=== PATIENT | female | born 1940 | race Caucasian/White ===

== ENCOUNTER → 2016-05-17 | Outpatient (CLI) | payer OTHER ==
[~2016-05-17] MED LIST: ADVIN25050 INH; ALBUAER2 INH; AMOX1TAB43 PO; ASPI81TA28 PO; CEVI30CA PO; CHOL100027 PO; CYAN10004 PO; DXM/4 PO; DXY100 PO; GLIM2TAB2 PO; LENA2.5C PO; LEVO75TA PO; MGNO400 PO; MISCCAP80 PO; NXM/40 PO; OLOP1DRO OP; OMEG10007 PO; POTA-74 PO; PREG1CAP28 PO; PTDOPS OPB; SPIR25TA PO; VNTHFA/IN INH; ZCRT/40 PO; ZOLE1INJ12 IV
[2016-05-17 17:11] LABS: BASO % 0.2 %; BASO ABS # 0.01 K/uL (0-0.2); COMPLETE YES; EOS % 1.1 %; HEMATOCRIT 35.2 % (37-47); IG% 0.2 %; LYMPH % 38.8 %; LYMPH ABS # 1.74 K/uL (1.2-3.4); MEAN CELL VOLUME 92.6 fL (80-100); MEAN CORPUSCULAR HEMOGLOBIN 31.1 pg (25-34); MEAN CORPUSCULAR HGB CONC 33.5 g/dl (32-36); MEAN PLATELET VOLUME 10.5 fL (7.4-10.4); NEUT % 51.7 %; PLATELET COUNT 156 K/uL (130-400); WHITE BLOOD COUNT 4.48 K/uL (4.8-10.8)
[2016-05-17 17:20] LABS: ALT/SGPT 23 U/L (12-78); AST/SGOT 15 U/L (15-37); BLOOD UREA NITROGEN 16 mg/dl (7-18); BUN/CREATININE RATIO 22.7 (10-20); CALCIUM 8.8 mg/dl (8.5-10.1); CARBON DIOXIDE 28 mmol/L (21-32); CHLORIDE 109 mmol/L (98-107); CREATININE 0.72 mg/dl (0.60-1.20); GLUCOSE 140 mg/dl (70-99); POTASSIUM 3.6 mmol/L (3.5-5.1); SODIUM 145 mmol/L (136-145)
[2016-05-17 17:32] LABS: ALB/GLOB RATIO 1.5 (0.9-2); ALKALINE PHOSPHATASE 54 U/L (45-117); THYROID STIMULATING HORMONE 0.788 uIu/ml (0.300-4.500)
[2016-05-18 05:54] LABS: ESTIMATED AVERAGE GLUCOSE 137 mg/dl; HA1C FLAG Normal (Normal)
[2016-05-19 15:17] LABS: FREE KAPPA 50.8 MG/L (3.3-19.4); FREE KAPPA/LAMBDA RATIO 6.96 (0.26-1.65); FREE LAMBDA 7.3 MG/L (5.7-26.3)
== END | disposition home or self-care (01) ==
LOC: C.LABBFT 11:39
PROVIDERS: ATTEND Internal Medicine Hematology & Oncology
DX: C90.00 Multiple myeloma not having achieved remission (principal); E11.49 Type 2 diabetes mellitus with other diabetic neurological complication; E03.9 Hypothyroidism, unspecified

== ENCOUNTER → 2016-06-02 | Outpatient (CLI) | payer OTHER ==
[2016-06-02 17:44] LABS: URINE APPEARANCE CLEAR (CLEAR); URINE BILIRUBIN NEG (NEG); URINE COLOR YELLOW; URINE NITRITE NEG (NEG); URINE SPECIFIC GRAVITY 1.031 (1.000-1.030); UROBILINOGEN NEG (NEG)
[2016-06-02 17:57] LABS: MANUAL MICROSCOPIC REQUIRED? NO; REVIEW REQ? NO
== END | disposition home or self-care (01) ==
LOC: C.LABBFT 16:47
PROVIDERS: ATTEND Internal Medicine
DX: R39.15 Urgency of urination (principal)

== ENCOUNTER → 2016-06-23 | Outpatient (CLI) | payer OTHER ==
[2016-06-23 12:37] LABS: COMPLETE YES; HEMATOCRIT 37.9 % (37-47); IG% 2.5 %; LYMPH ABS # 1.74 K/uL (1.2-3.4); MEAN CELL VOLUME 90.9 fL (80-100); MEAN CORPUSCULAR HEMOGLOBIN 31.2 pg (25-34); MEAN CORPUSCULAR HGB CONC 34.3 g/dl (32-36); MEAN PLATELET VOLUME 10.6 fL (7.4-10.4); MONO % 7.5 %; PLATELET COUNT 243 K/uL (130-400); RED BLOOD COUNT 4.17 M/uL (4.2-5.4)
[2016-06-23 13:08] LABS: ALKALINE PHOSPHATASE 74 U/L (45-117); ALT/SGPT 18 U/L (12-78); AST/SGOT 3 U/L (15-37); BLOOD UREA NITROGEN 35 mg/dl (7-18); BUN/CREATININE RATIO 31.5 (10-20); CALCIUM 9.1 mg/dl (8.5-10.1); CARBON DIOXIDE 24 mmol/L (21-32); CHLORIDE 103 mmol/L (98-107); GLUCOSE 375 mg/dl (70-99); SODIUM 140 mmol/L (136-145)
[2016-06-23 13:19] LABS: ALB/GLOB RATIO 1.1 (0.9-2); IMMUNOGLOBULN A 87.6 mg/dL (70-400)
[2016-06-23 13:30] LABS: BETA-HYDROXYBUTYRATE 1.48 mg/dL (0.2-2.81)
[2016-06-23 14:11] LABS: IMMUNOGLOBULN M 14.5 mg/dL (40-230)
[2016-06-26 10:03] LABS: FREE KAPPA 45.2 MG/L (3.3-19.4); FREE KAPPA/LAMBDA RATIO 5.45 (0.26-1.65); FREE LAMBDA 8.3 MG/L (5.7-26.3)
== END | disposition home or self-care (01) ==
LOC: C.LABBFT 09:01
PROVIDERS: ATTEND Internal Medicine Hematology & Oncology
DX: C90.00 Multiple myeloma not having achieved remission (principal)

== ENCOUNTER → 2016-07-11 | Outpatient (CLI) | payer OTHER ==
[2016-07-11 18:06] LABS: URINE APPEARANCE TURBID (CLEAR); URINE BILIRUBIN NEG (NEG); URINE COLOR YELLOW; URINE EPITHELIAL CELL AUTO >30 /lpf (0-5); URINE NITRITE POS (NEG); URINE PH 6.5 (4.5-7.5); URINE SPECIFIC GRAVITY 1.018 (1.000-1.030); UROBILINOGEN NEG (NEG)
[2016-07-11 18:21] LABS: MANUAL MICROSCOPIC REQUIRED? NO; REVIEW REQ? NO
== END | disposition home or self-care (01) ==
LOC: C.LABBFT 14:15
PROVIDERS: ATTEND Physician Assistant Medical
DX: R39.15 Urgency of urination (principal)

== ENCOUNTER → 2016-07-28 | Outpatient (CLI) | payer OTHER ==
--- NOTE | 2016-07-28 12:16 | DIAGNOSTIC IMAGING REPORT ---
SKELETAL SURVEY COMPLETE CLINICAL HISTORY: Multiple myeloma. COMPARISON STUDY: Skeletal survey dated 06/09/2015. 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 There is no evidence of progressive disease or pathologic fracture. The heart is enlarged. The lung parenchyma is clear as visualized. Spondylotic changes noted throughout the spine. Numerous pelvic flow was preserved. There is a nonobstructed abdominal bowel gas pattern noting significant constipation.An enchondroma is again suggested in the distal left femoral shaft. IMPRESSION: No significant change in the appearance of diffuse osteolytic metastatic disease as compared to 06/09/2015. Electronically signed by: Jose Weiss M.D. 07/28/2016 12:14 PM Dictated Date/Time: 07/28/2016 12:12 PM
== END | disposition home or self-care (01) ==
LOC: C.RAD 11:16
PROVIDERS: ATTEND Internal Medicine Hematology & Oncology
DX: C90.00 Multiple myeloma not having achieved remission (principal)

== ENCOUNTER → 2016-08-08 | Outpatient (CLI) | payer OTHER ==
[2016-08-08 17:28] LABS: BASO % 0.2 %; BASO ABS # 0.01 K/uL (0-0.2); COMPLETE YES; EOS % 2.6 %; HEMATOCRIT 33.2 % (37-47); IG% 1.7 %; LYMPH % 38.5 %; MEAN CELL VOLUME 90.5 fL (80-100); MEAN CORPUSCULAR HEMOGLOBIN 30.5 pg (25-34); MEAN CORPUSCULAR HGB CONC 33.7 g/dl (32-36); MEAN PLATELET VOLUME 9.9 fL (7.4-10.4); MONO % 9.1 %; NEUT % 47.9 %; PLATELET COUNT 177 K/uL (130-400); RED BLOOD COUNT 3.67 M/uL (4.2-5.4); WHITE BLOOD COUNT 4.16 K/uL (4.8-10.8)
[2016-08-08 17:38] LABS: ALT/SGPT 22 U/L (12-78); BLOOD UREA NITROGEN 22 mg/dl (7-18); BUN/CREATININE RATIO 30.6 (10-20); CALCIUM 8.5 mg/dl (8.5-10.1); CARBON DIOXIDE 27 mmol/L (21-32); CHLORIDE 109 mmol/L (98-107); CREATININE 0.73 mg/dl (0.60-1.20); GLUCOSE 149 mg/dl (70-99); POTASSIUM 3.5 mmol/L (3.5-5.1); SODIUM 145 mmol/L (136-145)
[2016-08-08 17:43] LABS: ALKALINE PHOSPHATASE 73 U/L (45-117); AST/SGOT 17 U/L (15-37)
[2016-08-10 10:51] LABS: FREE KAPPA 39.3 MG/L (3.3-19.4); FREE KAPPA/LAMBDA RATIO 3.25 (0.26-1.65); FREE LAMBDA 12.1 MG/L (5.7-26.3)
== END | disposition home or self-care (01) ==
LOC: C.LABBFT 14:46
PROVIDERS: ATTEND Internal Medicine Hematology & Oncology
DX: C90.00 Multiple myeloma not having achieved remission (principal)

== ENCOUNTER → 2016-08-28 | Outpatient (CLI) | payer OTHER | END | disposition home or self-care (01) | LOC: C.MAMM 11:23 | PROVIDERS: ATTEND Internal Medicine Hematology & Oncology | DX: C90.00 Multiple myeloma not having achieved remission (principal); M85.88 Other specified disorders of bone density and structure, other site; M85.851 Other specified disorders of bone density and structure, right thigh; M85.852 Other specified disorders of bone density and structure, left thigh ==

== ENCOUNTER 2016-09-19 22:14 | Inpatient (IN) | payer OTHER ==
[~2016-09-19] VITALS: Ht 152.4 cm; Wt 84.9 kg
[~2016-09-19 22:14] MED LIST changes: -AMOX1TAB43 PO; -DXY100 PO; -MGNO400 PO; -OLOP1DRO OP; -POTA-74 PO; -VNTHFA/IN INH
[2016-09-19] MEDS ORDERED: ACETAMINOPHEN 500 MG TAB PO STA (22:20)
[2016-09-19 22:33] LABS: HEMATOCRIT 34.1 % (37-47); MEAN CELL VOLUME 93.2 fL (80-100); MEAN CORPUSCULAR HEMOGLOBIN 31.7 pg (25-34); MEAN PLATELET VOLUME 10.3 fL (7.4-10.4); PLATELET COUNT 158 K/uL (130-400); RED BLOOD COUNT 3.66 M/uL (4.2-5.4); WHITE BLOOD COUNT 4.74 K/uL (4.8-10.8)
[2016-09-19] MEDS ORDERED: VNTHFA/IN INH (22:42)
[2016-09-19] MEDS ORDERED: OLOP1DRO OP (22:42)
[2016-09-19] MEDS ORDERED: PTDOPS OPB (22:43)
--- NOTE | 2016-09-19 22:45 | EMERGENCY ROOM VISIT NOTE ---
History Report prepared by Jerrod: Jess Mcnamara Under the Supervision of: Dr. Trevon Holman D.O. First contact with patient: 22:16 Chief Complaint: SHORTNESS OF BREATH Stated Complaint: SOB History of Present Illness The patient is a 76 year old female who presents to the Emergency Room via EMS with complaints of worsening shortness of breath starting about a week ago. She also complains of a low grade fever, nonproductive cough, and weakness. She does not wear oxygen at home. She has a history of bronchitis, pneumonia, lung biopsy, and multiple myeloma. She denies any chest pain, abdominal pain, urinary symptoms, blood in stool, or any other complaints. She did receive her flu shot this year. Source of History: patient Onset: about a week ago Position: other (global) Quality: other (shortness of breath) Timing: worsening Associated Symptoms: + cough, + fevers, + weakness, No abdominal pain, No chest pain, No urinary symptoms Review of Systems See HPI for pertinent positives and negatives. A total of ten systems were reviewed and were otherwise negative. Past Medical & Surgical Medical Problems: (1) Bronchitis (2) Hypertension (3) left ankle fracture 1994 (4) Lung biopsy 1999 (5) Multiple myeloma (6) Pneumonia (7) Sarcoidosis Family History FH: cancer FH: lung disease Social History Smoking Status: Never Smoker Marital Status: Housing Status: lives with family Current/Historical Medications Scheduled Aspirin (Aspirin Ec), 81 MG PO QAM Cevimeline Hcl (Evoxac), 30 MG PO BID Cholecalciferol (Vitamin D 1000 Unit), 5,000 INTER.UNIT PO QPM Cyanocobalamin (Vitamin B-12 1000 Mcg), 2,500 MCG PO MWF Esomeprazole Magnesium (Nexium), 40 MG PO QAM Fish Oil (Cresson-3), 1 CAP PO BID Fluticasone Prop/Salmeterol (Advair Diskus 250-50 Mcg/Dose), 1 PUFF INH BID Glimepiride (Glimepiride), 1 TAB PO QAM Lenalidomide (Revlimid), 5 MG PO UD Levothyroxine Sodium (Synthroid), 75 MCG PO QAM Olopatadine Hydrochloride (Pataday), 1 DROP OPB QAM Pregabalin (Lyrica), 150 MG PO QPM Probiotic Product (Probiotic), 1 TAB PO QAM Simvastatin (Zocor), 40 MG PO HS Zoledronic Acid (Zometa), 1 DOSE IV [id number] Scheduled PRN Albuterol Hfa (Ventolin Hfa), 2 PUFFS INH Q6H PRN for SOB/Wheezing Allergies Coded Allergies: Sulfa Antibiotics (Verified Allergy, Severe, RASH, 03/01/16) Latex1 -Allergic Contact Dermititis (Verified Allergy, Unknown, REDNESS, 03/01/16) Codeine (Verified Adverse Reaction, Intermediate, SPACED OUT, 03/01/16) Adhesives (Verified Adverse Reaction, Mild, BREAKS OUT, 03/01/16) Amoxicillin (Verified Adverse Reaction, Unknown, YEAST INFECTION, 03/01/16 ) Clavulanic Acid (Verified Adverse Reaction, Unknown, YEAST INFECTION, ) Physical Exam Vital Signs Date Time Temp Pulse Resp B/P Pulse Ox O2 Delivery O2 Flow Rate FiO2 09/19/16 22:55 95 Nasal Cannula 4.0 09/19/16 22:55 95 Nasal Cannula 4.0 09/19/16 22:44 94 Nasal Cannula 4.0 09/19/16 22:34 37.5 105 18 152/74 89 Room Air 09/19/16 22:34 89 Room Air 09/19/16 22:32 100 Physical Exam GENERAL: Awake, alert, well-appearing, in no distress HENT: Normocephalic, atraumatic. Oropharynx unremarkable. EYES: Normal conjunctiva. Sclera non-icteric. NECK: Supple. No nuchal rigidity. FROM. No JVD. RESPIRATORY: Clear to auscultation. CARDIAC: Regular rate, normal rhythm. Extremities warm and well perfused. Pulses equal. ABDOMEN: Soft, non-distended. No tenderness to palpation. No rebound or guarding. No masses. RECTAL: Deferred. MUSCULOSKELETAL: Chest examination reveals no tenderness. The back is symmetrical on inspection without obvious abnormality. There is no CVA tenderness to palpation. No joint edema. LOWER EXTREMITIES: Calves are equal size bilaterally and non-tender. Mild bilateral lower extremity edema. No discoloration. NEURO: Normal sensorium. No sensory or motor deficits noted. SKIN: No rash or jaundice noted. Medical Decision & Procedures ER Provider Diagnostic Interpretation: X-ray: Per my interpretation, radiologist review. CHEST ONE VIEW PORTABLE CLINICAL HISTORY: Shortness of breath COMPARISON STUDY: 05/23/2012 FINDINGS: The heart is mildly enlarged. There is radiographic evidence of mild congestive failure. There is mild thickening of the minor fissure. Increased markings the right medial lung base, likely represent atelectasis or focal edema. A superimposed inflammatory process could potentially appear similar. Clinical and radiographic follow-up is recommended. IMPRESSION: Mild congestive failure/fluid overload. Right medial basilar opacities, likely represent atelectasis or focal edema. A superimposed inflammatory process could appear similar. Electronically signed by: Clint Hurley M.D. 09/19/2016 10:58 PM Dictated Date/Time: 09/19/2016 10:56 PM Laboratory Results 09/19/16 21:46 Red Blood Count 3.66, Mean Corpuscular Volume 93.2, Mean Corpuscular Hemoglobin 31.7, Mean Corpuscular Hemoglobin Concent 34.0, Mean Platelet Volume 10.3, Neutrophils (%) (Auto) 60.8, Lymphocytes (%) (Auto) 30.4, Monocytes (%) (Auto) 7.8, Eosinophils (%) (Auto) 0.2, Basophils (%) (Auto) 0.2, Neutrophils # (Auto) 2.88, Lymphocytes # (Auto) 1.44, Monocytes # (Auto) 0.37, Eosinophils # (Auto) 0.01, Basophils # (Auto) 0.01 09/19/16 21:46 Test 09/19/16 21:46 09/19/16 22:38 09/19/16 22:39 White Blood Count 4.74 K/uL (4.8-10.8) Red Blood Count 3.66 M/uL (4.2-5.4) Hemoglobin 11.6 g/dL (12.0-16.0) Hematocrit 34.1 % (37-47) Mean Corpuscular Volume 93.2 fL (80-100) Mean Corpuscular Hemoglobin 31.7 pg (25-34) Mean Corpuscular Hemoglobin Concent 34.0 g/dl (32-36) Platelet Count 158 K/uL (130-400) Mean Platelet Volume 10.3 fL (7.4-10.4) Neutrophils (%) (Auto) 60.8 % Lymphocytes (%) (Auto) 30.4 % Monocytes (%) (Auto) 7.8 % Eosinophils (%) (Auto) 0.2 % Basophils (%) (Auto) 0.2 % Neutrophils # (Auto) 2.88 K/uL (1.4-6.5) Lymphocytes # (Auto) 1.44 K/uL (1.2-3.4) Monocytes # (Auto) 0.37 K/uL (0.11-0.59) Eosinophils # (Auto) 0.01 K/uL (0-0.5) Basophils # (Auto) 0.01 K/uL (0-0.2) RDW Standard Deviation 49.9 fL (36.4-46.3) RDW Coefficient of Variation 14.7 % (11.5-14.5) Immature Granulocyte % (Auto) 0.6 % Immature Granulocyte # (Auto) 0.03 K/uL (0.00-0.02) Dohle Bodies 1+ Polychromasia 1+ Tear Drop Cells 1+ Ovalocytes 1+ Anion Gap 10.0 mmol/L (3-11) Est Creatinine Clear Calc Drug Dose 64.0 ml/min Estimated GFR () 91.0 Estimated GFR (Non- 78.5 BUN/Creatinine Ratio 19.6 (10-20) Total Bilirubin 1.2 mg/dl (0.2-1) Aspartate Amino Transf (AST/SGOT) 40 U/L (15-37) Alanine Aminotransferase (ALT/SGPT) 38 U/L (12-78) Alkaline Phosphatase 75 U/L (45-117) Total Protein 6.5 gm/dl (6.4-8.2) Albumin 3.3 gm/dl (3.4-5.0) Globulin 3.2 gm/dl (2.5-4.0) Albumin/Globulin Ratio 1.0 (0.9-2) Bedside Lactic Acid Venous 1.44 mmol/L (0.90-1.70) Bedside Troponin I 0.000 ng/ml (0-0.045) Laboratory results reviewed by me Medications Administered Medications (Trade) Dose Ordered Sig/Jarred Route Start Time Stop Time Status Last Admin Dose Admin Acetaminophen (Tylenol Tab) 1,000 mg NOW STAT PO 09/19/16 22:20 09/19/16 22:22 DC 09/19/16 22:51 1,000 MG ECG Indication: SOB/dyspnea Rate (beats per minute): 97 Rhythm: sinus rhythm Findings: nonspecific-ST abn, left axis deviation, other (No obvious ST elevation) ED Course 221: The patient was evaluated in room C06. A complete history and physical exam was performed. 2220: Tylenol Tab 1000 mg PO 2255: Furosemide 40 mg/Syringe 4 ml @ 4 mls/min IV 2300: Levofloxacin 750 mg IV 2323: Upon reexamination, the patient was resting comfortably. I discussed the test results and treatment plan with her. I discussed the patient's [facility] The patient will be evaluated for further management. Medical Decision Differential diagnosis includes but is not limited to upper respiratory infection, bronchitis, pneumonia, sepsis, urinary tract infection, chf, cardiac. Patient was started on IV Lasix, IV Levaquin and oxygen. Patient appears to have CHF on chest x-ray as well as a right lower lobe infiltrate with the fever. Patient is not in septic shock has a normal lactic acid normal white blood cell count normal troponin. The case was discussed with the [facility] hospitalist for admission at 2329 Consults Time Called: 230 Consulting Physician: Dr. Boogie, from [facility] Service Returned Call: [phone] I discussed the patient's case with Dr. Boogie, from [facility] Service. Impression Primary Impression: Congestive heart failure Additional Impressions: Right lower lobe pneumonia Hypoxia Scribe Attestation The scribe's documentation has been prepared under my direction and personally reviewed by me in its entirety. I confirm that the note above accurately reflects all work, treatment, procedures, and medical decision making performed by me. Departure Information Dispostion Being Evaluated By Hospitalist Referrals No Doctor, Assigned (PCP) Patient Instructions My [facility] Problem Qualifiers Primary Impression: Congestive heart failure Congestive heart failure type: unspecified congestive heart failure type Congestive heart failure chronicity: acute Qualified Codes: I50.9 - Heart failure, unspecified Additional Impressions: Right lower lobe pneumonia Pneumonia type: due to unspecified organism Qualified Codes: J18.1 - Lobar pneumonia, unspecified organism
[2016-09-19 22:53] LABS: ALT/SGPT 38 U/L (12-78); BLOOD UREA NITROGEN 15 mg/dl (7-18); BUN/CREATININE RATIO 19.6 (10-20); CARBON DIOXIDE 26 mmol/L (21-32); CHLORIDE 103 mmol/L (98-107); CREATININE 0.75 mg/dl (0.60-1.20); GLUCOSE 220 mg/dl (70-99); POTASSIUM 3.5 mmol/L (3.5-5.1); SODIUM 139 mmol/L (136-145)
[2016-09-19] MEDS ORDERED: FUROSEMIDE INJ 40 MG in SYRINGE 0 ML IV STA (22:55)
[2016-09-19 22:56] LABS: ALKALINE PHOSPHATASE 75 U/L (45-117); AST/SGOT 40 U/L (15-37)
[2016-09-19 22:57] LABS: BASO % 0.2 %; BASO ABS # 0.01 K/uL (0-0.2); COMPLETE YES; DOHLE BODIES 1+; EOS % 0.2 %; IG% 0.6 %; LYMPH % 30.4 %; LYMPH ABS # 1.44 K/uL (1.2-3.4); MONO % 7.8 %; NEUT % 60.8 %; OVALOCYTES 1+; POLYCHROMASIA 1+; TEAR DROP CELLS 1+
--- NOTE | 2016-09-19 22:59 | DIAGNOSTIC IMAGING REPORT ---
CHEST ONE VIEW PORTABLE CLINICAL HISTORY: Shortness of breath COMPARISON STUDY: 05/23/2012 FINDINGS: The heart is mildly enlarged. There is radiographic evidence of mild congestive failure. There is mild thickening of the minor fissure. Increased markings the right medial lung base, likely represent atelectasis or focal edema. A superimposed inflammatory process could potentially appear similar. Clinical and radiographic follow-up is recommended. IMPRESSION: Mild congestive failure/fluid overload. Right medial basilar opacities, likely represent atelectasis or focal edema. A superimposed inflammatory process could appear similar. Electronically signed by: Clint Hurley M.D. 09/19/2016 10:58 PM Dictated Date/Time: 09/19/2016 10:56 PM
[2016-09-19] MEDS ORDERED: LEVAQUIN 750MG / 150ML D5W IV ONE (23:00)
[2016-09-19] MEDS ORDERED: FUROSEMIDE 40 MG/4 ML VIAL ONE (23:28)
[2016-09-20] VITALS (10 sets, daily range): BP systolic 96–136; BP diastolic 61–79; PULSE 76–90; TEMP 36.2–37.3; O2SAT 94–97; Ht 152.4 cm; Wt 84.9 kg
[2016-09-20] MEDS ORDERED: VANCOMYCIN INJ 1,000 MG in SODIUM CHLORIDE 0.9% 250ML 250 ML IV ONE (00:07)
[2016-09-20 00:29] LABS: MANUAL MICROSCOPIC REQUIRED? NO; REVIEW REQ? NO; URINE APPEARANCE CLEAR (CLEAR); URINE BILIRUBIN NEG (NEG); URINE COLOR YELLOW; URINE NITRITE NEG (NEG); URINE SPECIFIC GRAVITY 1.018 (1.000-1.030); UROBILINOGEN NEG (NEG)
[2016-09-20] MEDS ORDERED: VANCOMYCIN INJ 2,150 MG in SODIUM CHLORIDE 0.9% 500ML 500 ML IV STA (00:53)
--- NOTE | 2016-09-20 01:22 | History and Physical ---
History & Physical Date & Time of Service: September 20, 2016 at 00:15 Chief Complaint: SOB Primary Care Physician: Italo Burr M.D. History of Present Illness Mrs Segovia is a 76 year old female with multiple myeloma on lenalidomide who presents with a 2 days history of nasal congestion, sore throat and dry cough with 1 day of worsening generalized weakness and confusion. She denies any fevers or chills. Her daughters who are with her today report she was wheezing and short of breath but are unclear whether this is sudden onset. She denies any chest pain. 2010 diagnosed with MM after extreme fatigue current in remission under Dr Aisastou Butler and Dr Hong. Stem cell transplant 2010. In the ER she was noted to be hypoxic and had pulmonary edema on the CXR. She was treated as pneumonia with levaquin and given lasix for the pulmonary edema. Past Medical/Surgical History Medical Problems: (1) Bronchitis Status: Chronic (2) Hypertension Status: Chronic (3) left ankle fracture 1994 Status: Resolved (4) Lung biopsy 1999 Status: Resolved (5) Multiple myeloma Status: Chronic (6) Pneumonia Status: Resolved (7) Sarcoidosis Status: Chronic (8) Type 2 diabetes mellitus Status: Chronic Family History FH: cancer FH: lung disease Social History Smoking Status: Never Smoker Marital Status: Immunizations History of Influenza Vaccine: No Influenza Vaccine Date: May 26, 2012 History of Tetanus Vaccine?: Unknown History of Pneumococcal: Yes History of Hepatitis B Vaccine: Yes Multi-Drug Resistant Organisms History of MDRO: No Allergies Coded Allergies: Sulfa Antibiotics (Verified Allergy, Severe, RASH, 03/01/16) Latex1 -Allergic Contact Dermititis (Verified Allergy, Unknown, REDNESS, 03/01/16) Codeine (Verified Adverse Reaction, Intermediate, SPACED OUT, 03/01/16) Adhesives (Verified Adverse Reaction, Mild, BREAKS OUT, 03/01/16) Amoxicillin (Verified Adverse Reaction, Unknown, YEAST INFECTION, 03/01/16 ) Clavulanic Acid (Verified Adverse Reaction, Unknown, YEAST INFECTION, ) Home Medications Scheduled Aspirin (Aspirin Ec), 81 MG PO QAM Cevimeline Hcl (Evoxac), 30 MG PO BID Cholecalciferol (Vitamin D 1000 Unit), 5,000 INTER.UNIT PO QPM Cyanocobalamin (Vitamin B-12 1000 Mcg), 2,500 MCG PO MWF Esomeprazole Magnesium (Nexium), 40 MG PO QAM Fish Oil (Sharon-3), 1 CAP PO BID Fluticasone Prop/Salmeterol (Advair Diskus 250-50 Mcg/Dose), 1 PUFF INH BID Glimepiride (Glimepiride), 1 TAB PO QAM Lenalidomide (Revlimid), 5 MG PO UD Levothyroxine Sodium (Synthroid), 75 MCG PO QAM Olopatadine Hydrochloride (Pataday), 1 DROP OPB QAM Pregabalin (Lyrica), 150 MG PO QPM Probiotic Product (Probiotic), 1 TAB PO QAM Simvastatin (Zocor), 40 MG PO HS Zoledronic Acid (Zometa), 1 DOSE IV [id number] Scheduled PRN Albuterol Hfa (Ventolin Hfa), 2 PUFFS INH Q6H PRN for SOB/Wheezing Review of Systems Constitutional: No chills, No fever Eyes: No worsening of vision ENT: No hearing loss Respiratory: + cough, + wheezing, No sputum Physical Exam Vital Signs Date Time Temp Pulse Resp B/P Pulse Ox O2 Delivery O2 Flow Rate FiO2 09/19/16 23:39 94 20 133/63 96 Nasal Cannula 4.0 09/19/16 22:55 95 Nasal Cannula 4.0 09/19/16 22:55 95 Nasal Cannula 4.0 09/19/16 22:44 94 Nasal Cannula 4.0 09/19/16 22:34 37.5 105 18 152/74 89 Room Air 09/19/16 22:34 89 Room Air 09/19/16 22:32 100 General Appearance: WD/WN, no apparent distress, + obese Eyes: normal inspection, PERRL, EOMI Neck: supple, no JVD, no carotid bruits, trachea midline Respiratory/Chest: chest non-tender, no respiratory distress, no accessory muscle use, + crackles (bibasal coarse) Cardiovascular: regular rate, rhythm, no edema, no murmur, normal peripheral pulses Abdomen/GI: normal bowel sounds, non tender, soft Back: no CVA tenderness Extremities/Musculoskelatal: no calf tenderness, normal capillary refill 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, no motor/sensory deficits ( generalized weakness of her lower limbs but reports no sensory deficit), alert, oriented x 3, + pertinent finding (appears to have some memory recollection problems although when seen she was also sleep deprived) Skin: normal color, warm/dry, no rash Diagnostics Laboratory Results Results Past 24 Hours Test 09/19/16 21:46 09/19/16 22:38 09/19/16 22:39 Range/Units White Blood Count 4.74 4.8-10.8 K/uL Red Blood Count 3.66 4.2-5.4 M/uL Hemoglobin 11.6 12.0-16.0 g/dL Hematocrit 34.1 37-47 % Mean Corpuscular Volume 93.2 80-100 fL Mean Corpuscular Hemoglobin 31.7 25-34 pg Mean Corpuscular Hemoglobin Concent 34.0 32-36 g/dl Platelet Count 158 130-400 K/uL Mean Platelet Volume 10.3 7.4-10.4 fL Neutrophils (%) (Auto) 60.8 % Lymphocytes (%) (Auto) 30.4 % Monocytes (%) (Auto) 7.8 % Eosinophils (%) (Auto) 0.2 % Basophils (%) (Auto) 0.2 % Neutrophils # (Auto) 2.88 1.4-6.5 K/uL Lymphocytes # (Auto) 1.44 1.2-3.4 K/uL Monocytes # (Auto) 0.37 0.11-0.59 K/uL Eosinophils # (Auto) 0.01 0-0.5 K/uL Basophils # (Auto) 0.01 0-0.2 K/uL RDW Standard Deviation 49.9 36.4-46.3 fL RDW Coefficient of Variation 14.7 11.5-14.5 % Immature Granulocyte % (Auto) 0.6 % Immature Granulocyte # (Auto) 0.03 0.00-0.02 K/uL Dohle Bodies 1+ Polychromasia 1+ Tear Drop Cells 1+ Ovalocytes 1+ Sodium Level 139 136-145 mmol/L Potassium Level 3.5 3.5-5.1 mmol/L Chloride Level 103 98-107 mmol/L Carbon Dioxide Level 26 21-32 mmol/L Anion Gap 10.0 3-11 mmol/L Blood Urea Nitrogen 15 7-18 mg/dl Creatinine 0.75 0.60-1.20 mg/dl Est Creatinine Clear Calc Drug Dose 64.0 ml/min Estimated GFR () 91.0 Estimated GFR (Non- 78.5 BUN/Creatinine Ratio 19.6 10-20 Random Glucose 220 70-99 mg/dl Calcium Level 9.0 8.5-10.1 mg/dl Total Bilirubin 1.2 0.2-1 mg/dl Aspartate Amino Transf (AST/SGOT) 40 15-37 U/L Alanine Aminotransferase (ALT/SGPT) 38 12-78 U/L Alkaline Phosphatase 75 45-117 U/L Total Protein 6.5 6.4-8.2 gm/dl Albumin 3.3 3.4-5.0 gm/dl Globulin 3.2 2.5-4.0 gm/dl Albumin/Globulin Ratio 1.0 0.9-2 Bedside Lactic Acid Venous 1.44 0.90-1.70 mmol/L Bedside Troponin I 0.000 0-0.045 ng/ml Microbiology Results 09/19/16 Blood Culture, Received Pending 09/19/16 Blood Culture, Received Pending Diagnostic Radiology CHEST ONE VIEW PORTABLE CLINICAL HISTORY: Shortness of breath COMPARISON STUDY: 05/23/2012 FINDINGS: The heart is mildly enlarged. There is radiographic evidence of mild congestive failure. There is mild thickening of the minor fissure. Increased markings the right medial lung base, likely represent atelectasis or focal edema. A superimposed inflammatory process could potentially appear similar. Clinical and radiographic follow-up is recommended. IMPRESSION: Mild congestive failure/fluid overload. Right medial basilar opacities, likely represent atelectasis or focal edema. A superimposed inflammatory process could appear similar. Electronically signed by: Clint Hurley M.D. 09/19/2016 10:58 PM Dictated Date/Time: 09/19/2016 10:56 PM EKG Q waves in inferior leads, Rate 97 bpm Impression Assessment and Plan 76 year old on immunosuppressive agents with suspected pneumonia on CXR with 2 days of cough and generalized fatigue Acute hypoxic respiratory failure - aim O2 > 94% Pneumonia on immunosuppressive medication - Cough with possible consolidation on CXR and bibasal crackles - treat as pneumonia and recent contact with healthcare facility - MRSA nose swab - Zosyn , vancomycin and levaquin Pulmonary edema on CXR - renal function and LFTs relatively unremarkable. - treated with lasix in the ER. - may be related to lenalidomide - consult heme/onc - Will get echo in the morning and trend troponins overnight, EKG with Q waves in inferior leads - daily weights + I&Os Type 2 diabetes - ACHS BSG with diabetic diet - hold diabetic oral meds and treat with sliding scale insulin. Aim BSG 110-140 Multiple myeloma in remission - consult heme/onc for continuation fo lenalidomide Code - Full VTE Prophylaxis - heparin 5000 units Q8H SQ Disposition - admit to telemetry while trending cardiac enzymes due to shortness of breath with new onset pulmonary edema Level of Care Telemetry Resuscitation Status FULL RESUSCITATION VTE Prophylaxis Given or contraindicated: Unfractionated heparin SQ Additional Copies To Yovany Asher M.D. Resident Tracking Resident Involvement: Resident Care Provided Care Provided: Adult [facility] Assessment and Plan Attending Addendum: I have physically seen and examined this patient, have directed their medical care, have supervised the medical residents activities, and agree with the H&P as noted above, with the following changes: NONE
[2016-09-20] MEDS ORDERED: ACETAMINOPHEN 325 MG TAB PO PRN (01:30)
[2016-09-20] MEDS ORDERED: PIPERACILL/TAZOBAC IV 3.375 GM in DEXTROSE 5% 100ML 100 ML IV ONE (02:17)
[2016-09-20] MEDS ORDERED: PIPERACILL/TAZOBAC IV 4.5 GM in DEXTROSE 5% 100ML IV STA (02:39)
[2016-09-20] MEDS ORDERED: VANCOMYCIN CONSULT ACTIVE PRN (02:45)
[2016-09-20] MEDS ORDERED: PIPERACILL/TAZOBAC CONSULT ACTIVE PRN (02:45)
[2016-09-20] MEDS: ONDANSETRON INJ 2 MG/ML 2 ML VIAL IV PRN ×2 (03:36→21:45)
[2016-09-20] MEDS ORDERED: PIPERACILL/TAZOBAC IV 3.375 GM in DEXTROSE 5% 100ML 100 ML IV SCH (06:00)
[2016-09-20 06:59] LABS: BASO % 0.2 %; BASO ABS # 0.01 K/uL (0-0.2); COMPLETE YES; EOS % 0.5 %; HEMATOCRIT 32.7 % (37-47); LYMPH % 34.6 %; LYMPH ABS # 1.41 K/uL (1.2-3.4); MEAN CELL VOLUME 94.5 fL (80-100); MEAN CORPUSCULAR HEMOGLOBIN 31.2 pg (25-34); MONO % 13.2 %; NEUT % 51.5 %; PLATELET COUNT 151 K/uL (130-400); RED BLOOD COUNT 3.46 M/uL (4.2-5.4); WHITE BLOOD COUNT 4.08 K/uL (4.8-10.8)
[2016-09-20 07:06] LABS: INR 1.1 (0.9-1.1); PARTIAL THROMBOPLASTIN RATIO 1.1; PROTHROMBIN TIME (PATIENT) 11.9 SECONDS (9.0-12.0)
[2016-09-20] MEDS: PIPERACILL/TAZOBAC IV 4.5 GM in DEXTROSE 5% 100ML IV SCH ×3 (07:31→23:52)
[2016-09-20 07:33] LABS: ALT/SGPT 40 U/L (12-78); AST/SGOT 32 U/L (15-37); BLOOD UREA NITROGEN 13 mg/dl (7-18); BUN/CREATININE RATIO 15.6 (10-20); CALCIUM 8.1 mg/dl (8.5-10.1); CARBON DIOXIDE 32 mmol/L (21-32); CHLORIDE 104 mmol/L (98-107); CREATININE 0.86 mg/dl (0.60-1.20); GLUCOSE 173 mg/dl (70-99); POTASSIUM 3.4 mmol/L (3.5-5.1); SODIUM 142 mmol/L (136-145)
[2016-09-20 07:38] LABS: ALB/GLOB RATIO 0.8 (0.9-2); ALKALINE PHOSPHATASE 67 U/L (45-117)
[2016-09-20] MEDS ORDERED: GLUCOSE 10 TABS/TUBE PO PRN (08:00)
[2016-09-20] MEDS ORDERED: DC ALL PREVIOUSLY ORDERED DIABETES MEDS ONE (08:00)
[2016-09-20] MEDS ORDERED: DEXTROSE 50% 50 ML SYR IV PRN (08:00)
[2016-09-20] MEDS ORDERED: GLUCOSE 40% GEL 15 GM TUBE PO PRN (08:00)
[2016-09-20] MEDS ORDERED: ALBUTEROL HFA 8 GM INHALER INH PRN (08:00)
[2016-09-20] MEDS ORDERED: GLUCAGON FOR INJ 1 MG VIAL SQ PRN (08:00)
[2016-09-20 08:21] LABS: ESTIMATED AVERAGE GLUCOSE 166 mg/dl; HA1C FLAG Normal (Normal)
[2016-09-20] MEDS ORDERED: NON-FORMULARY MEDICATION (Probiotic Product (Probiotic) 1 TAB) PO SCH (09:00)
[2016-09-20] MEDS ORDERED: POTASSIUM CHLORIDE 20 MEQ TABCR PO ONE (09:00)
[2016-09-20] MEDS ORDERED: VANCOMYCIN INJ 1,000 MG in SODIUM CHLORIDE 0.9% 250ML 250 ML IV SCH (09:00)
[2016-09-20] MEDS: HEPARIN SOD 5000 UNIT/0.5 ML CARP SQ SCH ×2 (12:15→21:45)
[2016-09-20] MEDS: INSULIN HUMAN REGULAR SC SCH ×3 (12:15→21:09)
--- NOTE | 2016-09-20 14:15 | Pharmacy Progress Note ---
Pharmacy Abx Initial Consult Date of Service September 20, 2016. Pharmacy Dosing Scope Date of Consult: 09/20/16 Consultation requested by: Dr. Gunderson Pharmacy is consulted to initiate vancomycin and piperacillin/tazobactam IV dosing therapy, order appropriate labs and adjust drug dose/frequency. Subjective The patient is a 76 year old female admitted on September 20, 2016 at 01:29. Objective Height (Feet): 5 Height (Inches): 0.00 Weight (Kilograms): 85.700 Vital Signs (Past 12Hrs) Vital Signs Past 12 Hours Date Time Temp Pulse Resp B/P Pulse Ox O2 Delivery O2 Flow Rate FiO2 09/20/16 11:56 97 Nasal Cannula 4.0 09/20/16 11:27 37.3 76 18 128/74 97 4.0 09/20/16 08:00 97 Nasal Cannula 4.0 09/20/16 07:18 36.9 88 18 136/66 97 4.0 09/20/16 04:07 36.8 80 20 100/62 97 Nasal Cannula 4.0 Lab Results (24Hrs) Test 09/19/16 21:46 09/19/16 22:38 09/19/16 22:39 09/20/16 00:15 White Blood Count 4.74 K/uL (4.8-10.8) Red Blood Count 3.66 M/uL (4.2-5.4) Hemoglobin 11.6 g/dL (12.0-16.0) Hematocrit 34.1 % (37-47) Mean Corpuscular Volume 93.2 fL (80-100) Mean Corpuscular Hemoglobin 31.7 pg (25-34) Mean Corpuscular Hemoglobin Concent 34.0 g/dl (32-36) Platelet Count 158 K/uL (130-400) Mean Platelet Volume 10.3 fL (7.4-10.4) Neutrophils (%) (Auto) 60.8 % Lymphocytes (%) (Auto) 30.4 % Monocytes (%) (Auto) 7.8 % Eosinophils (%) (Auto) 0.2 % Basophils (%) (Auto) 0.2 % Neutrophils # (Auto) 2.88 K/uL (1.4-6.5) Lymphocytes # (Auto) 1.44 K/uL (1.2-3.4) Monocytes # (Auto) 0.37 K/uL (0.11-0.59) Eosinophils # (Auto) 0.01 K/uL (0-0.5) Basophils # (Auto) 0.01 K/uL (0-0.2) RDW Standard Deviation 49.9 fL (36.4-46.3) RDW Coefficient of Variation 14.7 % (11.5-14.5) Immature Granulocyte % (Auto) 0.6 % Immature Granulocyte # (Auto) 0.03 K/uL (0.00-0.02) Dohle Bodies 1+ Polychromasia 1+ Tear Drop Cells 1+ Ovalocytes 1+ Sodium Level 139 mmol/L (136-145) Potassium Level 3.5 mmol/L (3.5-5.1) Chloride Level 103 mmol/L (98-107) Carbon Dioxide Level 26 mmol/L (21-32) Anion Gap 10.0 mmol/L (3-11) Blood Urea Nitrogen 15 mg/dl (7-18) Creatinine 0.75 mg/dl (0.60-1.20) Est Creatinine Clear Calc Drug Dose 64.0 ml/min Estimated GFR () 91.0 Estimated GFR (Non- 78.5 BUN/Creatinine Ratio 19.6 (10-20) Random Glucose 220 mg/dl (70-99) Calcium Level 9.0 mg/dl (8.5-10.1) Total Bilirubin 1.2 mg/dl (0.2-1) Aspartate Amino Transf (AST/SGOT) 40 U/L (15-37) Alanine Aminotransferase (ALT/SGPT) 38 U/L (12-78) Alkaline Phosphatase 75 U/L (45-117) Troponin I < 0.015 ng/ml (0-0.045) Total Protein 6.5 gm/dl (6.4-8.2) Albumin 3.3 gm/dl (3.4-5.0) Globulin 3.2 gm/dl (2.5-4.0) Albumin/Globulin Ratio 1.0 (0.9-2) Bedside Lactic Acid Venous 1.44 mmol/L (0.90-1.70) Bedside Troponin I 0.000 ng/ml (0-0.045) Urine Color YELLOW Urine Appearance CLEAR (CLEAR) Urine pH 7.0 (4.5-7.5) Urine Specific [place] 1.018 (1.000-1.030) Urine Protein NEG (NEG) Urine Glucose (UA) 3+ (NEG) Urine Ketones 1+ (NEG) Urine Occult Blood NEG (NEG) Urine Nitrite NEG (NEG) Urine Bilirubin NEG (NEG) Urine Urobilinogen NEG (NEG) Urine Leukocyte Esterase NEG (NEG) Test 09/20/16 06:36 09/20/16 11:33 White Blood Count 4.08 K/uL (4.8-10.8) Red Blood Count 3.46 M/uL (4.2-5.4) Hemoglobin 10.8 g/dL (12.0-16.0) Hematocrit 32.7 % (37-47) Mean Corpuscular Volume 94.5 fL (80-100) Mean Corpuscular Hemoglobin 31.2 pg (25-34) Mean Corpuscular Hemoglobin Concent 33.0 g/dl (32-36) Platelet Count 151 K/uL (130-400) Mean Platelet Volume 10.0 fL (7.4-10.4) Neutrophils (%) (Auto) 51.5 % Lymphocytes (%) (Auto) 34.6 % Monocytes (%) (Auto) 13.2 % Eosinophils (%) (Auto) 0.5 % Basophils (%) (Auto) 0.2 % Neutrophils # (Auto) 2.10 K/uL (1.4-6.5) Lymphocytes # (Auto) 1.41 K/uL (1.2-3.4) Monocytes # (Auto) 0.54 K/uL (0.11-0.59) Eosinophils # (Auto) 0.02 K/uL (0-0.5) Basophils # (Auto) 0.01 K/uL (0-0.2) RDW Standard Deviation 50.6 fL (36.4-46.3) RDW Coefficient of Variation 15.0 % (11.5-14.5) Immature Granulocyte % (Auto) 0.0 % Immature Granulocyte # (Auto) 0.00 K/uL (0.00-0.02) Prothrombin Time 11.9 SECONDS (9.0-12.0) Prothromb Time International Ratio 1.1 (0.9-1.1) Activated Partial Thromboplast Time 29.4 SECONDS (21.0-31.0) Partial Thromboplastin Ratio 1.1 Sodium Level 142 mmol/L (136-145) Potassium Level 3.4 mmol/L (3.5-5.1) Chloride Level 104 mmol/L (98-107) Carbon Dioxide Level 32 mmol/L (21-32) Anion Gap 6.0 mmol/L (3-11) Blood Urea Nitrogen 13 mg/dl (7-18) Creatinine 0.86 mg/dl (0.60-1.20) Est Creatinine Clear Calc Drug Dose 55.8 ml/min Estimated GFR () 77.1 Estimated GFR (Non- 66.6 BUN/Creatinine Ratio 15.6 (10-20) Random Glucose 173 mg/dl (70-99) Estimated Average Glucose 166 mg/dl Hemoglobin A1c 7.4 % (4.5-5.6) Calcium Level 8.1 mg/dl (8.5-10.1) Total Bilirubin 1.6 mg/dl (0.2-1) Aspartate Amino Transf (AST/SGOT) 32 U/L (15-37) Alanine Aminotransferase (ALT/SGPT) 40 U/L (12-78) Alkaline Phosphatase 67 U/L (45-117) Troponin I < 0.015 ng/ml (0-0.045) Total Protein 6.1 gm/dl (6.4-8.2) Albumin 2.8 gm/dl (3.4-5.0) Globulin 3.3 gm/dl (2.5-4.0) Albumin/Globulin Ratio 0.8 (0.9-2) Bedside Glucose 245 mg/dl (70-90) Micro Results Date/Time Source Procedure Growth Status 09/19/16 22:43 Blood Blood Culture Pending Received 09/19/16 22:30 Blood Blood Culture Pending Received 09/20/16 09:20 Nasal MRSA DNA Surveillance Screen - Final Specimen Positive for 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 Plan: Broad-spectrum ABX for treatment of pneumonia Vancomycin: * Loading dose: 2150 mg (25 mg/kg) * Maintenance dose: 1250 mg IV (14.5 mg/kg) every 16 hours * Goal trough level for pneumonia : 15 to 20 mcg/mL * Trough level ordered for 09/22/16 * this is prior to steady state, however would like to assess earlier in therapy since patient is immunocompromised Piperacillin/tazobactam: * 4.5 g bolus administered over 30 minutes, then 4.5 g IV extended infusion every 8 hours for CrCl greater than 20 mL/min * Aggressive dosing selected due to critically ill status/BMI 35 or more/ history of cystic fibrosis. Levofloxacin: * 750mg IV every 24 hours * no dose adjustment for CrCl above 50mL/min Pharmacy will continue to follow and will adjust dose/frequency as necessary. Thank you.
--- NOTE | 2016-09-20 15:48 | Oncology Consultation ---
Oncology/Heme Consultation Date of Consultation: September 20, 2016. Attending Physician: Mauricio Mitchell D.O. Reason for Consultation: Multiple myeloma Shortness of breath History of Present Illness Ms. Segovia is a 76 year old woman with a history of kappa light chain myeloma. She underwent autologous stem cell transplant in 2010 and has remained on maintenance therapy Revlimid and dexamethasone ever since, plus or minus a few periods where the drug was briefly discontinued. 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 She presented to the ER overnight with worsening cough and shortness of breath. She has not been able to produce sputum, but feels her cough is "wet." A chest x-ray overnight revealed increased interstitial markings and a mildly enlarged heart, possibly suggestive of heart failure. She denies any chest pain, palpitations, or orthopnea. She has no prior history of heart failure. She also denies any fevers, chills, or sweats. Past Medical/Surgical History Medical Problems: (1) Congestive heart failure Status: Acute (2) Hypoxia Status: Acute (3) Right lower lobe pneumonia Status: Acute Family History FH: cancer FH: lung disease Social History Smoking Status: Unknown if Ever Smoked Marital Status: Housing Status: lives with family Allergies Coded Allergies: Sulfa Antibiotics (Verified Allergy, Severe, RASH, 03/01/16) Latex1 -Allergic Contact Dermititis (Verified Allergy, Unknown, REDNESS, 03/01/16) Codeine (Verified Adverse Reaction, Intermediate, SPACED OUT, 03/01/16) Adhesives (Verified Adverse Reaction, Mild, BREAKS OUT, 03/01/16) Amoxicillin (Verified Adverse Reaction, Unknown, YEAST INFECTION, 03/01/16 ) Clavulanic Acid (Verified Adverse Reaction, Unknown, YEAST INFECTION, ) Home Medications Scheduled Aspirin (Aspirin Ec), 81 MG PO QAM Cevimeline Hcl (Evoxac), 30 MG PO BID Cholecalciferol (Vitamin D 1000 Unit), 5,000 INTER.UNIT PO QPM Cyanocobalamin (Vitamin B-12 1000 Mcg), 2,500 MCG PO MWF Esomeprazole Magnesium (Nexium), 40 MG PO QAM Fish Oil ([place]-3), 1 CAP PO BID Fluticasone Prop/Salmeterol (Advair Diskus 250-50 Mcg/Dose), 1 PUFF INH BID Glimepiride (Glimepiride), 1 TAB PO QAM Lenalidomide (Revlimid), 5 MG PO UD Levothyroxine Sodium (Synthroid), 75 MCG PO QAM Olopatadine Hydrochloride ([place]), 1 DROP OPB QAM Pregabalin (Lyrica), 150 MG PO QPM Probiotic Product (Probiotic), 1 TAB PO QAM Simvastatin (Zocor), 40 MG PO HS Zoledronic Acid (Zometa), 1 DOSE IV [id number] Scheduled PRN Albuterol Hfa (Ventolin Hfa), 2 PUFFS INH Q6H PRN for SOB/Wheezing Current Inpatient Medications Current Inpatient Medications Medications (Trade) Dose Ordered Sig/Jarred Route Start Time Stop Time Status Last Admin Dose Admin Heparin Sodium (Porcine) (Heparin Sq 5000 Unit/0.5ml) 5,000 unit Q8 SQ 09/20/16 14:00 10/20/16 13:59 09/20/16 12:15 5,000 UNIT Acetaminophen (Tylenol Tab) 650 mg Q4H PRN PO 09/20/16 01:30 10/20/16 01:29 Ondansetron HCl 4 mg 4 mg Q6H PRN IV 09/20/16 01:30 10/20/16 01:29 09/20/16 03:36 4 MG Piperacillin Sod/ Tazobactam Sod/ Dextrose (Zosyn Iv/D5 100ml) 120 ml @ 30 mls/hr Q8H IV 09/20/16 08:00 09/27/16 07:59 09/20/16 07:31 30 MLS/HR Piperacillin Sod/ Tazobactam Sod (Consult) 1 ea UD PRN N/A 09/20/16 02:45 10/20/16 02:44 Vancomycin HCl (Consult) 1 ea UD PRN N/A 09/20/16 02:45 10/20/16 02:44 Albuterol (Ventolin Hfa Inhaler) 2 puffs Q6H PRN INH 09/20/16 08:00 10/20/16 07:59 Aspirin (Ecotrin Tab) 81 mg QAM PO 09/21/16 09:00 10/21/16 08:59 Cholecalciferol (Vitamin D Tab) 5,000 inter.unit QPM PO 09/20/16 21:00 10/20/16 20:59 Cyanocobalamin (Vitamin B-12 Tab) 2,500 mcg MoWeFr@0900 PO 09/22/16 09:00 10/22/16 08:59 Fish Oil ([place]-3 (Purified Fish Oil) Cap) 1 gm BID PO 09/20/16 21:00 10/20/16 20:59 Salmeterol Xinafoate/ Fluticasone (Advair Diskus 250/50 Inh) 1 puff BID INH 09/20/16 21:00 10/20/16 20:59 Levothyroxine Sodium (Synthroid Tab) 75 mcg DAILYBB PO 09/21/16 06:00 10/21/16 05:59 Pregabalin (Lyrica Cap) 150 mg QPM PO 09/20/16 21:00 10/20/16 20:59 Simvastatin (Zocor Tab) 40 mg HS PO 09/20/16 21:00 10/20/16 20:59 Miscellaneous Information (Order Awaiting Action) 1 ea QS N/A 09/20/16 16:00 10/20/16 15:59 Pantoprazole Sodium (Protonix Tab) 40 mg QAM PO 09/21/16 09:00 10/21/16 08:59 Miscellaneous Information (Order Awaiting Action) 1 ea QS N/A 09/20/16 16:00 10/20/16 15:59 Insulin Human Regular (novoLIN-R) SLIDING SCALE IF C... ACHS SC 09/20/16 11:00 10/20/16 10:59 09/20/16 12:15 4 UNITS Glucose (Glucose 40% Gel) 15-30 GRAMS 15 GRAMS... UD PRN PO 09/20/16 08:00 10/20/16 07:59 Glucose (Glucose Chew Tab) 4-8 Tablets 4 Tabl... UD PRN PO 09/20/16 08:00 10/20/16 07:59 Dextrose (Dextrose 50% 50ML Syringe) 25-50ML OF 50% DW IV FOR... UD PRN IV 09/20/16 08:00 10/20/16 07:59 Glucagon 1 mg 1 mg UD PRN SQ 09/20/16 08:00 10/20/16 07:59 Levofloxacin/Prmx (Levaquin / D5W/ Premixed D5W) 150 ml @ 100 mls/hr DAILY@2200 IV 09/20/16 22:00 09/25/16 23:29 Lenalidomide (Revlimid) 5 mg HS PO 09/20/16 21:00 10/20/16 20:59 UNV Miscellaneous Information 1 ea 1 ea QS N/A 09/20/16 12:49 10/20/16 12:48 Vancomycin HCl/ Sodium Chloride (Vancomycin Inj/ Nss 250ml) 275 ml @ 125 mls/hr Q16H IV 09/20/16 18:00 09/27/16 00:59 Review of Systems Constitutional: No chills, No fever, No sweats ENT: No nasal symptoms Respiratory: + cough, + shortness of breath, No sputum Cardiovascular: No chest pain, No edema, No orthopnea, No palpitations Abdomen: No pain Musculoskeletal: No calf pain, No swelling Neurologic: No weakness Hematologic / Lymphatic: No abnormal bleeding/bruising Integumentary: No rash Physical Exam Date Time Temp Pulse Resp B/P Pulse Ox O2 Delivery O2 Flow Rate FiO2 09/20/16 11:56 97 Nasal Cannula 4.0 09/20/16 11:27 37.3 76 18 128/74 97 4.0 09/20/16 08:00 97 Nasal Cannula 4.0 09/20/16 07:18 36.9 88 18 136/66 97 4.0 09/20/16 04:07 36.8 80 20 100/62 97 Nasal Cannula 4.0 09/20/16 02:06 36.8 90 22 113/71 97 Nasal Cannula 4.0 09/20/16 01:45 87 20 111/76 97 09/20/16 00:16 36.8 94 22 120/77 96 Nasal Cannula 4.0 09/19/16 23:39 94 20 133/63 96 Nasal Cannula 4.0 09/19/16 22:55 95 Nasal Cannula 4.0 09/19/16 22:55 95 Nasal Cannula 4.0 09/19/16 22:44 94 Nasal Cannula 4.0 09/19/16 22:34 37.5 105 18 152/74 89 Room Air 09/19/16 22:34 89 Room Air 09/19/16 22:32 100 General Appearance: WD/WN, no apparent distress ENT: pharynx normal Respiratory/Chest: no respiratory distress, + crackles (bibasilar) Cardiovascular: regular rate, rhythm, no JVD Abdomen/GI: non tender, soft Extremities/Musculoskelatal: no calf tenderness, no pedal edema Neurologic/Psych: no motor/sensory deficits, alert, oriented x 3 Skin: no rash Lymphatic: no adenopathy Laboratory Results Last 24 Hours Test 09/19/16 21:46 09/19/16 22:38 09/19/16 22:39 09/20/16 00:15 White Blood Count 4.74 K/uL Red Blood Count 3.66 M/uL Hemoglobin 11.6 g/dL Hematocrit 34.1 % Mean Corpuscular Volume 93.2 fL Mean Corpuscular Hemoglobin 31.7 pg Mean Corpuscular Hemoglobin Concent 34.0 g/dl Platelet Count 158 K/uL Mean Platelet Volume 10.3 fL Neutrophils (%) (Auto) 60.8 % Lymphocytes (%) (Auto) 30.4 % Monocytes (%) (Auto) 7.8 % Eosinophils (%) (Auto) 0.2 % Basophils (%) (Auto) 0.2 % Neutrophils # (Auto) 2.88 K/uL Lymphocytes # (Auto) 1.44 K/uL Monocytes # (Auto) 0.37 K/uL Eosinophils # (Auto) 0.01 K/uL Basophils # (Auto) 0.01 K/uL RDW Standard Deviation 49.9 fL RDW Coefficient of Variation 14.7 % Immature Granulocyte % (Auto) 0.6 % Immature Granulocyte # (Auto) 0.03 K/uL Dohle Bodies 1+ Polychromasia 1+ Tear Drop Cells 1+ Ovalocytes 1+ Sodium Level 139 mmol/L Potassium Level 3.5 mmol/L Chloride Level 103 mmol/L Carbon Dioxide Level 26 mmol/L Anion Gap 10.0 mmol/L Blood Urea Nitrogen 15 mg/dl Creatinine 0.75 mg/dl Est Creatinine Clear Calc Drug Dose 64.0 ml/min Estimated GFR () 91.0 Estimated GFR (Non- 78.5 BUN/Creatinine Ratio 19.6 Random Glucose 220 mg/dl Calcium Level 9.0 mg/dl Total Bilirubin 1.2 mg/dl Aspartate Amino Transf (AST/SGOT) 40 U/L Alanine Aminotransferase (ALT/SGPT) 38 U/L Alkaline Phosphatase 75 U/L Troponin I < 0.015 ng/ml Total Protein 6.5 gm/dl Albumin 3.3 gm/dl Globulin 3.2 gm/dl Albumin/Globulin Ratio 1.0 Bedside Lactic Acid Venous 1.44 mmol/L Bedside Troponin I 0.000 ng/ml Urine Color YELLOW Urine Appearance CLEAR Urine pH 7.0 Urine Specific [place] 1.018 Urine Protein NEG Urine Glucose (UA) 3+ Urine Ketones 1+ Urine Occult Blood NEG Urine Nitrite NEG Urine Bilirubin NEG Urine Urobilinogen NEG Urine Leukocyte Esterase NEG Test 09/20/16 06:36 09/20/16 11:33 09/20/16 14:40 White Blood Count 4.08 K/uL Red Blood Count 3.46 M/uL Hemoglobin 10.8 g/dL Hematocrit 32.7 % Mean Corpuscular Volume 94.5 fL Mean Corpuscular Hemoglobin 31.2 pg Mean Corpuscular Hemoglobin Concent 33.0 g/dl Platelet Count 151 K/uL Mean Platelet Volume 10.0 fL Neutrophils (%) (Auto) 51.5 % Lymphocytes (%) (Auto) 34.6 % Monocytes (%) (Auto) 13.2 % Eosinophils (%) (Auto) 0.5 % Basophils (%) (Auto) 0.2 % Neutrophils # (Auto) 2.10 K/uL Lymphocytes # (Auto) 1.41 K/uL Monocytes # (Auto) 0.54 K/uL Eosinophils # (Auto) 0.02 K/uL Basophils # (Auto) 0.01 K/uL RDW Standard Deviation 50.6 fL RDW Coefficient of Variation 15.0 % Immature Granulocyte % (Auto) 0.0 % Immature Granulocyte # (Auto) 0.00 K/uL Prothrombin Time 11.9 SECONDS Prothromb Time International Ratio 1.1 Activated Partial Thromboplast Time 29.4 SECONDS Partial Thromboplastin Ratio 1.1 Sodium Level 142 mmol/L Potassium Level 3.4 mmol/L Chloride Level 104 mmol/L Carbon Dioxide Level 32 mmol/L Anion Gap 6.0 mmol/L Blood Urea Nitrogen 13 mg/dl Creatinine 0.86 mg/dl Est Creatinine Clear Calc Drug Dose 55.8 ml/min Estimated GFR () 77.1 Estimated GFR (Non- 66.6 BUN/Creatinine Ratio 15.6 Random Glucose 173 mg/dl Estimated Average Glucose 166 mg/dl Hemoglobin A1c 7.4 % Calcium Level 8.1 mg/dl Total Bilirubin 1.6 mg/dl Aspartate Amino Transf (AST/SGOT) 32 U/L Alanine Aminotransferase (ALT/SGPT) 40 U/L Alkaline Phosphatase 67 U/L Troponin I < 0.015 ng/ml Total Protein 6.1 gm/dl Albumin 2.8 gm/dl Globulin 3.3 gm/dl Albumin/Globulin Ratio 0.8 Bedside Glucose 245 mg/dl Erythrocyte Sedimentation Rate 47 mm/hr C-Reactive Protein 24.50 mg/dl Procalcitonin 1.32 ng/ml Assessment & Plan Ms. Segovia is a 76 year old woman in remission status post autologous stem cell transplant for kappa light chain myeloma. She has been on maintenance Revlimid and dexamethasone for years and has generally tolerated it well. Her clinical presentation is more consistent with an infection, like a pneumonia or viral syndrome. However, her chest x-ray is more consistent with volume overload. I would consider an echocardiogram to better clarify her cardiac status. The package insert describes a risk of cardiotoxicity with Revlimid, but this would be rare and is typically seen in patients with pre-existing cardiac disease. The Revlimid is an immunomodulator and so her immune system is likely not normal , though she is not profoundly immunosuppressed. Thus, I would consider opportunistic infections less likely, though if she does not get better or if the echo is unrevealing, a CT chest might better clarify the etiology of her shortness of breath.
--- NOTE | 2016-09-20 16:59 | Family Medicine Progress Note ---
Progress Note Date of Service September 20, 2016. Subjective Pt evaluation today including: conversation w/ patient, physical exam, chart review, lab review, review of studies Pain: 0/10 PO Intake: WNL Voiding: no voiding problems Patient states " I am at 50%" and states that she has ongoing congestion in the sinuses. She does not have a productive cough but states that she has been having "phlegm in the back of my throat from my nose". She denies any chest pain or swelling in the lower extremity She also notes of a "heaviness when I walk and I shuffle" - this apparently started after stem cell treatment in 2010 - She is being followed with Dr Osuna for Radiculopathy - She has been worked up for Parkinsons and sinemet did not improve symptoms Constitutional: No fever Eyes: No worsening of vision ENT: No hearing loss Respiratory: + cough, + dyspnea at rest, + dyspnea on exertion, + shortness of breath, + wheezing, No sputum Cardiovascular: No chest pain Abdomen: No constipation, No diarrhea, No nausea, No pain, No vomiting Musculoskeletal: No joint pain, No muscle pain Female : No dysuria Neurologic: + balance problems, No weakness Psychiatric: No depression symptoms Heme: No abnormal bleeding/bruising Endo: + fatigue Skin: No rash Medications Medications Administered Medications (Trade) Dose Ordered Sig/Jarred Route Start Time Stop Time Status Last Admin Dose Admin Acetaminophen (Tylenol Tab) 1,000 mg NOW STAT PO 09/19/16 22:20 09/19/16 22:22 DC 09/19/16 22:51 1,000 MG Levofloxacin 750 mg 750 mg NOW ONCE IV 09/19/16 23:00 09/19/16 23:01 DC 09/19/16 23:31 750 MG Furosemide 40 mg/ Syringe 4 ml @ 4 mls/min NOW STAT IV 09/19/16 22:55 09/19/16 22:56 DC 09/19/16 22:55 4 MLS/MIN Vancomycin HCl/ Sodium Chloride (Vancomycin Inj/ Nss 500ml) 543 ml @ 200 mls/hr NOW STAT IV 09/20/16 00:53 09/20/16 03:35 DC 09/20/16 01:26 200 MLS/HR Heparin Sodium (Porcine) (Heparin Sq 5000 Unit/0.5ml) 5,000 unit Q8 SQ 09/20/16 14:00 10/20/16 13:59 09/20/16 12:15 5,000 UNIT Ondansetron HCl 4 mg 4 mg Q6H PRN IV 09/20/16 01:30 10/20/16 01:29 09/20/16 03:36 4 MG Piperacillin Sod/ Tazobactam Sod 4.5 gm/Dextrose 120 ml @ 200 mls/hr NOW STAT IV 09/20/16 02:39 09/20/16 03:14 DC 09/20/16 04:12 200 MLS/HR Piperacillin Sod/ Tazobactam Sod/ Dextrose (Zosyn Iv/D5 100ml) 120 ml @ 30 mls/hr Q8H IV 09/20/16 08:00 09/27/16 07:59 09/20/16 16:35 30 MLS/HR Potassium Chloride (Klor-Con Tab) 40 meq 0900 ONCE PO 09/20/16 09:00 09/20/16 09:01 DC 09/20/16 08:54 40 MEQ Insulin Human Regular (novoLIN-R) SLIDING SCALE IF C... ACHS SC 09/20/16 11:00 10/20/16 10:59 09/20/16 12:15 4 UNITS Objective Vital Signs Date Time Temp Pulse Resp B/P Pulse Ox O2 Delivery O2 Flow Rate FiO2 09/20/16 15:09 36.2 78 16 96/61 97 Nasal Cannula 4.0 09/20/16 11:56 97 Nasal Cannula 4.0 09/20/16 11:27 37.3 76 18 128/74 97 4.0 09/20/16 08:00 97 Nasal Cannula 4.0 09/20/16 07:18 36.9 88 18 136/66 97 4.0 09/20/16 04:07 36.8 80 20 100/62 97 Nasal Cannula 4.0 09/20/16 02:06 36.8 90 22 113/71 97 Nasal Cannula 4.0 09/20/16 01:45 87 20 111/76 97 09/20/16 00:16 36.8 94 22 120/77 96 Nasal Cannula 4.0 09/19/16 23:39 94 20 133/63 96 Nasal Cannula 4.0 09/19/16 22:55 95 Nasal Cannula 4.0 09/19/16 22:55 95 Nasal Cannula 4.0 09/19/16 22:44 94 Nasal Cannula 4.0 09/19/16 22:34 37.5 105 18 152/74 89 Room Air 09/19/16 22:34 89 Room Air 09/19/16 22:32 100 Physical Exam General Appearance: no apparent distress Eyes: normal inspection ENT: normal ENT inspection Neck: supple Respiratory/Chest: no respiratory distress, no accessory muscle use, + pertinent finding (coarse breath sounds throughout with the occasional wheeze, decreased to bilat bases) Cardiovascular: regular rate, rhythm, no murmur Abdomen: normal bowel sounds, non tender, soft Extremities: normal inspection, no pedal edema, no calf tenderness Neurologic/Psychiatric: alert, normal mood/affect, oriented x 3 Skin: normal color, warm/dry, no rash Lymphatic: no adenopathy Laboratory Results Results Past 24 Hours Test 09/19/16 21:46 09/19/16 22:38 09/19/16 22:39 09/20/16 00:15 Range/Units White Blood Count 4.74 4.8-10.8 K/uL Red Blood Count 3.66 4.2-5.4 M/uL Hemoglobin 11.6 12.0-16.0 g/dL Hematocrit 34.1 37-47 % Mean Corpuscular Volume 93.2 80-100 fL Mean Corpuscular Hemoglobin 31.7 25-34 pg Mean Corpuscular Hemoglobin Concent 34.0 32-36 g/dl Platelet Count 158 130-400 K/uL Mean Platelet Volume 10.3 7.4-10.4 fL Neutrophils (%) (Auto) 60.8 % Lymphocytes (%) (Auto) 30.4 % Monocytes (%) (Auto) 7.8 % Eosinophils (%) (Auto) 0.2 % Basophils (%) (Auto) 0.2 % Neutrophils # (Auto) 2.88 1.4-6.5 K/uL Lymphocytes # (Auto) 1.44 1.2-3.4 K/uL Monocytes # (Auto) 0.37 0.11-0.59 K/uL Eosinophils # (Auto) 0.01 0-0.5 K/uL Basophils # (Auto) 0.01 0-0.2 K/uL RDW Standard Deviation 49.9 36.4-46.3 fL RDW Coefficient of Variation 14.7 11.5-14.5 % Immature Granulocyte % (Auto) 0.6 % Immature Granulocyte # (Auto) 0.03 0.00-0.02 K/uL Dohle Bodies 1+ Polychromasia 1+ Tear Drop Cells 1+ Ovalocytes 1+ Sodium Level 139 136-145 mmol/L Potassium Level 3.5 3.5-5.1 mmol/L Chloride Level 103 98-107 mmol/L Carbon Dioxide Level 26 21-32 mmol/L Anion Gap 10.0 3-11 mmol/L Blood Urea Nitrogen 15 7-18 mg/dl Creatinine 0.75 0.60-1.20 mg/dl Est Creatinine Clear Calc Drug Dose 64.0 ml/min Estimated GFR () 91.0 Estimated GFR (Non- 78.5 BUN/Creatinine Ratio 19.6 10-20 Random Glucose 220 70-99 mg/dl Calcium Level 9.0 8.5-10.1 mg/dl Total Bilirubin 1.2 0.2-1 mg/dl Aspartate Amino Transf (AST/SGOT) 40 15-37 U/L Alanine Aminotransferase (ALT/SGPT) 38 12-78 U/L Alkaline Phosphatase 75 45-117 U/L Troponin I < 0.015 0-0.045 ng/ml Total Protein 6.5 6.4-8.2 gm/dl Albumin 3.3 3.4-5.0 gm/dl Globulin 3.2 2.5-4.0 gm/dl Albumin/Globulin Ratio 1.0 0.9-2 Bedside Lactic Acid Venous 1.44 0.90-1.70 mmol/L Bedside Troponin I 0.000 0-0.045 ng/ml Urine Color YELLOW Urine Appearance CLEAR CLEAR Urine pH 7.0 4.5-7.5 Urine Specific [place] 1.018 1.000-1.030 Urine Protein NEG NEG Urine Glucose (UA) 3+ NEG Urine Ketones 1+ NEG Urine Occult Blood NEG NEG Urine Nitrite NEG NEG Urine Bilirubin NEG NEG Urine Urobilinogen NEG NEG Urine Leukocyte Esterase NEG NEG Test 09/20/16 06:36 09/20/16 11:33 09/20/16 14:40 09/20/16 16:08 Range/Units White Blood Count 4.08 4.8-10.8 K/uL Red Blood Count 3.46 4.2-5.4 M/uL Hemoglobin 10.8 12.0-16.0 g/dL Hematocrit 32.7 37-47 % Mean Corpuscular Volume 94.5 80-100 fL Mean Corpuscular Hemoglobin 31.2 25-34 pg Mean Corpuscular Hemoglobin Concent 33.0 32-36 g/dl Platelet Count 151 130-400 K/uL Mean Platelet Volume 10.0 7.4-10.4 fL Neutrophils (%) (Auto) 51.5 % Lymphocytes (%) (Auto) 34.6 % Monocytes (%) (Auto) 13.2 % Eosinophils (%) (Auto) 0.5 % Basophils (%) (Auto) 0.2 % Neutrophils # (Auto) 2.10 1.4-6.5 K/uL Lymphocytes # (Auto) 1.41 1.2-3.4 K/uL Monocytes # (Auto) 0.54 0.11-0.59 K/uL Eosinophils # (Auto) 0.02 0-0.5 K/uL Basophils # (Auto) 0.01 0-0.2 K/uL RDW Standard Deviation 50.6 36.4-46.3 fL RDW Coefficient of Variation 15.0 11.5-14.5 % Immature Granulocyte % (Auto) 0.0 % Immature Granulocyte # (Auto) 0.00 0.00-0.02 K/uL Prothrombin Time 11.9 9.0-12.0 SECONDS Prothromb Time International Ratio 1.1 0.9-1.1 Activated Partial Thromboplast Time 29.4 21.0-31.0 SECONDS Partial Thromboplastin Ratio 1.1 Sodium Level 142 136-145 mmol/L Potassium Level 3.4 3.5-5.1 mmol/L Chloride Level 104 98-107 mmol/L Carbon Dioxide Level 32 21-32 mmol/L Anion Gap 6.0 3-11 mmol/L Blood Urea Nitrogen 13 7-18 mg/dl Creatinine 0.86 0.60-1.20 mg/dl Est Creatinine Clear Calc Drug Dose 55.8 ml/min Estimated GFR () 77.1 Estimated GFR (Non- 66.6 BUN/Creatinine Ratio 15.6 10-20 Random Glucose 173 70-99 mg/dl Estimated Average Glucose 166 mg/dl Hemoglobin A1c 7.4 4.5-5.6 % Calcium Level 8.1 8.5-10.1 mg/dl Total Bilirubin 1.6 0.2-1 mg/dl Aspartate Amino Transf (AST/SGOT) 32 15-37 U/L Alanine Aminotransferase (ALT/SGPT) 40 12-78 U/L Alkaline Phosphatase 67 45-117 U/L Troponin I < 0.015 0-0.045 ng/ml Total Protein 6.1 6.4-8.2 gm/dl Albumin 2.8 3.4-5.0 gm/dl Globulin 3.3 2.5-4.0 gm/dl Albumin/Globulin Ratio 0.8 0.9-2 Bedside Glucose 245 123 70-90 mg/dl Erythrocyte Sedimentation Rate 47 0-21 mm/hr C-Reactive Protein 24.50 0-0.29 mg/dl Procalcitonin 1.32 0-0.5 ng/ml Microbiology Results 09/19/16 Blood Culture, Received Pending 09/19/16 Blood Culture, Received Pending 09/20/16 MRSA DNA Surveillance Screen - Final, Complete Specimen Positive for MRSA by DNA Probe Assessment and Plan 76 year old on immunosuppressive agents with suspected pneumonia vs pulmonary edema on CXR with 2 days of cough and generalized fatigue. The patient was admitted and started on vanco, zosyn and levaquin for potential immunosuppression from her chemo as well as receiving lasix for her pulmonary edema. Since she does not have a history of cardiac failure and has been on this medication for a prolonger period of time it was unlikely that this medication was the source of the pulmonary edema. Acute hypoxic respiratory failure - aim O2 > 94% Possible Pneumonia on immunosuppressive medication - treat as pneumonia and recent contact with healthcare facility - MRSA positive - Zosyn , vancomycin and levaquin - procalcitonin, crp and esr - deescalate based on clinical improvement Pulmonary edema on CXR - treated with lasix in the ER, will continue lasix 20 mg daily - consult heme/onc- appreciate input - unlikely related to chemo medication - Echo pending - troponin neg x 3 - daily weights + I&Os Type 2 diabetes - ACHS BSG with diabetic diet - hold diabetic oral meds and treat with sliding scale insulin. Aim BSG 110-140 Hypothyroidism - continue levothyroxine Hyperlipidemia - continue simvastatin Multiple myeloma in remission - consult heme/onc- appreciate input Code - Full VTE Prophylaxis - heparin 5000 units Q8H SQ Disposition - transfer to [facility] Resident Physician Supervision Note: I interviewed and examined the patient. Discussed with Dr. Acevedo and agree with findings and plan as documented in the note. Any exceptions or clarifications are listed here: None Documented By: Mauricio Mitchell leg weakness and numbness - R worse than L cough ros otherwise negative excpt for as above vitals noted nad lungs coarse rales basilar diminished proprioception b/l feet cough/elevated inflammatory markers - continue abx CHF - diurese, echo to assess etiology neuropathy/lumbar radiculoapthy otherwise as above Continued [facility] stay due to: other Discharge planning: uncertain
--- NOTE | 2016-09-20 17:39 | ECHOCARDIOGRAM REPORT ---
*NOTICE TO RECEIVING [employer] This information is strictly Confidential and protected under [place] law. [place] law prohibits you from making any further disclosure of this information unless further disclosure is expressly permitted by the written consent of the person to whom it pertains or is authorized by law. A general authorization for the release of medical or other information is not sufficient for this purpose. Hospital accepts no responsibility if the information is made available to any other person, INCLUDING THE PATIENT. Interpretation Summary * Name: SIXTO LE Study Date: 09/20/2016 06:49 AM BP: 136/66 mmHg * Patient Location: .2T\S\E219\S\1 HR: 88 * : 1940 (M/d/yyy) Gender: Female Height: 60 in * Age: 76 yrs Ethnicity: [place] Weight: 188 lb * Ordering Physician: Trevon Gunderson * Referring Physician: Self, Referred * Performed By: Aixa Cooper RDCS * * Reason For Study: [place] PULMONARY EDEMA, CHF * BSA: 1.8 m2 * -- Conclusions -- * There is mild asymmetric left ventricular hypertrophy. * Left ventricular systolic function is normal. * Grade I diastolic dysfunction, (abnormal relaxation pattern). * Right ventricular systolic pressure is normal. Procedure Details * A complete two-dimensional transthoracic echocardiogram was performed (2D, M-mode, Doppler and color flow Doppler). Left Ventricle * The left ventricle is normal in size. * There is mild asymmetric left ventricular hypertrophy. * Ejection Fraction = 55-60%. * Left ventricular systolic function is normal. * Grade I diastolic dysfunction, (abnormal relaxation pattern). Right Ventricle * The right ventricular cavity size is normal (basal dimension <4.2 cm in right ventricular apical 4-chamber view). * The right ventricular systolic function is normal. Atria * The left atrial size is normal. * Right atrial size is normal. Mitral Valve * The mitral valve is grossly normal. * There is no mitral regurgitation noted. Tricuspid Valve * The tricuspid valve is not well visualized, but is grossly normal. * There is trace tricuspid regurgitation. * Right ventricular systolic pressure is normal. Aortic Valve * The aortic valve is normal in structure and function. * No hemodynamically significant valvular aortic stenosis. * Trace aortic regurgitation. Great Vessels * The aortic root is normal size. Pericardium/Pleural * There is no pericardial effusion. MMode 2D Measurements and Calculations IVSd 1.1 cm IVSs 1.5 cm LVIDd 3.6 cm LVIDs 2.6 cm LVPWd 1.6 cm LVPWs 1.7 cm IVS/LVPW 0.70 FS 29.6 % EDV(Teich) 55.7 ml ESV(Teich) 23.7 ml EF(Teich) 57.5 % EDV(cubed) 48.0 ml ESV(cubed) 16.8 ml EF(cubed) 65.1 % % IVS thick 37.4 % % LVPW thick 8.2 % LV mass(C)d 174.4 grams LV mass(C)dI 95.9 grams/m\S\2 LV mass(C)s 151.9 grams LV mass(C)sI 83.5 grams/m\S\2 SV(Teich) 32.0 ml SI(Teich) 17.6 ml/m\S\2 SV(cubed) 31.2 ml SI(cubed) 17.2 ml/m\S\2 Ao root diam 3.2 cm Ao root area 8.0 cm\S\2 LVAd ap4 24.7 cm\S\2 LVLd ap4 7.3 cm EDV(MOD-sp4) 68.0 ml LVAs ap4 14.8 cm\S\2 LVLs ap4 6.5 cm ESV(MOD-sp4) 28.0 ml EF(MOD-sp4) 58.8 % LVAd ap2 25.1 cm\S\2 LVLd ap2 7.8 cm EDV(MOD-sp2) 67.0 ml LVAs ap2 13.4 cm\S\2 LVLs ap2 6.4 cm ESV(MOD-sp2) 25.0 ml EF(MOD-sp2) 62.7 % SV(MOD-sp4) 40.0 ml SI(MOD-sp4) 22.0 ml/m\S\2 SV(MOD-sp2) 42.0 ml SI(MOD-sp2) 23.1 ml/m\S\2 Doppler Measurements and Calculations MV E max alia 82.4 cm/sec MV A max alia 94.3 cm/sec MV E/A 0.87 MV dec time 0.29 sec Ao V2 max 164.4 cm/sec Ao max PG 10.8 mmHg Ao max PG (full) 7.3 mmHg AI max alai 374.2 cm/sec AI max PG 56.0 mmHg AI dec slope 290.5 cm/sec\S\2 AI P1/2t 377.3 msec LV V1 max PG 3.6 mmHg LV V1 max 94.3 cm/sec TR max alia 247.5 cm/sec
[2016-09-20] MEDS: VANCOMYCIN INJ 1,250 MG in SODIUM CHLORIDE 0.9% 250ML 250 ML IV SCH (17:53)
--- NOTE | 2016-09-20 18:16 | Medical Student: [facility] ---
Med Student Progress Note Date of Service September 20, 2016. Subjective Pt evaluation today including: conversation w/ patient, conversation w/ family (daughter, who is an RN), physical exam, chart review, lab review, review of studies Voiding: no voiding problems, no incontinence Ms Selena Segovia is a pleasant 76 yo female admitted last night following progressive shortness of breath and worsening shuffling gait. She notes the shortness of breath became worse over the past week and is accompanied by a dry cough. She has the urge to cough more often while lying flat on her back. She also noted a fever prior to coming to the hospital last night of 101.9. She denies syncopal episodes associated with the coughing. Regarding the shuffling gait, this has worsened over the past two months. She notes she was evaluated for Parkinson disease and tried on Sinemet without improvement, so it was discontinued. She says she feels like she wants to shuffle her feet, and she cannot always tell where here feet are underneath her. She notes two recent falls, one off the couch in her sleep, and the other while attempting to sit on her walker. She did hit her head during the fall while sitting on her walker last week, but had only minor bruising and no other symptoms. She notes persistent neuropathy to the ankles bilaterally for many years, attributing to her shuffling gait, with her gait worsening around the time she had some back pain 2-3 months ago. She has seen an orthopedist for this back pain and will see a neurosurgeon next week for consult, although the back pain has mostly resolved. She has a ~10 year history of diabetes mellitus, multiple myeloma s/p stem cell transplant in 2010 currently in remission on two medications, CHF, and sarcoidosis. She currently denies n/v, chest pain, shortness of breath at rest while seated upright, syncope, or changes in bowel or bladder function. Review of Systems Constitutional: + fever (last night), No chills, No sweats, No weakness, No weight loss Eyes: No problem reported ENT: + problem reported (sinus congestion) Respiratory: + cough, + dyspnea on exertion, + wheezing Cardiac: + PND, + edema, + orthopnea, No chest pain, No claudication Abdomen: No problem reported Musculoskeletal: + joint pain (back and R knee pain) Female : + urinary frequency (urge incontinence during past 2-3 months) Neurologic: + balance problems, + problem reported (neuropathy to ankles bilaterally) Psychiatric: No problem reported Objective Vital Signs Date Time Temp Pulse Resp B/P Pulse Ox O2 Delivery O2 Flow Rate FiO2 09/20/16 16:00 Nasal Cannula 4.0 09/20/16 15:09 36.2 78 16 96/61 97 Nasal Cannula 4.0 09/20/16 11:56 97 Nasal Cannula 4.0 09/20/16 11:27 37.3 76 18 128/74 97 4.0 09/20/16 08:00 97 Nasal Cannula 4.0 09/20/16 07:18 36.9 88 18 136/66 97 4.0 09/20/16 04:07 36.8 80 20 100/62 97 Nasal Cannula 4.0 09/20/16 02:06 36.8 90 22 113/71 97 Nasal Cannula 4.0 09/20/16 01:45 87 20 111/76 97 09/20/16 00:16 36.8 94 22 120/77 96 Nasal Cannula 4.0 09/19/16 23:39 94 20 133/63 96 Nasal Cannula 4.0 09/19/16 22:55 95 Nasal Cannula 4.0 09/19/16 22:55 95 Nasal Cannula 4.0 09/19/16 22:44 94 Nasal Cannula 4.0 09/19/16 22:34 37.5 105 18 152/74 89 Room Air 09/19/16 22:34 89 Room Air 09/19/16 22:32 100 Physical Exam General Appearance: WD/WN, no apparent distress Eyes: bilateral eyes EOMI, bilateral eyes PERRL, bilateral eyes normal inspection ENT: normal ENT inspection, hearing grossly normal, pharynx normal Neck: supple, no adenopathy, no JVD, no carotid bruits, trachea midline Respiratory/Chest: chest non-tender, no respiratory distress, no accessory muscle use, + pertinent finding (bilateral crackles, minor improvement with cough. 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 Poor propioception. Loss of light touch below ankles bilaterally. ) Skin: normal color, warm/dry, no rash Laboratory Results Last 24 Hours Test 09/19/16 21:46 09/19/16 22:38 09/19/16 22:39 09/20/16 00:15 White Blood Count 4.74 K/uL Red Blood Count 3.66 M/uL Hemoglobin 11.6 g/dL Hematocrit 34.1 % Mean Corpuscular Volume 93.2 fL Mean Corpuscular Hemoglobin 31.7 pg Mean Corpuscular Hemoglobin Concent 34.0 g/dl Platelet Count 158 K/uL Mean Platelet Volume 10.3 fL Neutrophils (%) (Auto) 60.8 % Lymphocytes (%) (Auto) 30.4 % Monocytes (%) (Auto) 7.8 % Eosinophils (%) (Auto) 0.2 % Basophils (%) (Auto) 0.2 % Neutrophils # (Auto) 2.88 K/uL Lymphocytes # (Auto) 1.44 K/uL Monocytes # (Auto) 0.37 K/uL Eosinophils # (Auto) 0.01 K/uL Basophils # (Auto) 0.01 K/uL RDW Standard Deviation 49.9 fL RDW Coefficient of Variation 14.7 % Immature Granulocyte % (Auto) 0.6 % Immature Granulocyte # (Auto) 0.03 K/uL Dohle Bodies 1+ Polychromasia 1+ Tear Drop Cells 1+ Ovalocytes 1+ Sodium Level 139 mmol/L Potassium Level 3.5 mmol/L Chloride Level 103 mmol/L Carbon Dioxide Level 26 mmol/L Anion Gap 10.0 mmol/L Blood Urea Nitrogen 15 mg/dl Creatinine 0.75 mg/dl Est Creatinine Clear Calc Drug Dose 64.0 ml/min Estimated GFR () 91.0 Estimated GFR (Non- 78.5 BUN/Creatinine Ratio 19.6 Random Glucose 220 mg/dl Calcium Level 9.0 mg/dl Total Bilirubin 1.2 mg/dl Aspartate Amino Transf (AST/SGOT) 40 U/L Alanine Aminotransferase (ALT/SGPT) 38 U/L Alkaline Phosphatase 75 U/L Troponin I < 0.015 ng/ml Total Protein 6.5 gm/dl Albumin 3.3 gm/dl Globulin 3.2 gm/dl Albumin/Globulin Ratio 1.0 Bedside Lactic Acid Venous 1.44 mmol/L Bedside Troponin I 0.000 ng/ml Urine Color YELLOW Urine Appearance CLEAR Urine pH 7.0 Urine Specific [place] 1.018 Urine Protein NEG Urine Glucose (UA) 3+ Urine Ketones 1+ Urine Occult Blood NEG Urine Nitrite NEG Urine Bilirubin NEG Urine Urobilinogen NEG Urine Leukocyte Esterase NEG Test 09/20/16 06:36 09/20/16 11:33 09/20/16 14:40 09/20/16 16:08 White Blood Count 4.08 K/uL Red Blood Count 3.46 M/uL Hemoglobin 10.8 g/dL Hematocrit 32.7 % Mean Corpuscular Volume 94.5 fL Mean Corpuscular Hemoglobin 31.2 pg Mean Corpuscular Hemoglobin Concent 33.0 g/dl Platelet Count 151 K/uL Mean Platelet Volume 10.0 fL Neutrophils (%) (Auto) 51.5 % Lymphocytes (%) (Auto) 34.6 % Monocytes (%) (Auto) 13.2 % Eosinophils (%) (Auto) 0.5 % Basophils (%) (Auto) 0.2 % Neutrophils # (Auto) 2.10 K/uL Lymphocytes # (Auto) 1.41 K/uL Monocytes # (Auto) 0.54 K/uL Eosinophils # (Auto) 0.02 K/uL Basophils # (Auto) 0.01 K/uL RDW Standard Deviation 50.6 fL RDW Coefficient of Variation 15.0 % Immature Granulocyte % (Auto) 0.0 % Immature Granulocyte # (Auto) 0.00 K/uL Prothrombin Time 11.9 SECONDS Prothromb Time International Ratio 1.1 Activated Partial Thromboplast Time 29.4 SECONDS Partial Thromboplastin Ratio 1.1 Sodium Level 142 mmol/L Potassium Level 3.4 mmol/L Chloride Level 104 mmol/L Carbon Dioxide Level 32 mmol/L Anion Gap 6.0 mmol/L Blood Urea Nitrogen 13 mg/dl Creatinine 0.86 mg/dl Est Creatinine Clear Calc Drug Dose 55.8 ml/min Estimated GFR () 77.1 Estimated GFR (Non- 66.6 BUN/Creatinine Ratio 15.6 Random Glucose 173 mg/dl Estimated Average Glucose 166 mg/dl Hemoglobin A1c 7.4 % Calcium Level 8.1 mg/dl Total Bilirubin 1.6 mg/dl Aspartate Amino Transf (AST/SGOT) 32 U/L Alanine Aminotransferase (ALT/SGPT) 40 U/L Alkaline Phosphatase 67 U/L Troponin I < 0.015 ng/ml Total Protein 6.1 gm/dl Albumin 2.8 gm/dl Globulin 3.3 gm/dl Albumin/Globulin Ratio 0.8 Bedside Glucose 245 mg/dl 123 mg/dl Erythrocyte Sedimentation Rate 47 mm/hr C-Reactive Protein 24.50 mg/dl Procalcitonin 1.32 ng/ml Assessment and Plan Assessment and Plan: Ms Selena Segovia is a pleasant 76 yo female with acute onset shortness of breath and subacute onset of worsening shuffling gait. Individual assessment and plan are as follows: 1. Acute respiratory failure: Onset over last week. Due to pulmonary edema identified on cxr and possible pneumonia. Although fluid overload is likely cause of SOB, cannot rule out pneumonia due to high procalcitonin and high CRP. Immunosuppression from stem cell transplant in 2010 could lead to pneumonia from opportunistic infection, although heme/onc believes this to be unlikely. Pt known to have MRSA. Will continue to watch symptoms and vitals to rule in/ out pneumonia. Will continue on vanc, continue to reassess to wean vanc. Will continue on adviar BID and albuterol 2 puffs q6hrs. 2. Pulmonary edema- seen on CXR. On Lasix 20mg daily. Will watch I&O and K. Echo done, awaiting results. Her antineogenesis agent has possible cardiotoxicity risk. Echo will confirm or rule out this risk. 3. Neuropathy: Chronic with subacute worsening of shuffling gait. Patient failed Sinemet and did not worsen upon discontinuation, and does not look like parkinson picture. B12 currently high, unsure of why was treated in past. Diabetes x ~10 years under fairly good control, unlikely to be cause. Neuropathy worsened after back problems, especially on R leg, but initially developed after transplant in 2010. Will have pt/ot work with patient for increased mobility. Impact of loss of loss of proprioception and fall risk discussed at length. Will continue lyrica 150mg. 4. DMII: Sliding scale for now, will reassess tomorrow. Hold oral meds. Will order diabetic diet. 5. HypoT: synthroid 6. HLD: Simvastatin 40mg daily. 7. Multiple myeloma. Treated with stem cell tx in 2010. In remission on two agents. Stable per heme/onc consult. Will continue both agents per heme/onc rec. 8. Hypovitaminosis D. Continue 5000 iu daily with meal. 9. GERD: Continue protonix daily, reassess daily for need. 10. DVT proph: Heparin 5000 units subQ q8hrs 11. Disposition: Med/surg. Diabetic diet. Ambulate with assist. Continued [facility] stay due to: other Discharge planning: uncertain
[2016-09-20] MEDS ORDERED: FUROSEMIDE 20 MG TAB PO ONE (19:15)
[2016-09-20] MEDS: FLUTICASONE/SALMETEROL 250/50 (ADVAIR) 14 PUFF/1 INHALER INH SCH (21:03)
[2016-09-20] MEDS: CEVIMELINE 30 MG PO SCH (21:04)
[2016-09-20] MEDS: LENALIDOMIDE 5 MG PO SCH (21:05)
[2016-09-20] MEDS: OMEGA-3 (PURIFIED FISH OIL) 1 GM CAP PO SCH (21:05)
[2016-09-20] MEDS: CHOLECALCIFEROL 1000 INTER.UNIT TAB PO SCH (21:06)
[2016-09-20] MEDS: SIMVASTATIN 40 MG TAB PO SCH (21:06)
[2016-09-20] MEDS: PREGABALIN 75 MG CAP PO SCH (21:11)
[2016-09-20] MEDS ORDERED: LEVOFLOXACIN / D5W 750 MG in PREMIXED IN D5W 150 ML IV SCH (22:00)
[2016-09-21] VITALS (10 sets, daily range): BP systolic 101–137; BP diastolic 62–73; PULSE 70–87; TEMP 36.6–36.9; O2SAT 91–96
[2016-09-21] MEDS: LEVOTHYROXINE 75 MCG TAB PO SCH (05:48)
[2016-09-21] MEDS: HEPARIN SOD 5000 UNIT/0.5 ML CARP SQ SCH ×3 (05:50→21:49)
--- NOTE | 2016-09-21 06:21 | Clinical Documentation Query ---
LEN Valentine : CLINICAL DOCUMENTATION QUERIES QUERY 1 OF 2 Patient is a 76 year old female on immunosuppressive agents with suspected pneumonia on CXR with 2 days of cough and generalized fatigue. ED impression included "congestive heart failure", not otherwise specified. H&P documentation includes "pulmonary edema". He was treated with IV Lasix in the ED. He is being monitored with daily weights and I/O. Echocardiogram noted normal LV systolic function. As appropriate, consider documentation as suggested below as the acuity/chronicity directly impacts DRG assignment. In your clinical opinion is this patient being managed for: ( ) Acute pulmonary edema ( x ) Other explanation of clinical findings (Please Explain) please see progress notes - appearing to be possibly pulmonary edema, atypical pneumonia or both ( ) Unable to determine (Please Define) ( ) Need to Discuss ( ) Not Agree The medical record reflects the following clinical findings, treatment, and risk factors. Clinical Indicators: As above Treatment: IV Lasix, telemetry, supplemental oxygen, I/O, daily weights, echocardiogram Risk Factors: Pneumonia, lenalidomide therapy QUERY 2 OF 2 Clinical documentation includes a diagnosis of: Acute Respiratory Failure. H&P documentation includes " no respiratory distress" and "no accessory muscle use". Isolated SpO2 reading of 89% on room air, quickly resolved with supplemental oxygen via nasal cannula is the only clinical indicator of hypoxia and likely will not warrant coding a diagnosis of respiratory failure. Due to stringent requirements by our coding department, multiple clinical indicators associated with this diagnosis must be present in order for this to be coded/captured within the medical record. If appropriate, please document 2 or more of the following clinical indicators in daily progress notes and the discharge summary. If you feel the diagnosis of acute respiratory failure was made in error, or do not agree with it, simply discontinue documentation thereof. Acute Respiratory Failure indicators include: * Respirations >28 * Air hunger * Use of accessory muscles of respiration * Inability to speak in full sentences * Cyanosis * Pulse ox <90% RA or <95% on O2 *pH <7.35 or >7.45 * pO2 < 60 mm Hg (or 10mm below COPD patient's baseline) * pCO2 >50mm Hg (or 10mm above COPD patient's baseline) * mechanical ventilation * Increased work of breathing * Tachypnea Please clarify and document your clinical opinion in the progress notes and discharge summary. Terms such as "probable", "suspected", "likely", "questionable", "possible", or "still to be ruled out" are acceptable. IF IN AGREEMENT, YOU MUST DOCUMENT ABOVE DIAGNOSTIC STATEMENT IN DAILY PROGRESS NOTES AND DISCHARGE SUMMARY. This document is not part of the patient's record. Thank You, Lio Nassar, NORMAN [phone]
[2016-09-21 06:41] LABS: HEMATOCRIT 30.8 % (37-47); MEAN CORPUSCULAR HEMOGLOBIN 30.8 pg (25-34); MEAN CORPUSCULAR HGB CONC 32.1 g/dl (32-36); MEAN PLATELET VOLUME 9.8 fL (7.4-10.4); PLATELET COUNT 160 K/uL (130-400); RED BLOOD COUNT 3.21 M/uL (4.2-5.4); WHITE BLOOD COUNT 3.84 K/uL (4.8-10.8)
[2016-09-21 07:13] LABS: BUN/CREATININE RATIO 15.9 (10-20); CREATININE 0.88 mg/dl (0.60-1.20); POTASSIUM 3.6 mmol/L (3.5-5.1)
--- NOTE | 2016-09-21 07:53 | DIAGNOSTIC IMAGING REPORT ---
CHEST 2 VIEWS ROUTINE CLINICAL HISTORY: Bony edema. Pneumonia. COMPARISON STUDY: 09/19/2016 FINDINGS: The heart remains enlarged. There is a retrocardiac opacity consistent with a hiatal hernia. There is resolving congestive failure. There are bibasilar opacities likely atelectatic. No significant pleural effusions are visualized. IMPRESSION: 1. Resolving congestive failure 2. Bibasilar opacities, likely atelectatic Electronically signed by: Clint Hurley M.D. 09/21/2016 7:52 AM Dictated Date/Time: 09/21/2016 7:50 AM
[2016-09-21] MEDS: FLUTICASONE/SALMETEROL 250/50 (ADVAIR) 14 PUFF/1 INHALER INH SCH ×2 (08:40→21:46)
[2016-09-21] MEDS: PANTOprazole SOD 40 MG TAB PO SCH (08:41)
[2016-09-21] MEDS: FUROSEMIDE 20 MG TAB PO SCH (08:41)
[2016-09-21] MEDS: ASPIRIN 81 MG ECTAB PO SCH (08:41)
[2016-09-21] MEDS: OMEGA-3 (PURIFIED FISH OIL) 1 GM CAP PO SCH ×2 (08:42→21:47)
[2016-09-21] MEDS: CEVIMELINE 30 MG PO SCH ×2 (08:43→21:46)
[2016-09-21] MEDS: PIPERACILL/TAZOBAC IV 4.5 GM in DEXTROSE 5% 100ML IV SCH ×3 (08:56→23:42)
[2016-09-21] MEDS ORDERED: NURSING VERBAL MED ORDER ONE (09:00)
[2016-09-21] MEDS: INSULIN HUMAN REGULAR SC SCH ×4 (09:01→21:51)
[2016-09-21] MEDS ORDERED: ALBUT/IPRATROP 3MG/0.5MG NEB 3 ML VIAL INH PRN (09:15)
[2016-09-21] MEDS ORDERED: POTASSIUM CHLORIDE 10 MEQ TABCR PO ONE (09:15)
[2016-09-21] MEDS ORDERED: ALBUT/IPRATROP 3MG/0.5MG NEB 3 ML VIAL INH ONE (09:15)
[2016-09-21] MEDS: VANCOMYCIN INJ 1,250 MG in SODIUM CHLORIDE 0.9% 250ML 250 ML IV SCH (10:35)
[2016-09-21 13:35] LABS: C-REACTIVE PROTEIN 17.9 mg/dl (0-0.29)
--- NOTE | 2016-09-21 16:37 | Family Medicine Progress Note ---
Progress Note Date of Service September 21, 2016. Assessment and Plan 76 year old on immunosuppressive agents with suspected pneumonia vs pulmonary edema on CXR with 2 days of cough and generalized fatigue. The patient was admitted and started on vanco, zosyn and levaquin for potential immunosuppression from her chemo as well as receiving lasix for her pulmonary edema. Since she does not have a history of cardiac failure and has been on this medication for a prolonger period of time it was unlikely that this medication was the source of the pulmonary edema. Overnight her pulmonary edema had improved and the echo actually did not reveal any significant change in the EF or dysfunction/ valvular abnormalities. Acute hypoxic respiratory failure - aim O2 > 94% Possible Pneumonia on immunosuppressive medication - treat as pneumonia and recent contact with healthcare facility - MRSA positive - Zosyn , vancomycin - levaquin d/c - if procalcitonin improves tomorrow will d/c vanco - deescalate based on clinical improvement Pulmonary edema on CXR - treated with lasix in the ER, will continue lasix 20 mg daily - consult heme/onc- appreciate input - unlikely related to chemo medication - Echo * There is mild asymmetric left ventricular hypertrophy. * Left ventricular systolic function is normal. * Grade I diastolic dysfunction, (abnormal relaxation pattern). * Right ventricular systolic pressure is normal. - troponin neg x 3 - daily weights + I&Os Vit D Def - vit D 2000 units daily Type 2 diabetes - ACHS BSG with diabetic diet - hold diabetic oral meds and treat with sliding scale insulin. Aim BSG 110-140 Hypothyroidism - continue levothyroxine Hyperlipidemia - continue simvastatin Multiple myeloma in remission - consult heme/onc- appreciate input Code - Full VTE Prophylaxis - heparin 5000 units Q8H SQ Disposition - transfer to [facility] Resident Physician Supervision Note: I interviewed and examined the patient. Discussed with Dr. Acevedo and agree with findings and plan as documented in the note. Any exceptions or clarifications are listed here: None Documented By: Mauricio Mitchell feeling a little better breathing easier no other new problems or complaints ros otehrwise negative except for as above vitals noted breathing unlabored no pallor or icterus no other acute changes CXR and labs reviewed (presumed) pneumonia -CXR nonspecific, trend inflammatory markers, definitely improving - drop levaquin continue zosyn and vanco and follow neuropathy/gait disturbance -ongoing outpt management of lumbar radic, supportive care / PT/OT for what apepars to be chronic neuropathy that family notes happened since around time of stem cell transplant stable for med surg otherwise as above Continued [facility] stay due to: other Discharge planning: uncertain
--- NOTE | 2016-09-21 18:07 | Medical Student: [facility] ---
Med Student Progress Note Date of Service September 21, 2016. Subjective Pt evaluation today including: conversation w/ patient Voiding: no voiding problems, no incontinence Ms Selena Segovia is a pleasant 76 yo female on chronic immunosuppression s/p stem cell transplant in 2010 on hospital day 3 for possible pneumonia and pulmonary edema. She also has had a worsening of her shuffling gait in the past few weeks. Regarding the shortness of breath, it started over the last week. She notes a dry cough, worse when she lays down. It is improved today, and she is able to lay on just one pillow as she usually does at home. She continues to have a dry cough, but overall notes marked improvement in her breathing. She has tried going off oxygen, but her sats drop below goal of 94 without oxygen still. She did not wear oxygen prior to admission. Regarding the shuffling gait, this has worsened over the past two months. A Parkinson workup was negative, and she has a history of neuropathy starting around when she had her stem cell transplant in 2010. She had back pain about two months ago when the symptoms worsened. Since being in the hospital, she has worked with PT/OT and does not note any improvement or worsening of her symptoms. She currently denies n/v, chest pain, shortness of breath at rest while seated upright, syncope, or changes in bowel or bladder function. Review of Systems Constitutional: + see HPI Eyes: No problem reported ENT: No problem reported Respiratory: + cough, + dyspnea on exertion, No dyspnea at rest, No shortness of breath, No sputum, No wheezing Cardiac: + edema (slight), No PND, No chest pain, No orthopnea Abdomen: No problem reported Musculoskeletal: No problem reported Female : No problem reported Neurologic: + problem reported (neuropathy), + weakness Psychiatric: No problem reported Objective Vital Signs Date Time Temp Pulse Resp B/P Pulse Ox O2 Delivery O2 Flow Rate FiO2 09/21/16 16:29 36.8 83 20 137/73 95 Nasal Cannula 2.0 09/21/16 15:01 36.6 87 18 111/69 96 Nasal Cannula 2.0 09/21/16 14:55 36.7 84 18 91 2.0 09/21/16 12:00 Nasal Cannula 2.0 09/21/16 11:40 36.7 84 18 110/67 91 2.0 09/21/16 09:28 81 16 96 Nasal Cannula 2.0 09/21/16 08:00 Nasal Cannula 2.0 09/21/16 07:48 36.9 73 18 101/62 94 2.0 09/21/16 04:00 96 Nasal Cannula 2.0 09/21/16 03:12 36.6 70 21 105/66 96 Nasal Cannula 2.0 09/21/16 00:01 96 Nasal Cannula 2.0 09/20/16 23:31 36.5 76 21 101/62 96 Nasal Cannula 2.0 09/20/16 20:00 94 Nasal Cannula 2.0 09/20/16 18:51 36.6 88 19 129/79 94 Room Air Physical Exam General Appearance: WD/WN, no apparent distress Eyes: bilateral eyes EOMI, bilateral eyes PERRL, bilateral eyes normal inspection ENT: normal ENT inspection, hearing grossly normal, pharynx normal Neck: supple, no adenopathy, no JVD, no carotid bruits, trachea midline Respiratory/Chest: chest non-tender, + pertinent finding (Fine inspriatory and expiratory wheezes) Cardiovascular: regular rate, rhythm, no edema, no gallop, no JVD, no murmur Abdomen: normal bowel sounds, non tender, soft, no organomegaly Extremities: non-tender, no pedal edema, no calf tenderness, normal capillary refill Neurologic/Psychiatric: assistant principal II-XII nml as tested, alert, normal mood/affect, oriented x 3, + pertinent finding (loss of sensation bilaterally below ankles. R leg 4/5 strength, all other extremiteis 5/5) Skin: normal color, warm/dry Laboratory Results Last 24 Hours Test 09/20/16 20:20 09/21/16 05:53 09/21/16 06:34 09/21/16 11:28 Bedside Glucose 173 mg/dl 160 mg/dl 181 mg/dl White Blood Count 3.84 K/uL Red Blood Count 3.21 M/uL Hemoglobin 9.9 g/dL Hematocrit 30.8 % Mean Corpuscular Volume 96.0 fL Mean Corpuscular Hemoglobin 30.8 pg Mean Corpuscular Hemoglobin Concent 32.1 g/dl RDW Standard Deviation 52.7 fL RDW Coefficient of Variation 14.9 % Platelet Count 160 K/uL Mean Platelet Volume 9.8 fL Sodium Level 143 mmol/L Potassium Level 3.6 mmol/L Chloride Level 105 mmol/L Carbon Dioxide Level 31 mmol/L Anion Gap 7.0 mmol/L Blood Urea Nitrogen 14 mg/dl Creatinine 0.88 mg/dl Est Creatinine Clear Calc Drug Dose 54.2 ml/min Estimated GFR () 75.0 Estimated GFR (Non- 64.7 BUN/Creatinine Ratio 15.9 Random Glucose 152 mg/dl Calcium Level 8.0 mg/dl Test 09/21/16 12:43 Total Bilirubin 0.8 mg/dl C-Reactive Protein 17.90 mg/dl 25-Hydroxy Vitamin D Total 27.4 ng/ml Procalcitonin 0.88 ng/ml Assessment and Plan Assessment and Plan: Ms Selena Segovia is a pleasant 76 yo female with acute onset shortness of breath and subacute onset of worsening shuffling gait on hospital day 3. Individual assessment and plan are as follows: 1. Acute hypoxic respiratory failure: Improving significantly since yesterday. CXR shows cleared pulmonary edema. Due to both pulmonary edema identified on cxr and possible pneumonia. Although fluid overload is likely cause of SOB, cannot rule out pneumonia due to high procalcitonin and high CRP. Immunosuppression from stem cell transplant in 2010 could lead to pneumonia from opportunistic infection, although heme/onc believes this to be unlikely. Pt known to have MRSA. Will continue to watch symptoms and vitals to rule in/ out pneumonia. Will continue on adviar BID and albuterol 2 puffs q6hrs. 2. Pulmonary edema- resolved on cxr. Will continue on Lasix 20mg daily. Will watch I&O and K. Encouraging echo yesterday showed 55-60% EF with slight diastolic dysfunction. 3. Pneumonia: Still possible. Will trend procalcitonin and crp again tomorrow to see whether inflammatory markers are improving. Will continue on vanc, zosyn today. Likely will reassess need for vanc and zosyn tomorrow clinically and based on labs. 4. Neuropathy: Chronic with subacute worsening of shuffling gait. Not worsening or improving in hospital. Continue to work with PT/OT to strengthen and decrease fall risk. Does not look like there is an identifiable cause of her neuropathy at this time, but has multiple risk factors. Patient failed Sinemet and did not worsen upon discontinuation, and does not look like Parkinson picture. B12 currently high, unsure of why was treated in past. Diabetes x ~ 10 years under fairly good control, unlikely to be cause. Neuropathy worsened after back problems, especially on R leg, but initially developed after transplant in 2010. Will continue lyrica 150mg. 4. DMII: Regular insulin with Sliding scale. Hold oral meds. Will order diabetic diet. 5. HypoT: synthroid 6. HLD: Simvastatin 40mg daily. 7. Multiple myeloma. Treated with stem cell tx in 2010. In remission on two agents. Stable per heme/onc consult. Will continue both agents per heme/onc rec. 8. Hypovitaminosis D. Continue 5000 iu daily with meal. 9. GERD: Continue protonix daily, reassess daily for need. 10. DVT proph: Heparin 5000 units subQ q8hrs 11. Disposition: Med/surg. Diabetic diet. Ambulate with assist. Continued [facility] stay due to: multiple IV medications needed, other Discharge planning: uncertain
[2016-09-21] MEDS: CHOLECALCIFEROL 1000 INTER.UNIT TAB PO SCH (21:48)
[2016-09-21] MEDS: LENALIDOMIDE 5 MG PO SCH (21:53)
[2016-09-21] MEDS: SIMVASTATIN 40 MG TAB PO SCH (21:53)
[2016-09-21] MEDS: PREGABALIN 75 MG CAP PO SCH (22:37)
[2016-09-22] VITALS (14 sets, daily range): BP systolic 104–112; BP diastolic 65–73; PULSE 68–84; TEMP 36.6–36.9; O2SAT 91–97
[2016-09-22] MEDS ORDERED: VANCOMYCIN TROUGH SCH (01:30)
[2016-09-22] MEDS: VANCOMYCIN INJ 1,250 MG in SODIUM CHLORIDE 0.9% 250ML 250 ML IV SCH (02:05)
[2016-09-22] MEDS: LEVOTHYROXINE 75 MCG TAB PO SCH (06:01)
[2016-09-22] MEDS: HEPARIN SOD 5000 UNIT/0.5 ML CARP SQ SCH ×3 (06:02→22:27)
[2016-09-22 06:59] LABS: HEMATOCRIT 29.3 % (37-47); MEAN CELL VOLUME 95.4 fL (80-100); MEAN CORPUSCULAR HEMOGLOBIN 31.3 pg (25-34); MEAN CORPUSCULAR HGB CONC 32.8 g/dl (32-36); MEAN PLATELET VOLUME 9.9 fL (7.4-10.4); PLATELET COUNT 154 K/uL (130-400); RED BLOOD COUNT 3.07 M/uL (4.2-5.4); WHITE BLOOD COUNT 3.44 K/uL (4.8-10.8)
[2016-09-22 07:24] LABS: BUN/CREATININE RATIO 20.4 (10-20); CALCIUM 7.8 mg/dl (8.5-10.1); CREATININE 0.84 mg/dl (0.60-1.20); POTASSIUM 3.5 mmol/L (3.5-5.1)
[2016-09-22] MEDS ORDERED: CHOLECALCIFEROL 1000 INTER.UNIT TAB PO SCH (08:00)
[2016-09-22] MEDS: ASPIRIN 81 MG ECTAB PO SCH (08:13)
[2016-09-22] MEDS: OMEGA-3 (PURIFIED FISH OIL) 1 GM CAP PO SCH ×2 (08:13→22:22)
[2016-09-22] MEDS: FLUTICASONE/SALMETEROL 250/50 (ADVAIR) 14 PUFF/1 INHALER INH SCH ×2 (08:13→22:21)
[2016-09-22] MEDS: FUROSEMIDE 20 MG TAB PO SCH (08:13)
[2016-09-22] MEDS: PIPERACILL/TAZOBAC IV 4.5 GM in DEXTROSE 5% 100ML IV SCH (08:13)
[2016-09-22] MEDS: PANTOprazole SOD 40 MG TAB PO SCH (08:14)
[2016-09-22] MEDS: CYANOCOBALAMIN 500 MCG TAB (VIT B-12) PO SCH (08:14)
[2016-09-22] MEDS: CEVIMELINE 30 MG PO SCH ×2 (08:15→22:21)
[2016-09-22] MEDS: OLOPATADINE HYDROCHLORIDE OPB SCH (08:15)
[2016-09-22] MEDS: INSULIN HUMAN REGULAR SC SCH ×4 (09:23→22:28)
--- NOTE | 2016-09-22 10:22 | Family Medicine Progress Note ---
Progress Note Date of Service September 22, 2016. Subjective Pt evaluation today including: conversation w/ patient, physical exam, chart review, lab review, review of studies Pain: 0/10 PO Intake: WNL Voiding: no voiding problems Ongoing improvement in dyspnea, able to now tolerate 2.0L she states she feels "60%" better today She states that after the breathing treatment she actually felt like she could cough up more and everything did not feel as tight Constitutional: No fever Eyes: No worsening of vision ENT: No hearing loss Respiratory: + cough, + dyspnea on exertion, + shortness of breath, No dyspnea at rest, No sputum, No wheezing Cardiovascular: No chest pain Abdomen: No constipation, No diarrhea, No nausea, No pain, No vomiting Musculoskeletal: + problem reported (neuropathy ongoing), No joint pain, No muscle pain Female : No dysuria Neurologic: + weakness, No balance problems, No numbness/tingling, No paralysis Heme: No abnormal bleeding/bruising Endo: + fatigue Skin: No rash Medications Medications Administered Medications (Trade) Dose Ordered Sig/Jarred Route Start Time Stop Time Status Last Admin Dose Admin Acetaminophen (Tylenol Tab) 1,000 mg NOW STAT PO 09/19/16 22:20 09/19/16 22:22 DC 09/19/16 22:51 1,000 MG Levofloxacin 750 mg 750 mg NOW ONCE IV 09/19/16 23:00 09/19/16 23:01 DC 09/19/16 23:31 750 MG Furosemide 40 mg/ Syringe 4 ml @ 4 mls/min NOW STAT IV 09/19/16 22:55 09/19/16 22:56 DC 09/19/16 22:55 4 MLS/MIN Vancomycin HCl/ Sodium Chloride (Vancomycin Inj/ Nss 500ml) 543 ml @ 200 mls/hr NOW STAT IV 09/20/16 00:53 09/20/16 03:35 DC 09/20/16 01:26 200 MLS/HR Heparin Sodium (Porcine) (Heparin Sq 5000 Unit/0.5ml) 5,000 unit Q8 SQ 09/20/16 14:00 10/20/16 13:59 09/22/16 06:02 5,000 UNIT Ondansetron HCl 4 mg 4 mg Q6H PRN IV 09/20/16 01:30 10/20/16 01:29 09/20/16 21:45 4 MG Piperacillin Sod/ Tazobactam Sod 4.5 gm/Dextrose 120 ml @ 200 mls/hr NOW STAT IV 09/20/16 02:39 09/20/16 03:14 DC 09/20/16 04:12 200 MLS/HR Piperacillin Sod/ Tazobactam Sod/ Dextrose (Zosyn Iv/D5 100ml) 120 ml @ 30 mls/hr Q8H IV 09/20/16 08:00 09/27/16 07:59 09/22/16 08:13 30 MLS/HR Aspirin (Ecotrin Tab) 81 mg QAM PO 09/21/16 09:00 10/21/16 08:59 09/22/16 08:13 81 MG Cholecalciferol (Vitamin D Tab) 5,000 inter.unit QPM PO 09/20/16 21:00 10/20/16 20:59 09/21/16 21:48 5,000 INTER.UNIT Cyanocobalamin (Vitamin B-12 Tab) 2,500 mcg MoWeFr@0900 PO 09/22/16 09:00 10/22/16 08:59 09/22/16 08:14 2,500 MCG Fish Oil ([place]-3 (Purified Fish Oil) Cap) 1 gm BID PO 09/20/16 21:00 10/20/16 20:59 09/22/16 08:13 1 GM Salmeterol Xinafoate/ Fluticasone (Advair Diskus 250/50 Inh) 1 puff BID INH 09/20/16 21:00 10/20/16 20:59 09/22/16 08:13 1 PUFF Levothyroxine Sodium (Synthroid Tab) 75 mcg DAILYBB PO 09/21/16 06:00 10/21/16 05:59 09/22/16 06:01 75 MCG Pregabalin (Lyrica Cap) 150 mg QPM PO 09/20/16 21:00 10/20/16 20:59 09/21/16 22:37 150 MG Simvastatin (Zocor Tab) 40 mg HS PO 09/20/16 21:00 10/20/16 20:59 09/21/16 21:53 40 MG Pantoprazole Sodium (Protonix Tab) 40 mg QAM PO 09/21/16 09:00 10/21/16 08:59 09/22/16 08:14 40 MG Potassium Chloride (Klor-Con Tab) 40 meq 0900 ONCE PO 09/20/16 09:00 09/20/16 09:01 DC 09/20/16 08:54 40 MEQ Insulin Human Regular SLIDING SCALE IF C... ACHS SC 09/20/16 11:00 10/20/16 10:59 09/22/16 09:23 4 UNITS Levofloxacin/Prmx (Levaquin / D5W/ Premixed D5W) 150 ml @ 100 mls/hr DAILY@2200 IV 09/20/16 22:00 09/21/16 12:44 DC 09/20/16 21:43 100 MLS/HR Lenalidomide 5 mg 5 mg HS PO 09/20/16 21:00 10/04/16 22:01 09/21/16 21:53 5 MG Vancomycin HCl/ Sodium Chloride (Vancomycin Inj/ Nss 250ml) 275 ml @ 125 mls/hr Q16H IV 09/20/16 18:00 09/22/16 08:56 DC 09/22/16 02:05 125 MLS/HR Furosemide (Lasix Tab) 20 mg QAM PO 09/21/16 09:00 10/21/16 08:59 09/22/16 08:13 20 MG Furosemide (Lasix Tab) 20 mg 1915 ONCE PO 09/20/16 19:15 09/20/16 19:20 DC 09/20/16 19:51 20 MG Cevimeline HCl (Evoxac) 30 mg BID PO 09/20/16 21:00 10/20/16 20:59 09/22/16 08:15 30 MG Potassium Chloride (Klor-Con M10) 40 meq 0915 ONCE PO 09/21/16 09:15 09/21/16 09:16 DC 09/21/16 10:36 40 MEQ Albuterol/ Ipratropium (Duoneb) 3 ml 0915 ONCE INH 09/21/16 09:15 09/21/16 09:16 DC 09/21/16 09:28 3 ML Olopatadine HCl (Pataday 0.2% Op Soln) 1 drops QAM OPB 09/22/16 08:00 10/22/16 07:59 09/22/16 08:15 1 DROPS Objective Vital Signs Date Time Temp Pulse Resp B/P Pulse Ox O2 Delivery O2 Flow Rate FiO2 09/22/16 09:30 95 09/22/16 08:17 36.7 77 18 104/65 97 Nasal Cannula 2.0 09/22/16 08:00 93 Nasal Cannula 1.0 09/22/16 00:00 Nasal Cannula 2.0 09/22/16 00:00 36.7 78 20 106/69 96 2.0 09/21/16 16:29 36.8 83 20 137/73 95 Nasal Cannula 2.0 09/21/16 16:00 96 Nasal Cannula 2.0 09/21/16 15:01 36.6 87 18 111/69 96 Nasal Cannula 2.0 09/21/16 14:55 36.7 84 18 91 2.0 09/21/16 12:00 Nasal Cannula 2.0 09/21/16 11:40 36.7 84 18 110/67 91 2.0 Physical Exam General Appearance: no apparent distress Eyes: normal inspection ENT: normal ENT inspection Neck: supple Respiratory/Chest: no respiratory distress, no accessory muscle use, + decreased breath sounds (bilat bases), + pertinent finding (coarse breath sounds ongoing but after coughing actually improved) Cardiovascular: regular rate, rhythm, no murmur Abdomen: normal bowel sounds, non tender, soft Extremities: non-tender, normal inspection, no pedal edema, no calf tenderness Neurologic/Psychiatric: alert, normal mood/affect, oriented x 3 Skin: normal color, warm/dry, no rash Lymphatic: no adenopathy Laboratory Results Results Past 24 Hours Test 09/21/16 11:28 09/21/16 12:43 09/21/16 17:19 09/21/16 21:04 Range/Units Bedside Glucose 181 155 148 70-90 mg/dl Total Bilirubin 0.8 0.2-1 mg/dl C-Reactive Protein 17.90 0-0.29 mg/dl 25-Hydroxy Vitamin D Total 27.4 30-100 ng/ml Procalcitonin 0.88 0-0.5 ng/ml Test 09/22/16 01:35 09/22/16 06:36 09/22/16 07:50 Range/Units Vancomycin Level Trough 9.1 SEE COMMENT mcg/ml White Blood Count 3.44 4.8-10.8 K/uL Red Blood Count 3.07 4.2-5.4 M/uL Hemoglobin 9.6 12.0-16.0 g/dL Hematocrit 29.3 37-47 % Mean Corpuscular Volume 95.4 80-100 fL Mean Corpuscular Hemoglobin 31.3 25-34 pg Mean Corpuscular Hemoglobin Concent 32.8 32-36 g/dl RDW Standard Deviation 51.0 36.4-46.3 fL RDW Coefficient of Variation 14.7 11.5-14.5 % Platelet Count 154 130-400 K/uL Mean Platelet Volume 9.9 7.4-10.4 fL Sodium Level 143 136-145 mmol/L Potassium Level 3.5 3.5-5.1 mmol/L Chloride Level 107 98-107 mmol/L Carbon Dioxide Level 28 21-32 mmol/L Anion Gap 8.0 3-11 mmol/L Blood Urea Nitrogen 17 7-18 mg/dl Creatinine 0.84 0.60-1.20 mg/dl Est Creatinine Clear Calc Drug Dose 56.8 ml/min Estimated GFR () 79.4 Estimated GFR (Non- 68.5 BUN/Creatinine Ratio 20.4 10-20 Random Glucose 172 70-99 mg/dl Calcium Level 7.8 8.5-10.1 mg/dl Procalcitonin 0.52 0-0.5 ng/ml Bedside Glucose 190 70-90 mg/dl Assessment and Plan 76 year old on immunosuppressive agents with suspected pneumonia vs pulmonary edema on CXR with 2 days of cough and generalized fatigue. The patient was admitted and started on vanco, zosyn and levaquin for potential immunosuppression from her chemo as well as receiving lasix for her pulmonary edema. Since she does not have a history of cardiac failure and has been on this medication for a prolonger period of time it was unlikely that this medication was the source of the pulmonary edema. Overnight her pulmonary edema had improved and the echo actually did not reveal any significant change in the EF or dysfunction/ valvular abnormalities. This and the elevated inflammatory markers reflected a more infectious cause for the acute hypoxic resp failure. Acute hypoxic respiratory failure - aim O2 > 94% Possible Pneumonia on immunosuppressive medication - treat as pneumonia and recent contact with healthcare facility - MRSA positive - Zosyn- plan to d/c on augmentin - The adverse reaction is a yeast infection for will give rx for clotrimazole - levaquin and vanco d/c - deescalate based on clinical improvement Pulmonary edema on CXR - treated with lasix in the ER, will continue lasix 20 mg daily - consult heme/onc- appreciate input - unlikely related to chemo medication - Echo * There is mild asymmetric left ventricular hypertrophy. * Left ventricular systolic function is normal. * Grade I diastolic dysfunction, (abnormal relaxation pattern). * Right ventricular systolic pressure is normal. - troponin neg x 3 - daily weights + I&Os Vit D Def - vit D 5000 units daily Type 2 diabetes - ACHS BSG with diabetic diet - hold diabetic oral meds and treat with sliding scale insulin. Aim BSG 110-140 Hypothyroidism - continue levothyroxine Hyperlipidemia - continue simvastatin Multiple myeloma in remission - consult heme/onc- appreciate input Code - Full VTE Prophylaxis - heparin 5000 units Q8H SQ Disposition - potential d/c tomorrow Resident Physician Supervision Note: I interviewed and examined the patient. Discussed with Dr. Acevedo and agree with findings and plan as documented in the note. Any exceptions or clarifications are listed here: None Documented By: Mauricio Mitchell coughing more still nonproductive off O2 breathing better and getting around better ros otherwise negative except for as above vitals noted nad lungs b/l faint rhonchi and squeak on expiration pneumonia - Ok to transition to PO abx - augmentin for possible gram neg, and doxy given (+) MRSA nares and to cover atypicals. hopefully ongoing improvement in dyspnea enough to get her home tomorrow otherwise as above Continued [facility] stay due to: abnormal vital signs Discharge planning: home
[2016-09-22] MEDS: ALBUT/IPRATROP 3MG/0.5MG NEB 3 ML VIAL INH SCH ×3 (11:31→19:00)
--- NOTE | 2016-09-22 12:54 | Medical Student: [facility] ---
Med Student Progress Note Date of Service September 22, 2016. Subjective Pt evaluation today including: conversation w/ patient Voiding: no voiding problems Ms Selena Segovia is a pleasant 76 yo female on chronic immunosuppression s/p stem cell transplant in 2010 on hospital day 4 for possible pneumonia and pulmonary edema. She also has had a worsening of her shuffling gait in the past few weeks. The shortness of breath has improved today. She is 60% better than before she came in, up from 50% yesterday. She is still using 2L O2 via nasal canula. I spoke with her just after she used the bathroom and was out of breath. Because she is maintaining sats of 97% on 2L, she is agreeable to try weening today again. She notes she has her walking shoes today and is anxious to see how she does walking longer distances. Her cough continues to "nag" her, but it is nonproductive and is only slightly worse when lying flat. Regarding the shuffling gait, there has been no change since admission. She feels stronger now that she can breathe better and is being intentional about picking up her feet higher off the ground instead of "Shuffling". This has worsened over the past two months. A Parkinson workup was negative, and she has a history of neuropathy starting around when she had her stem cell transplant in 2010. She had back pain about two months ago when the symptoms worsened. Since being in the hospital, she has worked with PT/OT and does not note any improvement or worsening of her symptoms. She currently denies n/v, chest pain, shortness of breath at rest while seated upright, syncope, or changes in bowel or bladder function. Review of Systems Constitutional: + see HPI, No problem reported Eyes: No problem reported ENT: No problem reported Respiratory: + cough (dry), + dyspnea on exertion, No dyspnea at rest, No wheezing Cardiac: No chest pain, No claudication, No edema, No orthopnea, No palpitations Abdomen: No problem reported Female : No problem reported Neurologic: + numbness/tingling (b/l neuropathy in feet from ankles down) Psychiatric: No problem reported Objective Vital Signs Date Time Temp Pulse Resp B/P Pulse Ox O2 Delivery O2 Flow Rate FiO2 09/22/16 11:51 93 Room Air 09/22/16 11:50 93 Room Air 09/22/16 11:31 84 16 93 Room Air 09/22/16 10:45 91 Room Air 09/22/16 10:45 91 Room Air 09/22/16 10:30 91 Room Air 09/22/16 09:30 95 09/22/16 08:17 36.7 77 18 104/65 97 Nasal Cannula 2.0 09/22/16 08:00 93 Nasal Cannula 1.0 09/22/16 00:00 Nasal Cannula 2.0 09/22/16 00:00 36.7 78 20 106/69 96 2.0 09/21/16 16:29 36.8 83 20 137/73 95 Nasal Cannula 2.0 09/21/16 16:00 96 Nasal Cannula 2.0 09/21/16 15:01 36.6 87 18 111/69 96 Nasal Cannula 2.0 09/21/16 14:55 36.7 84 18 91 2.0 Physical Exam General Appearance: WD/WN, no apparent distress, + pertinent finding (seated comfortably in the chair) Eyes: bilateral eyes EOMI, bilateral eyes PERRL, bilateral eyes normal inspection ENT: normal ENT inspection, hearing grossly normal, pharynx normal Neck: supple, no adenopathy, no JVD, no carotid bruits, trachea midline Respiratory/Chest: chest non-tender, lungs clear, normal breath sounds, no respiratory distress, no accessory muscle use Cardiovascular: regular rate, rhythm, no edema, no gallop, no JVD, no murmur Abdomen: normal bowel sounds, non tender, soft Extremities: non-tender, no pedal edema, no calf tenderness Neurologic/Psychiatric: 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 water pollution control II-XII nml as tested, alert, normal mood/affect, oriented x 3, + pertinent finding (lack of sensation and propioception ) Skin: normal color Laboratory Results Last 24 Hours Test 09/21/16 12:43 09/21/16 17:19 09/21/16 21:04 09/22/16 01:35 Total Bilirubin 0.8 mg/dl C-Reactive Protein 17.90 mg/dl 25-Hydroxy Vitamin D Total 27.4 ng/ml Procalcitonin 0.88 ng/ml Bedside Glucose 155 mg/dl 148 mg/dl Vancomycin Level Trough 9.1 mcg/ml Test 09/22/16 06:36 09/22/16 07:50 09/22/16 11:44 White Blood Count 3.44 K/uL Red Blood Count 3.07 M/uL Hemoglobin 9.6 g/dL Hematocrit 29.3 % Mean Corpuscular Volume 95.4 fL Mean Corpuscular Hemoglobin 31.3 pg Mean Corpuscular Hemoglobin Concent 32.8 g/dl RDW Standard Deviation 51.0 fL RDW Coefficient of Variation 14.7 % Platelet Count 154 K/uL Mean Platelet Volume 9.9 fL Sodium Level 143 mmol/L Potassium Level 3.5 mmol/L Chloride Level 107 mmol/L Carbon Dioxide Level 28 mmol/L Anion Gap 8.0 mmol/L Blood Urea Nitrogen 17 mg/dl Creatinine 0.84 mg/dl Est Creatinine Clear Calc Drug Dose 56.8 ml/min Estimated GFR () 79.4 Estimated GFR (Non- 68.5 BUN/Creatinine Ratio 20.4 Random Glucose 172 mg/dl Calcium Level 7.8 mg/dl Procalcitonin 0.52 ng/ml Bedside Glucose 190 mg/dl 190 mg/dl Assessment and Plan Assessment and Plan: Ms Selena Segovia is a pleasant 76 yo female with acute onset shortness of breath and subacute onset of worsening shuffling gait on hospital day 4. Individual assessment and plan are as follows: 1. Acute hypoxic respiratory failure: Improving significantly since admission. Now "60% better". CXR yesterday shows cleared pulmonary edema. Due to both pulmonary edema identified on cxr and possible pneumonia. Although fluid overload is likely cause of SOB, cannot rule out pneumonia due to high procalcitonin and high CRP, which continue to trend down. Immunosuppression from stem cell transplant in 2010 could lead to pneumonia from opportunistic infection, although heme/onc believes this to be unlikely. Pt known to have MRSA.Vitals remain stable with pulse ox holding above 92 on RA. Will continue on adviar BID and albuterol 2 puffs q6hrs. 2. Pulmonary edema- resolved on cxr. Will continue on Lasix 20mg daily. Will watch I&O and K. Encouraging echo yesterday showed 55-60% EF with slight diastolic dysfunction. Will discuss signs of being wet and dry. 3. Pneumonia: Possible. Procalcitonin and crp trending down. Will trend for tomorrow too. Will d/c vanc and zosyn. Will discharge on augmentin and doxy x 5 days for a ten day total course. Patient has noted amoxicillin allergy (yeast infection). Will provide script for clotrimazole on discharge. 4. Neuropathy: Chronic with subacute worsening of shuffling gait. Stable. Not worsening or improving in hospital. Continue to work with PT/OT to strengthen and decrease fall risk. Does not look like there is an identifiable cause of her neuropathy at this time, but has multiple risk factors. Patient failed Sinemet and did not worsen upon discontinuation, and does not look like Parkinson picture. B12 currently high, unsure of why was treated in past. Diabetes x ~10 years under fairly good control, unlikely to be cause. Neuropathy worsened after back problems, especially on R leg, but initially developed after transplant in 2010. Will continue lyrica 150mg. 4. DMII: Regular insulin with Sliding scale. Hold oral meds. Will order diabetic diet. 5. HypoT: synthroid 6. HLD: Simvastatin 40mg daily. 7. Multiple myeloma. Treated with stem cell tx in 2010. In remission on two agents. Stable per heme/onc consult. Will continue both agents per heme/onc rec. It does not appear patient was getting her Revlid (Lenalidomide). Will talk to nurse and pharmacy as to why. Ordered and should be continued according to hem/onc. 8. Hypovitaminosis D. Continue 5000 iu daily with meal. 9. GERD: Continue protonix daily, reassess daily for need. 10. Anemia. Chronic, slowly dropping. Likely due to lab draws and hydration. Will check tomorrow with one last CBC. 10. DVT proph: Heparin 5000 units subQ q8hrs 11. Disposition: Med/surg. Diabetic diet. Ambulate with assist. Plan to discharge home without services. Continued [facility] stay due to: abnormal vital signs Discharge planning: home
[2016-09-22] MEDS ORDERED: VANCOMYCIN INJ 1,250 MG in SODIUM CHLORIDE 0.9% 250ML 250 ML IV SCH (14:00)
[2016-09-22] MEDS: AMOXICILLIN/CLAVULANATE TAB 875 MG TAB PO SCH (18:10)
[2016-09-22] MEDS: DOXYCYCLINE HYCLATE 100 MG CAP PO SCH (22:22)
[2016-09-22] MEDS: CHOLECALCIFEROL 1000 INTER.UNIT TAB PO SCH (22:23)
[2016-09-22] MEDS: LENALIDOMIDE 5 MG PO SCH (22:24)
[2016-09-22] MEDS: PREGABALIN 75 MG CAP PO SCH (22:29)
[2016-09-22] MEDS: SIMVASTATIN 40 MG TAB PO SCH (22:30)
[2016-09-23] VITALS (10 sets, daily range): BP systolic 115–138; BP diastolic 54–77; PULSE 73–91; TEMP 36.4–36.8; O2SAT 91–96
[2016-09-23] MEDS: LEVOTHYROXINE 75 MCG TAB PO SCH (06:16)
[2016-09-23] MEDS: HEPARIN SOD 5000 UNIT/0.5 ML CARP SQ SCH ×3 (06:17→21:04)
[2016-09-23 07:37] LABS: BASO % 0.3 %; BASO ABS # 0.01 K/uL (0-0.2); COMPLETE YES; EOS % 2.6 %; HEMATOCRIT 29.2 % (37-47); IG% 1.7 %; LYMPH % 41.9 %; LYMPH ABS # 1.27 K/uL (1.2-3.4); MEAN CELL VOLUME 94.8 fL (80-100); MEAN CORPUSCULAR HEMOGLOBIN 31.5 pg (25-34); MEAN CORPUSCULAR HGB CONC 33.2 g/dl (32-36); MEAN PLATELET VOLUME 9.7 fL (7.4-10.4); MONO % 15.2 %; NEUT % 38.3 %; PLATELET COUNT 157 K/uL (130-400); RED BLOOD COUNT 3.08 M/uL (4.2-5.4); WHITE BLOOD COUNT 3.03 K/uL (4.8-10.8)
[2016-09-23] MEDS: ALBUT/IPRATROP 3MG/0.5MG NEB 3 ML VIAL INH SCH ×4 (08:00→20:24)
[2016-09-23] MEDS: DOXYCYCLINE HYCLATE 100 MG CAP PO SCH ×2 (08:35→20:26)
[2016-09-23] MEDS: ASPIRIN 81 MG ECTAB PO SCH (08:35)
[2016-09-23] MEDS: PANTOprazole SOD 40 MG TAB PO SCH (08:35)
[2016-09-23] MEDS: AMOXICILLIN/CLAVULANATE TAB 875 MG TAB PO SCH ×2 (08:36→18:03)
[2016-09-23] MEDS: OLOPATADINE HYDROCHLORIDE OPB SCH (08:37)
[2016-09-23] MEDS: CEVIMELINE 30 MG PO SCH ×2 (08:37→20:27)
[2016-09-23] MEDS: FLUTICASONE/SALMETEROL 250/50 (ADVAIR) 14 PUFF/1 INHALER INH SCH ×2 (08:37→20:26)
[2016-09-23] MEDS: OMEGA-3 (PURIFIED FISH OIL) 1 GM CAP PO SCH ×2 (08:38→20:26)
[2016-09-23 08:48] LABS: BUN/CREATININE RATIO 13.3 (10-20); C-REACTIVE PROTEIN 6.4 mg/dl (0-0.29); CALCIUM 8.7 mg/dl (8.5-10.1); CREATININE 0.64 mg/dl (0.60-1.20); POTASSIUM 3.4 mmol/L (3.5-5.1)
[2016-09-23] MEDS: INSULIN HUMAN REGULAR SC SCH ×4 (08:59→21:04)
[2016-09-23] MEDS ORDERED: NURSING VERBAL MED ORDER ONE ×3 (11:00→23:00)
[2016-09-23] MEDS ORDERED: POTASSIUM CHLORIDE 20 MEQ TABCR PO ONE (11:15)
[2016-09-23] MEDS: FUROSEMIDE 20 MG TAB PO SCH (11:37)
--- NOTE | 2016-09-23 16:56 | Progress Note ---
Subjective Date of Service: September 23, 2016. Subjective Pt evaluation today including: conversation w/ patient, physical exam, chart review, lab review, review of studies, review of inpatient medication list Pain: no pain reported PO Intake: good oral intake Voiding: no voiding problems pt is seen and examined by me, better but still has productive cough and slightly feel tired. Pt states that she has a 2-3 episodes of diarrhea nd mostly worried, concern about c-diff. Problem List Medical Problems: (1) Congestive heart failure Status: Acute (2) Hypoxia Status: Acute (3) Right lower lobe pneumonia Status: Acute Review of Systems Constitutional: + weakness, No chills, No fever Respiratory: + cough, + wheezing, No dyspnea at rest, No dyspnea on exertion, No hemoptysis, No shortness of breath, No sputum Cardiac: No chest pain Abdomen: + diarrhea, No nausea, No pain, No vomiting Female : No dysuria, No urinary frequency Heme: No abnormal bleeding/bruising Endo: No fatigue Skin: No rash Medications Medications (Trade) Dose Ordered Sig/Jarred Route Start Time Stop Time Status Last Admin Dose Admin Amoxicillin/ Clavulanate Potassium (Augmentin Tab) 875 mg BIDM PO 09/22/16 17:00 09/29/16 16:59 09/23/16 08:36 875 MG Doxycycline Hyclate (Vibramycin Cap) 100 mg BID PO 09/22/16 20:00 09/29/16 19:59 09/23/16 08:35 100 MG Potassium Chloride (Klor-Con Tab) 20 meq 1115 ONCE PO 09/23/16 11:15 09/23/16 11:16 DC 09/23/16 11:36 20 MEQ Objective Vital Signs Date Time Temp Pulse Resp B/P Pulse Ox O2 Delivery O2 Flow Rate FiO2 09/23/16 15:20 84 16 96 Room Air 09/23/16 14:59 36.4 90 18 115/77 96 Room Air 09/23/16 11:15 79 16 91 Room Air 09/23/16 08:31 73 16 94 Room Air 09/23/16 08:00 93 Room Air 09/23/16 07:56 36.7 82 18 119/54 93 Room Air 09/23/16 00:00 92 Room Air 09/22/16 23:54 36.6 68 18 110/67 93 Room Air 09/22/16 19:00 80 16 92 Room Air Physical Exam General Appearance: no apparent distress, + obese Neck: supple Respiratory/Chest: no respiratory distress, no accessory muscle use, + rhonchi (scatered ronchi), + wheezing Cardiovascular: regular rate, rhythm, no edema, no gallop, no murmur Abdomen: normal bowel sounds, non tender, soft Neurologic/Psychiatric: alert, normal mood/affect, oriented x 3 Skin: no rash Laboratory Results Last 24 Hours Test 09/22/16 20:00 09/23/16 07:11 09/23/16 07:45 09/23/16 11:29 Bedside Glucose 187 mg/dl 174 mg/dl 199 mg/dl White Blood Count 3.03 K/uL Red Blood Count 3.08 M/uL Hemoglobin 9.7 g/dL Hematocrit 29.2 % Mean Corpuscular Volume 94.8 fL Mean Corpuscular Hemoglobin 31.5 pg Mean Corpuscular Hemoglobin Concent 33.2 g/dl Platelet Count 157 K/uL Mean Platelet Volume 9.7 fL Neutrophils (%) (Auto) 38.3 % Lymphocytes (%) (Auto) 41.9 % Monocytes (%) (Auto) 15.2 % Eosinophils (%) (Auto) 2.6 % Basophils (%) (Auto) 0.3 % Neutrophils # (Auto) 1.16 K/uL Lymphocytes # (Auto) 1.27 K/uL Monocytes # (Auto) 0.46 K/uL Eosinophils # (Auto) 0.08 K/uL Basophils # (Auto) 0.01 K/uL RDW Standard Deviation 49.8 fL RDW Coefficient of Variation 14.4 % Immature Granulocyte % (Auto) 1.7 % Immature Granulocyte # (Auto) 0.05 K/uL Sodium Level 144 mmol/L Potassium Level 3.4 mmol/L Chloride Level 106 mmol/L Carbon Dioxide Level 30 mmol/L Anion Gap 8.0 mmol/L Blood Urea Nitrogen 9 mg/dl Creatinine 0.64 mg/dl Est Creatinine Clear Calc Drug Dose 74.6 ml/min Estimated GFR () 101.9 Estimated GFR (Non- 87.9 BUN/Creatinine Ratio 13.3 Random Glucose 163 mg/dl Calcium Level 8.7 mg/dl C-Reactive Protein 6.40 mg/dl Assessment and Plan 76 year old on immunosuppressive agents with suspected pneumonia vs pulmonary edema on CXR with 2 days of cough and generalized fatigue. The patient was admitted and started on vanco, zosyn and levaquin for potential immunosuppression from her chemo as well as receiving lasix for her pulmonary edema. Since she does not have a history of cardiac failure and has been on this medication for a prolonger period of time it was unlikely that this medication was the source of the pulmonary edema. Overnight her pulmonary edema had improved and the echo actually did not reveal any significant change in the EF or dysfunction/ valvular abnormalities. This and the elevated inflammatory markers reflected a more infectious cause for the acute hypoxic resp failure. Acute hypoxic respiratory failure - aim O2 > 94% Possible Pneumonia on immunosuppressive medication - treat as pneumonia and recent contact with healthcare facility - MRSA positive - Zosyn- plan to d/c on augmentin - The adverse reaction is a yeast infection for will give rx for clotrimazole - levaquin and vanco d/c - cont doxycycline and augmentin. - CXR in am. - possible discharge tomorrow Pulmonary edema on CXR - treated with lasix in the ER, will continue lasix 20 mg daily- improved. - consult heme/onc- appreciate input - unlikely related to chemo medication - Echo * There is mild asymmetric left ventricular hypertrophy. * Left ventricular systolic function is normal. * Grade I diastolic dysfunction, (abnormal relaxation pattern). * Right ventricular systolic pressure is normal. - troponin neg x 3 - daily weights + I&Os Vit D Def - vit D 5000 units daily Type 2 diabetes - ACHS BSG with diabetic diet - hold diabetic oral meds and treat with sliding scale insulin. Aim BSG 110-140 Hypothyroidism - continue levothyroxine Hyperlipidemia - continue simvastatin Multiple myeloma in remission - consult heme/onc- appreciate input Code - Full VTE Prophylaxis - heparin 5000 units Q8H SQ Continued [facility] stay due to: other Discharge planning: home
[2016-09-23] MEDS: CHOLECALCIFEROL 1000 INTER.UNIT TAB PO SCH (20:27)
[2016-09-23] MEDS: PREGABALIN 75 MG CAP PO SCH (20:27)
[2016-09-23] MEDS: SIMVASTATIN 40 MG TAB PO SCH (20:50)
[2016-09-23] MEDS: LENALIDOMIDE 5 MG PO SCH (22:01)
--- NOTE | 2016-09-23 22:24 | DIAGNOSTIC IMAGING REPORT ---
CHEST 1 VW FRONT-NOT PORTABLE CLINICAL HISTORY: PNA hypoxia COMPARISON STUDY: 09/21/2016 FINDINGS: Focal parenchymal infiltrate medial left as well as right base. This is slightly increased from the prior exam. Mid and upper lungs are considered clear. IMPRESSION: Slightly progressive atelectatic and/or infiltrative change medial aspect right and left base Electronically signed by: Jean-Paul Rivera M.D. 09/23/2016 10:23 PM Dictated Date/Time: 09/23/2016 10:22 PM
[2016-09-23] MEDS ORDERED: COUGH DROP (SUGAR FREE) LOZ 24 LOZ/1 BOX PO PRN (22:30)
[2016-09-23] MEDS ORDERED: GUAIFENESIN SUGAR FREE 200 MG/10 ML UDC PO PRN (23:00)
[2016-09-24] MEDS: GUAIFENESIN SUGAR FREE 100 MG/5 ML UDC PO PRN (01:23)
[2016-09-24] MEDS ORDERED: VANCOMYCIN TROUGH SCH (01:30)
[2016-09-24] MEDS: HEPARIN SOD 5000 UNIT/0.5 ML CARP SQ SCH ×3 (06:20→21:05)
[2016-09-24] MEDS: LEVOTHYROXINE 75 MCG TAB PO SCH (06:21)
[2016-09-24 07:04] VITALS: BP 148/77; PULSE 82; TEMP 36.8; O2SAT 92
[2016-09-24 07:40] VITALS: PULSE 84; O2SAT 91
[2016-09-24] MEDS: ALBUT/IPRATROP 3MG/0.5MG NEB 3 ML VIAL INH SCH ×4 (07:40→19:06)
[2016-09-24] MEDS: FLUTICASONE/SALMETEROL 250/50 (ADVAIR) 14 PUFF/1 INHALER INH SCH ×2 (07:41→20:58)
[2016-09-24] MEDS: AMOXICILLIN/CLAVULANATE TAB 875 MG TAB PO SCH ×2 (07:42→18:37)
[2016-09-24] MEDS: ASPIRIN 81 MG ECTAB PO SCH (07:42)
[2016-09-24] MEDS: FUROSEMIDE 20 MG TAB PO SCH (07:42)
[2016-09-24] MEDS: OLOPATADINE HYDROCHLORIDE OPB SCH (07:43)
[2016-09-24] MEDS: DOXYCYCLINE HYCLATE 100 MG CAP PO SCH ×2 (07:44→21:06)
[2016-09-24] MEDS: CEVIMELINE 30 MG PO SCH ×2 (07:44→20:58)
[2016-09-24] MEDS: OMEGA-3 (PURIFIED FISH OIL) 1 GM CAP PO SCH ×2 (07:45→21:06)
[2016-09-24] MEDS: PANTOprazole SOD 40 MG TAB PO SCH (07:45)
[2016-09-24 08:00] VITALS: O2SAT 92
[2016-09-24] MEDS ORDERED: NURSING VERBAL MED ORDER ONE ×2 (09:15→13:45)
--- NOTE | 2016-09-24 09:46 | DIAGNOSTIC IMAGING REPORT ---
CHEST 2 VIEWS ROUTINE HISTORY: Short of breath. COMPARISON: Chest 09/23/2016. FINDINGS: The heart remains mildly enlarged. Moderate hiatus hernia. Mild diffuse interstitial thickening persists. Bibasilar linear densities remain unchanged. No pneumothorax. IMPRESSION: 1. No change from the prior study. 2. Bibasilar linear densities favor atelectasis. However, pneumonia could also have a similar appearance. 3. Mild cardiomegaly. 4. Moderate hiatus hernia. Electronically signed by: Johnny Elam M.D. 09/24/2016 9:45 AM Dictated Date/Time: 09/24/2016 9:43 AM
[2016-09-24] MEDS: INSULIN HUMAN REGULAR SC SCH ×4 (09:53→21:03)
[2016-09-24] MEDS ORDERED: FUROSEMIDE 20 MG TAB PO ONE (10:00)
[2016-09-24 10:05] LABS: HEMATOCRIT 33.5 % (37-47); MEAN CELL VOLUME 94.4 fL (80-100); MEAN CORPUSCULAR HEMOGLOBIN 31.5 pg (25-34); MEAN CORPUSCULAR HGB CONC 33.4 g/dl (32-36); MEAN PLATELET VOLUME 9.9 fL (7.4-10.4); PLATELET COUNT 175 K/uL (130-400); RED BLOOD COUNT 3.55 M/uL (4.2-5.4); WHITE BLOOD COUNT 5.11 K/uL (4.8-10.8)
[2016-09-24 10:33] LABS: BUN/CREATININE RATIO 14.5 (10-20); CALCIUM 9.2 mg/dl (8.5-10.1); CREATININE 0.77 mg/dl (0.60-1.20); POTASSIUM 3.4 mmol/L (3.5-5.1)
--- NOTE | 2016-09-24 11:49 | Progress Note ---
Subjective Date of Service: September 24, 2016. Subjective Pt evaluation today including: conversation w/ patient, physical exam, chart review, lab review, review of studies, review of inpatient medication list Pain: no pain reported PO Intake: good oral intake Pt is seen and examined by me. Pt is c/o of worsening cough some what productive no blood tinged with wheezing, and shortness of breath. Pt denies Cp , palpitation and dizziness. Pt denies abdominal pain and urinary symptoms. Pt denies fever, chills, rigors and sweats. Problem List Medical Problems: (1) Congestive heart failure Status: Acute (2) Hypoxia Status: Acute (3) Right lower lobe pneumonia Status: Acute Review of Systems Constitutional: No chills, No fever, No sweats, No weight loss Respiratory: + cough, + shortness of breath, + sputum, + wheezing, No dyspnea at rest, No hemoptysis Cardiac: No chest pain, No edema, No palpitations Abdomen: No diarrhea, No nausea, No pain, No vomiting Female : No dysuria, No urinary frequency Psychiatric: No anxiety Endo: No fatigue Skin: No rash Medications Medications (Trade) Dose Ordered Sig/Jarred Route Start Time Stop Time Status Last Admin Dose Admin Guaifenesin (Robitussin Sugar Free Syrup) 200 mg Q4H PRN PO 09/23/16 23:00 10/23/16 22:59 09/24/16 01:23 200 MG Furosemide (Lasix Tab) 20 mg 1000 ONCE PO 09/24/16 10:00 09/24/16 10:01 DC 09/24/16 09:47 20 MG Objective Vital Signs Date Time Temp Pulse Resp B/P Pulse Ox O2 Delivery O2 Flow Rate FiO2 09/24/16 08:00 92 Room Air 09/24/16 07:40 84 16 91 Room Air 09/24/16 07:04 36.8 82 18 148/77 92 Room Air 09/23/16 23:59 Room Air 09/23/16 22:38 36.8 87 18 138/64 93 Room Air 09/23/16 20:24 91 16 96 Room Air 09/23/16 20:00 96 Room Air 09/23/16 16:00 Room Air 09/23/16 15:20 84 16 96 Room Air 09/23/16 14:59 36.4 90 18 115/77 96 Room Air Physical Exam General Appearance: no apparent distress, + obese Eyes: EOMI Neck: supple, no adenopathy, no JVD Respiratory/Chest: no respiratory distress, no accessory muscle use, + rhonchi (scattered on left leg ), + wheezing Cardiovascular: regular rate, rhythm, no edema, no gallop, no murmur Abdomen: normal bowel sounds, non tender, soft Neurologic/Psychiatric: no motor/sensory deficits, alert, normal mood/affect, oriented x 3 Skin: no rash Laboratory Results Last 24 Hours Test 09/23/16 16:31 09/23/16 19:50 09/24/16 08:04 09/24/16 09:56 Bedside Glucose 178 mg/dl 190 mg/dl 193 mg/dl White Blood Count 5.11 K/uL Red Blood Count 3.55 M/uL Hemoglobin 11.2 g/dL Hematocrit 33.5 % Mean Corpuscular Volume 94.4 fL Mean Corpuscular Hemoglobin 31.5 pg Mean Corpuscular Hemoglobin Concent 33.4 g/dl RDW Standard Deviation 49.3 fL RDW Coefficient of Variation 14.3 % Platelet Count 175 K/uL Mean Platelet Volume 9.9 fL Sodium Level 140 mmol/L Potassium Level 3.4 mmol/L Chloride Level 104 mmol/L Carbon Dioxide Level 26 mmol/L Anion Gap 10.0 mmol/L Blood Urea Nitrogen 11 mg/dl Creatinine 0.77 mg/dl Est Creatinine Clear Calc Drug Dose 62.0 ml/min Estimated GFR () 88.2 Estimated GFR (Non- 76.1 BUN/Creatinine Ratio 14.5 Random Glucose 253 mg/dl Calcium Level 9.2 mg/dl Assessment and Plan 76 year old on immunosuppressive agents with suspected pneumonia vs pulmonary edema on CXR with 2 days of cough and generalized fatigue. The patient was admitted and started on vanco, zosyn and levaquin for potential immunosuppression from her chemo as well as receiving lasix for her pulmonary edema. Since she does not have a history of cardiac failure and has been on this medication for a prolonger period of time it was unlikely that this medication was the source of the pulmonary edema. Overnight her pulmonary edema had improved and the echo actually did not reveal any significant change in the EF or dysfunction/ valvular abnormalities. This and the elevated inflammatory markers reflected a more infectious cause for the acute hypoxic resp failure. Acute hypoxic respiratory failure - aim O2 > 94%, however pt is desaturate to 90-91% on room air. Will appreciate plmonary input. - May consider CT chest with IV contrast. Possible Pneumonia on immunosuppressive medication - treat as pneumonia and recent contact with healthcare facility - MRSA positive - Zosyn- plan to d/c on augmentin and doxycycline - The adverse reaction is a yeast infection for will give rx for clotrimazole - levaquin and vanco d/c - cont doxycycline and augmentin. - CXR.09/24/16 The heart remains mildly enlarged. Moderate hiatus hernia. Mild diffuse interstitial thickening persists. Bibasilar linear densities remain unchanged. No pneumothorax - will consult pulmonary for input. Pulmonary edema on CXR - treated with lasix in the ER, will continue lasix 20 mg daily- improved. will give a extra dose today. - consult heme/onc- appreciate input - unlikely related to chemo medication - Echo * There is mild asymmetric left ventricular hypertrophy. * Left ventricular systolic function is normal. * Grade I diastolic dysfunction, (abnormal relaxation pattern). * Right ventricular systolic pressure is normal. - troponin neg x 3 - daily weights + I&Os Vit D Def - vit D 5000 units daily Type 2 diabetes - ACHS BSG with diabetic diet - hold diabetic oral meds and treat with sliding scale insulin. Aim BSG 110-140 Hypothyroidism - continue levothyroxine Hyperlipidemia - continue simvastatin Multiple myeloma in remission - consult heme/onc- appreciate input Code - Full VTE Prophylaxis - heparin 5000 units Q8H SQ Continued [facility] stay due to: other (worseing cough not improvingas well as low o2 saturation) Discharge planning: home
[2016-09-24] MEDS ORDERED: POTASSIUM CHLORIDE 10 MEQ TABCR PO ONE (14:00)
[2016-09-24 14:38] VITALS: BP 113/63; PULSE 92; TEMP 36.8; O2SAT 92
[2016-09-24] MEDS: PREGABALIN 75 MG CAP PO SCH (21:07)
[2016-09-24] MEDS: SIMVASTATIN 40 MG TAB PO SCH (21:07)
[2016-09-24] MEDS: CHOLECALCIFEROL 1000 INTER.UNIT TAB PO SCH (21:07)
[2016-09-24] MEDS: LENALIDOMIDE 5 MG PO SCH (22:18)
[2016-09-24] MEDS: ONDANSETRON INJ 2 MG/ML 2 ML VIAL IV PRN (22:26)
[2016-09-25 00:08] VITALS: BP 114/72; PULSE 78; TEMP 36.7; O2SAT 90
[2016-09-25 04:17] LABS: HEMATOCRIT 31.8 % (37-47); MEAN CELL VOLUME 94.1 fL (80-100); MEAN CORPUSCULAR HEMOGLOBIN 30.8 pg (25-34); PLATELET COUNT 180 K/uL (130-400); RED BLOOD COUNT 3.38 M/uL (4.2-5.4); WHITE BLOOD COUNT 4.64 K/uL (4.8-10.8)
[2016-09-25 04:23] LABS: MEAN CORPUSCULAR HGB CONC 32.7 g/dl (32-36)
[2016-09-25 04:49] LABS: BUN/CREATININE RATIO 14.7 (10-20); CALCIUM 8.7 mg/dl (8.5-10.1); CREATININE 0.84 mg/dl (0.60-1.20); POTASSIUM 3.3 mmol/L (3.5-5.1)
[2016-09-25] MEDS: LEVOTHYROXINE 75 MCG TAB PO SCH (06:00)
[2016-09-25] MEDS: HEPARIN SOD 5000 UNIT/0.5 ML CARP SQ SCH ×3 (06:02→21:24)
[2016-09-25] MEDS: ALBUT/IPRATROP 3MG/0.5MG NEB 3 ML VIAL INH SCH ×4 (07:12→19:42)
[2016-09-25 07:13] VITALS: BP 122/80; PULSE 83; TEMP 36.9; O2SAT 90
[2016-09-25] MEDS: CEVIMELINE 30 MG PO SCH ×2 (07:59→21:22)
[2016-09-25] MEDS: OLOPATADINE HYDROCHLORIDE OPB SCH (07:59)
[2016-09-25] MEDS: DOXYCYCLINE HYCLATE 100 MG CAP PO SCH ×2 (08:00→21:23)
[2016-09-25] MEDS: FUROSEMIDE 20 MG TAB PO SCH (08:00)
[2016-09-25] MEDS: OMEGA-3 (PURIFIED FISH OIL) 1 GM CAP PO SCH ×2 (08:00→21:23)
[2016-09-25] MEDS: FLUTICASONE/SALMETEROL 250/50 (ADVAIR) 14 PUFF/1 INHALER INH SCH ×2 (08:00→22:20)
[2016-09-25] MEDS: AMOXICILLIN/CLAVULANATE TAB 875 MG TAB PO SCH ×2 (08:00→17:44)
[2016-09-25] MEDS: ASPIRIN 81 MG ECTAB PO SCH (08:00)
[2016-09-25] MEDS: CYANOCOBALAMIN 500 MCG TAB (VIT B-12) PO SCH (08:00)
[2016-09-25] MEDS: PANTOprazole SOD 40 MG TAB PO SCH (08:01)
[2016-09-25] MEDS: INSULIN HUMAN REGULAR SC SCH ×4 (08:05→21:43)
[2016-09-25] MEDS ORDERED: POTASSIUM CHLORIDE 10 MEQ TABCR PO STA (09:04)
[2016-09-25 10:02] VITALS: BP_SYST 108; BP_SYST 117; BP_SYST 123; BP_DIAS 61; BP_DIAS 68; BP_DIAS 75; PULSE 84; PULSE 88
--- NOTE | 2016-09-25 10:20 | Hematology/Oncology Prog Note ---
Hematology/Onc Progress Note Date of Service September 25, 2016. Diagnoses Multiple myeloma History of respiratory insufficiency Medications Medications Administered Medications (Trade) Dose Ordered Sig/Jarred Route Start Time Stop Time Status Last Admin Dose Admin Acetaminophen (Tylenol Tab) 1,000 mg NOW STAT PO 09/19/16 22:20 09/19/16 22:22 DC 09/19/16 22:51 1,000 MG Levofloxacin 750 mg 750 mg NOW ONCE IV 09/19/16 23:00 09/19/16 23:01 DC 09/19/16 23:31 750 MG Furosemide 40 mg/ Syringe 4 ml @ 4 mls/min NOW STAT IV 09/19/16 22:55 09/19/16 22:56 DC 09/19/16 22:55 4 MLS/MIN Vancomycin HCl/ Sodium Chloride (Vancomycin Inj/ Nss 500ml) 543 ml @ 200 mls/hr NOW STAT IV 09/20/16 00:53 09/20/16 03:35 DC 09/20/16 01:26 200 MLS/HR Heparin Sodium (Porcine) (Heparin Sq 5000 Unit/0.5ml) 5,000 unit Q8 SQ 09/20/16 14:00 10/20/16 13:59 09/25/16 06:02 5,000 UNIT Ondansetron HCl 4 mg 4 mg Q6H PRN IV 09/20/16 01:30 10/20/16 01:29 09/24/16 22:26 4 MG Piperacillin Sod/ Tazobactam Sod 4.5 gm/Dextrose 120 ml @ 200 mls/hr NOW STAT IV 09/20/16 02:39 09/20/16 03:14 DC 09/20/16 04:12 200 MLS/HR Piperacillin Sod/ Tazobactam Sod/ Dextrose (Zosyn Iv/D5 100ml) 120 ml @ 30 mls/hr Q8H IV 09/20/16 08:00 09/22/16 13:32 DC 09/22/16 08:13 30 MLS/HR Aspirin (Ecotrin Tab) 81 mg QAM PO 09/21/16 09:00 10/21/16 08:59 09/25/16 08:00 81 MG Cholecalciferol (Vitamin D Tab) 5,000 inter.unit QPM PO 09/20/16 21:00 10/20/16 20:59 09/24/16 21:07 5,000 INTER.UNIT Cyanocobalamin (Vitamin B-12 Tab) 2,500 mcg MoWeFr@0900 PO 09/22/16 09:00 10/22/16 08:59 09/25/16 08:00 2,500 MCG Fish Oil ([place]-3 (Purified Fish Oil) Cap) 1 gm BID PO 09/20/16 21:00 10/20/16 20:59 09/25/16 08:00 1 GM Salmeterol Xinafoate/ Fluticasone (Advair Diskus 250/50 Inh) 1 puff BID INH 09/20/16 21:00 10/20/16 20:59 09/25/16 08:00 1 PUFF Levothyroxine Sodium (Synthroid Tab) 75 mcg DAILYBB PO 09/21/16 06:00 10/21/16 05:59 09/25/16 06:00 75 MCG Pregabalin (Lyrica Cap) 150 mg QPM PO 09/20/16 21:00 10/20/16 20:59 09/24/16 21:07 150 MG Simvastatin (Zocor Tab) 40 mg HS PO 09/20/16 21:00 10/20/16 20:59 09/24/16 21:07 40 MG Pantoprazole Sodium (Protonix Tab) 40 mg QAM PO 09/21/16 09:00 10/21/16 08:59 09/25/16 08:01 40 MG Potassium Chloride (Klor-Con Tab) 40 meq 0900 ONCE PO 09/20/16 09:00 09/20/16 09:01 DC 09/20/16 08:54 40 MEQ Insulin Human Regular SLIDING SCALE IF C... ACHS SC 09/20/16 11:00 10/20/16 10:59 09/25/16 08:05 4 UNITS Levofloxacin/Prmx (Levaquin / D5W/ Premixed D5W) 150 ml @ 100 mls/hr DAILY@2200 IV 09/20/16 22:00 09/21/16 12:44 DC 09/20/16 21:43 100 MLS/HR Lenalidomide 5 mg 5 mg HS PO 09/20/16 21:00 10/04/16 22:01 09/24/16 22:18 5 MG Vancomycin HCl/ Sodium Chloride (Vancomycin Inj/ Nss 250ml) 275 ml @ 125 mls/hr Q16H IV 09/20/16 18:00 09/22/16 08:56 DC 09/22/16 02:05 125 MLS/HR Furosemide (Lasix Tab) 20 mg QAM PO 09/21/16 09:00 10/21/16 08:59 09/25/16 08:00 20 MG Furosemide (Lasix Tab) 20 mg 1915 ONCE PO 09/20/16 19:15 09/20/16 19:20 DC 09/20/16 19:51 20 MG Cevimeline HCl (Evoxac) 30 mg BID PO 09/20/16 21:00 10/20/16 20:59 09/25/16 07:59 30 MG Potassium Chloride (Klor-Con M10) 40 meq 0915 ONCE PO 09/21/16 09:15 09/21/16 09:16 DC 09/21/16 10:36 40 MEQ Albuterol/ Ipratropium (Duoneb) 3 ml 0915 ONCE INH 09/21/16 09:15 09/21/16 09:16 DC 09/21/16 09:28 3 ML Olopatadine HCl (Pataday 0.2% Op Soln) 1 drops QAM OPB 09/22/16 08:00 10/22/16 07:59 09/25/16 07:59 1 DROPS Albuterol/ Ipratropium (Duoneb) 3 ml QIDR INH 09/22/16 12:00 10/22/16 11:59 09/24/16 07:40 3 ML Amoxicillin/ Clavulanate Potassium (Augmentin Tab) 875 mg BIDM PO 09/22/16 17:00 09/29/16 16:59 09/25/16 08:00 875 MG Doxycycline Hyclate (Vibramycin Cap) 100 mg BID PO 09/22/16 20:00 09/29/16 19:59 09/25/16 08:00 100 MG Potassium Chloride (Klor-Con Tab) 20 meq 1115 ONCE PO 09/23/16 11:15 09/23/16 11:16 DC 09/23/16 11:36 20 MEQ Guaifenesin (Robitussin Sugar Free Syrup) 200 mg Q4H PRN PO 09/23/16 23:00 10/23/16 22:59 09/24/16 01:23 200 MG Furosemide (Lasix Tab) 20 mg 1000 ONCE PO 09/24/16 10:00 09/24/16 10:01 DC 09/24/16 09:47 20 MG Potassium Chloride (Klor-Con M10) 40 meq TODAY@1400 ONCE PO 09/24/16 14:00 09/24/16 14:01 DC 09/24/16 14:19 40 MEQ Subjective She is to be doing well. She states she hasn't been walking around very much. Not very short of breath at rest however. Afebrile Review of Systems: Constitutional: Negative for weight loss, night sweats, or fever Eyes: Negative for event change of vision ENT: Negative for epistaxis, nasal discharge, sore throat, or deafness Cardiovascular: Negative for chest pain, palpitations, dizziness, diaphoresis Respiratory: Negative for hemoptysis or purulent cough Gastrointestinal: She has had some diarrhea she states Integumentary (skin): Negative for rash or jaundice discoloration Genitourinary: Negative for urinary frequency, hematuria, or dysuria Neurological: Negative for weakness, seizure activity, headache, or dizziness Lymphatic/Hematologic: Negative for petechiae, bleeding or new adenopathy Musculoskeletal: Negative for new joint or back pain Allergic/Immunologic: Negative for unusual rash or pruritis. Vital Signs Vital Signs Past 12 Hours Date Time Temp Pulse Resp B/P Pulse Ox O2 Delivery O2 Flow Rate FiO2 09/25/16 10:02 84 117/61 88 108/68 84 123/75 09/25/16 08:00 Room Air 09/25/16 07:13 36.9 83 17 122/80 90 Room Air 09/25/16 00:08 36.7 78 18 114/72 90 Room Air 09/25/16 00:00 Room Air Physical Exam Constitutional: vitals are stable. Eyes: Eyes are JENNIFER EOMI without conjuctival erythema or icterus. ENT: External examination was negative for masses. Neck: Negative for masses or palpable thyromegaly Respiratory: Lung sounds were generally clear bilaterally Cardiovascular: Heart was RRR without significant murmur, gallops aoe rubs Gastrointestinal: No palpable hepatic or splenomegaly. The abdomen was soft with normal bowel sounds. Lymphatic system: there was no palpable peripheral lymphadenopathy Musculoskeletal System: The musculoskeletal system seemed concordant with age. Skin: The skin was negative for jaundice. Neurologic exam: The exam was negative for any focal findings. Deep tendon reflexes were equal and symmetrical. Psychiatric exam: Was essentially negative with normal mood and effect. Extremities: Negative for significant edema Laboratory Last 24 Hours Test 09/24/16 11:32 09/24/16 16:43 09/24/16 20:14 09/25/16 04:10 Bedside Glucose 219 mg/dl 187 mg/dl 202 mg/dl White Blood Count 4.64 K/uL Red Blood Count 3.38 M/uL Hemoglobin 10.4 g/dL Hematocrit 31.8 % Mean Corpuscular Volume 94.1 fL Mean Corpuscular Hemoglobin 30.8 pg Mean Corpuscular Hemoglobin Concent 32.7 g/dl RDW Standard Deviation 49.5 fL RDW Coefficient of Variation 14.4 % Platelet Count 180 K/uL Mean Platelet Volume 10.0 fL Nucleated RBC Absolute Count (auto) 0.02 K/uL Nucleated Red Blood Cells % 0.5 % Sodium Level 144 mmol/L Potassium Level 3.3 mmol/L Chloride Level 106 mmol/L Carbon Dioxide Level 31 mmol/L Anion Gap 7.0 mmol/L Blood Urea Nitrogen 12 mg/dl Creatinine 0.84 mg/dl Est Creatinine Clear Calc Drug Dose 56.8 ml/min Estimated GFR () 79.4 Estimated GFR (Non- 68.5 BUN/Creatinine Ratio 14.7 Random Glucose 165 mg/dl Calcium Level 8.7 mg/dl Test 09/25/16 07:39 09/25/16 10:10 Bedside Glucose 191 mg/dl Assessment & Plan Multiple myeloma that has been stable on Revlimid (5 mg a day) and weekly Decadron (20 mg every week). We'll update the light chains. Again her myeloma historically has been described as a kappa chain myeloma. Doubt however that the myeloma has progressed. Her serial light chain checks past several months and quite stable. She will have a follow-up in our clinic
--- NOTE | 2016-09-25 10:40 | Pulmonary Consultation ---
History General Date of Service: September 25, 2016. Stated Complaint: Hypoxia,Immunosuppressed Status,Multiple Myeloma, HPI The patient is a 76 year old female who presents to [facility] with complaints of Hypoxia,Immunosuppressed Status,Multiple Myeloma,. The patient's primary care provider is Italo Burr M.D.. 76y/o female admitted 09/20/2016 with a 2 days history of nasal congestion, sore throat and dry cough with 1 day of worsening generalized weakness and confusion. She was also noted to have wheezing and SOB of unknown duration. She has PmHx significant for: Multiple Myeloma (MM) (s/p Stem Cell transplant 2011 with chronically decreased immunoglobulin levels, mild OVD. She was noted to be hypoxic in the ED with a SaO2 of 89% on room air. She has been treated with antibiotics and intermittent oxygen support. Day she notes mild chronic dysphagia along with CHUN and rhinitis/Sinusitis. Work-up WBC: 4-5K H/H: 10/32 PLT: 180K ESR: >47 COAGS: WNL ALB: 2.8 Globulin: =3.3 Procalcitonin: 1.320.880.52 I/Os: +929cc SaO2: 90-97% (currently 90% on RA) CXR (09/19/16) compared to 05/23/12) new onset CHF, RML opacities CXR (09/21/16) Resolving CHF, continued RML basilar opacification CXR (09/23/16) Increased RML opacifications CXR (09/23/16) No acute changes EKG (09/19/16) compared to 05/23/12 New PAC left axis and non-specific ST with prolonged QT Cardiac Echo (09/20/16) LV: EF=55-60%, asymmetric LVH, grade 1 diastolic dysfunction RV: RVSP: WNL Microbiology: BAL (11/24/99) Mycobacterium Fortuitum [facility] RLL (11/28/99) APPLE Pertitoneal Fluid (12/08/99) Bacteroides Fragilis Strep Mitis Peptostreptocossus Aspirate LL quadrant (12/31/99) Multiple organisms ABD (08/02/00) Multiple organisms Urine Proteus, Klesiella, Lactobacillus,E Coli Treatment: Doxycycline 100mg BID (Day 4 of 7) Augmentin 875 BID (Day 4 of 7) DuoNeb Advair 250/50 BID Review of Systems Constitutional: reports: malaise, weakness Eyes: reports: no symptoms ENT: reports: as stated in HPI Cardiovascular: reports: no symptoms Respiratory: reports: as stated in HPI Gastrointestinal: reports: no symptoms Genitourinary - Female: reports: no symptoms Musculoskeletal: reports: no symptoms Integumentary: reports: no symptoms Neurologic: reports: no symptoms Psychiatric: reports: no symptoms Endocrine: no symptoms Hematologic / Lymphatic: no symptoms Allergic / Immunologic: no symptoms Past Medical History Past Medical History: 1. Abnormal electrocardiogram 2. Acquired hypogammaglobulinemia 3. Asthma 4. Dizziness/Vertigo 5. Dysphagia 6. Esophageal candidiasis 7. Esophageal reflux 8. Gastritis on EGD 08/03/2010 9. Multiple myeloma 10. Parkinsonism 11. 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 Acute bronchitis 13. Anemia 14. Arthritis both hands 15. Cataract 16. 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 Diarrhea 19. DMII 20. Glossitis 21. Hiatal hernia 22. Hyperactivity of bladder 23. Hypercholesterolemia 24. Hypertension 25. Hypothyroidism 27. Infectious diarrhea 28. Leukopenia 29. Migraine headache 30. Osteopenia 31. Peripheral neuropathy 32. Postmenopausal bleeding 33. Radicular pain in right arm 34. Sacral radiculopathy 35. Sicca syndrome 36. Vitamin D deficiency 37. Weight loss 38. Acute Sinusitis Past Surgical History: 1. Ankle Surgery 1994, left ankle 2. History of Colostomy done for obstrucion 3. History of Colostomy Revision takedown done in 2000 4. History of Complete Colonoscopy 5. History of Diagnostic Esophagogastroduodenoscopy DONE -08/08/11 Dr Moore-- hiatal hernia,stomach nodules show mild chronic active gastritis, 1mm glandular atypica,, favor reactive. negative H. pylori. Negative invasive carcinoma 6. Neuroplasty Decompression Median Nerve At Carpal Tunnel B/L releases, dr bautista 7. Open Lung Biopsy 1999, dx with sarcoidosis 8. Tonsillectomy With Adenoidectomy Family History FH: cancer FH: lung disease Mother 1. Cervical Cancer Father 2. Emphysema 3. Kidney Cancer Family History 4. Denied: Family history of Breast Cancer 5. Denied: Family history of Colon Cancer Social History Denied: History of Alcohol Use Denied: History of Drug Use Marital History - Currently Never smoker Retired From Work Hx Tobacco Use In Past Year?: No Smoking Status: Unknown if Ever Smoked Marital status: Immunizations History of Influenza Vaccine: No Influenza Vaccine Date: May 26, 2012 History of Tetanus Vaccine?: Unknown History of Pneumococcal: Yes History of Hepatitis B Vaccine: Yes History of MDRO History of MDRO: Yes Type of MDRO: MRSA Allergies Coded Allergies: Sulfa Antibiotics (Verified Allergy, Severe, RASH, 03/01/16) Latex1 -Allergic Contact Dermititis (Verified Allergy, Unknown, REDNESS, 03/01/16) Codeine (Verified Adverse Reaction, Intermediate, SPACED OUT, 03/01/16) Adhesives (Verified Adverse Reaction, Mild, BREAKS OUT, 03/01/16) Amoxicillin (Verified Adverse Reaction, Unknown, YEAST INFECTION, 03/01/16 ) Clavulanic Acid (Verified Adverse Reaction, Unknown, YEAST INFECTION, ) Current Medications Reported Home Medications Medications Dose Route/Sig Max Daily Dose Days Date Category Pataday (Olopatadine Hydrochloride) 37 Drops/2.5 Ml Soln 1 Drop OPB QAM 09/19/16 Reported Ventolin Hfa (Albuterol) 200 Puffs/81445 Mcg Aers 2 Puffs INH Q6H PRN 09/19/16 Reported Zometa (Zoledronic Acid) 4 Mg/5 Ml Inj 1 Dose IV [id number] 02/24/16 Reported Probiotic (Probiotic Product) 1 Cap Cap 1 Tab PO QAM 02/24/16 Reported Revlimid (Lenalidomide) 2.5 Mg Cap 5 Mg PO UD 02/24/16 Reported Aspirin Ec (Aspirin) 81 Mg Tab 81 Mg PO QAM 02/24/16 Reported Advair Diskus 250-50 Mcg/Dose (Fluticasone Prop/Salmeterol) 14 Puff/1 Inhaler Aerp 1 Puff INH BID 02/24/16 Reported Synthroid (Levothyroxine Sodium) 75 Mcg Tab 75 Mcg PO QAM 02/24/16 Reported Glimepiride 2 Mg Tab 1 Tab PO QAM 01/29/14 Reported [place]-3 (Fish Oil) 1 Ea Cap 1 Cap PO BID 12/31/12 Reported Evoxac (Cevimeline Hcl) 30 Mg Cap 30 Mg PO BID 04/10/12 Reported Vitamin D 1000 Unit (Cholecalciferol) 1,000 Unit Cap 5,000 Inter.unit PO QPM 03/12/12 Reported Vitamin B-12 1000 Mcg (Cyanocobalamin) 1,000 Mcg Tab 2,500 Mcg PO MWF 03/12/12 Reported Lyrica (Pregabalin) 75 Mg Cap 150 Mg PO QPM 03/12/12 Reported Nexium (Esomeprazole Magnesium) 40 Mg Capcr 40 Mg PO QAM 03/12/12 Reported Zocor (Simvastatin) 40 Mg Tab 40 Mg PO HS 03/12/12 Reported Physical Physical Exam Vital Signs: Date Time Temp Pulse Resp B/P Pulse Ox O2 Delivery O2 Flow Rate FiO2 09/25/16 10:02 84 117/61 09/25/16 08:00 Room Air 09/25/16 07:13 36.9 83 17 122/80 90 Room Air 09/25/16 00:08 36.7 78 18 114/72 90 Room Air 09/25/16 00:00 Room Air 09/24/16 20:00 Room Air 09/24/16 16:00 Room Air 09/24/16 14:38 36.8 92 18 113/63 92 Room Air General Appearance: WELL-APPEARING, NO APPARENT DISTRESS Head: NORMOCEPHALIC, ATRAUMATIC Eyes: PERRLA, NO DISCHARGE, EOMI, SCLERAE NORMAL, CONJUNCTIVAE NORMAL ENT: NORMAL EAR EXAM, NORMAL NASAL EXAM, NORMAL MOUTH EXAM, NORMAL THROAT EXAM , NORMAL DENTAL EXAM Neck: NORMAL RANGE OF MOTION, NO TENDERNESS, TRACHEA MIDLINE, NO STRIDOR Respiratory: rhonchi Cardiovasular: REGULAR RATE/RHYTHM, NORMAL S1S2, NO M/G/R, NO MURMUR, NO GALLOP Abdomen: NON TENDER, NORMAL BOWEL SOUNDS, NO REBOUND, NO MASSES, NO GUARDING Genitourinary - Female: other (mild bilateral excoriation in the ingulal regions ) Back: NORMAL INSPECTION, NO MIDLINE TENDERNESS, NO CVA TENDERNESS, NO PARAVERTEBRAL TTP Upper Extremities: NO EDEMA, NO DEFORMITY, NORMAL ROM Lower Extremities: NO EDEMA, NO DEFORMITY, NORMAL ROM Pulses: carotid (R) (2+), carotid (L) (2+), posterior tibial (R), posterior tibial (L) Neuro: ALERT, ORIENTED x 3, NORMAL MOTOR EXAM, NORMAL SENSATION, NORMAL CEREBELLAR EXAM, NORMAL SPEECH Reflexes: biceps (R) (2+), bicpes (L) (2+), achilles (R) (2+), achilles (L) (2+ ) Babinski Testing: right (downgoing), left (downgoing) Psychiatric: NORMAL AFFECT, NO SUICIDAL IDEATION Diagnostics Labs Results Past 24 Hours Test 09/24/16 11:32 09/24/16 16:43 09/24/16 20:14 09/25/16 04:10 Range/Units Bedside Glucose 219 187 202 70-90 mg/dl White Blood Count 4.64 4.8-10.8 K/uL Red Blood Count 3.38 4.2-5.4 M/uL Hemoglobin 10.4 12.0-16.0 g/dL Hematocrit 31.8 37-47 % Mean Corpuscular Volume 94.1 80-100 fL Mean Corpuscular Hemoglobin 30.8 25-34 pg Mean Corpuscular Hemoglobin Concent 32.7 32-36 g/dl RDW Standard Deviation 49.5 36.4-46.3 fL RDW Coefficient of Variation 14.4 11.5-14.5 % Platelet Count 180 130-400 K/uL Mean Platelet Volume 10.0 7.4-10.4 fL Nucleated RBC Absolute Count (auto) 0.02 0-0 K/uL Nucleated Red Blood Cells % 0.5 % Sodium Level 144 136-145 mmol/L Potassium Level 3.3 3.5-5.1 mmol/L Chloride Level 106 98-107 mmol/L Carbon Dioxide Level 31 21-32 mmol/L Anion Gap 7.0 3-11 mmol/L Blood Urea Nitrogen 12 7-18 mg/dl Creatinine 0.84 0.60-1.20 mg/dl Est Creatinine Clear Calc Drug Dose 56.8 ml/min Estimated GFR () 79.4 Estimated GFR (Non- 68.5 BUN/Creatinine Ratio 14.7 10-20 Random Glucose 165 70-99 mg/dl Calcium Level 8.7 8.5-10.1 mg/dl Test 09/25/16 07:39 Range/Units Bedside Glucose 191 70-90 mg/dl Diagnostic Radiology CXR (09/19/16) CHF, RML opacities CXR (09/21/16) Resolving CHF, continued RML basilar opacification CXR (09/23/16) Increased RML opacifications CXR (09/23/16) No acute changes Impression Assessment and Plan 76 y/o female with admitted with new onset SOB, hypoxemia based off SaO2 monitoring and RML/RLL opacification: 1) Sarcoidosis: Sarcoidosis is noted to be associated with Multiple Myeloma (MM ) and in most cases proceeds the diagnosis of MM. Needs repeat TLC and Diffusion studies as an out patient for yearly monitoring. Most likely immunosuppressives to treat sarcoidosis but yearly to 6 month monitoring via clinical and PFT's is warranted. 2) Pneumonia: elevated Procalcitonin suggest pna and aspiration is high risk so continuing current abx is warranted. Will order HRCT for further evaluation. Possible bronchoscopy either as an inpatient or needed to f/u on previous APPLE seen from [facility] 11/28/99.As perform swallow evacuation for with history of GERD/ esophagitis and lower lobe infiltrate. 3) CXR: CXR suggest intra-parenchymal edema. Will f/u with thoracic US evaluation and ordered BNP. Recent echo suggest diastolic dysfunction and EKG demonstrated new PAC pattern. Watch over all I/O's and stable since her admission. 4) Work-up: Obtain Ortho-static Bps then perform Two-Step for possible Os needs.
--- NOTE | 2016-09-25 11:47 | DIAGNOSTIC IMAGING REPORT ---
CT SCAN OF THE PARANASAL SINUSES CLINICAL HISTORY: Congestion. Acute versus chronic sinusitis. COMPARISON STUDY: MRI of the brain dated 12/07/2014. TECHNIQUE: High-resolution CT scan of the paranasal sinuses is performed. Images are reviewed in the axial, sagittal, and coronal planes. IV contrast was not administered for this examination. CT DOSE: 1118.01 mGy.cm FINDINGS: Maxillary antra: There is mild to moderate mucosal thickening in the left maxillary antrum and moderate mucosal thickening in the right maxillary antrum. Frothy secretions are present on the right. Anterior ethmoid sinuses: Subtotally opacified. Posterior ethmoid sinuses: Subtotally opacified. Sphenoid sinuses: Moderate symmetric mucosal thickening is seen bilaterally with frothy secretions in the right. Frontal sinuses: Moderate mucosal thickening is on the left. Trace mucosal thickening is seen on the right. Ostiomeatal complexes: Patent on the left, occluded on the right. Frontoethmoidal and sphenoethmoidal recesses: The sphenoethmoidal recesses are patent bilaterally. The frontoethmoidal recesses are occluded bilaterally. Carotid arteries: The carotid arteries are protuberant but covered, and there is a septal attachment on the right. Ethmoid roofs: There is asymmetric elevation of the left ethmoid roof as compared to the right. Nasal turbinates: Normal in appearance. Nasal septum: There is mild leftward deviation of the bony nasal septum. Optic nerves: Covered. Orbits: The bony orbits are intact. Orbital contents are normal in appearance noting bilateral ocular lens implants. Calvarium: The skeletal structures are osteopenic. The imaged calvarium is normal in appearance Mastoid air cells: There is a small left mastoid effusion. A right mastoid air cells are clear. Brain parenchyma: Partially visualized brain parenchyma is within normal limits noting age-related involutional change. IMPRESSION: Paranasal sinus disease as above, likely representing acute sinusitis. Electronically signed by: Jose Weiss M.D. 09/25/2016 11:46 AM Dictated Date/Time: 09/25/2016 11:42 AM
[2016-09-25 12:49] LABS: IMMUNOGLOBULN A 82.7 mg/dL (70-400); IMMUNOGLOBULN M 11.8 mg/dL (40-230)
--- NOTE | 2016-09-25 13:02 | DIAGNOSTIC IMAGING REPORT ---
MODIFIED BARIUM SWALLOW CLINICAL HISTORY: Possible aspiration. COMPARISON STUDY: No previous studies for comparison. Fluoroscopy time: 2.3 minutes. FINDINGS: No tracheal aspiration was identified within liquids, nectar thick liquids, crackers with paste or pudding consistencies. Swallowing mechanism was intact. A moderate sized hiatal hernia was noted with moderate to severe esophageal dysmotility. IMPRESSION: 1. No tracheal aspiration. Intact swallowing mechanism. 2. Moderate sized hiatal hernia with moderate to severe esophageal dysmotility. 3. Full recommendations by speech pathology to follow. Electronically signed by: Josiah Artis M.D. 09/25/2016 1:01 PM Dictated Date/Time: 09/25/2016 12:58 PM
--- NOTE | 2016-09-25 13:04 | DIAGNOSTIC IMAGING REPORT ---
CHEST CT WITHOUT CONTRAST CT DOSE: HISTORY: Short of breath. Multiple myeloma. atelectasis with possible aspiration TECHNIQUE: Multiaxial CT images of the chest were performed without contrast. COMPARISON: Chest CT 05/16/2012. FINDINGS: Bilateral upper lobes are essentially clear. No pneumothorax. No pleural effusions. Subpleural interstitial thickening within the right middle lobe which is likely chronic. There are suture material within the right lower lobe consistent with prior wedge resection. Focal areas of consolidation within the medial aspect of the bilateral lower lobes with associated mild traction bronchiectasis. There are also linear densities within the bilateral lower lobes and patchy groundglass densities. Multiple small lytic lesions seen throughout the visualized osseous structures consistent with the patient's history of multiple myeloma. No pathologic fractures at this time. The visualized liver and spleen are unremarkable. Moderate hiatus hernia. No mediastinal or hilar lymphadenopathy. The heart is mildly enlarged. No pericardial effusion. IMPRESSION: 1. Progressive patchy and linear opacities within the bilateral lower lobes. This may be due to chronic atelectasis and/or pneumonia. 2. Moderate hiatus hernia. 3. Multiple small lytic lesions seen scattered throughout the visualized osseous structures. This is consistent with the patient's history of multiple myeloma. Electronically signed by: Johnny Elam M.D. 09/25/2016 1:03 PM Dictated Date/Time: 09/25/2016 12:52 PM
--- NOTE | 2016-09-25 13:55 | Hospitalist Progress Note ---
Hospitalist Progress Note Date of Service September 25, 2016. Subjective Pt evaluation today including: conversation w/ patient, physical exam, chart review, lab review, review of studies, conversation w/ fitness consultant, review of inpatient medication list Patient overall thinks that she feels slightly better today versus yesterday. She is still complaining of a nonproductive cough. She does have occasional coughing fits, which scared her because she cannot catch her breath. She denies any fever or chills. She denies any pain. Additional Comments: 6 system review negative. Please see pertinent positives in the history of present illness section. Objective Vital Signs Date Time Temp Pulse Resp B/P Pulse Ox O2 Delivery O2 Flow Rate FiO2 09/25/16 10:02 84 117/61 88 108/68 84 123/75 09/25/16 08:00 Room Air 09/25/16 07:13 36.9 83 17 122/80 90 Room Air 09/25/16 00:08 36.7 78 18 114/72 90 Room Air 09/25/16 00:00 Room Air 09/24/16 20:00 Room Air 09/24/16 16:00 Room Air 09/24/16 14:38 36.8 92 18 113/63 92 Room Air Physical Exam General Appearance: no apparent distress Eyes: EOMI ENT: + pertinent finding (oral mucosa slightly dry.) Neck: no JVD Respiratory/Chest: + pertinent finding (decreased breath sounds at the right base. Coarse breath sounds the right middle lobe and the left lower lobe.) Cardiovascular: regular rate, rhythm Abdomen: normal bowel sounds, non tender, soft Extremities: non-tender, no pedal edema Neurologic/Psychiatric: no motor/sensory deficits, oriented x 3 Skin: warm/dry Laboratory Results 09/25/16 04:10 09/25/16 04:10 Test 09/25/16 04:10 09/25/16 10:52 09/25/16 11:22 Red Blood Count 3.38 M/uL (4.2-5.4) Mean Corpuscular Volume 94.1 fL (80-100) Mean Corpuscular Hemoglobin 30.8 pg (25-34) Mean Corpuscular Hemoglobin Concent 32.7 g/dl (32-36) RDW Standard Deviation 49.5 fL (36.4-46.3) RDW Coefficient of Variation 14.4 % (11.5-14.5) Mean Platelet Volume 10.0 fL (7.4-10.4) Nucleated RBC Absolute Count (auto) 0.02 K/uL (0-0) Nucleated Red Blood Cells % 0.5 % Anion Gap 7.0 mmol/L (3-11) Est Creatinine Clear Calc Drug Dose 56.8 ml/min Estimated GFR () 79.4 Estimated GFR (Non- 68.5 BUN/Creatinine Ratio 14.7 (10-20) Calcium Level 8.7 mg/dl (8.5-10.1) Pro-B-Type Natriuretic Peptide 219 pg/ml (0-900) Immunoglobulin G 377.0 mg/dL (700-1600) Immunoglobulin A 82.7 mg/dL (70-400) Immunoglobulin M 11.8 mg/dL (40-230) Bedside Glucose 193 mg/dl (70-90) Last 24 Hours Test 09/24/16 16:43 09/24/16 20:14 09/25/16 04:10 09/25/16 07:39 Bedside Glucose 187 mg/dl 202 mg/dl 191 mg/dl White Blood Count 4.64 K/uL Red Blood Count 3.38 M/uL Hemoglobin 10.4 g/dL Hematocrit 31.8 % Mean Corpuscular Volume 94.1 fL Mean Corpuscular Hemoglobin 30.8 pg Mean Corpuscular Hemoglobin Concent 32.7 g/dl RDW Standard Deviation 49.5 fL RDW Coefficient of Variation 14.4 % Platelet Count 180 K/uL Mean Platelet Volume 10.0 fL Nucleated RBC Absolute Count (auto) 0.02 K/uL Nucleated Red Blood Cells % 0.5 % Sodium Level 144 mmol/L Potassium Level 3.3 mmol/L Chloride Level 106 mmol/L Carbon Dioxide Level 31 mmol/L Anion Gap 7.0 mmol/L Blood Urea Nitrogen 12 mg/dl Creatinine 0.84 mg/dl Est Creatinine Clear Calc Drug Dose 56.8 ml/min Estimated GFR () 79.4 Estimated GFR (Non- 68.5 BUN/Creatinine Ratio 14.7 Random Glucose 165 mg/dl Calcium Level 8.7 mg/dl Pro-B-Type Natriuretic Peptide 219 pg/ml Test 09/25/16 10:52 Assessment and Plan 76 year female old on immunosuppressive agents with suspected pneumonia vs pulmonary edema on CXR with 2 days of cough and generalized fatigue. The patient was admitted and started on vanco, zosyn and levaquin for potential immunosuppression from her chemo as well as receiving lasix for her pulmonary edema. Since she does not have a history of cardiac failure and has been on this medication for a prolonged period of time it was unlikely that this medication was the source of the pulmonary edema. Overnight her pulmonary edema had improved and the echo actually did not reveal any significant change in the EF or dysfunction/ valvular abnormalities. This and the elevated inflammatory markers reflected a more infectious cause for the acute hypoxic resp failure. Acute hypoxic respiratory failure--likely secondary to Pneumonia vs sarcoidosis -appreciate pulmonary's recs: CT chest today and video swallow eval to r/o aspiration PNA -continue Doxycycline and Augmentin (MRSA, aspiration coverage) -2 step ordered Pulmonary edema on CXR -Continue Lasix 20 mg po daily - Echo * There is mild asymmetric left ventricular hypertrophy. * Left ventricular systolic function is normal. * Grade I diastolic dysfunction, (abnormal relaxation pattern). * Right ventricular systolic pressure is normal. * EF 55-60% - troponin neg x 3 - daily weights + I&Os Type 2 diabetes - ACHS BSG with diabetic diet -ISS -Glyburide 2 mg po BID on hold Hypothyroidism - continue levothyroxine Hyperlipidemia - continue simvastatin Multiple myeloma in remission -heme/onc following Code - Full VTE Prophylaxis - heparin 5000 units Q8H SQ
[2016-09-25 15:44] VITALS: BP 109/69; PULSE 80; TEMP 36.8; O2SAT 91
[2016-09-25] MEDS: CHOLECALCIFEROL 1000 INTER.UNIT TAB PO SCH (21:22)
[2016-09-25] MEDS: SIMVASTATIN 40 MG TAB PO SCH (21:23)
[2016-09-25] MEDS: PREGABALIN 75 MG CAP PO SCH (21:38)
[2016-09-25] MEDS: LENALIDOMIDE 5 MG PO SCH (22:19)
[2016-09-25 23:59] VITALS: BP 134/84; PULSE 78; TEMP 36.8; O2SAT 92
[2016-09-26] MEDS: LEVOTHYROXINE 75 MCG TAB PO SCH (05:49)
[2016-09-26] MEDS: HEPARIN SOD 5000 UNIT/0.5 ML CARP SQ SCH ×3 (05:55→22:12)
[2016-09-26] MEDS: OLOPATADINE HYDROCHLORIDE OPB SCH (07:09)
[2016-09-26] MEDS: FLUTICASONE/SALMETEROL 250/50 (ADVAIR) 14 PUFF/1 INHALER INH SCH ×2 (07:09→20:18)
[2016-09-26] MEDS: DOXYCYCLINE HYCLATE 100 MG CAP PO SCH ×2 (07:09→20:20)
[2016-09-26] MEDS: CEVIMELINE 30 MG PO SCH ×2 (07:09→20:19)
[2016-09-26] MEDS: PANTOprazole SOD 40 MG TAB PO SCH (07:09)
[2016-09-26] MEDS: AMOXICILLIN/CLAVULANATE TAB 875 MG TAB PO SCH ×2 (07:10→18:29)
[2016-09-26] MEDS: OMEGA-3 (PURIFIED FISH OIL) 1 GM CAP PO SCH ×2 (07:10→20:19)
[2016-09-26] MEDS: FUROSEMIDE 20 MG TAB PO SCH (07:10)
[2016-09-26] MEDS: ASPIRIN 81 MG ECTAB PO SCH (07:10)
[2016-09-26] MEDS: ALBUT/IPRATROP 3MG/0.5MG NEB 3 ML VIAL INH SCH ×4 (07:35→20:15)
[2016-09-26 07:39] VITALS: BP 112/73; PULSE 82; TEMP 36.7; O2SAT 90
[2016-09-26] MEDS: INSULIN HUMAN REGULAR SC SCH ×4 (08:29→22:09)
[2016-09-26 10:53] LABS: FREE KAPPA 42.1 MG/L (3.3-19.4); FREE KAPPA/LAMBDA RATIO 3.54 (0.26-1.65); FREE LAMBDA 11.9 MG/L (5.7-26.3)
[2016-09-26] MEDS: GUAIFENESIN 600 MG TABCR PO SCH ×2 (12:26→20:21)
--- NOTE | 2016-09-26 12:48 | Progress Note ---
Subjective Date of Service: September 26, 2016. Subjective Pt evaluation today including: conversation w/ patient, conversation w/ family , physical exam, chart review, lab review, review of studies, conversation w/ art consultant, review of inpatient medication list Up and walk a little, however two-step studies shows need NC O2 2 LPM in rest and 4 L in walk Cough is better, But has been refused DuoNeb treatment since yesterday because of cost more congestion and secretion Problem List Medical Problems: (1) Congestive heart failure Status: Acute (2) Hypoxia Status: Acute (3) Right lower lobe pneumonia Status: Acute Review of Systems Constitutional: No chills, No fatigue, No fever, No problem reported, No sweats , No weakness, No weight loss Eyes: No diplopia, No discharge, No eye pain, No redness, No worsening of vision ENT: No dental problems, No hearing loss, No nasal symptoms, No sore throat, No tinnitus, No trouble swallowing, No unusual epistaxis Respiratory: + cough, + shortness of breath, + wheezing, No dyspnea at rest, No dyspnea on exertion, No hemoptysis, No sputum Cardiac: No PND, No chest pain, No claudication, No edema, No orthopnea, No palpitations Abdomen: No constipation, No diarrhea, No nausea, No pain, No vomiting Musculoskeletal: No calf pain, No joint pain, No muscle pain, No swelling Female : No abnormal vaginal bleeding, No dysuria, No hematuria, No incontinence, No urinary frequency, No vaginal discharge Neurologic: No balance problems, No memory loss, No numbness/tingling, No paralysis, No vertigo, No weakness Psychiatric: No anhedonism, No anxiety, No depression symptoms, No insomnia, No substance abuse Heme: No abnormal bleeding/bruising, No clotting problems, No night sweats, No swollen lymph nodes Endo: No excessive thirst, No excessive urination, No fatigue Skin: No bleeding, No color change, No itch, No new/changing skin lesions, No rash Objective Vital Signs Date Time Temp Pulse Resp B/P Pulse Ox O2 Delivery O2 Flow Rate FiO2 09/26/16 08:00 Room Air 09/26/16 07:39 36.7 82 18 112/73 90 Room Air 09/26/16 00:00 Room Air 09/25/16 23:59 36.8 78 20 134/84 92 Room Air 09/25/16 20:00 Room Air 09/25/16 16:45 Room Air 09/25/16 15:44 36.8 80 18 109/69 91 Room Air Physical Exam General Appearance: WD/WN, no apparent distress, + obese Eyes: normal inspection, PERRL, EOMI, sclerae normal ENT: normal ENT inspection, hearing grossly normal, pharynx normal Neck: supple, no adenopathy, thyroid normal, no JVD, no carotid bruits, trachea midline Respiratory/Chest: no respiratory distress, no accessory muscle use, + decreased breath sounds, + wheezing Cardiovascular: regular rate, rhythm, no edema, no gallop, no JVD, no murmur Abdomen: normal bowel sounds, non tender, soft, no organomegaly, no pulsatile mass Extremities: normal range of motion, non-tender, normal inspection, no pedal edema, no calf tenderness, normal capillary refill, pelvis stable Neurologic/Psychiatric: mercury recoverer II-XII nml as tested, no motor/sensory deficits, alert, normal mood/affect, oriented x 3 Skin: normal color, warm/dry, no rash Lymphatic: no adenopathy Laboratory Results Last 24 Hours Test 09/25/16 16:45 09/25/16 20:02 09/26/16 07:56 Bedside Glucose 201 mg/dl 201 mg/dl 186 mg/dl Assessment and Plan 76 year female old on immunosuppressive agents was admitted on September 20 because of with suspected pneumonia vs pulmonary edema on CXR with 2 days of cough and generalized fatigue. The patient was admitted and started on vanco, zosyn and levaquin for potential immunosuppression from her chemo as well as receiving lasix for her pulmonary edema. Since she does not have a history of cardiac failure and has been on this medication for a prolonged period of time it was unlikely that this medication was the source of the pulmonary edema. Acute hypoxic respiratory failure--likely secondary to Pneumonia vs sarcoidosis Likely Sarcoidosis: Per electronic instrument trades worker , Sarcoidosis is noted to be associated with Multiple Myeloma (MM) and in most cases proceeds the diagnosis of MM. Needs repeat TLC and Diffusion studies as an out patient for yearly monitoring. pulm recs yearly to 6 month monitoring via clinical and PFT's is warranted. CT chest was done on 07/26/2016, per pulm, possible bronchoscopy either as an inpatient or needed to f/u on previous [facility] seen from [facility] 11/28/99. continue Doxycycline and Augmentin (MRSA, aspiration coverage) 2 step done has give prescription to telehealth case manager Continue antibiotic, out of bed to walk, preparing for discharge Pulmonary edema on CXR -Continue Lasix 20 mg po daily - Echo - troponin neg x 3 - daily weights + I&Os Type 2 diabetes Hypothyroidism Hyperlipidemia Multiple myeloma in remission -heme/onc following - The above condition is stable Will talk to electronic instrument trades worker of discharge plan and will ask in the length of oral antibiotics Continued [facility] stay due to: other (worseing cough not improvingas well as low o2 saturation) Discharge planning: home
[2016-09-26 15:09] VITALS: BP 118/78; PULSE 93; TEMP 36.7; O2SAT 92
[2016-09-26 15:30] VITALS: PULSE 93; O2SAT 92
--- NOTE | 2016-09-26 16:41 | Hematology/Oncology Prog Note ---
Hematology/Onc Progress Note Date of Service September 26, 2016. Diagnoses Multiple myeloma History of respiratory insufficiency Medications Medications Administered Medications (Trade) Dose Ordered Sig/Jarred Route Start Time Stop Time Status Last Admin Dose Admin Acetaminophen (Tylenol Tab) 1,000 mg NOW STAT PO 09/19/16 22:20 09/19/16 22:22 DC 09/19/16 22:51 1,000 MG Levofloxacin 750 mg 750 mg NOW ONCE IV 09/19/16 23:00 09/19/16 23:01 DC 09/19/16 23:31 750 MG Furosemide 40 mg/ Syringe 4 ml @ 4 mls/min NOW STAT IV 09/19/16 22:55 09/19/16 22:56 DC 09/19/16 22:55 4 MLS/MIN Vancomycin HCl/ Sodium Chloride (Vancomycin Inj/ Nss 500ml) 543 ml @ 200 mls/hr NOW STAT IV 09/20/16 00:53 09/20/16 03:35 DC 09/20/16 01:26 200 MLS/HR Heparin Sodium (Porcine) (Heparin Sq 5000 Unit/0.5ml) 5,000 unit Q8 SQ 09/20/16 14:00 10/20/16 13:59 09/26/16 13:38 5,000 UNIT Ondansetron HCl 4 mg 4 mg Q6H PRN IV 09/20/16 01:30 10/20/16 01:29 09/24/16 22:26 4 MG Piperacillin Sod/ Tazobactam Sod 4.5 gm/Dextrose 120 ml @ 200 mls/hr NOW STAT IV 09/20/16 02:39 09/20/16 03:14 DC 09/20/16 04:12 200 MLS/HR Piperacillin Sod/ Tazobactam Sod/ Dextrose (Zosyn Iv/D5 100ml) 120 ml @ 30 mls/hr Q8H IV 09/20/16 08:00 09/22/16 13:32 DC 09/22/16 08:13 30 MLS/HR Aspirin (Ecotrin Tab) 81 mg QAM PO 09/21/16 09:00 10/21/16 08:59 09/26/16 07:10 81 MG Cholecalciferol (Vitamin D Tab) 5,000 inter.unit QPM PO 09/20/16 21:00 10/20/16 20:59 09/25/16 21:22 5,000 INTER.UNIT Cyanocobalamin (Vitamin B-12 Tab) 2,500 mcg MoWeFr@0900 PO 09/22/16 09:00 10/22/16 08:59 09/25/16 08:00 2,500 MCG Fish Oil ([place]-3 (Purified Fish Oil) Cap) 1 gm BID PO 09/20/16 21:00 10/20/16 20:59 09/26/16 07:10 1 GM Salmeterol Xinafoate/ Fluticasone (Advair Diskus 250/50 Inh) 1 puff BID INH 09/20/16 21:00 10/20/16 20:59 09/26/16 07:09 1 PUFF Levothyroxine Sodium (Synthroid Tab) 75 mcg DAILYBB PO 09/21/16 06:00 10/21/16 05:59 09/26/16 05:49 75 MCG Pregabalin (Lyrica Cap) 150 mg QPM PO 09/20/16 21:00 10/20/16 20:59 09/25/16 21:38 150 MG Simvastatin (Zocor Tab) 40 mg HS PO 09/20/16 21:00 10/20/16 20:59 09/25/16 21:23 40 MG Pantoprazole Sodium (Protonix Tab) 40 mg QAM PO 09/21/16 09:00 10/21/16 08:59 09/26/16 07:09 40 MG Potassium Chloride (Klor-Con Tab) 40 meq 0900 ONCE PO 09/20/16 09:00 09/20/16 09:01 DC 09/20/16 08:54 40 MEQ Insulin Human Regular SLIDING SCALE IF C... ACHS SC 09/20/16 11:00 10/20/16 10:59 09/26/16 12:27 4 UNITS Levofloxacin/Prmx (Levaquin / D5W/ Premixed D5W) 150 ml @ 100 mls/hr DAILY@2200 IV 09/20/16 22:00 09/21/16 12:44 DC 09/20/16 21:43 100 MLS/HR Lenalidomide 5 mg 5 mg HS PO 09/20/16 21:00 10/04/16 22:01 09/25/16 22:19 5 MG Vancomycin HCl/ Sodium Chloride (Vancomycin Inj/ Nss 250ml) 275 ml @ 125 mls/hr Q16H IV 09/20/16 18:00 09/22/16 08:56 DC 09/22/16 02:05 125 MLS/HR Furosemide (Lasix Tab) 20 mg QAM PO 09/21/16 09:00 10/21/16 08:59 09/26/16 07:10 20 MG Furosemide (Lasix Tab) 20 mg 1915 ONCE PO 09/20/16 19:15 09/20/16 19:20 DC 09/20/16 19:51 20 MG Cevimeline HCl (Evoxac) 30 mg BID PO 09/20/16 21:00 10/20/16 20:59 09/26/16 07:09 30 MG Potassium Chloride (Klor-Con M10) 40 meq 0915 ONCE PO 09/21/16 09:15 09/21/16 09:16 DC 09/21/16 10:36 40 MEQ Albuterol/ Ipratropium (Duoneb) 3 ml 0915 ONCE INH 09/21/16 09:15 09/21/16 09:16 DC 09/21/16 09:28 3 ML Olopatadine HCl (Pataday 0.2% Op Soln) 1 drops QAM OPB 09/22/16 08:00 10/22/16 07:59 09/26/16 07:09 1 DROPS Albuterol/ Ipratropium (Duoneb) 3 ml QIDR INH 09/22/16 12:00 10/22/16 11:59 09/26/16 15:30 3 ML Amoxicillin/ Clavulanate Potassium (Augmentin Tab) 875 mg BIDM PO 09/22/16 17:00 09/29/16 16:59 09/26/16 07:10 875 MG Doxycycline Hyclate (Vibramycin Cap) 100 mg BID PO 09/22/16 20:00 09/29/16 19:59 09/26/16 07:09 100 MG Potassium Chloride (Klor-Con Tab) 20 meq 1115 ONCE PO 09/23/16 11:15 09/23/16 11:16 DC 09/23/16 11:36 20 MEQ Guaifenesin (Robitussin Sugar Free Syrup) 200 mg Q4H PRN PO 09/23/16 23:00 10/23/16 22:59 09/24/16 01:23 200 MG Furosemide (Lasix Tab) 20 mg 1000 ONCE PO 09/24/16 10:00 09/24/16 10:01 DC 09/24/16 09:47 20 MG Potassium Chloride (Klor-Con M10) 40 meq TODAY@1400 ONCE PO 09/24/16 14:00 09/24/16 14:01 DC 09/24/16 14:19 40 MEQ Potassium Chloride (Klor-Con M10) 40 meq NOW STAT PO 09/25/16 09:04 09/25/16 09:21 DC 09/25/16 10:17 40 MEQ Guaifenesin (Mucinex Contr Rel Tab) 600 mg Q12 PO 09/26/16 12:30 10/26/16 12:29 09/26/16 12:26 600 MG Subjective Clinically about the same. Denies any new bone pain. Her light chain assays have returned and are stable as before. Review of Systems: Constitutional: Negative for night sweats, or fever Eyes: Negative for event change of vision ENT: Negative for epistaxis, nasal discharge, sore throat, or deafness Cardiovascular: Negative for chest pain, palpitations, dizziness, diaphoresis Respiratory: Negative for worsening shortness of breath,hemoptysis, or purulent cough. Has had a nonproductive cough Gastrointestinal: Negative for diarrhea, hematemesis, melena, nausea, vomiting , or dyspepsia Integumentary (skin): Negative for rash or jaundice discoloration Genitourinary: Negative for urinary frequency, hematuria, or dysuria Neurological: Negative for weakness, seizure activity, headache, or dizziness Lymphatic/Hematologic: Negative for petechiae, bleeding or new adenopathy Musculoskeletal: Negative for new joint or back pain Allergic/Immunologic: Negative for unusual rash or pruritis. Vital Signs Vital Signs Past 12 Hours Date Time Temp Pulse Resp B/P Pulse Ox O2 Delivery O2 Flow Rate FiO2 09/26/16 15:30 93 16 92 Nasal Cannula 2.0 09/26/16 15:09 36.7 93 16 118/78 92 Nasal Cannula 2.0 09/26/16 08:00 Room Air 09/26/16 07:39 36.7 82 18 112/73 90 Room Air Physical Exam Constitutional: vitals are stable. Eyes: Eyes are JENNIFER EOMI without conjuctival erythema or icterus. ENT: External examination was negative for masses. Neck: Negative for masses or palpable thyromegaly Respiratory: Lung sounds were generally clear bilaterally Cardiovascular: Heart was RRR without significant murmur, gallops aoe rubs Gastrointestinal: No palpable hepatic or splenomegaly. The abdomen was soft with normal bowel sounds. Lymphatic system: there was no palpable peripheral lymphadenopathy Musculoskeletal System: The musculoskeletal system seemed concordant with age. Skin: The skin was negative for jaundice. Neurologic exam: The exam was negative for any focal findings. Deep tendon reflexes were equal and symmetrical. Psychiatric exam: Was essentially negative with normal mood and effect. Extremities: Negative for significant edema Laboratory Last 24 Hours Test 09/25/16 16:45 09/25/16 20:02 09/26/16 07:56 09/26/16 11:48 Bedside Glucose 201 mg/dl 201 mg/dl 186 mg/dl 226 mg/dl Assessment & Plan By the protein assays it appears that her plasma cell dyscrasia is stable. We' ll sign off now as a service. She will have a follow-up in our clinic. She has been on Revlimid 5 mg a day and let us other consultants find a reason to stop that I would ask that Revlimid be continued. Please reconsult if necessary.
[2016-09-26 19:40] VITALS: PULSE 101; O2SAT 95
[2016-09-26] MEDS: PREGABALIN 75 MG CAP PO SCH (20:20)
[2016-09-26] MEDS: CHOLECALCIFEROL 1000 INTER.UNIT TAB PO SCH (20:22)
[2016-09-26] MEDS: LENALIDOMIDE 5 MG PO SCH (22:06)
[2016-09-26] MEDS: SIMVASTATIN 40 MG TAB PO SCH (22:06)
[2016-09-26] MEDS: GUAIFENESIN SUGAR FREE 100 MG/5 ML UDC PO PRN (22:18)
[2016-09-26 22:58] VITALS: BP 117/68; PULSE 84; TEMP 36.8; O2SAT 94
[2016-09-27] MEDS: LEVOTHYROXINE 75 MCG TAB PO SCH (06:15)
[2016-09-27] MEDS: HEPARIN SOD 5000 UNIT/0.5 ML CARP SQ SCH (06:16)
[2016-09-27] MEDS: ALBUT/IPRATROP 3MG/0.5MG NEB 3 ML VIAL INH SCH ×2 (07:17→11:48)
[2016-09-27 07:18] VITALS: PULSE 88; O2SAT 95
[2016-09-27 07:20] VITALS: BP 124/79; PULSE 83; TEMP 36.7; O2SAT 95
--- NOTE | 2016-09-27 07:30 | Discharge Instructions ---
Discharge Instructions Date of Service September 27, 2016. Admission Reason for Admission: Hypoxia,Immunosuppressed Status,Multiple Myeloma, Discharge Discharge Diagnosis / Problem: pneumonia Discharge Goals Goal(s): Therapeutic intervention Activity Recommendations Activity Limitations: resume your previous activity . Instructions / Follow-Up Instructions / Follow-Up You were treated in the hospital for pneumonia. This improved with antibiotics Please follow up with your primary care physician and curb machine operator as scheduled. It is also recommended that you follow up with a GI doctor for your esophageal motility issues. The following changes/additions have been made to your medication list: -Augmenting 875 mg tab twice daily. Finish course -Doxycylcline 100 mg tab twice daily. Finish course -Begin potassium 10 mEq daily -Begin magnesium oxide 400 mg tab twice daily A swallow evaluation was performed. The following recommendations were made for your diet -Choose foods that are moist, loose, slippery; avoid foods that are dry, pasty, thick, doughy. Alternate solids and liquids frequently during meals; remain upright 20-30 minutes after meals to aid esophageal clearance; keep head of bed elevated AT LEAST 30-degrees at all times to prevent aspiration of any refluxed material Call your doctor or return to the emergency department if you have any of the following symptoms: -Fever of 101F or greater -Persistent vomiting - Persistent diarrhea -Lethargy -Chest pain -Shortness of breath -severe dizziness -weakness on one side of your body Current Hospital Diet Patient's current hospital diet: Diabetes Type 2 Diet Discharge Diet Recommended Diet: Diabetes Type 2 Diet Procedures Procedures Performed: video swallow evaluation Pending Studies Studies pending at discharge: no Laboratory Results 09/27/16 06:45 Test 09/27/16 06:45 09/27/16 07:58 Anion Gap 10.0 mmol/L (3-11) Est Creatinine Clear Calc Drug Dose 62.0 ml/min Estimated GFR () 88.2 Estimated GFR (Non- 76.1 BUN/Creatinine Ratio 18.3 (10-20) Calcium Level 8.6 mg/dl (8.5-10.1) Magnesium Level 1.2 mg/dl (1.8-2.4) Bedside Glucose 202 mg/dl (70-90) Test 09/26/16 21:10 09/27/16 06:45 Bedside Glucose 179 mg/dl (70-90) Hemoglobin A1c Test 5/17/17 06:36 Range/Units Estimated Average Glucose 166 mg/dl Hemoglobin A1c 7.4 H 4.5-5.6 % Medical Emergencies . Who to Call and When: Medical Emergencies: If at any time you feel your situation is an emergency, please call 911 immediately. . Non-Emergent Contact Non-Emergency issues call your: Primary Care Provider . . "Provider Documentation" section prepared by Estefanía Silva. . VTE Core Measure Inpt VTE Proph given/why not?: Unfractionated heparin SQ
[2016-09-27] MEDS ORDERED: AMOX1TAB43 PO (07:35)
[2016-09-27] MEDS ORDERED: DXY100 PO (07:35)
[2016-09-27 07:39] LABS: BUN/CREATININE RATIO 18.3 (10-20); CALCIUM 8.6 mg/dl (8.5-10.1); CREATININE 0.77 mg/dl (0.60-1.20); MAGNESIUM 1.2 mg/dl (1.8-2.4); POTASSIUM 3.3 mmol/L (3.5-5.1)
[2016-09-27] MEDS: ASPIRIN 81 MG ECTAB PO SCH (08:28)
[2016-09-27] MEDS: FUROSEMIDE 20 MG TAB PO SCH (08:28)
[2016-09-27] MEDS: DOXYCYCLINE HYCLATE 100 MG CAP PO SCH (08:28)
[2016-09-27] MEDS: FLUTICASONE/SALMETEROL 250/50 (ADVAIR) 14 PUFF/1 INHALER INH SCH (08:28)
[2016-09-27] MEDS: OLOPATADINE HYDROCHLORIDE OPB SCH (08:28)
[2016-09-27] MEDS: PANTOprazole SOD 40 MG TAB PO SCH (08:28)
[2016-09-27] MEDS: CYANOCOBALAMIN 500 MCG TAB (VIT B-12) PO SCH (08:29)
[2016-09-27] MEDS: GUAIFENESIN 600 MG TABCR PO SCH (08:29)
[2016-09-27] MEDS: CEVIMELINE 30 MG PO SCH (08:30)
[2016-09-27] MEDS: INSULIN HUMAN REGULAR SC SCH ×2 (08:36→12:31)
[2016-09-27] MEDS ORDERED: NURSING VERBAL MED ORDER ONE (09:45)
[2016-09-27] MEDS ORDERED: MAGNESIUM SULFATE 1GM / D5W 1 GM in PREMIXED IN D5W 100 ML IV SCH (10:00)
[2016-09-27] MEDS ORDERED: POTASSIUM CHLORIDE 20 MEQ TABCR PO ONE (10:15)
[2016-09-27] MEDS ORDERED: MGNO400 PO (10:26)
[2016-09-27] MEDS ORDERED: POTA-74 PO (10:26)
[2016-09-27] MEDS: OMEGA-3 (PURIFIED FISH OIL) 1 GM CAP PO SCH (10:43)
[2016-09-27] MEDS: AMOXICILLIN/CLAVULANATE TAB 875 MG TAB PO SCH (10:43)
--- NOTE | 2016-09-27 10:43 | Discharge Summary ---
Discharge Summary Date of Service September 27, 2016. Discharge Summary Admission Date: September 20, 2016 at 01:29 Discharge Date: September 27, 2016 Discharge Disposition: Home Principal Diagnosis: acute respiratory failure with hypoxia Problems/Secondary Diagnoses: Multiple myeloma Sarcoidosis Hypertension Diabetes type 2 Immunizations: Have You Had Influenza Vaccine: No Influenza Vaccine Date: May 26, 2012 History of Tetanus Vaccine?: Unknown History of Pneumococcal: Yes History of Hepatitis B Vaccine: Yes Procedures: Video swallow evaluation showed some distal esophageal dysmotility Recommended slippery diet Consultations: Pulmonary Oncology Medication Reconciliation New Medications: Potassium Chloride (Potassium Chloride Er) 10 Meq Tab 1 TAB PO DAILY for 30 Days, #30 TAB 5 Refills Amoxicillin & Pot Clavulanate (Amoxicillin/Clavulanate P) 1 Tab Tab 875 MG PO BIDM for 3 Days, #6 TAB Doxycycline Hyclate (Doxycycline Hyclate) 100 Mg Cap 100 MG PO BID for 3 Days, #6 CAP Magnesium Oxide (Magnesium-Oxide) 400 Mg Tab 400 MG PO BID for 30 Days, #60 TAB Continued Medications: Albuterol Hfa (Ventolin Hfa) 200 Puffs/82604 Mcg Aers 2 PUFFS INH Q6H PRN for SOB/Wheezing, #1 INHALER Aspirin (Aspirin Ec) 81 Mg Tab 81 MG PO QAM Cevimeline Hcl (Evoxac) 30 Mg Cap 30 MG PO BID Cholecalciferol (Vitamin D 1000 Unit) 1,000 Unit Cap 5000 INTER.UNIT PO QPM Cyanocobalamin (Vitamin B-12 1000 Mcg) 1,000 Mcg Tab 2500 MCG PO MWF Esomeprazole Magnesium (Nexium) 40 Mg Capcr 40 MG PO QAM Fish Oil ([place]-3) 1 Ea Cap 1 CAP PO BID Fluticasone Prop/Salmeterol (Advair Diskus 250-50 Mcg/Dose) 14 Puff/1 Inhaler Aerp 1 PUFF INH BID Glimepiride (Glimepiride) 2 Mg Tab 1 TAB PO QAM Lenalidomide (Revlimid) 2.5 Mg Cap 5 MG PO UD Levothyroxine Sodium (Synthroid) 75 Mcg Tab 75 MCG PO QAM Olopatadine Hydrochloride (Pataday) 37 Drops/2.5 Ml Soln 1 DROP OPB QAM Pregabalin (Lyrica) 75 Mg Cap 150 MG PO QPM Probiotic Product (Probiotic) 1 Cap Cap 1 TAB PO QAM Simvastatin (Zocor) 40 Mg Tab 40 MG PO HS Zoledronic Acid (Zometa) 4 Mg/5 Ml Inj 1 DOSE IV [id number] Referrals At Discharge Follow up Referrals: Oncology/Hematology Referral - Within a Month with Devonte Romero D.O. Physician Referral - Within 1 Week with Italo Burr M.D. Fugitive Investigator Referral - Within 2 Weeks with Arias Gifford MD Discharge Exam Patient reports that she still feels somewhat winded when she is up moving around. Still has a nonproductive cough. Denies any chest pain or pressure. No fever or chills overnight. Feels comfortable being discharged home. Review of Systems: Constitutional: No chills, No fever, No sweats Respiratory: + cough, No shortness of breath Cardiovascular: No chest pain Abdomen: No nausea Genitourinary - Male: No dysuria Physical Exam: General Appearance: no apparent distress Eyes: EOMI Neck: no JVD Respiratory/Chest: + pertinent finding (decreased breath sounds at the right base. No wheezing auscultated. No tachypnea.) Cardiovascular: regular rate, rhythm Abdomen / GI: normal bowel sounds, non tender, soft Extremities: no calf tenderness, no pedal edema Neurologic/Psychiatric: no motor/sensory deficits, oriented x 3 Skin: warm/dry Hospital Course 76 year female old on immunosuppressive agents with suspected pneumonia vs pulmonary edema on CXR with 2 days of cough and generalized fatigue. The patient was admitted and started on vanco, zosyn and levaquin for potential immunosuppression from her chemo as well as receiving lasix for her pulmonary edema. Since she does not have a history of cardiac failure and has been on this medication for a prolonged period of time it was unlikely that this medication was the source of the pulmonary edema. Echo actually did not reveal any significant change in the EF or dysfunction/ valvular abnormalities. This and the elevated inflammatory markers reflected a more infectious cause for the acute hypoxic resp failure. Acute hypoxic respiratory failure--likely secondary to Pneumonia in addition to sarcoidosis -vanc, zosyn, levaquin downgraded to augmentin and doxcycline. Total abx course 10 days -continue duonebs -continue dulera -Failed 2 step-->needs 2 L O2 at rest, 4 L with ambulation -Pulmonary consult appreciated: Needs repeat TLC and Diffusion studies as an out patient for yearly monitoring. Most likely immunosuppressives to treat sarcoidosis but yearly to 6 month monitoring via clinical and PFT's is warranted Pulmonary edema on CXR -Continue Lasix 20 mg po daily - Echo * There is mild asymmetric left ventricular hypertrophy. * Left ventricular systolic function is normal. * Grade I diastolic dysfunction, (abnormal relaxation pattern). * Right ventricular systolic pressure is normal. * EF 55-60% - troponin neg x 3 - daily weights + I&Os Hypokalemia -Begin KCl 10 mEq daily-->rx given Hypomagnesia -mag repleted -given rx for mag oxide 400 mg po BID Type 2 diabetes - ACHS BSG with diabetic diet -ISS -Glyburide 2 mg po BID on hold-->resume upon d/c Hypothyroidism - continue levothyroxine Hyperlipidemia - continue simvastatin Multiple myeloma in remission -heme/onc consulted-->f/u as outpt Code - Full VTE Prophylaxis - heparin 5000 units Q8H SQ Total Time Spent: Greater than 30 minutes This includes examination of the patient, discharge planning, medication reconciliation, and communication with other providers. Discharge Instructions Please refer to the electronic Patient Visit Report (Discharge Instructions) for additional information. Follow-Up PCP, pulmonary, heme/onc Additional Copies To Devonte Romero D.O.; Italo Burr M.D.; Yovany Asher M.D.
[2016-09-27 11:48] VITALS: PULSE 84; O2SAT 95
[2016-09-27 12:54] VITALS: BP 124/79; PULSE 84; TEMP 36.7; O2SAT 95
[2016-09-27] MEDS ORDERED: MAGNESIUM OXIDE 400 MG TAB PO SCH (20:00)
--- NOTE | 2016-09-28 11:56 | EDITING REQUIRED CODING QUERY ---
CONGESTIVE HEART FAILURE/PULMONARY EDEMA To Promote full compliance with coding requirements relating to patient care, physician participation is requested in all cases of choker hooker uncertainty. Please assist us with the following questions. A diagnosis of Congestive Heart Failure as well as Pulmonary Edema is documented in the patient's medical record. To accurately code this diagnosis and to compare patient severity, we ask that you specify the type of heart failure by placing an X within the parenthesis (x). SYSTOLIC HEART FAILURE ( ) Acute ( ) Chronic ( ) Acute on Chronic ( ) Rheumatic (x ) Unknown DIASTOLIC HEART FAILURE ( x) Acute ( ) Chronic ( ) Acute on Chronic ( ) Rheumatic ( ) Unknown COMBINED SYSTOLIC AND DIASTOLIC HEART FAILURE ( ) Acute ( ) Chronic ( ) Acute on Chronic ( ) Rheumatic ( x) Unknown PULMONARY EDEMA WITHOUT CHF ( ) Acute ( ) Chronic ( ) Acute on Chronic ( ) Rheumatic ( x) Unknown Was the CHF or Pulmonary Edema Present On Admission? Please check the appropriate box: ( x) Present on Admission ( ) Not Present On Admission ( ) Clinically undetermined Thank you Kenia Kerns
--- NOTE | 2016-09-28 11:59 | EDITING REQUIRED CODING QUERY ---
CODING QUERY To promote full compliance with coding requirements relating to patient care, provider participation is requested in all cases of telemedicine physician uncertainty. Please assist us with the question(s) below: Coding Question(s): Please clarify below, in your clinical opinion regarding the type of Pneumonia as there is documentation of MRSA positive and r/o Aspiration in the record. ( x ) Likely Aspiration Pneumonia ( ) less Likely MRSA Pneumonia ( ) Unspecified Pneumonia ( ) Pneumonia - Other, Specify: Physician's Response(s): Thank you Kenia Kerns Principal Diagnosis: "_that condition established after study, to be chiefly responsible for occasioning the admission of the patient to the hospital for care." Co-Existing Principal Diagnosis: "_when two or more diagnoses equally meet the criteria for principal diagnosis as determined by the circumstances of admission, diagnostic work up, and/or therapy provided, and the Alphabetic Index, Tabular List, or another coding guideline does not provide sequencing direction, any one of the diagnoses may be sequenced first." "When the physician has documented what appears to be a current diagnosis in the body of the record, but has not included the diagnosis in the final diagnostic statement, the physician should be asked whether the diagnosis should be added." (Source [facility]oding [facility] 2 QTR90. p3-4)
== END 2016-09-27 13:30 | disposition home or self-care (01) | DRG 177 ==
LOC: ENRESERVTM → ENRESERVDT → EDBD 22:14 → C.EDC 22:16 → C.2T 09-20 01:29 → C.MS4W 09-21 14:51
PROVIDERS: ADMIT Hospitalist; ATTEND Hospitalist
DX: J69.0 Pneumonitis due to inhalation of food and vomit (principal); J96.01 Acute respiratory failure with hypoxia; I50.31 Acute diastolic (congestive) heart failure; C90.01 Multiple myeloma in remission; Z94.84 Stem cells transplant status; D86.9 Sarcoidosis, unspecified; K21.9 Gastro-esophageal reflux disease without esophagitis; K22.4 Dyskinesia of esophagus; E55.9 Vitamin D deficiency, unspecified; E87.6 Hypokalemia; E83.42 Hypomagnesemia; E11.21 Type 2 diabetes mellitus with diabetic nephropathy; I11.0 Hypertensive heart disease with heart failure; M54.16 Radiculopathy, lumbar region; E03.9 Hypothyroidism, unspecified; E78.5 Hyperlipidemia, unspecified; J45.909 Unspecified asthma, uncomplicated; E66.9 Obesity, unspecified; Z51.81 Encounter for therapeutic drug level monitoring; Z79.899 Other long term (current) drug therapy; Z79.82 Long term (current) use of aspirin; Z79.84 Long term (current) use of oral hypoglycemic drugs; Z22.322 Carrier or suspected carrier of Methicillin resistant Staphylococcus aureus; Z87.01 Personal history of pneumonia (recurrent); Z68.36 Body mass index [BMI] 36.0-36.9, adult; Z80.49 Family history of malignant neoplasm of other genital organs; Z82.5 Family history of asthma and other chronic lower respiratory diseases; Z80.51 Family history of malignant neoplasm of kidney

== ENCOUNTER → 2016-09-29 | Outpatient (CLI) | payer OTHER ==
[~2016-09-29] MED LIST changes: -ALBUAER2 INH; +AMOX1TAB43 PO; -DXM/4 PO; +DXY100 PO; +MGNO400 PO; +POTA-74 PO; -SPIR25TA PO; +VNTHFA/IN INH
[2016-09-29 12:15] LABS: BLOOD UREA NITROGEN 28 mg/dl (7-18); BUN/CREATININE RATIO 29.9 (10-20); CARBON DIOXIDE 26 mmol/L (21-32); CHLORIDE 106 mmol/L (98-107); CREATININE 0.94 mg/dl (0.60-1.20); GLUCOSE 293 mg/dl (70-99); MAGNESIUM 1.6 mg/dl (1.8-2.4); POTASSIUM 3.4 mmol/L (3.5-5.1); SODIUM 142 mmol/L (136-145)
[2016-09-29 12:19] LABS: CALCIUM 8.7 mg/dl (8.5-10.1)
== END | disposition home or self-care (01) ==
LOC: C.LABBFT 10:59
PROVIDERS: ATTEND Physician Assistant Medical
DX: J96.91 Respiratory failure, unspecified with hypoxia (principal)

== ENCOUNTER → 2016-10-27 | Outpatient (CLI) | payer OTHER ==
[2016-10-27 12:21] LABS: COMPLETE YES; HEMATOCRIT 32.4 % (37-47); IG% 1.1 %; LYMPH % 19.2 %; LYMPH ABS # 0.86 K/uL (1.2-3.4); MEAN CORPUSCULAR HEMOGLOBIN 30.4 pg (25-34); MEAN PLATELET VOLUME 10.2 fL (7.4-10.4); MONO % 7.4 %; NEUT % 72.3 %; PLATELET COUNT 156 K/uL (130-400); RED BLOOD COUNT 3.52 M/uL (4.2-5.4); WHITE BLOOD COUNT 4.47 K/uL (4.8-10.8)
[2016-10-27 12:54] LABS: ALT/SGPT 28 U/L (12-78); BLOOD UREA NITROGEN 28 mg/dl (7-18); BUN/CREATININE RATIO 27.5 (10-20); CALCIUM 8.8 mg/dl (8.5-10.1); CARBON DIOXIDE 21 mmol/L (21-32); CHLORIDE 109 mmol/L (98-107); GLUCOSE 324 mg/dl (70-99); POTASSIUM 3.9 mmol/L (3.5-5.1); SODIUM 141 mmol/L (136-145)
[2016-10-27 12:59] LABS: ALB/GLOB RATIO 1.3 (0.9-2); ALKALINE PHOSPHATASE 57 U/L (45-117); AST/SGOT 11 U/L (15-37)
[2016-10-27 13:00] LABS: CHOLESTEROL/HDL RATIO 2.3; THYROID STIMULATING HORMONE 0.375 uIu/ml (0.300-4.500)
[2016-10-27 13:04] LABS: ESTIMATED AVERAGE GLUCOSE 174 mg/dl; HA1C FLAG Normal (Normal)
[2016-10-27 13:28] LABS: BETA-HYDROXYBUTYRATE 1.96 mg/dL (0.2-2.81); IMMUNOGLOBULN A 78.7 mg/dL (70-400); IMMUNOGLOBULN M 10.5 mg/dL (40-230)
[2016-10-30 11:25] LABS: FREE KAPPA 38.2 MG/L (3.3-19.4); FREE KAPPA/LAMBDA RATIO 5.03 (0.26-1.65); FREE LAMBDA 7.6 MG/L (5.7-26.3)
== END | disposition home or self-care (01) ==
LOC: C.LABBFT 09:40
PROVIDERS: ATTEND Internal Medicine Hematology & Oncology
DX: E78.00 Pure hypercholesterolemia, unspecified (principal); E83.42 Hypomagnesemia; E03.9 Hypothyroidism, unspecified; C90.00 Multiple myeloma not having achieved remission; E11.49 Type 2 diabetes mellitus with other diabetic neurological complication

== ENCOUNTER → 2016-11-06 | Outpatient (CLI) | payer OTHER ==
--- NOTE | 2016-11-06 11:02 | DIAGNOSTIC IMAGING REPORT ---
CHEST 2 VIEWS ROUTINE CLINICAL HISTORY: 76 years year-old Female presenting with PNEUMONIA; history of prior right lower lobe wedge resection; past medical history of sarcoidosis, multiple myeloma, hypertension, bronchitis, immunosuppression. TECHNIQUE: PA and lateral views of the chest were obtained. COMPARISON: Correlation made to chest CT from 09/25/2016 and chest x-ray from 09/24/2016. FINDINGS: Cardiomediastinal silhouette mildly prominent, unchanged. Mild tortuosity of the descending thoracic aorta. Prominence of the right maikel, stable from prior and likely vascular in etiology given the absence of lymphadenopathy on recent CT from September 2016. Minimal bandlike opacities at the lung bases, likely scarring/atelectasis, which are stable to slightly increased from prior. No other focal infiltrate. No pleural effusion or pneumothorax. Moderate hiatus hernia again noted. Lytic lesions visualized on recent CT are not apparent on this radiograph. Upper abdomen normal. IMPRESSION: 1. No convincing evidence of a focal infiltrate to suggest an infectious process. Stable to slightly increased bibasilar scarring/atelectasis. Electronically signed by: Mao Hummel 11/06/2016 8:48 AM Dictated Date/Time: 11/06/2016 8:37 AM
== END | disposition home or self-care (01) ==
LOC: C.RAD 08:13
PROVIDERS: ATTEND Nurse Practitioner
DX: J18.9 Pneumonia, unspecified organism (principal)

== ENCOUNTER → 2016-11-06 | Outpatient (CLI) | payer OTHER ==
[2016-11-06 15:27] LABS: RATIO 5.8 mcg/mg (0-30.0)
== END | disposition home or self-care (01) ==
LOC: C.LABSPEC 13:50
PROVIDERS: ATTEND Internal Medicine
DX: E11.49 Type 2 diabetes mellitus with other diabetic neurological complication (principal)

== ENCOUNTER → 2017-01-05 | Outpatient (CLI) | payer OTHER ==
[2017-01-05 12:17] LABS: MEAN CORPUSCULAR HGB CONC 32.3 g/dl (32-36); PLATELET COUNT 186 K/uL (130-400)
[2017-01-05 12:38] LABS: ALT/SGPT 17 U/L (12-78); BLOOD UREA NITROGEN 15 mg/dl (7-18); BUN/CREATININE RATIO 23.9 (10-20); CALCIUM 8.9 mg/dl (8.5-10.1); CARBON DIOXIDE 28 mmol/L (21-32); CHLORIDE 110 mmol/L (98-107); CREATININE 0.64 mg/dl (0.60-1.20); GLUCOSE 123 mg/dl (70-99); POTASSIUM 3.7 mmol/L (3.5-5.1); SODIUM 145 mmol/L (136-145)
[2017-01-05 12:41] LABS: ALB/GLOB RATIO 1.3 (0.9-2); ALKALINE PHOSPHATASE 57 U/L (45-117); AST/SGOT 13 U/L (15-37)
[2017-01-05 12:48] LABS: HEMATOCRIT 34.4 % (37-47); MEAN CELL VOLUME 92.2 fL (80-100); MEAN CORPUSCULAR HEMOGLOBIN 29.8 pg (25-34); RED BLOOD COUNT 3.73 M/uL (4.2-5.4); WHITE BLOOD COUNT 3.86 K/uL (4.8-10.8)
[2017-01-05 12:53] LABS: COMPLETE YES; EOSINOPHIL % 0.9 %; GIANT PLATELETS 1+; LYMPH ABS # 0.51 K/uL (1.2-3.4); LYMPHOCYTE % 13.3 %; NEUTROPHILS % 46.9 %; VARIANT LYM ABS # 1.06 K/uL; VARIANT LYMPHOCYTE % 27.4 %
[2017-01-09 19:10] LABS: ALBUMIN 3.8 G/DL (3.8-4.8); FREE KAPPA 122.6 MG/L (3.3-19.4); FREE KAPPA/LAMBDA RATIO 12.14 (0.26-1.65); FREE LAMBDA 10.1 MG/L (5.7-26.3); GAMMA GLOBULIN 0.4 G/DL (0.8-1.7); TOTAL PROTEIN 5.9 G/DL (6.2-8.3)
== END | disposition home or self-care (01) ==
LOC: C.LABBFT 09:45
PROVIDERS: ATTEND Internal Medicine Hematology & Oncology
DX: C90.00 Multiple myeloma not having achieved remission (principal)

== ENCOUNTER → 2017-01-19 | Outpatient (CLI) | payer OTHER | END | disposition home or self-care (01) | LOC: C.LABBFT 09:46 | PROVIDERS: ATTEND Internal Medicine Hematology & Oncology | DX: C90.00 Multiple myeloma not having achieved remission (principal) ==

== ENCOUNTER → 2017-01-29 | Outpatient (CLI) | payer OTHER ==
--- NOTE | 2017-01-29 15:51 | MAMMOGRAPHY REPORT ---
BILATERAL DIGITAL SCREENING MAMMOGRAM WITH CAD: 01/29/2017 CLINICAL HISTORY: Routine screening. Patient has no complaints. TECHNIQUE: Bilateral CC and MLO views were obtained. Current study was also evaluated with a Compute r Aided Detection (CAD) system. COMPARISON: Comparison is made to exams dated: 01/25/2016 mammogram, 01/22/2015 mammogram, 01/19/2014 m ammogram, 01/17/2013 mammogram, 01/15/2012 mammogram, and 01/13/2011 mammogram - [facility]. BREAST COMPOSITION: There are scattered areas of fibroglandular density in both breasts. FINDINGS: The parenchymal pattern is similar to prior mammograms. There is a stable loose grouping of round and punctate microcalcifications in the medial right breast, unchanged dating back to at [facility] 01/07/2010, therefore likely benign. No developing mass, architectural distortion or cluster of s uspicious microcalcifications is seen in either breast. No suspicious mass, architectural distortion or cluster of microcalcifications is seen. IMPRESSION: ACR BI-RADS CATEGORY 2: BENIGN There is no mammographic evidence of malignancy. A 1 year screening mammogram is recommended. The pa tient will receive written notification of the results. Approximately 10% of breast cancers are not detected with mammography. A negative mammographic report should not delay biopsy if a clinically suggestive mass is present. Cadence Marin M.D. ay/:01/29/2017 15:20:31 Thermodynamic Physicist: Josefina BRAGG(R)(Jostin), [facility] letter sent: Normal 1/2 BI-RADS Code: ACR BI-RADS Category 2: Benign
== END | disposition home or self-care (01) ==
LOC: C.MAMM 10:28
PROVIDERS: ATTEND Internal Medicine
DX: Z12.31 Encounter for screening mammogram for malignant neoplasm of breast (principal)

== ENCOUNTER → 2017-02-05 | Outpatient (CLI) | payer OTHER | END | disposition home or self-care (01) | LOC: C.LABSPEC 12:49 | PROVIDERS: ATTEND Internal Medicine Hematology & Oncology | DX: C90.00 Multiple myeloma not having achieved remission (principal) ==

== ENCOUNTER → 2017-02-09 | Outpatient (CLI) | payer OTHER ==
[2017-02-09 12:50] LABS: URINE APPEARANCE CLOUDY (CLEAR); URINE BILIRUBIN NEG (NEG); URINE COLOR YELLOW; URINE NITRITE NEG (NEG); URINE SPECIFIC GRAVITY 1.014 (1.000-1.030); UROBILINOGEN NEG (NEG)
[2017-02-09 12:55] LABS: MANUAL MICROSCOPIC REQUIRED? NO; REVIEW REQ? YES
== END | disposition home or self-care (01) ==
LOC: C.LABBFT 11:07
PROVIDERS: ATTEND Physician Assistant Medical
DX: R35.0 Frequency of micturition (principal)

== ENCOUNTER → 2017-02-14 | Outpatient (CLI) | payer OTHER | END | disposition home or self-care (01) | LOC: C.LABSPEC 13:42 | PROVIDERS: ATTEND Internal Medicine Hematology & Oncology | DX: A04.71 Enterocolitis due to Clostridium difficile, recurrent (principal) ==

== ENCOUNTER → 2017-03-22 | Outpatient (CLI) | payer OTHER ==
[~2017-03-22] MED LIST changes: +OPTIRAY 320 IV PRN
--- NOTE | 2017-03-22 10:01 | DIAGNOSTIC IMAGING REPORT ---
CT ABD/PELVIS IV AND ORAL CONT CLINICAL HISTORY: Multiple myeloma with progressive pain. COMPARISON STUDY: MRI of the abdomen dated 09/20/2010 TECHNIQUE: Following the IV administration of 87 mL of Optiray-320, CT scan of the abdomen and pelvis was performed from the lung bases to the proximal femurs. Images are reviewed in the axial, sagittal, and coronal planes. IV contrast was administered without complication. A dose lowering technique was utilized adhering to the principles of ALARA. CT DOSE: FINDINGS: Lower chest: There is a moderate hiatal hernia. Liver: There is 11 mm hypodense lesion within the lateral segment left lobe of the liver abutting the falciform ligament. This is unchanged in size from 2011 and is felt to be benign Gallbladder: Unremarkable. Spleen: Normal in size and attenuation. Pancreas: Unremarkable. Adrenal glands: Unremarkable. Kidneys: There is symmetric renal cortical enhancement. The kidneys are normal in size without hydronephrosis. Bowel: There are no transition zones indicate bowel obstruction. There is no acute diverticulitis. The appendix is not visualized with certainty. There are no findings to indicate acute appendicitis. Peritoneum: There is no intraperitoneal free air or abdominal ascites.There are small fat-containing inguinal hernias. There are multiple small fat-containing ventral hernias. There is a small fat-containing umbilical hernia. Vasculature: The abdominal aorta is normal in course and caliber. Adenopathy: None. Pelvic viscera: The bladder, and pelvic viscera are unremarkable. Skeletal structures: There are scattered nonspecific lucent foci, possibly secondary to the patient's reported multiple myeloma. IMPRESSION: 1. No evidence of bowel obstruction. No evidence of free air 2. No acute inflammatory changes 3. Multiple small fat-containing ventral hernias 4. Stable 11 mm lesion within the left lobe of the liver. This is felt to be benign 5. Hiatal hernia Electronically signed by: Clint Hurley M.D. 03/22/2017 9:59 AM Dictated Date/Time: 03/22/2017 9:51 AM
--- NOTE | 2017-03-22 10:01 | DIAGNOSTIC IMAGING REPORT ---
CT SCAN OF THE CHEST WITH IV CONTRAST CLINICAL HISTORY: Multiple myeloma. COMPARISON STUDY: Chest CT scans dated 09/25/2016 and 08/18/2005. TECHNIQUE: Following the IV administration of 87 cc of Optiray 320, CT scan of the thorax was performed from the thoracic inlet to the upper abdomen. Images are reviewed in the axial, sagittal, and coronal planes. IV contrast was administered without complication. A dose lowering technique was utilized adhering to the principles of ALARA. CT DOSE: 1347.09 mGycm FINDINGS: Thyroid: The thyroid gland is atrophic. A subcentimeter nodule is suggested in the right lobe. Thoracic aorta: There is mild atherosclerotic calcification of the thoracic aorta, which is normal in caliber and demonstrates standard 3-vessel arch anatomy. No dissection is seen. Pulmonary vasculature: Enlargement of the main pulmonary arteries suggests pulmonary artery hypertension. There are no filling defects identified in the central pulmonary vessels to indicate pulmonary embolus. Note that this examination was not protocoled for evaluation of the pulmonary arteries. Heart: The heart is enlarged and without pericardial effusion. There are scattered coronary artery calcifications. Lungs and pleural spaces: The trachea and central airways are clear. Postoperative change is seen at the right lung base. There are foci of bibasilar scarring versus atelectasis. No airspace consolidation or pleural effusion is identified. A 5 mm left lower lobe pulmonary nodule is seen on image #183. A 3 mm right lower lobe nodule is seen on image #140. These are unchanged from 2006 and of doubtful significance. Mediastinum: There is no mediastinal lymphadenopathy. Elena: Clear. Axillae: There is no axillary lymphadenopathy. Upper abdomen: There is a large hiatal hernia. The liver appears steatotic. The spleen is normal in size. Skeletal structures: The skeletal structures are osteopenic. Degenerative change and hyperkyphosis is noted in the thoracic spine. Large heme angiomas are seen in the bodies of T4 and T11. Additional smaller hemangiomas are suggested. Numerous osteolytic lesions seen previously are less apparent on today's examination. IMPRESSION: 1. There is no evidence of disease progression as compared to 09/25/2016. 2. Numerous osteolytic lesions are again noted and consistent with the reported history of multiple myeloma. These are less apparent than on the prior study. 3. There is no airspace consolidation or pleural effusion. Postoperative change is again noted at the right lung base. 4. Cardiomegaly. 5. Large hiatal hernia. 6. Additional findings as above. Electronically signed by: Jose Weiss M.D. 03/22/2017 9:59 AM Dictated Date/Time: 03/22/2017 9:51 AM
== END | disposition home or self-care (01) ==
LOC: C.CTS 07:24
PROVIDERS: ATTEND Internal Medicine Hematology & Oncology
DX: C90.00 Multiple myeloma not having achieved remission (principal); K76.9 Liver disease, unspecified; K43.9 Ventral hernia without obstruction or gangrene; K44.9 Diaphragmatic hernia without obstruction or gangrene

== ENCOUNTER → 2017-04-10 | Outpatient (CLI) | payer OTHER ==
[~2017-04-10] MED LIST changes: -OPTIRAY 320 IV PRN
[2017-04-10 12:29] LABS: ALT/SGPT 20 U/L (12-78); AST/SGOT 7 U/L (15-37); BLOOD UREA NITROGEN 19 mg/dl (7-18); BUN/CREATININE RATIO 25.5 (10-20); CALCIUM 9.1 mg/dl (8.5-10.1); CARBON DIOXIDE 30 mmol/L (21-32); CHLORIDE 103 mmol/L (98-107); CHOLESTEROL 150 mg/dl (0-200); CREATININE 0.73 mg/dl (0.60-1.20); GLUCOSE 128 mg/dl (70-99); MAGNESIUM 1.4 mg/dl (1.8-2.4); POTASSIUM 3.8 mmol/L (3.5-5.1); SODIUM 139 mmol/L (136-145)
[2017-04-10 12:33] LABS: ESTIMATED AVERAGE GLUCOSE 197 mg/dl; HA1C FLAG Normal (Normal)
[2017-04-10 12:38] LABS: ALKALINE PHOSPHATASE 72 U/L (45-117); CHOLESTEROL/HDL RATIO 2.1; HDL CHOLESTEROL 71 mg/dl; LDL CHOLESTEROL CALCULATED 35 mg/dl; TRIGLYCERIDES 218 mg/dl (0-150); VERY LOW DENSITY LIPOPROT CALC 44 mg/dl
[2017-04-10 12:40] LABS: COMPLETE YES; EOS % 2.4 %; HEMATOCRIT 35.9 % (37-47); IG% 2.2 %; LYMPH % 40.4 %; LYMPH ABS # 2.22 K/uL (1.2-3.4); MEAN CELL VOLUME 90.4 fL (80-100); MEAN CORPUSCULAR HEMOGLOBIN 29.2 pg (25-34); MEAN CORPUSCULAR HGB CONC 32.3 g/dl (32-36); MEAN PLATELET VOLUME 10.5 fL (7.4-10.4); PLATELET COUNT 172 K/uL (130-400); RED BLOOD COUNT 3.97 M/uL (4.2-5.4); WHITE BLOOD COUNT 5.49 K/uL (4.8-10.8)
== END | disposition home or self-care (01) ==
LOC: C.LABBFT 09:02
PROVIDERS: ATTEND Internal Medicine
DX: E11.49 Type 2 diabetes mellitus with other diabetic neurological complication (principal)

== ENCOUNTER → 2017-04-17 | Outpatient (CLI) | payer OTHER ==
[2017-04-17 17:40] LABS: BASO % 0.2 %; BASO ABS # 0.01 K/uL (0-0.2); COMPLETE YES; EOS % 2.5 %; HEMATOCRIT 34.5 % (37-47); IG% 0.6 %; LYMPH % 32.5 %; LYMPH ABS # 1.59 K/uL (1.2-3.4); MEAN CELL VOLUME 90.1 fL (80-100); MEAN CORPUSCULAR HEMOGLOBIN 30.3 pg (25-34); MEAN CORPUSCULAR HGB CONC 33.6 g/dl (32-36); MEAN PLATELET VOLUME 9.8 fL (7.4-10.4); MONO % 12.5 %; NEUT % 51.7 %; PLATELET COUNT 159 K/uL (130-400); RED BLOOD COUNT 3.83 M/uL (4.2-5.4); WHITE BLOOD COUNT 4.89 K/uL (4.8-10.8)
[2017-04-17 18:01] LABS: ALT/SGPT 32 U/L (12-78); BLOOD UREA NITROGEN 15 mg/dl (7-18); BUN/CREATININE RATIO 19.3 (10-20); CALCIUM 8.1 mg/dl (8.5-10.1); CARBON DIOXIDE 25 mmol/L (21-32); CHLORIDE 105 mmol/L (98-107); CREATININE 0.79 mg/dl (0.60-1.20); GLUCOSE 171 mg/dl (70-99); POTASSIUM 3.6 mmol/L (3.5-5.1); SODIUM 139 mmol/L (136-145)
[2017-04-17 18:03] LABS: ALB/GLOB RATIO 1.1 (0.9-2); ALKALINE PHOSPHATASE 77 U/L (45-117); AST/SGOT 20 U/L (15-37)
[2017-04-19 12:07] LABS: FREE KAPPA 228.4 MG/L (3.3-19.4); FREE KAPPA/LAMBDA RATIO 22.17 (0.26-1.65); FREE LAMBDA 10.3 MG/L (5.7-26.3)
== END | disposition home or self-care (01) ==
LOC: C.LABBFT 12:05
PROVIDERS: ATTEND Internal Medicine Hematology & Oncology
DX: C90.00 Multiple myeloma not having achieved remission (principal)

== ENCOUNTER → 2017-04-17 | Outpatient (CLI) | payer OTHER ==
--- NOTE | 2017-04-17 16:27 | DIAGNOSTIC IMAGING REPORT ---
MRI OF THE LUMBAR SPINE WITHOUT IV CONTRAST CLINICAL HISTORY: Low back pain. Right lower extremity radiculopathy. COMPARISON STUDY: Abdominal CT dated 03/22/2017. TECHNIQUE: MRI of the lumbar spine is performed utilizing various T1 and T2-weighted sequences in the axial and sagittal planes. IV contrast was not administered for this examination. FINDINGS: Lumbar spine: Vertebral body height is maintained throughout the lumbar spine. There is a left-sided pars defect at L5. There is approximately 6 mm of anterolisthesis at L5-S1. Alignment is otherwise preserved. Mild hyperlordosis is noted. Tiny anterior osteophytes are seen throughout. The transverse and spinous processes are intact as visualized. There is minimal degenerative endplate change at L3-L4. No destructive bony lesion is identified. Intervertebral discs: Degenerative disc desiccation is seen throughout the lumbar spine. There is only mild loss of height, greatest at L1-L2 and L3-L4. Spinal cord: The visualized spinal cord is normal in morphology and signal intensity. The conus medullaris terminates at the level of T12. The nerve roots of the cauda equina are normal in morphology. L1-L2: There is a posterior disc bulge eccentric to the left. This causes mild left-sided subarticular stenosis. There is no significant central canal stenosis. The neural foramina appear patent. L2-L3: There is a small disc bulge eccentric to the left. This causes left-sided subarticular stenosis and may impinge on the exiting left L2 and the transiting left L3 nerve roots. There is no significant central canal stenosis. The neural foramina are patent. L3-L4: There is a broad-based posterior disc bulge. There is also hypertrophy of the ligamentum flavum. No significant central canal stenosis is seen. The minimum AP canal diameter measures 10.5 mm. There is bilateral subarticular stenosis, with the disc bulge abutting the transiting bilateral nerve roots. L4-L5: There is broad-based posterior disc bulge. In conjunction with hypertrophy of the ligamentum flavum, there is minimal central canal stenosis at this level. The minimum AP diameter measures 8 mm. There is bilateral subarticular stenosis. The disc bulge likely abuts the exiting bilateral L4 and the transiting bilateral L5 nerve roots. Facet arthropathy is of no consequence. The neural foramina appear patent. L5-S1: There is a broad-based posterior disc bulge. This causes bilateral subarticular stenosis and likely impinges on the exiting bilateral L5 nerve roots. Facet arthropathy is of no consequence. The neural foramina are patent. No significant central canal stenosis is seen. Sacrum: The visualized sacrum is normal in morphology and signal intensity. Soft tissues: There is fatty atrophy of the paraspinous musculature. A subcentimeter right renal cyst is noted. IMPRESSION: 1. There is no large disc herniation or high-grade central canal stenosis identified. 2. Multilevel degenerative disc disease as above. See discussion for detailed [id number] analysis. 3. No destructive bony process is identified. Dictated: 04/17/2017 3:16 PM Transcribed: 04/17/2017 4:27 PM ABEL_Olaf Electronically signed by: Jose Weiss M.D. 04/17/2017 4:35 PM Dictated Date/Time: 04/17/2017 3:16 PM
== END | disposition home or self-care (01) ==
LOC: C.MRI 13:22
PROVIDERS: ATTEND Internal Medicine
DX: M54.5 Low back pain (principal)

== ENCOUNTER 2017-05-15 10:44 | Inpatient (IN) | payer OTHER ==
[~2017-05-15] VITALS: Ht 152.4 cm; Wt 86.7 kg
[~2017-05-15 10:44] MED LIST changes: -AMOX1TAB43 PO; -DXY100 PO; -LENA2.5C PO; +ULT50 PO
--- NOTE | 2017-05-15 11:46 | DIAGNOSTIC IMAGING REPORT ---
CHEST ONE VIEW PORTABLE HISTORY: EVALUATE RESPIRATORY DISTRESS.DYSPNEA COMPARISON: Chest 11/06/2016. FINDINGS: Slight progression of the bibasilar linear and patchy densities. The upper lung zones remain clear. Mild emphysema.. Moderate hiatus hernia. No pleural effusions. No pneumothorax. The heart remains borderline enlarged. IMPRESSION: Slight progression of the bibasilar linear/patchy densities. This could represent atelectasis or pneumonia. Electronically signed by: Johnny Elam M.D. 05/15/2017 11:45 AM Dictated Date/Time: 05/15/2017 11:44 AM
[2017-05-15 12:21] LABS: BASO % 0.4 %; BASO ABS # 0.01 K/uL (0-0.2); EOS % 0.4 %; EOS ABS # 0.01 K/uL (0-0.5); HEMATOCRIT 33.3 % (37-47); HEMOGLOBIN 11.1 g/dL (12.0-16.0); IG# 0.01 K/uL (0.00-0.02); LYMPH % 24.2 %; LYMPH ABS # 0.59 K/uL (1.2-3.4); MEAN CELL VOLUME 91.7 fL (80-100); MEAN CORPUSCULAR HEMOGLOBIN 30.6 pg (25-34); MEAN CORPUSCULAR HGB CONC 33.3 g/dl (32-36); MEAN PLATELET VOLUME 9.9 fL (7.4-10.4); MONO % 1.6 %; MONO ABS # 0.04 K/uL (0.11-0.59); NEUT ABS # 1.78 K/uL (1.4-6.5); NUCLEATED RED BLOOD CELL ABS 0.03 K/uL (0-0); PLATELET COUNT 104 K/uL (130-400); RED CELL DISTRIBUTION WIDTH CV 15.9 % (11.5-14.5); RED CELL DISTRIBUTION WIDTH SD 53.6 fL (36.4-46.3); WHITE BLOOD COUNT 2.44 K/uL (4.8-10.8)
[2017-05-15 12:40] LABS: ALBUMIN 3.3 gm/dl (3.4-5.0); ALT/SGPT 43 U/L (12-78); AST/SGOT 69 U/L (15-37); BLOOD UREA NITROGEN 16 mg/dl (7-18); CALCIUM 8.1 mg/dl (8.5-10.1); CARBON DIOXIDE 22 mmol/L (21-32); GLUCOSE 233 mg/dl (70-99); POTASSIUM 3.1 mmol/L (3.5-5.1); SODIUM 138 mmol/L (136-145)
[2017-05-15 12:45] LABS: ALKALINE PHOSPHATASE 80 U/L (45-117); TOTAL PROTEIN 6.3 gm/dl (6.4-8.2)
[2017-05-15] MEDS ORDERED: LEVAQUIN 750MG / 150ML D5W IV STA (13:22)
[2017-05-15] MEDS ORDERED: DXM4 PO (13:34)
[2017-05-15] MEDS ORDERED: CYAN10005 PO (13:34)
[2017-05-15] MEDS ORDERED: CALC500C2 PO (13:34)
[2017-05-15] MEDS ORDERED: GLIM4TAB2 PO (13:34)
[2017-05-15] MEDS ORDERED: CHOLCAP5 PO (13:34)
[2017-05-15] MEDS ORDERED: LOTE1GEL OP (13:34)
[2017-05-15] MEDS ORDERED: SPIR25TA PO (13:35)
[2017-05-15] MEDS ORDERED: ZVR/400 PO (13:35)
[2017-05-15] MEDS ORDERED: OLOP1DRO OPB (13:35)
[2017-05-15] MEDS ORDERED: MECL1TAB40 PO (13:35)
[2017-05-15] MEDS ORDERED: OMEG10007 PO (13:35)
[2017-05-15] MEDS ORDERED: LENA2.5C PO (13:35)
[2017-05-15] MEDS ORDERED: ACET-1311 PO (13:35)
[2017-05-15] MEDS ORDERED: PTDOPS OP (13:35)
[2017-05-15] MEDS ORDERED: MONT1TAB3 PO (13:35)
[2017-05-15] MEDS ORDERED: POTA20TA16 PO (13:35)
[2017-05-15] MEDS ORDERED: MAGN64TA4 PO (13:35)
[2017-05-15] MEDS ORDERED: METO25TA3 PO (13:35)
[2017-05-15] MEDS ORDERED: METR-163 PO (13:35)
[2017-05-15] MEDS ORDERED: MAGNESIUM HYDROXIDE SUSP 30 ML UDC PO PRN (16:00)
[2017-05-15] MEDS ORDERED: TRAMADOL HCL 50 MG TAB PO PRN (16:00)
[2017-05-15] MEDS ORDERED: ONDANSETRON INJ 2 MG/ML 2 ML VIAL IV PRN (16:00)
[2017-05-15] MEDS ORDERED: ACETAMINOPHEN 325 MG TAB PO PRN (16:00)
[2017-05-15] MEDS ORDERED: ALUMINUM/MAGNESIUM/SIMETH (MAALOX MAX) 30 ML UDC PO PRN (16:00)
[2017-05-15] MEDS ORDERED: MECLIZINE HCL 12.5 MG TAB PO PRN (16:00)
[2017-05-15] MEDS ORDERED: POLYETHYLENE (MIRALAX) 17 GM PACK PO PRN (16:00)
--- NOTE | 2017-05-15 16:08 | History and Physical ---
History & Physical Date & Time of Service: May 15, 2017 at 15:52 Chief Complaint: Respiratory Primary Care Physician: Italo Burr M.D. History of Present Illness Source: patient, hospital records 76 y/o F Hx DM, HTN, hypothyroid, pulmonary sarcoid, grade one diastolic dysfunction, multiple myeloma. The pt has been on Revlamid for the past 6 years following a stem cell transplant. The disease recurred recently and she was scheduled to begin therapy with Panitumumab. Approximately one hour after the infusion began, she developed SOB, wheezing and rigors. She received racemic epinephrine and benadryl and was sent to the ER for evaluation. The pt' s daughter noted additionally that she had developed a productive cough a few days prior. She denies CP, N/V, diarrhea, dysuria or fevers. Per the oncologist, the pt's reaction is a well documented effect of Panitumumab. Past Medical/Surgical History 1) Multiple myeloma - recent recurrence - the pt had been in remission intil recently with Revlamid use following a stem cell transplant in 2010 2) HTN 3) DM II 4) Grade 1 diastolic dysfunction - EF 55% 5) Stem cell transplant 2010 6) Sarcoidosis - pulmonary Family History FH: cancer FH: lung disease Social History Smoking Status: Former Smoker Marital Status: Occupational Status: retired Immunizations History of Influenza Vaccine: No Influenza Vaccine Date: May 26, 2012 History of Tetanus Vaccine?: Unknown History of Pneumococcal: Yes History of Hepatitis B Vaccine: Yes Multi-Drug Resistant Organisms History of MDRO: Yes Type of MDRO: MRSA Allergies Coded Allergies: Sulfa Antibiotics (Verified Allergy, Severe, RASH, 05/15/17) Latex1 -Allergic Contact Dermititis (Verified Allergy, Unknown, REDNESS, ) Codeine (Verified Adverse Reaction, Intermediate, SPACED OUT, 05/15/17) Adhesives (Verified Adverse Reaction, Mild, BREAKS OUT, 05/15/17) Amoxicillin (Verified Adverse Reaction, Unknown, YEAST INFECTION, 05/15/17) Clavulanic Acid (Verified Adverse Reaction, Unknown, YEAST INFECTION, ) Home Medications Scheduled Acyclovir (Acyclovir), 1 DOSE PO UD Calcium Carbonate (Antacid) (Antacid), 1,250 MG PO DAILY Cevimeline Hcl (Evoxac), 30 MG PO BID Cholecalciferol (Vitamin D3), 5,000 UNITS PO DAILY Cyanocobalamin (Vitamin B-12), 1,000 MCG PO DAILY Dexamethasone (Dexamethasone), 20 MG PO WK Esomeprazole Magnesium (Nexium), 40 MG PO QAM Fish Oil ([place]-3), 1 CAP PO BIDM Fluticasone Prop/Salmeterol (Advair Diskus 250-50 Mcg/Dose), 1 PUFF INH BID Glimepiride (Glimepiride), 4 MG PO BID Lenalidomide (Revlimid), 5 MG PO DAILY Levothyroxine Sodium (Synthroid), 75 MCG PO QAM Loteprednol Etabonate (Lotemax), 1 APPLN OP BID Magnesium Chloride (Mag64), 1 TAB PO DAILY Metoprolol Succ (Toprol Xl) (Toprol-Xl), 25 MG PO DAILY Metronidazole (Flagyl), 500 MG PO TID Montelukast Sodium (Singulair), 10 MG PO DAILY Olopatadine HCl (Pazeo), 1 DROP OPB DAILY Olopatadine Hydrochloride (Pataday), 1 DROPS OP DAILY Potassium Ext Rel (Klor-Con), 1 TAB PO DAILY Pregabalin (Lyrica), 75 MG PO DAILY Probiotic Product (Probiotic), 1 TAB PO QAM Simvastatin (Zocor), 40 MG PO QPM Spironolactone (Aldactone), 25 MG PO DAILY Zoledronic Acid (Zometa), 1 DOSE IV [id number] Scheduled PRN Acetaminophen (Tylenol), 650 MG PO UD PRN for Pain Albuterol Hfa (Ventolin Hfa), 2 PUFFS INH Q6H PRN for SOB/Wheezing Meclizine HCl (Meclizine HCl), 12.5 MG PO UD PRN for Nausea Tramadol HCl (Tramadol HCl), 50 MG PO Q6 PRN for prn Review of Systems Constitutional: + chills, + problem reported (rigors reoprted), No fever, No sweats Eyes: No worsening of vision ENT: No hearing loss, No unusual epistaxis Respiratory: + cough, + sputum, + wheezing, + shortness of breath, + problem reported (Acute SOB during chemo infusion) Cardiovascular: No chest pain, No orthopnea, No PND Abdomen: No pain, No nausea, No vomiting Musculoskeletal: No joint pain Genitourinary - Female: No dysuria, No urinary frequency, No urinary urgency Neurologic: No memory loss, No paralysis, No weakness Psychiatric: No depression symptoms Endocrine: No fatigue Hematologic / Lymphatic: No abnormal bleeding/bruising Integumentary: No rash Allergic / Immunologic: No environmental allergies Physical Exam Vital Signs Date Time Temp Pulse Resp B/P (MAP) Pulse Ox O2 Delivery O2 Flow Rate FiO2 05/15/17 14:30 89 20 130/66 94 Nasal Cannula 2.0 05/15/17 13:53 95 16 112/62 96 Nasal Cannula 2.0 05/15/17 13:28 94 05/15/17 12:06 106 23 139/66 96 Nasal Cannula 2.0 05/15/17 11:05 94 Nasal Cannula 2.0 05/15/17 10:59 90 Room Air 05/15/17 10:59 115 05/15/17 10:59 37.0 118 30 181/78 90 Room Air 05/15/17 10:59 93 Nasal Cannula 2.0 General Appearance: WD/WN Head: normocephalic Eyes: normal inspection ENT: normal ENT inspection, pharynx normal Neck: supple, no JVD Respiratory/Chest: chest non-tender, lungs clear, normal breath sounds Cardiovascular: regular rate, rhythm, no edema, no gallop, + systolic murmur Abdomen/GI: normal bowel sounds, non tender, soft Back: normal inspection, no CVA tenderness, no muscle spasm, normal range of motion Extremities/Musculoskelatal: normal inspection, no calf tenderness, normal capillary refill, no pedal edema, normal range of motion Neurologic/Psych: office executive II-XII nml as tested, no motor/sensory deficits, alert, oriented x 3 Skin: normal color, warm/dry, no rash Diagnostics Laboratory Results Results Past 24 Hours Test 05/15/17 11:25 05/15/17 12:04 Range/Units White Blood Count 2.44 4.8-10.8 K/uL Red Blood Count 3.63 4.2-5.4 M/uL Hemoglobin 11.1 12.0-16.0 g/dL Hematocrit 33.3 37-47 % Mean Corpuscular Volume 91.7 80-100 fL Mean Corpuscular Hemoglobin 30.6 25-34 pg Mean Corpuscular Hemoglobin Concent 33.3 32-36 g/dl Platelet Count 104 130-400 K/uL Mean Platelet Volume 9.9 7.4-10.4 fL Neutrophils (%) (Auto) 73.0 % Lymphocytes (%) (Auto) 24.2 % Monocytes (%) (Auto) 1.6 % Eosinophils (%) (Auto) 0.4 % Basophils (%) (Auto) 0.4 % Neutrophils # (Auto) 1.78 1.4-6.5 K/uL Lymphocytes # (Auto) 0.59 1.2-3.4 K/uL Monocytes # (Auto) 0.04 0.11-0.59 K/uL Eosinophils # (Auto) 0.01 0-0.5 K/uL Basophils # (Auto) 0.01 0-0.2 K/uL RDW Standard Deviation 53.6 36.4-46.3 fL RDW Coefficient of Variation 15.9 11.5-14.5 % Immature Granulocyte % (Auto) 0.4 % Immature Granulocyte # (Auto) 0.01 0.00-0.02 K/uL Nucleated RBC Absolute Count (auto) 0.03 0-0 K/uL Nucleated Red Blood Cells % 1.4 % Prothrombin Time 10.0 9.0-12.0 SECONDS Prothromb Time International Ratio 1.0 0.9-1.1 Activated Partial Thromboplast Time 25.0 21.0-31.0 SECONDS Partial Thromboplastin Ratio 1.0 Sodium Level 138 136-145 mmol/L Potassium Level 3.1 3.5-5.1 mmol/L Chloride Level 105 98-107 mmol/L Carbon Dioxide Level 22 21-32 mmol/L Anion Gap 11.0 3-11 mmol/L Blood Urea Nitrogen 16 7-18 mg/dl Creatinine 0.70 0.60-1.20 mg/dl Est Creatinine Clear Calc Drug Dose 72.2 ml/min Estimated GFR () 98.9 Estimated GFR (Non- 85.4 BUN/Creatinine Ratio 22.8 10-20 Random Glucose 233 70-99 mg/dl Calcium Level 8.1 8.5-10.1 mg/dl Total Bilirubin 0.9 0.2-1 mg/dl Aspartate Amino Transf (AST/SGOT) 69 15-37 U/L Alanine Aminotransferase (ALT/SGPT) 43 12-78 U/L Alkaline Phosphatase 80 45-117 U/L Troponin I < 0.015 0-0.045 ng/ml Total Protein 6.3 6.4-8.2 gm/dl Albumin 3.3 3.4-5.0 gm/dl Globulin 3.0 2.5-4.0 gm/dl Albumin/Globulin Ratio 1.1 0.9-2 Urine Color YELLOW Urine Appearance CLEAR CLEAR Urine pH 5.0 4.5-7.5 Urine Specific [place] 1.021 1.000-1.030 Urine Protein 1+ NEG Urine Glucose (UA) 3+ NEG Urine Ketones 1+ NEG Urine Occult Blood NEG NEG Urine Nitrite NEG NEG Urine Bilirubin NEG NEG Urine Urobilinogen NEG NEG Urine Leukocyte Esterase NEG NEG Urine WBC (Auto) 1-5 0-5 /hpf Urine RBC (Auto) 0-4 0-4 /hpf Urine Hyaline Casts (Auto) 0 0-5 /lpf Urine Epithelial Cells (Auto) 10-20 0-5 /lpf Urine Bacteria (Auto) NEG NEG Diagnostic Radiology CXR: Slight progression of the bibasilar linear/patchy densities. This could represent atelectasis or pneumonia. EKG Sinus tach, RBBB, LAFB - no acute morphological change Impression Assessment and Plan 76 y/o F Hx DM, HTN, hypothyroid, pulmonary sarcoid, grade one diastolic dysfunction, multiple myeloma. The pt has been on Revlamid for the past 6 years following a stem cell transplant. The disease recurred recently and she was scheduled to begin chemotherapy with Panitumumab. Approximately one hour after the infusion began, she developed SOB, wheezing and rigors. She received epinephrine and was sent to the ER for evaluation. The pt's daughter noted additionally that she had developed a productive cough a few days prior. She denies CP, N/V, diarrhea, dysuria or fevers. 1) SOB - acute reaction to Panitumumab. May also be developing PNM. She is assigned to telemetry. She will receive scheduled breathing treatment, steroids , Benadryl and Famotidine. Due to her neutropenia and suspected infiltrates, she has been placed on antibiotics. 2) Pancytopenia - anemia only would be expected in her condition. The proximity of her treatment with Panitumumab makes it unlikely that this is at all involved. The cause of her neutropenia and Thrombocytopenia is then unclear. We will trend her CBC and may choose to consult heme/onc while she is admitted if there is a downward trend. Her anemia is chronic, mild and stable. 3) Grade 1 diastolic CHF - she is euvolemic on admission - cont Aldactone , B osito 4) DM - placed on SS 5) HTN - cont Metoprolol 6) Hypothyroidism - cont Synthroid 7) Sarcoid - this may figure in to her abnormal CXR in absence of PNM. It may also figure into her cytopenias. Would consider a CT chest if there is minimal improvement. Full code - SCDs pending AM labs Total time Level of Care Telemetry Resuscitation Status FULL RESUSCITATION VTE Prophylaxis Given or contraindicated: SCD's
--- NOTE | 2017-05-15 16:43 | EMERGENCY ROOM VISIT NOTE ---
History Report prepared by Jerrod: Yovani Mars Under the Supervision of: Dr. Mauricio Dong D.O. First contact with patient: 11:00 Chief Complaint: RESPIRATORY PROBLEMS Stated Complaint: RESPIRATORY History of Present Illness The patient is a 76 year old female with a history of asthma who presents to the Emergency Room from the cancer center with complaints of an episode of respiratory problems that occurred this morning. She states that she was receiving chemotherapy with Dr. Eubanks for sarcoidosis, and as soon as she received the first medication, she started to get shaky in the legs, and then short of breath. The patient notes that she has had a cough and runny nose. Per the EMS report, the patient was given 2 Racemic Epinephrine, and 50 mg Benadryl , and the patient states that she now feels better but sleepy. She denies any rashes, chest pain, nausea, vomiting, or diarrhea. She notes that she is not normally on oxygen. Patient has had a cough and runny nose which is worsening over the past couple days. Source of History: patient, other (EMS report) Onset: This morning Position: other (global - respiratory problems) Quality: other (now feeling better) Timing: other (episode) Associated Symptoms: + cough, + SOB, No chest pain, No nausea, No vomiting, No diarrhea, No rash Note: Associated symptoms: Shaking in legs. Runny nose. Review of Systems See HPI for pertinent positives & negatives. A total of 10 systems reviewed and were otherwise negative. Past Medical & Surgical Medical Problems: (1) Bronchitis (2) Hypertension (3) Hypoxia (4) Immunosuppressed status (5) left ankle fracture 1994 (6) Lung biopsy 1999 (7) Multiple myeloma (8) Pneumonia (9) Pneumonia (10) Sarcoidosis Family History FH: cancer FH: lung disease Social History Smoking Status: Former Smoker Marital Status: Housing Status: lives with family Occupation Status: retired Current/Historical Medications Scheduled Acyclovir (Acyclovir), 1 DOSE PO UD Calcium Carbonate (Antacid) (Antacid), 1,250 MG PO DAILY Cevimeline Hcl (Evoxac), 30 MG PO BID Cholecalciferol (Vitamin D3), 5,000 UNITS PO DAILY Cyanocobalamin (Vitamin B-12), 1,000 MCG PO DAILY Dexamethasone (Dexamethasone), 20 MG PO WK Esomeprazole Magnesium (Nexium), 40 MG PO QAM Fish Oil ([place]offe[place]-3), 1 CAP PO BIDM Fluticasone Prop/Salmeterol (Advair Diskus 250-50 Mcg/Dose), 1 PUFF INH BID Glimepiride (Glimepiride), 4 MG PO BID Lenalidomide (Revlimid), 5 MG PO DAILY Levothyroxine Sodium (Synthroid), 75 MCG PO QAM Loteprednol Etabonate (Lotemax), 1 APPLN OP BID Magnesium Chloride (Mag64), 1 TAB PO DAILY Metoprolol Succ (Toprol Xl) (Toprol-Xl), 25 MG PO DAILY Metronidazole (Flagyl), 500 MG PO TID Montelukast Sodium (Singulair), 10 MG PO DAILY Olopatadine HCl (Pazeo), 1 DROP OPB DAILY Olopatadine Hydrochloride (Pataday), 1 DROPS OP DAILY Potassium Ext Rel (Klor-Con), 1 TAB PO DAILY Pregabalin (Lyrica), 75 MG PO DAILY Probiotic Product (Probiotic), 1 TAB PO QAM Simvastatin (Zocor), 40 MG PO QPM Spironolactone (Aldactone), 25 MG PO DAILY Zoledronic Acid (Zometa), 1 DOSE IV [id number] Scheduled PRN Acetaminophen (Tylenol), 650 MG PO UD PRN for Pain Albuterol Hfa (Ventolin Hfa), 2 PUFFS INH Q6H PRN for SOB/Wheezing Meclizine HCl (Meclizine HCl), 12.5 MG PO UD PRN for Nausea Tramadol HCl (Tramadol HCl), 50 MG PO Q6 PRN for prn Allergies Coded Allergies: Sulfa Antibiotics (Verified Allergy, Severe, RASH, 05/15/17) Latex1 -Allergic Contact Dermititis (Verified Allergy, Unknown, REDNESS, ) Codeine (Verified Adverse Reaction, Intermediate, SPACED OUT, 05/15/17) Adhesives (Verified Adverse Reaction, Mild, BREAKS OUT, 05/15/17) Amoxicillin (Verified Adverse Reaction, Unknown, YEAST INFECTION, 05/15/17) Clavulanic Acid (Verified Adverse Reaction, Unknown, YEAST INFECTION, ) Physical Exam Vital Signs Date Time Temp Pulse Resp B/P (MAP) Pulse Ox O2 Delivery O2 Flow Rate FiO2 05/15/17 16:34 37.1 85 18 126/54 97 Room Air 05/15/17 14:30 89 20 130/66 94 Nasal Cannula 2.0 05/15/17 13:53 95 16 112/62 96 Nasal Cannula 2.0 05/15/17 13:28 94 05/15/17 12:06 106 23 139/66 96 Nasal Cannula 2.0 05/15/17 11:05 94 Nasal Cannula 2.0 05/15/17 10:59 90 Room Air 05/15/17 10:59 115 05/15/17 10:59 37.0 118 30 181/78 90 Room Air 05/15/17 10:59 93 Nasal Cannula 2.0 Physical Exam GENERAL: Sitting up in bed, alert, minimal distress, talking in full sentences. EYE EXAM: normal conjunctiva. [PERRL and EOM's grossly intact.] OROPHARYNX: no exudate, no erythema, lips, buccal mucosa, and tongue normal and mucous membranes are moist NECK: supple, no nuchal rigidity, no adenopathy, non-tender LUNGS: Diffuse wheezing bilaterally. Normal chest wall mechanics HEART: Systolic ejection murmur and tachycardic, S1 normal and S2 normal ABDOMEN: abdomen soft, non-tender, normo-active bowel sounds, no masses, no rebound or guarding. BACK: Back is symmetrical on inspection and there is no deformity, no midline tenderness, no CVA tenderness. SKIN: no rashes and no bruising UPPER EXTREMITIES: upper extremities are grossly normal. LOWER EXTREMITIES: No pitting edema. NEURO EXAM: Normal sensorium, cranial nerves II-XII grossly intact, normal speech, no gross weakness of arms, no gross weakness of legs. Medical Decision & Procedures ER Provider Diagnostic Interpretation: X-ray results as stated below per my review and the radiologist's interpretation : CHEST ONE VIEW PORTABLE HISTORY: EVALUATE RESPIRATORY DISTRESS.DYSPNEA COMPARISON: Chest 11/06/2016. FINDINGS: Slight progression of the bibasilar linear and patchy densities. The upper lung zones remain clear. Mild emphysema.. Moderate hiatus hernia. No pleural effusions. No pneumothorax. The heart remains borderline enlarged. IMPRESSION: Slight progression of the bibasilar linear/patchy densities. This could represent atelectasis or pneumonia. Electronically signed by: Johnny Elam M.D. 05/15/2017 11:45 AM Dictated Date/Time: 05/15/2017 11:44 AM Laboratory Results 05/15/17 11:25 Red Blood Count 3.63, Mean Corpuscular Volume 91.7, Mean Corpuscular Hemoglobin 30.6, Mean Corpuscular Hemoglobin Concent 33.3, Mean Platelet Volume 9.9, Neutrophils (%) (Auto) 73.0, Lymphocytes (%) (Auto) 24.2, Monocytes (%) (Auto) 1.6, Eosinophils (%) (Auto) 0.4, Basophils (%) (Auto) 0.4, Neutrophils # (Auto) 1.78, Lymphocytes # (Auto) 0.59, Monocytes # (Auto) 0.04, Eosinophils # (Auto) 0.01, Basophils # (Auto) 0.01 05/15/17 11:25 Test 05/15/17 11:25 05/15/17 12:04 White Blood Count 2.44 K/uL (4.8-10.8) Red Blood Count 3.63 M/uL (4.2-5.4) Hemoglobin 11.1 g/dL (12.0-16.0) Hematocrit 33.3 % (37-47) Mean Corpuscular Volume 91.7 fL (80-100) Mean Corpuscular Hemoglobin 30.6 pg (25-34) Mean Corpuscular Hemoglobin Concent 33.3 g/dl (32-36) Platelet Count 104 K/uL (130-400) Mean Platelet Volume 9.9 fL (7.4-10.4) Neutrophils (%) (Auto) 73.0 % Lymphocytes (%) (Auto) 24.2 % Monocytes (%) (Auto) 1.6 % Eosinophils (%) (Auto) 0.4 % Basophils (%) (Auto) 0.4 % Neutrophils # (Auto) 1.78 K/uL (1.4-6.5) Lymphocytes # (Auto) 0.59 K/uL (1.2-3.4) Monocytes # (Auto) 0.04 K/uL (0.11-0.59) Eosinophils # (Auto) 0.01 K/uL (0-0.5) Basophils # (Auto) 0.01 K/uL (0-0.2) RDW Standard Deviation 53.6 fL (36.4-46.3) RDW Coefficient of Variation 15.9 % (11.5-14.5) Immature Granulocyte % (Auto) 0.4 % Immature Granulocyte # (Auto) 0.01 K/uL (0.00-0.02) Nucleated RBC Absolute Count (auto) 0.03 K/uL (0-0) Nucleated Red Blood Cells % 1.4 % Prothrombin Time 10.0 SECONDS (9.0-12.0) Prothromb Time International Ratio 1.0 (0.9-1.1) Activated Partial Thromboplast Time 25.0 SECONDS (21.0-31.0) Partial Thromboplastin Ratio 1.0 Anion Gap 11.0 mmol/L (3-11) Est Creatinine Clear Calc Drug Dose 72.2 ml/min Estimated GFR () 98.9 Estimated GFR (Non- 85.4 BUN/Creatinine Ratio 22.8 (10-20) Calcium Level 8.1 mg/dl (8.5-10.1) Total Bilirubin 0.9 mg/dl (0.2-1) Aspartate Amino Transf (AST/SGOT) 69 U/L (15-37) Alanine Aminotransferase (ALT/SGPT) 43 U/L (12-78) Alkaline Phosphatase 80 U/L (45-117) Troponin I < 0.015 ng/ml (0-0.045) Total Protein 6.3 gm/dl (6.4-8.2) Albumin 3.3 gm/dl (3.4-5.0) Globulin 3.0 gm/dl (2.5-4.0) Albumin/Globulin Ratio 1.1 (0.9-2) Urine Color YELLOW Urine Appearance CLEAR (CLEAR) Urine pH 5.0 (4.5-7.5) Urine Specific [place] 1.021 (1.000-1.030) Urine Protein 1+ (NEG) Urine Glucose (UA) 3+ (NEG) Urine Ketones 1+ (NEG) Urine Occult Blood NEG (NEG) Urine Nitrite NEG (NEG) Urine Bilirubin NEG (NEG) Urine Urobilinogen NEG (NEG) Urine Leukocyte Esterase NEG (NEG) Urine WBC (Auto) 1-5 /hpf (0-5) Urine RBC (Auto) 0-4 /hpf (0-4) Urine Hyaline Casts (Auto) 0 /lpf (0-5) Urine Epithelial Cells (Auto) 10-20 /lpf (0-5) Urine Bacteria (Auto) NEG (NEG) Laboratory results per my review. Medications Administered Medications (Trade) Dose Ordered Sig/Jarred Route Start Time Stop Time Status Last Admin Dose Admin Levofloxacin (Levaquin / D5W) 750 mg NOW STAT IV 05/15/17 13:22 05/15/17 13:24 DC 05/15/17 13:52 750 MG ECG Indication: SOB/dyspnea Rate (beats per minute): 106 Rhythm: sinus tachycardia Findings: LBBB, left axis deviation, other (nonspecific ST T-wave changes in inferior and anterior) Comparison ECG Date: compared to 09/19/16, ST T-wave changes are new ED Course ED COURSE: Vital signs were reviewed and showed tachycardic, slightly hypoxic, and hypertensive vitals. The patients medical record was reviewed The above diagnostic studies were performed and reviewed. ED treatments and interventions as stated above. 1108: The patient was evaluated in room C11B. A complete history and physical examination was performed. 1151: I reevaluated the patient and he is feeling slightly better. 1317: Upon reevaluation, the patient is resting. I discussed my findings with the patient and she understands and agrees with the treatment plan. Based on the patients age, coexisting illnesses, exam and lab findings the decision to treat as an inpatient was made. The patient remained stable while under my care. The patient will be evaluated for further management. 1322: Ordered Levaquin / D5W 750 mg IV. 1345: I reviewed the patient's case with Dr. Tara Rey [facility]rick[facility] helper. He will evaluate the patient for further management. Medical Decision Differential diagnosis: Etiologies such as allergic reaction, anaphylaxis, urticaria, Valle-Cesario syndrome, toxic epidermal necrolysis, erythema multiforme, cellulitis, as well as others were entertained. Patient is a 76-year-old female who presents to ER for allergic reaction to chemotherapy. She was receiving chemotherapy and acutely became short of breath. She was given 2 doses of epi and steroids, Benadryl and neb treatments. She had significant wheezing initially and was transported to the ER. CBC shows a leukopenia along with a mild anemia. BMP shows hypokalemia. LFTs, bilirubin and troponin was negative. UA was negative. Chest x-ray shows a possible bilateral lobe worsening infiltrate. She does have URI symptoms. I do favor all of these symptoms are initially tender to the allergic reaction. Her respiratory rate has improved significantly. Did cover with antibiotics. She is admits internal medicine for allergic reaction with possible pneumonia. Medication Reconcilliation Current Medication List: was personally reviewed by me Blood Pressure Screening Patient's blood pressure: Elevated blood pressure Referred to hospitalist. Consults Time Called: 1341 Consulting Physician: Dr. Tara MATA derrickman helper Returned Call: 1345 I reviewed the patient's case with Dr. Tara MATA derrickman helper. He will evaluate the patient for further management. Impression Primary Impression: Allergic reaction Additional Impressions: PNA (pneumonia) Hypokalemia Anemia Scribe Attestation The scribe's documentation has been prepared under my direction and personally reviewed by me in its entirety. I confirm that the note above accurately reflects all work, treatment, procedures, and medical decision making performed by me. Departure Information Dispostion Being Evaluated By Hospitalist Referrals Italo Burr M.D. (PCP) Patient Instructions My [facility] Problem Qualifiers Primary Impression: Allergic reaction Encounter type: initial encounter Qualified Codes: T78.40XA - Allergy, unspecified, initial encounter Additional Impressions: PNA (pneumonia) Pneumonia type: due to unspecified organism Laterality: unspecified laterality Lung location: unspecified part of lung Qualified Codes: J18.9 - Pneumonia, unspecified organism Anemia Anemia type: unspecified type Qualified Codes: D64.9 - Anemia, unspecified
[2017-05-15 17:09] VITALS: BP 151/83; PULSE 89; TEMP 37.2; O2SAT 94; BMI 40.4
[2017-05-15] MEDS ORDERED: FAMOTIDINE 20 MG TAB PO ONE (17:30)
[2017-05-15] MEDS: NITROGLYCERIN 2% OINTMENT 30GM TUBE EXT SCH ×2 (18:39→19:38)
[2017-05-15 18:55] VITALS: BP 136/62; PULSE 83; TEMP 37; O2SAT 95
[2017-05-15 19:47] VITALS: PULSE 76; O2SAT 96
[2017-05-15] MEDS: ALBUT/IPRATROP 3MG/0.5MG NEB 3 ML VIAL INH SCH (19:47)
[2017-05-15] MEDS ORDERED: POTASSIUM CHLORIDE 20 MEQ TABCR PO ONE (20:15)
[2017-05-15] MEDS ORDERED: NURSING VERBAL MED ORDER ONE (20:15)
[2017-05-15] MEDS: FLUTICASONE/SALMETEROL 250/50 (ADVAIR) 14 PUFF/1 INHALER INH SCH (20:35)
[2017-05-15] MEDS: FAMOTIDINE 20 MG TAB PO SCH (20:37)
[2017-05-15] MEDS: SIMVASTATIN 40 MG TAB PO SCH (20:38)
[2017-05-15] MEDS: INSULIN ASPART 100 UNITS/ML 3 ML PEN SC SCH (20:41)
[2017-05-15] MEDS ORDERED: METRONIDAZOLE 500 MG TAB PO SCH (21:00)
[2017-05-15 23:50] VITALS: BP 131/63; PULSE 77; TEMP 36.8; O2SAT 97
[2017-05-16] VITALS (13 sets, daily range): BP systolic 118–144; BP diastolic 62–74; PULSE 73–97; TEMP 36.6–37; O2SAT 94–98; BMI 34.7
[2017-05-16] MEDS: CEVIMELINE: ORDER AWAITING ACTION SCH ×4 (00:01→23:54)
[2017-05-16] MEDS ORDERED: NURSING VERBAL MED ORDER ONE (01:45)
[2017-05-16] MEDS ORDERED: INSULIN ASPART 100 UNITS/ML 3 ML PEN SC STA (01:50)
[2017-05-16] MEDS: ALBUT/IPRATROP 3MG/0.5MG NEB 3 ML VIAL INH SCH ×4 (02:44→19:31)
[2017-05-16] MEDS: LEVOTHYROXINE 75 MCG TAB PO SCH (05:23)
[2017-05-16] MEDS: NITROGLYCERIN 2% OINTMENT 30GM TUBE EXT SCH ×5 (05:23→23:54)
[2017-05-16 05:58] LABS: HEMATOCRIT 30.8 % (37-47); HEMOGLOBIN 10.4 g/dL (12.0-16.0); MEAN CELL VOLUME 90.9 fL (80-100); MEAN CORPUSCULAR HEMOGLOBIN 30.7 pg (25-34); MEAN CORPUSCULAR HGB CONC 33.8 g/dl (32-36); MEAN PLATELET VOLUME 9.9 fL (7.4-10.4); PLATELET COUNT 126 K/uL (130-400); RED CELL DISTRIBUTION WIDTH CV 16.1 % (11.5-14.5); RED CELL DISTRIBUTION WIDTH SD 53.3 fL (36.4-46.3); WHITE BLOOD COUNT 4.04 K/uL (4.8-10.8)
[2017-05-16 06:29] LABS: CREATININE 0.77 mg/dl (0.60-1.20)
[2017-05-16 06:30] LABS: CALCIUM 8.3 mg/dl (8.5-10.1)
[2017-05-16] MEDS: CYANOCOBALAMIN 500 MCG TAB (VIT B-12) PO SCH (08:09)
[2017-05-16] MEDS: CALCIUM CARBONATE 500 MG CHEWABLE PO SCH (08:10)
[2017-05-16] MEDS: METOPROLOL SUCC 25MG EXT REL TAB PO SCH (08:10)
[2017-05-16] MEDS: PANTOprazole SOD 40 MG TAB PO SCH (08:10)
[2017-05-16] MEDS: SPIRONOLACTONE 25 MG TAB PO SCH (08:10)
[2017-05-16] MEDS: CHOLECALCIFEROL 1000 INTER.UNIT TAB PO SCH (08:10)
[2017-05-16] MEDS: FLUTICASONE/SALMETEROL 250/50 (ADVAIR) 14 PUFF/1 INHALER INH SCH ×2 (08:11→20:19)
[2017-05-16] MEDS: ACYCLOVIR 400 MG TAB PO SCH (08:12)
[2017-05-16] MEDS: FAMOTIDINE 20 MG TAB PO SCH ×2 (08:12→20:19)
[2017-05-16] MEDS: MAGNESIUM CHLORIDE 64MG DELAYED REL TAB PO SCH (08:12)
[2017-05-16] MEDS: MONTELUKAST SOD 10 MG TAB PO SCH (08:13)
[2017-05-16] MEDS: PREGABALIN 75 MG CAP PO SCH (08:14)
[2017-05-16] MEDS: INSULIN ASPART 100 UNITS/ML 3 ML PEN SC SCH ×4 (08:17→21:30)
[2017-05-16] MEDS ORDERED: MAGNESIUM SULFATE 1GM / D5W 1 GM in PREMIXED IN D5W 100 ML IV ONE (08:45)
--- NOTE | 2017-05-16 08:54 | Clinical Documentation Query ---
TENA Valadez : CLINICAL DOCUMENTATION QUERY Patient is a 76 year old female admitted for SOB associated with acute reaction to Panitumumab. Respirations to 30/minute and SpO2 < 95% on supplemental O2. HR to 110's. She was treated with epinephrine, steroids, benadryl, and nebulizers. Noted to have had "significant wheezing" prior to ED arrival. Respiratory rate, breath sounds, HR, and pulse ox improved with these measures. In your clinical opinion is this patient being managed for: ( ) Acute respiratory failure with hypoxia ( ) Not Agree ( ) Other explanation of clinical findings (Please Explain) ( ) Unable to determine (Please Define) ( ) Need to Discuss The medical record reflects the following clinical findings, treatment, and risk factors. Clinical Indicators: As above Treatment: Epinephrine, steroids, benadryl, supplemental O2, and nebulizers Risk Factors: Panitumumab infusion Please clarify and document your clinical opinion in the progress notes and discharge summary. Terms such as "probable", "suspected", "likely", "questionable", "possible", or "still to be ruled out" are acceptable. IF IN AGREEMENT, YOU MUST DOCUMENT ABOVE DIAGNOSTIC STATEMENT IN DAILY PROGRESS NOTES AND DISCHARGE SUMMARY. This document is not part of the patient's record. Thank You, Lio Nassar, [place] [phone]
[2017-05-16] MEDS ORDERED: NON-FORMULARY MEDICATION (Probiotic Product (Probiotic) 1 TAB) PO SCH (09:00)
[2017-05-16] MEDS ORDERED: GLUCAGON FOR INJ 1 MG VIAL SQ PRN (11:30)
[2017-05-16] MEDS ORDERED: DEXTROSE 50% 50 ML SYR IV PRN (11:30)
[2017-05-16] MEDS ORDERED: GLUCOSE 10 TABS/TUBE PO PRN (11:30)
[2017-05-16] MEDS ORDERED: GLUCOSE 40% GEL 15 GM TUBE PO PRN (11:30)
[2017-05-16] MEDS ORDERED: INSULIN GLARGINE SOLOSTAR 100 UNITS/ML 3 ML PEN SC ONE (11:30)
[2017-05-16] MEDS ORDERED: LEVOFLOXACIN / D5W 750 MG in PREMIXED IN D5W 150 ML IV SCH (13:00)
--- NOTE | 2017-05-16 17:41 | Hospitalist Progress Note ---
Hospitalist Progress Note Date of Service May 16, 2017. (Jalyn Bustillos PA-C) Subjective Pt evaluation today including: conversation w/ patient, conversation w/ family , physical exam, chart review, lab review, review of studies, review of inpatient medication list Patient seen and evaluated. No acute events overnight. Telemetry revealed NSR. She reports baseline breathing and denies SOB or sore throat/swelling. Her glucose has been running high but has been getting steroids. She states at home glucose runs 150-170s and is only on a oral agent. Recently just stopped outpatient steroids. Her A1c is 8.5 in April Does recall much from yesterday and does seem intermittently forgetful. On re- evaluation later in the day she stated she didn't see Dr. Gasca but confirmed he was in and talked to her. Did discuss follow-up CXR in AM and if glucose stabilizes and no further events likely D/C tomorrow. Constitutional: No fever, No chills ENT: No sore throat Respiratory: No cough, No wheezing, No shortness of breath Cardiovascular: No chest pain, No palpitations Abdomen: No pain, No nausea, No vomiting, No diarrhea, No constipation Heme: No abnormal bleeding/bruising (Jalyn Bustillos PA-C) Medications Current Inpatient Medications Medications (Trade) Dose Ordered Sig/Jarred Route Start Time Stop Time Status Last Admin Dose Admin Albuterol/ Ipratropium (Duoneb) 3 ml Q6R INH 05/15/17 21:00 06/14/17 20:59 05/16/17 14:26 3 ML Calcium Carbonate (Tums Chew Tab) 1,250 mg DAILY PO 05/16/17 09:00 06/15/17 08:59 05/16/17 08:10 1,250 MG Cyanocobalamin (Vitamin B-12 Tab) 1,000 mcg DAILY PO 05/16/17 09:00 06/15/17 08:59 05/16/17 08:09 1,000 MCG Salmeterol Xinafoate/ Fluticasone (Advair Diskus 250/50 Inh) 1 puff BID INH 05/15/17 21:00 06/14/17 20:59 05/16/17 08:11 1 PUFF Levothyroxine Sodium (Synthroid Tab) 75 mcg DAILYBB PO 05/16/17 06:00 06/15/17 06:59 05/16/17 05:23 75 MCG Magnesium Chloride (Slow-Mag Tab) 64 mg DAILY PO 05/16/17 09:00 06/15/17 08:59 05/16/17 08:12 64 MG Metoprolol Succinate (Toprol Xl Tab) 25 mg DAILY PO 05/16/17 09:00 06/15/17 08:59 05/16/17 08:10 25 MG Montelukast Sodium (Singulair Tab) 10 mg DAILY PO 05/16/17 09:00 06/15/17 08:59 05/16/17 08:13 10 MG Pregabalin (Lyrica Cap) 75 mg DAILY PO 05/16/17 09:00 06/15/17 08:59 05/16/17 08:14 75 MG Simvastatin (Zocor Tab) 40 mg QPM PO 05/15/17 21:00 06/14/17 20:59 05/15/17 20:38 40 MG Spironolactone (Aldactone Tab) 25 mg DAILY PO 05/16/17 09:00 06/15/17 08:59 05/16/17 08:10 25 MG Tramadol HCl (Ultram Tab) 50 mg Q6 PRN PO 05/15/17 16:00 06/14/17 15:59 Miscellaneous Information (Order Awaiting Action) 1 ea QS N/A 05/16/17 00:00 06/15/17 00:00 Cholecalciferol (Vitamin D Tab) 5,000 inter.unit DAILY PO 05/16/17 09:00 06/15/17 08:59 05/16/17 08:10 5,000 INTER.UNIT Pantoprazole Sodium (Protonix Tab) 40 mg QAM PO 05/16/17 09:00 06/15/17 08:59 05/16/17 08:10 40 MG Miscellaneous Information (Order Awaiting Action) 1 ea QS N/A 05/16/17 00:00 06/15/17 00:00 Meclizine HCl (Antivert Tab) 12.5 mg UD PRN PO 05/15/17 16:00 06/14/17 15:59 Miscellaneous Information (Order Awaiting Action) 1 ea QS N/A 05/16/17 00:00 06/15/17 00:00 Miscellaneous Information (Order Awaiting Action) 1 ea QS N/A 05/16/17 00:00 06/15/17 00:00 Acyclovir (Zovirax Tab) 400 mg DAILY PO 05/16/17 09:00 05/26/17 08:59 05/16/17 08:12 400 MG Acetaminophen (Tylenol Tab) 650 mg Q4H PRN PO 05/15/17 16:00 06/14/17 15:59 Al Hydrox/Mg Hydrox/Simethicone (Maalox Max Susp) 15 ml Q4H PRN PO 05/15/17 16:00 06/14/17 15:59 Magnesium Hydroxide (Milk Of Magnesia Susp) 30 ml Q12H PRN PO 05/15/17 16:00 06/14/17 15:59 Ondansetron HCl (Zofran Inj) 4 mg Q6H PRN IV 05/15/17 16:00 06/14/17 15:59 Nitroglycerin (Nitroglycerin 2% Oint) 1 inch Q6H EXT 05/15/17 18:00 06/14/17 15:59 Polyethylene (Miralax Powder Packet) 17 gm DAILY PRN PO 05/15/17 16:00 06/14/17 15:59 Levofloxacin 750 mg/Prmx 150 ml @ 100 mls/hr Q24H IV 05/16/17 13:00 05/21/17 14:29 05/16/17 12:36 100 MLS/HR Prednisone (PredniSONE TAB) 20 mg TID PO 05/15/17 21:00 05/16/17 21:00 05/16/17 12:40 20 MG Diphenhydramine HCl (Benadryl Cap) 25 mg TID PO 05/15/17 21:00 05/16/17 21:00 05/16/17 12:40 25 MG Famotidine (Pepcid Tab) 20 mg BID PO 05/15/17 21:00 05/16/17 21:00 05/16/17 08:12 20 MG Insulin Aspart (novoLOG ASPART) SLIDING SCALE G... ACHS SC 05/15/17 21:00 06/14/17 20:59 05/16/17 17:19 10 UNITS Insulin Glargine (Lantus Solostar Pen) 10 units QAM SC 05/17/17 09:00 06/16/17 08:59 Glucose (Glucose 40% Gel) 15-30 GRAMS 15 GRAMS... UD PRN PO 05/16/17 11:30 06/15/17 11:29 Glucose (Glucose Chew Tab) 4-8 Tablets 4 Tabl... UD PRN PO 05/16/17 11:30 06/15/17 11:29 Dextrose (Dextrose 50% 50ML Syringe) 25-50ML OF 50% DW IV FOR... UD PRN IV 05/16/17 11:30 06/15/17 11:29 Glucagon (Glucagon Inj) 1 mg UD PRN SQ 05/16/17 11:30 06/15/17 11:29 (Jalyn Bustillos PA-C) Objective Vital Signs Date Time Temp Pulse Resp B/P (MAP) Pulse Ox O2 Delivery O2 Flow Rate FiO2 05/16/17 16:00 98 Nasal Cannula 2.0 05/16/17 15:41 36.6 85 20 118/70 (86) 96 Room Air 05/16/17 14:27 78 16 94 Room Air 05/16/17 12:00 98 Nasal Cannula 2.0 05/16/17 11:38 36.6 77 18 144/67 (92) 96 Room Air 05/16/17 08:15 37.0 97 18 143/62 (89) 96 Room Air 05/16/17 08:00 98 Nasal Cannula 2.0 05/16/17 07:03 73 16 98 Nasal Cannula 2.0 05/16/17 04:00 Nasal Cannula 2.0 05/16/17 03:55 36.8 79 19 144/72 (96) 98 Nasal Cannula 2.0 05/16/17 02:20 73 16 97 Nasal Cannula 2.0 05/16/17 00:05 Nasal Cannula 2.0 05/15/17 23:50 36.8 77 20 131/63 (85) 97 Nasal Cannula 2.0 05/15/17 20:00 Nasal Cannula 2.0 05/15/17 19:47 76 16 96 Nasal Cannula 2.0 05/15/17 18:55 37.0 83 18 136/62 (86) 95 Room Air (Jalyn Bustillos PA-C) Physical Exam General Appearance: WD/WN, no apparent distress Eyes: sclerae normal ENT: hearing grossly normal Neck: supple, no JVD, trachea midline Respiratory/Chest: no respiratory distress, no accessory muscle use, + crackles (bases b/l) Cardiovascular: regular rate, rhythm, no gallop, no murmur Abdomen: normal bowel sounds, non tender, soft Extremities: no pedal edema, no calf tenderness Neurologic/Psychiatric: alert, oriented x 3 Skin: normal color, warm/dry (Jalyn Bustillos PA-C) Laboratory Results Last 24 Hours Test 05/15/17 18:54 05/15/17 22:23 05/16/17 00:00 05/16/17 05:22 Bedside Glucose 378 mg/dl 325 mg/dl 309 mg/dl White Blood Count 4.04 K/uL Red Blood Count 3.39 M/uL Hemoglobin 10.4 g/dL Hematocrit 30.8 % Mean Corpuscular Volume 90.9 fL Mean Corpuscular Hemoglobin 30.7 pg Mean Corpuscular Hemoglobin Concent 33.8 g/dl RDW Standard Deviation 53.3 fL RDW Coefficient of Variation 16.1 % Platelet Count 126 K/uL Mean Platelet Volume 9.9 fL Sodium Level 142 mmol/L Potassium Level 4.0 mmol/L Chloride Level 110 mmol/L Carbon Dioxide Level 27 mmol/L Anion Gap 5.0 mmol/L Blood Urea Nitrogen 21 mg/dl Creatinine 0.77 mg/dl Est Creatinine Clear Calc Drug Dose 60.2 ml/min Estimated GFR () 88.2 Estimated GFR (Non- 76.1 BUN/Creatinine Ratio 27.8 Random Glucose 289 mg/dl Calcium Level 8.3 mg/dl Magnesium Level 1.7 mg/dl Test 05/16/17 06:11 05/16/17 11:00 05/16/17 15:50 Bedside Glucose 279 mg/dl 319 mg/dl 301 mg/dl (Jalyn Bustillos PA-C) Assessment and Plan 76 y/o F Hx DM, HTN, hypothyroid, pulmonary sarcoid, grade one diastolic dysfunction, multiple myeloma. The pt has been on Revlamid for the past 6 years following a stem cell transplant. The disease recurred recently and she was scheduled to begin chemotherapy with Panitumumab. Approximately one hour after the infusion began, she developed SOB, wheezing and rigors. She received epinephrine and was sent to the ER for evaluation. The pt's daughter noted additionally that she had developed a productive cough a few days prior. She denies CP, N/V, diarrhea, dysuria or fevers. Acute Respiratory Distress 2/2 Immune Reaction from Panitumumab: RESOLVED - Will hold on further steroids but continue Duonebs - was initially treated with epi, steroids, benadryl, and famotidine Possible Pneumonia: - Patient is pancytopenic but reporting feeling at baseline and no fevers reported - would be immunocompromised and at risk for opportunistic infections but pancytopenia could be related to her Multiple Myeloma - Will repeat CXR in AM as findings may reflect more her chronic sarcoidosis scarring vs further developing infiltrates - Levaquin 750 mg daily at this time Pancytopenia: - Acute infection vs Multiple Myeloma - Is mildly improved on labs and can continue to monitor T2DM with Hyperglycemia: - Likely in setting of steroids but does have an A1c of 8.5 however was on long- term steroids for treatment that was just recently stopped - Continue to cover with Lantus and SSI - plan to return on Glimepiride on D/C - will recent cessation of steroids this may have better control vs consieration for an additional agent Chronic Diastolic CHF and HTN: STABLE - Metoprolol 25 mg daily and Aldactone 25 mg daily Hypothyroidism: - Synthroid 75 mcg daily Sarcoidosis: - Advair 1 puff BID and Singulair 10 mg daily Code Status: FULL RESUSCITATION Disposition: - Likely D/C tomorrow Continued [facility] stay due to: multiple IV medications needed Discharge planning: home (Jalyn Bustillos, PA-C) Attending Attestation: Pt seen/examined, chart reviewed, care plan d/w RYDER Bustillos. I agree w/ the akhtar components of her documentation. Pt feels better less wheeze tele stable overnight no rashes VSS afebrile gen - NAD neck - no JVD heart - RRR, s1, s2 lungs - mild end-exp wheeze scattered, no distress abd - soft ext - no edema skin - no rash A/P: 1. systemic reaction to panitumumab with resulting acute hypoxic resp failure - resolved. Agree w/ wean of steroids. 2. uncontrolled T2DM - due to steroids. Add lantus, adjust novolog. 3. ?pneumonia - repeat cxr in AM; if neg for pneumonia then stop abx. 4. h/o sarcoid - noted. 5. pancytopenia, likely related to multiple myeloma. CBC in am. Cheli Gasca MD (Trevon Gasca MD)
[2017-05-16] MEDS: SIMVASTATIN 40 MG TAB PO SCH (20:19)
[2017-05-17] VITALS (8 sets, daily range): BP systolic 150–171; BP diastolic 76–94; PULSE 75–90; TEMP 36.7–36.9; O2SAT 94–98; Ht 152.4 cm; Wt 86.7 kg
[2017-05-17] MEDS: ALBUT/IPRATROP 3MG/0.5MG NEB 3 ML VIAL INH SCH ×2 (01:34→07:22)
[2017-05-17] MEDS: LEVOTHYROXINE 75 MCG TAB PO SCH (05:41)
[2017-05-17] MEDS: NITROGLYCERIN 2% OINTMENT 30GM TUBE EXT SCH ×2 (05:41→12:00)
[2017-05-17] MEDS: CEVIMELINE: ORDER AWAITING ACTION SCH (07:21)
[2017-05-17] MEDS: ACYCLOVIR 400 MG TAB PO SCH (07:45)
[2017-05-17] MEDS: CHOLECALCIFEROL 1000 INTER.UNIT TAB PO SCH (07:46)
[2017-05-17] MEDS: METOPROLOL SUCC 25MG EXT REL TAB PO SCH (07:46)
[2017-05-17] MEDS: MONTELUKAST SOD 10 MG TAB PO SCH (07:46)
[2017-05-17] MEDS: CYANOCOBALAMIN 500 MCG TAB (VIT B-12) PO SCH (07:46)
[2017-05-17] MEDS: PANTOprazole SOD 40 MG TAB PO SCH (07:47)
[2017-05-17] MEDS: MAGNESIUM CHLORIDE 64MG DELAYED REL TAB PO SCH (07:47)
[2017-05-17] MEDS: SPIRONOLACTONE 25 MG TAB PO SCH (07:48)
[2017-05-17] MEDS: CALCIUM CARBONATE 500 MG CHEWABLE PO SCH (07:48)
[2017-05-17] MEDS: FLUTICASONE/SALMETEROL 250/50 (ADVAIR) 14 PUFF/1 INHALER INH SCH (07:48)
[2017-05-17] MEDS: INSULIN ASPART 100 UNITS/ML 3 ML PEN SC SCH ×2 (07:50→12:01)
[2017-05-17] MEDS: PREGABALIN 75 MG CAP PO SCH (07:52)
[2017-05-17] MEDS ORDERED: INSULIN GLARGINE SOLOSTAR 100 UNITS/ML 3 ML PEN SC SCH (09:00)
[2017-05-17 09:24] LABS: HEMOGLOBIN 10.3 g/dL (12.0-16.0); MEAN CELL VOLUME 92.8 fL (80-100); MEAN CORPUSCULAR HEMOGLOBIN 30.8 pg (25-34); MEAN CORPUSCULAR HGB CONC 33.2 g/dl (32-36); PLATELET COUNT 125 K/uL (130-400); RED CELL DISTRIBUTION WIDTH CV 16.4 % (11.5-14.5); WHITE BLOOD COUNT 4.53 K/uL (4.8-10.8)
--- NOTE | 2017-05-17 09:50 | DIAGNOSTIC IMAGING REPORT ---
CHEST 2 VIEWS ROUTINE HISTORY: Short of breath. COMPARISON: Chest 05/15/2017. FINDINGS: The heart remains mildly enlarged. Moderate hiatus hernia. Interstitial and vascular thickening. Bibasilar linear densities likely represent subsegmental atelectasis. This is improved. No new focal lung consolidations. No pleural effusions. No pneumothorax. IMPRESSION: 1. Mild pulmonary vascular congestion without overt edema. 2. Stable cardiomegaly. 3. Bibasilar linear densities suggesting subsegmental atelectasis. This has improved. 4. Moderate hiatus hernia. Electronically signed by: Johnny Elam M.D. 05/17/2017 9:49 AM Dictated Date/Time: 05/17/2017 9:48 AM
[2017-05-17 09:54] LABS: CALCIUM 8.6 mg/dl (8.5-10.1); CREATININE 0.93 mg/dl (0.60-1.20); POTASSIUM 3.7 mmol/L (3.5-5.1)
[2017-05-17] MEDS ORDERED: LEVOFLOXACIN 750 MG TAB PO SCH (11:00)
--- NOTE | 2017-05-17 12:05 | Discharge Instructions ---
Discharge Instructions Date of Service May 17, 2017. Admission Reason for Admission: Hypoxia, Pneumonia Discharge Discharge Diagnosis / Problem: Acute Hypoxic Respiratory Failure due to Reaction to Immunotherapy Discharge Goals Goal(s): Decrease discomfort, Improve function, Increase independence Activity Recommendations Activity Limitations: resume your previous activity . Instructions / Follow-Up Instructions / Follow-Up Acute Respiratory Distress due to Panitumumab: - Continue your normal home inhalers and respiratory medications as previously prescribed - You chest Xray this morning does not show a developing pneumonia but may be coming down with a cold and this should be monitored - There is some fluid congestion on Xray and will use Lasix 20 mg tablets to take once a day for only three days to help pull fluid off - Please follow-up with Dr. Gimenez to discuss ongoing therapy and follow his instructions with medications/further treatments Diabetes: - You A1c is 8.5 which suggests higher then desired sugars but this may improve if you are off steroids for awhile. - Would still encourage a good low-carb/diabetic diet and physical activity as tolerated. - Continue your home medication and discuss with your family doctor - Will prescribe Metformin 500 mg twice a day to take with breakfast and dinner to reduce stomach upset. Reasons to Return: - Please call 911 if you feel that your throat feels like it is swelling or you start wheezing or becoming short of breath Ms. Segovia, The following appointment has been arranged for you, Please follow up at Dr. Burr's office with Lynn Juan PA-C on Sunday, May 23, 2017 at 10:30am. *If you need to reschedule this appointment please call the office at . Thank you." Current Hospital Diet Patient's current hospital diet: Diabetes Type 2 Diet Discharge Diet Recommended Diet: AHA Diet (Heart Healthy), Diabetes Type 2 Diet Pending Studies Studies pending at discharge: no Laboratory Results Hemoglobin A1c Test 04/10/17 09:15 Range/Units Estimated Average Glucose 197 mg/dl Hemoglobin A1c 8.5 H 4.5-5.6 % Lipid Panel Test 04/10/17 09:15 Range/Units Triglycerides Level 218 H 0-150 mg/dl Cholesterol Level 150 0-200 mg/dl HDL Cholesterol 71 mg/dl Cholesterol/HDL Ratio 2.1 LDL Cholesterol, Calculated 35 mg/dl Medical Emergencies . Who to Call and When: Medical Emergencies: If at any time you feel your situation is an emergency, please call 911 immediately. . Non-Emergent Contact Non-Emergency issues call your: Primary Care Provider Call Non-Emergent contact if: you have a fever, your pain is concerning you, you have any medication questions . . "Provider Documentation" section prepared by Jalyn Bustillos. . VTE Core Measure Inpt VTE Proph given/why not?: SCD's
[2017-05-17] MEDS ORDERED: FURO20TA PO (12:35)
[2017-05-17] MEDS ORDERED: METF500T PO (12:35)
--- NOTE | 2017-05-17 18:24 | Discharge Summary ---
Discharge Summary Date of Service May 17, 2017. Discharge Summary Admission Date: May 15, 2017 at 16:06 Discharge Date: May 17, 2017 Discharge Disposition: Home Principal Diagnosis: Acute Hypoxic Respiratory Failure 2/2 Daratumumab Reaction Problems/Secondary Diagnoses: 1. Multiple Myeloma - Recent Recurrence 2. S/P Stem Cell Transplantation 2010 3. HTN 4. T2DM - uncontrolled 5. Grade I Diastolic Dysfunction 6. Pulmonary Sarcoidosis 7. mild metabolic encephalopathy vs toxic encephalopathy 8. hypothyroidism 9. hyperlipidemia 10. chronic dysphagia 11. hiatal hernia 12. esophageal dysmotility Immunizations: Have You Had Influenza Vaccine: No Influenza Vaccine Date: May 26, 2012 History of Tetanus Vaccine?: Unknown History of Pneumococcal: Yes History of Hepatitis B Vaccine: Yes Procedures: CHEST 2 VIEWS ROUTINE FINDINGS: The heart remains mildly enlarged. Moderate hiatus hernia. Interstitial and vascular thickening. Bibasilar linear densities likely represent subsegmental atelectasis. This is improved. No new focal lung consolidations. No pleural effusions. No pneumothorax. IMPRESSION: 1. Mild pulmonary vascular congestion without overt edema. 2. Stable cardiomegaly. 3. Bibasilar linear densities suggesting subsegmental atelectasis. This has improved. 4. Moderate hiatus hernia. Consultations: 1. PT Services Medication Reconciliation New Medications: Furosemide (Lasix) 20 Mg Tab 1 TAB PO DAILY for 3 Days, #3 TAB 1 Refill Take one tablet only for the next 3 days. Can start today 05/17/16 Metformin Hcl (Glucophage) 500 Mg Tab 500 MG PO BID for 14 Days, #28 TAB Take with breakfast and dinner to reduce stomach issues. Continued Medications: Acetaminophen (Tylenol) 325 Mg Tab 650 MG PO UD PRN for Pain, TAB Acyclovir (Acyclovir) 400 Mg Tab 1 DOSE PO UD Albuterol Hfa (Ventolin Hfa) 200 Puffs/09515 Mcg Aers 2 PUFFS INH Q6H PRN for SOB/Wheezing, #1 INHALER Calcium Carbonate (Antacid) (Antacid) 500 Mg Chw 1250 MG PO DAILY Cevimeline Hcl (Evoxac) 30 Mg Cap 30 MG PO BID Cholecalciferol (Vitamin D3) 5,000 Unit Cap 5000 UNITS PO DAILY Cyanocobalamin (Vitamin B-12) 1,000 Mcg Tab 1000 MCG PO DAILY, TAB Esomeprazole Magnesium (Nexium) 40 Mg Capcr 40 MG PO QAM Fish Oil ([place]-3) 1 Ea Cap 1 CAP PO BIDM, CAP Fluticasone Prop/Salmeterol (Advair Diskus 250-50 Mcg/Dose) 14 Puff/1 Inhaler Aerp 1 PUFF INH BID Glimepiride (Glimepiride) 4 Mg Tab 4 MG PO BID for 90 Days, #180 TAB 3 Refills Levothyroxine Sodium (Synthroid) 75 Mcg Tab 75 MCG PO QAM Loteprednol Etabonate (Lotemax) 0.5 % Gel 1 APPLN OP BID Magnesium Chloride (Mag64) 535 Mg Tab 1 TAB PO DAILY Meclizine HCl (Meclizine HCl) 12.5 Mg Tab 12.5 MG PO UD PRN for Nausea Metoprolol Succ (Toprol Xl) (Toprol-Xl) 25 Mg Tabcr 25 MG PO DAILY, #30 TAB Montelukast Sodium (Singulair) 10 Mg Tab 10 MG PO DAILY, TAB Olopatadine HCl (Pazeo) 0.7 % Redd 1 DROP OPB DAILY Olopatadine Hydrochloride (Pataday) 37 Drops/2.5 Ml Soln 1 DROPS OP DAILY for 30 Days, #1 BTL 3 Refills Potassium Ext Rel (Klor-Con) Unknown Strength Tabcr 1 TAB PO DAILY Pregabalin (Lyrica) 75 Mg Cap 75 MG PO DAILY Probiotic Product (Probiotic) 1 Cap Cap 1 TAB PO QAM Simvastatin (Zocor) 40 Mg Tab 40 MG PO QPM Spironolactone (Aldactone) 25 Mg Tab 25 MG PO DAILY, TAB Tramadol HCl (Tramadol HCl) 50 Mg Tab 50 MG PO Q6 PRN for prn Zoledronic Acid (Zometa) 4 Mg/5 Ml Inj 1 DOSE IV [id number] Discontinued Medications: Dexamethasone (Dexamethasone) 4 Mg Tab 20 MG PO WK Lenalidomide (Revlimid) 2.5 Mg Cap 5 MG PO DAILY Metronidazole (Flagyl) 500 Mg Tab 500 MG PO TID, TAB Discharge Exam Review of Systems: Constitutional: No fever, No chills, No fatigue ENT: + trouble swallowing (chronic - sensation of liquids getting stuck in mid-chest area), No nasal symptoms, No sore throat Respiratory: + cough, No dyspnea on exertion, No dyspnea at rest Cardiovascular: No chest pain, No palpitations Abdomen: No pain, No nausea, No vomiting, No diarrhea, No constipation Musculoskeletal: No swelling, No calf pain Genitourinary - Female: No dysuria Hematologic / Lymphatic: No abnormal bleeding/bruising Physical Exam: General Appearance: WD/WN, no apparent distress Eyes: sclerae normal ENT: hearing grossly normal Neck: supple, no JVD, trachea midline Respiratory/Chest: lungs clear, no respiratory distress, no accessory muscle use, + decreased breath sounds (bases b/l), + pertinent finding (no wheezing appreciated in all lung mitchell) Cardiovascular: regular rate, rhythm, no gallop, no murmur Abdomen / GI: normal bowel sounds, non tender, soft Extremities: no pedal edema Neurologic/Psychiatric: alert, oriented x 3 Skin: normal color, warm/dry Hospital Course ADMISSION: 76 y/o F Hx DM, HTN, hypothyroid, pulmonary sarcoid, grade one diastolic dysfunction, multiple myeloma. The pt has been on Revlamid for the past 6 years following a stem cell transplant. The disease recurred recently and she was scheduled to begin therapy with Panitumumab. Approximately one hour after the infusion began, she developed SOB, wheezing and rigors. She received racemic epinephrine and benadryl and was sent to the ER for evaluation. The pt's daughter noted additionally that she had developed a productive cough a few days prior. She denies CP, N/V, diarrhea, dysuria or fevers. Per the oncologist, the pt's reaction is a well documented effect of Daratumumab. HOSPITAL COURSE: Ms. Segovia was admitted for Acute Hypoxic Respiratory Failure 2/ 2 Daratumumab. She was initially treated with racemic epinephrine, nebulizers, and benadryl. She did not require airway support with intubation. She was continued on steroids, benadryl, and fomotidine during admission but stopped on D/C. Initial CXR showed some infiltrative findings that questioned pneumonia but appear to be related to her sarcoid vs atelectasis. On F/U CXR prior to D/C these infiltrative findings were improving but patient did appear to have mild pulmonary congestion without overt edema. Will treat with Lasix 20 mg x 3 days. She was treated with Levaquin during admission but this will be stopped on D/C as no pneumonia suggested on F/U CXR. Due to steroid administration her glucose was trending in the 200-300 range. However A1c recently obtained is at 8.5. Did provide a prescription for Metformin 500 mg BID to take in addition to her Glimepiride for better DM control. Did state to discuss this with her family doctor for any adjustment or changes. During admission patient was noted to be intermittently confused and appeared largely at night and in the education technician. No focal neurological deficits noted and this is likely delirium from steroids/benadryl and unfamiliar environment. Do suspect possible mild underlying cognitive deficits that could contribute to this mild delirium. Patient will have F/U with PCP and will discuss with Oncology for further treatment regimen. Patient does report chronic dysphagia and video swallow reveals significant hiatal hernia and moderate-severe esophageal dysmotility. Given steroids and co- morbidities could be yeast - no visible signs of yeast in the pharynx but if this does not improve could consider GI F/U for possible EGD to evaluate this further. Attending Discharge Note & Attestation: Pt seen/examined, chart reviewed, discharge care plan d/w RYDER Bustillos. I agree w/ the akhtar components of her discharge summary. 76yo female with history of sarcoid, T2DM, obesity, and recurrent multiple myeloma who presented after having a systemic reaction to an infusion of Daratumumab which was being given for her multiple myeloma. This resulted in acute hypoxic respiratory failure, wheezing, and dyspnea. She was treated with steroids, nebs, supportive care and symptoms improved. Her stay was complicated by uncontrolled T2DM and mild encephalopathy, possibly toxic from prednisone and/or benadryl. Chest x-ray prior to discharge did not demonstrate any pneumonia but showed early pulmonary vascular congestion. Thus, she was discharged to home with lasix for a few days. On the afternoon of discharge the patient's o2 sats in room air with walking were > 92%. She was also cleared by PT to return home. Discharge exam - gen - NAD, obese neck - no obvious JVD heart - RRR, s1, s2 lungs - CTA b/l, no residual wheezing or rales abd - soft, NT ext - no edema skin - no rashes Trevon Gasca MD Total Time Spent: Greater than 30 minutes This includes examination of the patient, discharge planning, medication reconciliation, and communication with other providers. Discharge Instructions Please refer to the electronic Patient Visit Report (Discharge Instructions) for additional information. Follow-Up Lynn Juan PA-C on Tuesday, May 23, 2017 at 10:30am. Additional Copies To William Gimenez MD; Italo Burr M.D.; Lynn Juan PA
== END 2017-05-17 14:22 | disposition home or self-care (01) | DRG 189 ==
LOC: EDBD 10:44 → C.EDC 10:45 → C.2E 16:06 → ENRESERV 16:26 → C.2E 17:20
PROVIDERS: ADMIT Internal Medicine; ATTEND Internal Medicine
DX: J96.01 Acute respiratory failure with hypoxia (principal); Z94.81 Bone marrow transplant status; C90.02 Multiple myeloma in relapse; D61.818 Other pancytopenia; I50.32 Chronic diastolic (congestive) heart failure; T45.1X5A Adverse effect of antineoplastic and immunosuppressive drugs, initial encounter; E87.6 Hypokalemia; D86.0 Sarcoidosis of lung; E11.65 Type 2 diabetes mellitus with hyperglycemia; T38.0X5A Adverse effect of glucocorticoids and synthetic analogues, initial encounter; R41.0 Disorientation, unspecified; R13.10 Dysphagia, unspecified; K44.9 Diaphragmatic hernia without obstruction or gangrene; K22.4 Dyskinesia of esophagus; I11.0 Hypertensive heart disease with heart failure; J45.909 Unspecified asthma, uncomplicated; E03.9 Hypothyroidism, unspecified; Z79.899 Other long term (current) drug therapy; Z87.891 Personal history of nicotine dependence

== ENCOUNTER 2017-06-27 05:11 | Day surgery (SDC) | payer OTHER ==
[2017-06-25 15:26] VITALS: Ht 152.4 cm; Wt 89.5 kg
[~2017-06-27] VITALS: Ht 152.4 cm; Wt 89.5 kg
[2017-06-27] VITALS (10 sets, daily range): BP systolic 187–208; BP diastolic 79–99; PULSE 18–89; TEMP 36.5–36.9; O2SAT 93–99
[~2017-06-27 05:11] MED LIST changes: +ACET-1311 PO; -ASPI81TA28 PO; +CALC500C2 PO; -CEVI30CA PO; -CHOL100027 PO; +CHOLCAP5 PO; -CYAN10004 PO; +CYAN10005 PO; +FURO-85 PO; +GLC/500 PO; -GLIM2TAB2 PO; +GLIM4TAB2 PO; +LOTE1GEL OP; +MAGN64TA4 PO; +MECL1TAB40 PO; -MGNO400 PO; -NXM/40 PO; +OLOP1DRO OPB; +PANT40TA PO; -POTA-74 PO; -PTDOPS OPB; +ZVR/400 PO
[2017-06-27] MEDS ORDERED: CEFAZOLIN 2000MG IV PUSH 15 ML IV SCH (06:00)
[2017-06-27] MEDS ORDERED: SODIUM CHLORIDE 0.9% 1000ML 1,000 ML IV SCH ×2 (06:00→08:16)
[2017-06-27] MEDS ORDERED: HEPARIN SOD (PORCINE) 1000 UNIT/ML 10 ML VIAL ONE (06:40)
[2017-06-27] MEDS ORDERED: BUPIVACAINE 0.5 % 5 MG/1 ML MPF 30ML VIAL ONE (06:40)
[2017-06-27] MEDS ORDERED: PROPOFOL IV EMULSION 10 MG/ML 20 ML VIAL IV ONE (06:50)
[2017-06-27] MEDS ORDERED: MIDAZOLAM HCL 1 MG/ML 2ML VIAL ONE (06:50)
[2017-06-27] MEDS ORDERED: LIDOCAINE 2% 20 MG/ML 5ML SYR IV ONE (06:50)
[2017-06-27] MEDS ORDERED: FENTANYL CITRATE INJ 50 MCG/1 ML 2 ML VIAL ONE ×2 (06:50→08:26)
--- NOTE | 2017-06-27 07:02 | History & Physical Bridge Note ---
H&P Re-Evaluation Bridge Note: I have examined the patient, reviewed the History & Physical and in the interval since the performance of the History & Physical I have noted the following changes of clinical significance: No changes noted
[2017-06-27] MEDS ORDERED: ATROPINE SULFATE 0.1 MG/ML 5ML SYR IV PRN (07:45)
[2017-06-27] MEDS ORDERED: EpHEDrine SULFATE INJ 50 MG/ML AMP IV PRN (07:45)
--- NOTE | 2017-06-27 08:03 | [facility] Post Operative Brief Note ---
Immediate Operative Summary Operative Date Jun 27, 2017. Pre-Operative Diagnosis Multiple myeloma Post-Operative Diagnosis Multiple myeloma Procedure(s) Performed Insertion of Mediport with Fluoroscopy, Left Internal Jugular Vein Surgeon Dr. Trevon Camacho Black Powder Glazing Operator Surgeon(s) Terrie Reyes PA-C Estimated Blood Loss 5 mL Findings Consistent with Post-Op Diagnosis Left IJV port, good position on fluoroscopy Specimens No pathology specimens per surgeon Drains None Anesthesia Type MAC Complication(s) none
--- NOTE | 2017-06-27 08:08 | [facility] Operative Report ---
Operative Report Operative Date Jun 27, 2017. Pre-Operative Diagnosis Multiple myeloma Post-Operative Diagnosis Same Procedure(s) Performed Left internal jugular vein PowerPort placement with fluoroscopy and real-time ultrasound guidance Surgeon Dr. Trevon Camacho Clarification Operator Surgeon(s) Terrie Reyes PA-C Estimated Blood Loss 5 mL Findings Left internal jugular vein PowerPort placed, good position on fluoroscopy Specimens No pathology specimens per surgeon Drains None Anesthesia MAC/Local Complication(s) None Disposition Recovery Room / PACU Indications 76-year-old female with multiple myeloma and need for long-term intravenous access, plan for port placement. The risks of the procedure were discussed, all questions were answered, and the patient agreed to proceed with surgery as planned. Description of Procedure The patient was properly identified, consented, and taken to the operating room where she was placed in the supine position with both arms tucked and a shoulder roll placed vertically. Monitored anesthesia care was induced. SCDs and a safety belt were placed. Preoperative antibiotics were administered. The patient's chest and neck was prepped and draped in the standard sterile fashion. Surgical timeout was performed and all parties were in agreement that this was the correct patient and procedure to be performed and we continued as planned. The patient was placed in Trendelenburg position. Local anesthetic was injected along the skin incision. Using real-time ultrasound guidance, the left internal jugular vein was accessed on the first attempt using the access needle. The wire was placed and the needle was removed. Fluoroscopy confirmed placement into the internal jugular vein extending into the superior vena cava. A transverse skin incision was made on the left chest and a pocket was created for the port. Using the tunneling device, the catheter was brought through the chest incision and into the neck incision. The dilator and peel- away sheath were inserted over the wire. The catheter was then inserted through the peel-away sheath and fluoroscopy confirmed placement into the superior vena cava. The catheter was cut and attached to the port. The port was secured into place with 3-0 Prolene sutures. A final x-ray revealed good placement of the port. The wound was irrigated and hemostasis was confirmed. The skin was closed with interrupted 3-0 Vicryl deep dermal sutures, followed by 4-0 Monocryl running subcuticular suture. Dermabond was placed over the wound. The port was accessed and tom blood easily and flushed easily. It was flushed with heparinized saline. The patient taken to the PACU where she recovered without apparent incident. All sponge, instrument and needle counts were correct at the conclusion of the procedure. The patient tolerated the procedure well. A chest x-ray was pending at the time of this dictation. The physician's operations administrative assistant was present and scrubbed for the entirety of the case. She was essential in positioning the patient, prepping and draping, retraction and exposure, placement of the port, closing the wound, and placement of dressings. I attest to the content of the Intraoperative Record and any orders documented therein. Any exceptions are noted below.
--- NOTE | 2017-06-27 08:11 | [facility] Operative Report ---
Operative Report Operative Date Jun 27, 2017. Pre-Operative Diagnosis Multiple myeloma Procedure(s) Performed Left internal jugular vein PowerPort insertion using real-time ultrasound guidance and fluoroscopy Surgeon Dr. Trevon Camacho Findings Real-time ultrasound guidance was used to place the port into the internal jugular vein. Fluoroscopy was used to assist in positioning of the port and for final confirmation of good placement. A total of 8.4 seconds of fluoroscopy was utilized during the procedure. Ultrasound and fluoroscopy were interpreted by the operative surgeon. I attest to the content of the Intraoperative Record and any orders documented therein. Any exceptions are noted below.
[2017-06-27] MEDS ORDERED: OXYC-57 PO (08:19)
--- NOTE | 2017-06-27 08:23 | Discharge Instructions ---
Discharge Instructions Date of Service Jun 27, 2017. Admission Reason for Admission: Multiple Myeloma, Diabetes Discharge Discharge Diagnosis / Problem: Multiple Myeloma, Diabetes Discharge Goals Goal(s): Improve function Activity Recommendations Activity Limitations: as noted below Lifting Limitations: no more than 10 pounds Exercise/Sports Limitations: until after follow-up appointment May Resume Sexual Activity: after follow-up appointment Shower/Bathe: tomorrow Driving or Machine Use: resume 1 day after discharge . Instructions / Follow-Up Instructions / Follow-Up Please follow-up with Dr. Camacho in the General Surgery [facility] in 1-2 weeks for incision check. Please call the office at [phone] to make an appointment if you do not have one already. Please call the office with any questions or concerns. Please do not take any additional Acetaminophen products while taking your prescription of Percocet. Any questions, please call the General Surgery Clinic at [phone]. Current Hospital Diet Patient's current hospital diet: Discharge Diet Recommended Diet: Regular Diet Procedures Procedures Performed: Insertion of Mediport with Fluoroscopy, Left Internal Jugular Vein Pending Studies Studies pending at discharge: no Laboratory Results Hemoglobin A1c Test 04/10/17 09:15 Range/Units Estimated Average Glucose 197 mg/dl Hemoglobin A1c 8.5 H 4.5-5.6 % Lipid Panel Test 04/10/17 09:15 Range/Units Triglycerides Level 218 H 0-150 mg/dl Cholesterol Level 150 0-200 mg/dl HDL Cholesterol 71 mg/dl Cholesterol/HDL Ratio 2.1 LDL Cholesterol, Calculated 35 mg/dl Medical Emergencies . Who to Call and When: Medical Emergencies: If at any time you feel your situation is an emergency, please call 911 immediately. . Non-Emergent Contact Non-Emergency issues call your: Primary Care Provider, Surgeon Call Non-Emergent contact if: temperature is above 101.5, your pain is not controlled, wound has increased drainage, wound has increased redness . "Provider Documentation" section prepared by Terrie Reyes. . VTE Core Measure Inpt VTE Proph given/why not?: SCD's [place] Drug Monitoring Program Search Results: patient reviewed within database, no issues identified
[2017-06-27] MEDS ORDERED: ONDANSETRON INJ 2 MG/ML 2 ML VIAL ONE (08:26)
[2017-06-27] MEDS ORDERED: ONDANSETRON INJ 2 MG/ML 2 ML VIAL IV STA (08:27)
[2017-06-27] MEDS ORDERED: ONDANSETRON INJ 2 MG/ML 2 ML VIAL IV PRN (08:30)
[2017-06-27] MEDS ORDERED: FENTANYL CITRATE INJ 50 MCG/1 ML 2 ML VIAL IV ONE (08:30)
[2017-06-27] MEDS ORDERED: OXYCODONE/ACETAMINOPHEN 5-325 TAB PO PRN ×2 (08:30)
--- NOTE | 2017-06-27 08:53 | Anesthesiology Progress Note ---
Anesthesia Post Op Note Date & Time Jun 27, 2017 at 08:53 Vital Signs Pain Intensity: 2 Vital Signs Past 12 Hours Date Time Temp Pulse Resp B/P (MAP) Pulse Ox O2 Delivery O2 Flow Rate FiO2 06/27/17 08:45 36.6 64 16 189/76 96 Room Air 06/27/17 08:35 64 16 158/74 96 Room Air 06/27/17 08:25 69 16 189/99 92 Room Air 06/27/17 08:16 36.9 74 16 187/87 94 Room Air 06/27/17 05:47 36.9 89 18 187/99 (128) 98 Room Air Notes Mental Status: alert / awake / arousable, participated in evaluation Pt Amnestic to Procedure: Yes Nausea / Vomiting: adequately controlled Pain: adequately controlled Airway Patency, RR, SpO2: stable & adequate BP & HR: stable & adequate Hydration State: stable & adequate Anesthetic Complications: no major complications apparent
--- NOTE | 2017-06-27 09:04 | DIAGNOSTIC IMAGING REPORT ---
CHEST ONE VIEW PORTABLE CLINICAL HISTORY: Chest x-ray status post A-Port catheter placement COMPARISON STUDY: 05/17/2017 FINDINGS: The heart remains enlarged. There is interstitial thickening. There is no lobar consolidation. There is been interval placement of a left internal jugular A-Port catheter. Tip projects over the superior vena cava. There is no pneumothorax. There are no pleural effusions.[ IMPRESSION: No evidence of pneumothorax status post placement of a left-sided A-Port catheter Electronically signed by: Clint Hurley M.D. 06/27/2017 9:02 AM Dictated Date/Time: 06/27/2017 9:02 AM
[2017-06-27] MEDS ORDERED: PROMETHAZINE HCL INJ 12.5 MG in SODIUM CHLORIDE 0.9% 50ML 50 ML IV STA ×2 (10:33→11:11)
[2017-06-27] MEDS ORDERED: PROMETHAZINE HCL INJ 25 MG/ML 1 ML VIAL ONE (10:35)
[2017-06-27] MEDS ORDERED: HydrALAZINE HCL 20 MG/ML VIAL ONE (11:10)
[2017-06-27] MEDS ORDERED: HydrALAZINE HCL 20 MG/ML VIAL IV. STA (11:11)
[2017-06-27] MEDS ORDERED: TRAMADOL HCL 50 MG TAB ONE (12:10)
[2017-06-27] MEDS ORDERED: NURSING VERBAL MED ORDER ONE (12:15)
[2017-06-27] MEDS ORDERED: TRAMADOL HCL 50 MG TAB PO ONE (12:30)
[2017-06-27] MEDS ORDERED: LABETALOL HCL IV 5 MG/ML 20ML IV STA (13:09)
[2017-06-27] MEDS ORDERED: LABETALOL HCL IV 5 MG/ML 20ML IV ONE (13:20)
== END 2017-06-27 14:06 | disposition home or self-care (01) ==
LOC: C.ACU 05:11
PROVIDERS: ATTEND Surgery
DX: C90.00 Multiple myeloma not having achieved remission (principal); D80.1 Nonfamilial hypogammaglobulinemia; D64.9 Anemia, unspecified; J45.909 Unspecified asthma, uncomplicated; E11.49 Type 2 diabetes mellitus with other diabetic neurological complication; K21.9 Gastro-esophageal reflux disease without esophagitis; E78.00 Pure hypercholesterolemia, unspecified; I10 Essential (primary) hypertension; E03.9 Hypothyroidism, unspecified; G20 Parkinson's disease; G62.9 Polyneuropathy, unspecified; D86.0 Sarcoidosis of lung; E55.9 Vitamin D deficiency, unspecified; M35.00 Sjogren syndrome, unspecified; Z79.899 Other long term (current) drug therapy; Z79.82 Long term (current) use of aspirin; Z79.84 Long term (current) use of oral hypoglycemic drugs; Z88.8 Allergy status to other drugs, medicaments and biological substances; Z88.2 Allergy status to sulfonamides; Z91.040 Latex allergy status

== ENCOUNTER → 2017-09-17 | Outpatient (CLI) | payer OTHER ==
[2017-09-17 08:56] LABS: BASO % 0.2 %; BASO ABS # 0.01 K/uL (0-0.2); EOS % 0.9 %; EOS ABS # 0.04 K/uL (0-0.5); HEMOGLOBIN 10.1 g/dL (12.0-16.0); IG# 0.02 K/uL (0.00-0.02); LYMPH % 37.1 %; LYMPH ABS # 1.69 K/uL (1.2-3.4); MEAN CORPUSCULAR HEMOGLOBIN 32.6 pg (25-34); MEAN CORPUSCULAR HGB CONC 32.6 g/dl (32-36); MEAN PLATELET VOLUME 9.7 fL (7.4-10.4); MONO % 5.5 %; MONO ABS # 0.25 K/uL (0.11-0.59); NEUT % 55.9 %; NEUT ABS # 2.55 K/uL (1.4-6.5); PLATELET COUNT 143 K/uL (130-400); RED CELL DISTRIBUTION WIDTH CV 14.6 % (11.5-14.5); RED CELL DISTRIBUTION WIDTH SD 52.5 fL (36.4-46.3); WHITE BLOOD COUNT 4.56 K/uL (4.8-10.8)
[2017-09-17 09:15] LABS: ALBUMIN 3.5 gm/dl (3.4-5.0); ALT/SGPT 26 U/L (12-78); AST/SGOT 20 U/L (15-37); BLOOD UREA NITROGEN 16 mg/dl (7-18); CALCIUM 8.2 mg/dl (8.5-10.1); CARBON DIOXIDE 26 mmol/L (21-32); CREATININE 0.72 mg/dl (0.60-1.20); GLUCOSE 176 mg/dl (70-99); POTASSIUM 3.7 mmol/L (3.5-5.1); SODIUM 142 mmol/L (136-145)
[2017-09-17 09:18] LABS: ALKALINE PHOSPHATASE 59 U/L (45-117); TOTAL PROTEIN 6.1 gm/dl (6.4-8.2)
== END | disposition home or self-care (01) ==
LOC: C.LABSPEC 08:43
PROVIDERS: ATTEND Internal Medicine Hematology & Oncology
DX: C90.00 Multiple myeloma not having achieved remission (principal)

== ENCOUNTER → 2017-11-26 | Outpatient (CLI) | payer OTHER ==
[2017-11-26 09:14] LABS: BASO % 0.1 %; BASO ABS # 0.01 K/uL (0-0.2); EOS % 0.6 %; EOS ABS # 0.04 K/uL (0-0.5); HEMATOCRIT 35.7 % (37-47); HEMOGLOBIN 11.8 g/dL (12.0-16.0); IG# 0.02 K/uL (0.00-0.02); LYMPH % 22.8 %; LYMPH ABS # 1.56 K/uL (1.2-3.4); MEAN CELL VOLUME 98.9 fL (80-100); MEAN CORPUSCULAR HEMOGLOBIN 32.7 pg (25-34); MEAN CORPUSCULAR HGB CONC 33.1 g/dl (32-36); MEAN PLATELET VOLUME 10.6 fL (7.4-10.4); MONO % 4.8 %; MONO ABS # 0.33 K/uL (0.11-0.59); NEUT % 71.4 %; NEUT ABS # 4.87 K/uL (1.4-6.5); PLATELET COUNT 119 K/uL (130-400); RED CELL DISTRIBUTION WIDTH CV 13.5 % (11.5-14.5); RED CELL DISTRIBUTION WIDTH SD 48.7 fL (36.4-46.3); WHITE BLOOD COUNT 6.83 K/uL (4.8-10.8)
[2017-11-26 09:38] LABS: ALBUMIN 3.7 gm/dl (3.4-5.0); ALKALINE PHOSPHATASE 62 U/L (45-117); ALT/SGPT 20 U/L (12-78); AST/SGOT 19 U/L (15-37); BLOOD UREA NITROGEN 27 mg/dl (7-18); CARBON DIOXIDE 26 mmol/L (21-32); CREATININE 0.76 mg/dl (0.60-1.20); GLUCOSE 159 mg/dl (70-99); POTASSIUM 4.4 mmol/L (3.5-5.1); SODIUM 143 mmol/L (136-145); TOTAL PROTEIN 6.2 gm/dl (6.4-8.2)
== END | disposition home or self-care (01) ==
LOC: C.LABSPEC 09:03
PROVIDERS: ATTEND Internal Medicine Hematology & Oncology
DX: C90.00 Multiple myeloma not having achieved remission (principal)

== ENCOUNTER → 2017-12-03 | Outpatient (CLI) | payer OTHER ==
[2017-12-03 09:07] LABS: EOS % 0.7 %; EOS ABS # 0.04 K/uL (0-0.5); HEMATOCRIT 34.9 % (37-47); HEMOGLOBIN 11.8 g/dL (12.0-16.0); IG# 0.04 K/uL (0.00-0.02); LYMPH % 26.3 %; LYMPH ABS # 1.56 K/uL (1.2-3.4); MEAN CELL VOLUME 96.1 fL (80-100); MEAN CORPUSCULAR HEMOGLOBIN 32.5 pg (25-34); MEAN CORPUSCULAR HGB CONC 33.8 g/dl (32-36); MEAN PLATELET VOLUME 10.7 fL (7.4-10.4); MONO % 6.7 %; NEUT % 65.6 %; NEUT ABS # 3.89 K/uL (1.4-6.5); PLATELET COUNT 110 K/uL (130-400); RED CELL DISTRIBUTION WIDTH CV 13.4 % (11.5-14.5); RED CELL DISTRIBUTION WIDTH SD 46.5 fL (36.4-46.3); WHITE BLOOD COUNT 5.93 K/uL (4.8-10.8)
[2017-12-03 09:28] LABS: ALBUMIN 3.4 gm/dl (3.4-5.0); ALKALINE PHOSPHATASE 64 U/L (45-117); ALT/SGPT 25 U/L (12-78); AST/SGOT 14 U/L (15-37); BLOOD UREA NITROGEN 24 mg/dl (7-18); CALCIUM 8.7 mg/dl (8.5-10.1); CARBON DIOXIDE 28 mmol/L (21-32); CREATININE 0.68 mg/dl (0.60-1.20); GLUCOSE 197 mg/dl (70-99); SODIUM 142 mmol/L (136-145); TOTAL PROTEIN 6.2 gm/dl (6.4-8.2)
== END | disposition home or self-care (01) ==
LOC: C.LABSPEC 08:51
PROVIDERS: ATTEND Internal Medicine Hematology & Oncology
DX: C90.00 Multiple myeloma not having achieved remission (principal)

== ENCOUNTER → 2017-12-07 | Outpatient (CLI) | payer OTHER ==
[2017-12-07 12:42] LABS: EOS % 0.6 %; EOS ABS # 0.04 K/uL (0-0.5); HEMATOCRIT 37.4 % (37-47); HEMOGLOBIN 12.2 g/dL (12.0-16.0); IG# 0.05 K/uL (0.00-0.02); LYMPH % 26.2 %; LYMPH ABS # 1.89 K/uL (1.2-3.4); MEAN CELL VOLUME 96.4 fL (80-100); MEAN CORPUSCULAR HEMOGLOBIN 31.4 pg (25-34); MEAN CORPUSCULAR HGB CONC 32.6 g/dl (32-36); MEAN PLATELET VOLUME 10.6 fL (7.4-10.4); MONO % 7.1 %; MONO ABS # 0.51 K/uL (0.11-0.59); NEUT % 65.4 %; NEUT ABS # 4.73 K/uL (1.4-6.5); NUCLEATED RED BLOOD CELL ABS 0.03 K/uL (0-0); PLATELET COUNT 114 K/uL (130-400); RED CELL DISTRIBUTION WIDTH CV 13.5 % (11.5-14.5); RED CELL DISTRIBUTION WIDTH SD 46.8 fL (36.4-46.3); WHITE BLOOD COUNT 7.22 K/uL (4.8-10.8)
[2017-12-07 13:17] LABS: HEMOGLOBIN A1C 7.1 % (4.5-5.6)
[2017-12-07 13:19] LABS: ALBUMIN 3.7 gm/dl (3.4-5.0); ALKALINE PHOSPHATASE 62 U/L (45-117); ALT/SGPT 24 U/L (12-78); AST/SGOT 17 U/L (15-37); BLOOD UREA NITROGEN 30 mg/dl (7-18); CALCIUM 9.3 mg/dl (8.5-10.1); CARBON DIOXIDE 28 mmol/L (21-32); CHOLESTEROL 212 mg/dl (0-200); CREATININE 0.85 mg/dl (0.60-1.20); GLUCOSE 135 mg/dl (70-99); POTASSIUM 3.9 mmol/L (3.5-5.1); SODIUM 143 mmol/L (136-145); TOTAL PROTEIN 6.3 gm/dl (6.4-8.2)
== END | disposition home or self-care (01) ==
LOC: C.LABBFT 10:06
PROVIDERS: ATTEND Physician Assistant Medical
DX: E83.42 Hypomagnesemia (principal); E11.49 Type 2 diabetes mellitus with other diabetic neurological complication; E78.00 Pure hypercholesterolemia, unspecified

== ENCOUNTER → 2017-12-17 | Outpatient (CLI) | payer OTHER ==
[~2017-12-17] MED LIST changes: -ACET-1311 PO
[2017-12-17 11:15] LABS: BASO % 0.2 %; BASO ABS # 0.01 K/uL (0-0.2); EOS % 0.6 %; EOS ABS # 0.04 K/uL (0-0.5); HEMATOCRIT 34.2 % (37-47); HEMOGLOBIN 11.6 g/dL (12.0-16.0); IG# 0.03 K/uL (0.00-0.02); LYMPH % 13.8 %; LYMPH ABS # 0.89 K/uL (1.2-3.4); MEAN CELL VOLUME 95.8 fL (80-100); MEAN CORPUSCULAR HEMOGLOBIN 32.5 pg (25-34); MEAN CORPUSCULAR HGB CONC 33.9 g/dl (32-36); MONO % 5.1 %; MONO ABS # 0.33 K/uL (0.11-0.59); NEUT % 79.8 %; NEUT ABS # 5.17 K/uL (1.4-6.5); PLATELET COUNT 170 K/uL (130-400); RED CELL DISTRIBUTION WIDTH CV 13.8 % (11.5-14.5); RED CELL DISTRIBUTION WIDTH SD 47.8 fL (36.4-46.3); WHITE BLOOD COUNT 6.47 K/uL (4.8-10.8)
[2017-12-17 11:39] LABS: ALBUMIN 3.5 gm/dl (3.4-5.0); ALKALINE PHOSPHATASE 69 U/L (45-117); ALT/SGPT 21 U/L (12-78); AST/SGOT 13 U/L (15-37); BLOOD UREA NITROGEN 25 mg/dl (7-18); CALCIUM 8.8 mg/dl (8.5-10.1); CARBON DIOXIDE 22 mmol/L (21-32); CREATININE 1.06 mg/dl (0.60-1.20); GLUCOSE 115 mg/dl (70-99); POTASSIUM 3.4 mmol/L (3.5-5.1); SODIUM 140 mmol/L (136-145); TOTAL PROTEIN 6.4 gm/dl (6.4-8.2)
== END | disposition home or self-care (01) ==
LOC: C.LABSPEC 10:58
PROVIDERS: ATTEND Internal Medicine Hematology & Oncology
DX: C90.00 Multiple myeloma not having achieved remission (principal)

== ENCOUNTER → 2017-12-21 | Outpatient (CLI) | payer OTHER | END | disposition home or self-care (01) | LOC: C.LABBFT 09:09 | PROVIDERS: ATTEND Internal Medicine | DX: R39.15 Urgency of urination (principal); R35.0 Frequency of micturition ==

== ENCOUNTER → 2017-12-24 | Outpatient (CLI) | payer OTHER ==
[2017-12-24 09:23] LABS: EOS % 0.3 %; EOS ABS # 0.02 K/uL (0-0.5); HEMATOCRIT 31.6 % (37-47); HEMOGLOBIN 10.5 g/dL (12.0-16.0); IG# 0.04 K/uL (0.00-0.02); LYMPH % 18.5 %; LYMPH ABS # 1.08 K/uL (1.2-3.4); MEAN CELL VOLUME 98.4 fL (80-100); MEAN CORPUSCULAR HEMOGLOBIN 32.7 pg (25-34); MEAN CORPUSCULAR HGB CONC 33.2 g/dl (32-36); MEAN PLATELET VOLUME 10.5 fL (7.4-10.4); MONO % 3.8 %; MONO ABS # 0.22 K/uL (0.11-0.59); NEUT % 76.7 %; NEUT ABS # 4.47 K/uL (1.4-6.5); PLATELET COUNT 114 K/uL (130-400); RED CELL DISTRIBUTION WIDTH CV 13.9 % (11.5-14.5); RED CELL DISTRIBUTION WIDTH SD 49.7 fL (36.4-46.3); WHITE BLOOD COUNT 5.83 K/uL (4.8-10.8)
[2017-12-24 09:44] LABS: ALBUMIN 3.3 gm/dl (3.4-5.0); ALKALINE PHOSPHATASE 60 U/L (45-117); ALT/SGPT 18 U/L (12-78); AST/SGOT 15 U/L (15-37); BLOOD UREA NITROGEN 24 mg/dl (7-18); CALCIUM 8.2 mg/dl (8.5-10.1); CARBON DIOXIDE 24 mmol/L (21-32); CREATININE 0.83 mg/dl (0.60-1.20); GLUCOSE 190 mg/dl (70-99); POTASSIUM 4.1 mmol/L (3.5-5.1); SODIUM 144 mmol/L (136-145); TOTAL PROTEIN 5.9 gm/dl (6.4-8.2)
== END | disposition home or self-care (01) ==
LOC: C.LABSPEC 09:12
PROVIDERS: ATTEND Internal Medicine Hematology & Oncology
DX: C90.00 Multiple myeloma not having achieved remission (principal)

== ENCOUNTER 2019-09-26 09:47 | Inpatient (IN) ==
--- NOTE | 2019-09-26 10:17 | Emergency Department Note ---
History of Present Illness General Chief complaint: Diarrhea Stated complaint: DIARRHEA FOR A WEEK Time Seen by Provider: 09/26/19 09:56 History of Present Illness Provider complaint: diarrhea Onset (ago): week(s) 3 Location: abdomen Severity: moderate Pain Consistency: + intermittent Maximum Pain Intensity: 5 Current Pain Intensity: 5 Quality: + aching, + dull and + other (Cramping) 79-year-old female with past medical history of sarcoidosis, multiple myeloma, and stem cell transplant presents emergency department for diarrhea. Patient reports her diarrhea is been on and off for the last 3 weeks. She denies any fever. She does state that she received a chemo infusion on Sunday which worsened her symptoms. Her oncologist is Dr. Gimenez. She denies any fevers. She denies any nausea or vomiting. She does report cramping abdominal pain. No hematochezia or melena. Patient denies any loss of taste or loss of smell. Home Medications Home Medications Medication Instructions Recorded Confirmed Type acyclovir 400 mg tablet 400 mg PO BID tab 01/25/18 09/26/19 History albuterol sulfate 90 mcg/actuation 2 puffs INH Q6H PRN 01/25/18 09/26/19 History aerosol inhaler cyanocobalamin (vitamin B-12) 1,000 mcg PO DAILY 01/25/18 09/26/19 History 1,000 mcg tablet lactobacillus combination no.9 4 4,000 mmu cells PO DAILY 01/25/18 09/26/19 History billion cell capsule meclizine 12.5 mg tablet 12.5 mg PO TID PRN 01/25/18 09/26/19 History zoledronic acid 4 mg/5 mL 4 mg IV MONTHLY ml 01/25/18 09/26/19 History intravenous solution daratumumab 20 mg/mL intravenous 20 mg IV MONTHLY ml 01/27/19 09/26/19 History solution furosemide 20 mg tablet 20 mg PO DAILY PRN 01/27/19 09/26/19 History pregabalin 75 mg capsule 75 mg PO BID #180 cap 05/26/19 09/26/19 Rx glimepiride 4 mg tablet 4 mg PO BID #60 tab 07/10/19 09/26/19 Rx levothyroxine 75 mcg tablet 75 mcg PO DAILY #90 tab 07/28/19 09/26/19 Rx pantoprazole 40 mg tablet,delayed 40 mg PO DAILY #90 tab 07/28/19 09/26/19 Rx release simvastatin 40 mg tablet 40 mg PO QPM #90 tab 07/28/19 09/26/19 Rx diphenoxylate-atropine [Lomotil] 1 tab PO TID PRN 09/26/19 09/26/19 History fluticasone propion-salmeterol 1 inh INHALATION BID 09/26/19 09/26/19 History [Advair Diskus] lenalidomide [Revlimid] 2.5 mg PO MONTHLY 09/26/19 09/26/19 History tapentadol [Nucynta] 50 mg PO TID PRN 09/26/19 09/26/19 History Allergies Allergy/AdvReac Type Severity Reaction Status Date / Time Sulfa (Sulfonamide Allergy Severe RASH Verified 09/26/19 10:52 Antibiotics) latex Allergy Unknown REDNESS Verified 09/26/19 10:52 codeine AdvReac Intermediate SPACED OUT Verified 09/26/19 10:52 adhesive AdvReac Mild BREAKS OUT Verified 09/26/19 10:52 amoxicillin AdvReac Unknown YEAST Verified 09/26/19 10:52 INFECTION clavulanic acid AdvReac Unknown YEAST Verified 09/26/19 10:52 INFECTION Past Med/Surg History Medical History Chronic steroid use (Chronic) Diabetes mellitus (Chronic) Former smoker GERD (gastroesophageal reflux disease) (Chronic) Hyperlipidemia (Chronic) Hypertension (Chronic) Hypoxia (Resolved) Immunosuppressed status (Chronic) Lumbago Multiple myeloma (Chronic 05/24/12) Osteoarthritis (Chronic) Pneumonia (Resolved) Sacroiliitis Vertigo (Chronic) Surgical History H/O colonoscopy H/O esophagogastroduodenoscopy (Resolved) History of ankle surgery (Resolved) History of bilateral carpal tunnel release History of bone marrow transplant (Resolved) History of colostomy (Resolved) History of tonsillectomy and adenoidectomy (Resolved) Status post cataract extraction of both eyes with insertion of intraocular lens Family History Mother Cervical cancer Father Emphysema, unspecified FHx: kidney cancer Social History Preferred Language: Grenadian Visual Impairment: No Limitations Hearing Ability: Normal Beliefs That Will Affect Care: None marital status: Current Living Situation: Spouse current occupational status: retired Feels Safe at Home: Yes Smoking Status: Never smoker Review of Systems A total of 10 systems reviewed and were otherwise negative Physical Exam Vital Signs Vital Signs - 24 hr 09/26/19 09:51 09/26/19 10:50 09/26/19 12:17 Temperature 36.7 C Temperature Source Oral Pulse Rate 79 Pulse Rate [Apical] 79 72 Respiratory Rate 16 16 16 Respiratory Effort / Characteristics Non-Labored Non-Labored Respiratory Depth Normal Normal Blood Pressure 181/96 H Blood Pressure [Right Arm] 192/77 H 165/72 H Blood Pressure Mean 124 Blood Pressure Mean [Right Arm] 115 103 Pulse Oximetry 96 97 Oxygen Delivery Method Room Air Sepsis Recent Fever Within 48 Hours No Sepsis New/Unexplained Change in Mental Status No Sepsis Action Taken by Nursing No Action Required Physical Exam GENERAL: She is oriented to person, place, and time. She appears well-developed and well-nourished. She does not appear distressed. HENT: Exam performed. -Head: Normocephalic and atraumatic. -Right Ear: External ear normal. No mastoid tenderness. -Left Ear: External ear normal. No mastoid tenderness. -Mouth/Throat: The oropharynx is clear and moist. No trismus in the jaw. No dental abscesses or uvula swelling. No oropharyngeal exudate or tonsillar abscesses. EYES: Conjunctivae and EOM are normal. Pupils are equal, round, and reactive to light. Right eye exhibits no discharge. Left eye exhibits no discharge. No scleral icterus. NECK: Normal range of motion. Neck supple. No JVD present. No spinous process tenderness present. No carotid bruit present. No rigidity. No tracheal deviation and normal range of motion present. No Brudzinski's sign and no Kernig's sign noted. CV: Normal rate, regular rhythm, normal heart sounds and intact distal pulses. There is no peripheral edema. Palpable radial pulses bue. PULM/CHEST: Effort normal and breath sounds normal. No respiratory distress. No stridor. She has no wheezes. She has no rales. -Chest Wall: She exhibits no tenderness. ABD: The abdomen is soft. Bowel sounds are normal. She has no distension. No mass is present. There is tenderness to palpation of the epigastric area. There is no rebound, no guarding, no Celaya's sign and no tenderness at McBurney's point. Rovsig negative MUSC/SKEL: Normal range of motion. There is no peripheral edema, tenderness or deformity. LYMPH: No cervical adenopathy. NEURO: She is alert and oriented to person, place, and time. She has normal strength. No cranial nerve deficit or sensory deficit. Coordination and gait normal. GCS eye subscore is 4. GCS verbal subscore is 5. GCS motor subscore is 6. Cerebellar tests wnl. SKIN: Skin is warm and dry. She is not diaphoretic. No evidence of discoloration of the toes, no COVID toes. PSYCH: She has a normal mood and affect. Behavior is normal. Judgment and thought content normal. Course Course 1010: The patient was evaluated in room C7. A complete history and physical exam was performed. Cardiac monitoring: An order was placed for continuous cardiac monitoring. The monitor shows a rate of 75 with sinus rhythm 1230: Vital signs stable. Labs show a magnesium of 1.4 and potassium 3.1. White blood cell count 3.97. CT of the abdomen shows pancolitis. Magnesium potassium replacement will be given in the emergency department. Patient does have prolonged QTC on EKG. Patient will be admitted given her electrolyte abnormalities and EKG findings. Discussed with Aziza [place] [facility] [place] to Dr. Gasca Administered Medications Ioversol (Optiray 320 100ml) 93 ml IV ONCE PRN PRN Reason: Interaction Checking Stop: 09/30/19 12:02 Last Admin: 09/26/19 12:03 Dose: 93 ml Documented by: [id number] Discontinued Medications Magnesium Sulfate/Dextrose (Magnesium Sulfate / D5w) 1 gm in 100 mls @ 100 mls/hr IV Q1H ALEXANDRU Stop: 09/26/19 13:34 Last Admin: 09/26/19 12:19 Dose: 100 mls/hr Documented by: [id number] Potassium Chloride (Klor-Con M10) 40 meq PO NOW STA Stop: 09/26/19 11:36 Last Admin: 09/26/19 12:56 Dose: 40 meq Documented by: [id number] Medical Decision Making Laboratory Data Result diagrams: 09/26/19 10:47 09/26/19 10:47 Lab Results 09/26/19 09/26/19 09/26/19 Range/Units 10:47 10:47 10:47 WBC 3.97 L (4.8-10.8) K/uL RBC 3.85 L (4.2-5.4) M/uL Hgb 11.9 L (12.0-16.0) g/dL Hct 35.0 L (37-47) % MCV 90.9 (80-100) fL MCH 30.9 (25-34) pg MCHC 34.0 (32-36) g/dL RDW Std Deviation 47.2 H (36.4-46.3) fL RDW Coeff of Madeline 14.2 (11.5-14.5) % Plt Count 130 (130-400) K/uL MPV 10.1 (7.4-10.4) fL Immature Gran % (Auto) 0.0 % Neut % (Auto) 45.8 % Lymph % (Auto) 42.1 % Dixon % (Auto) 10.6 % Eos % (Auto) 1.5 % Baso % (Auto) 0.0 % Immature Gran # (Auto) 0.00 (0.00-0.02) K/uL Neut # (Auto) 1.82 (1.4-6.5) K/uL Lymph # (Auto) 1.67 (1.2-3.4) K/uL Dixon # (Auto) 0.42 (0.11-0.59) K/uL Eos # (Auto) 0.06 (0-0.5) K/uL Baso # (Auto) 0.00 (0-0.2) K/uL Echinocytes 1+ PT 10.9 (9.0-12.0) Seconds INR 1.0 (0.9-1.1) APTT 30.3 (21.0-31.0) Seconds PTT Ratio 1.1 Sodium (136-145) mmol/L Potassium (3.5-5.1) mmol/L Chloride (98-107) mmol/L Carbon Dioxide (21-32) mmol/L Anion Gap (3-11) BUN (7-18) mg/dl Creatinine (0.6-1.2) mg/dl Est Cr Clr Drug Dosing Est GFR ( Amer) Est GFR (Non-Af Amer) BUN/Creatinine Ratio (10-20) Glucose (70-99) mg/dl Lactate (0.4-2.0) mmol/L Calcium (8.5-10.1) mg/dl Magnesium (1.8-2.4) mg/dl Total Bilirubin (0.2-1) mg/dl AST (15-37) U/L ALT (12-78) U/L Alkaline Phosphatase (45-117) U/L Troponin I (0-0.045) ng/ml Total Protein (6.4-8.2) gm/dl Albumin (3.4-5.0) gm/dl Globulin (2.5-4.0) gm/dl Albumin/Globulin Ratio (0.9-2) Lipase (73-393) U/L Procalcitonin 0.06 (0-0.5) ng/ml Urine Color Urine Appearance (Clear) Urine pH (4.5-7.5) Ur Specific [place] (1.000-1.030) Urine Protein (Negative) Urine Glucose (UA) (Negative) Urine Ketones (Negative) Urine Blood (Negative) Urine Nitrite (Negative) Urine Bilirubin (Negative) Urine Urobilinogen (Negative) Ur Leukocyte Esterase (Negative) Urine WBC (Auto) (0-5) /hpf Urine RBC (Auto) (0-4) /hpf U Hyaline Cast (Auto) (0-5) /lpf U Epithel Cells (Auto) (0-5) /lpf Urine Bacteria (Auto) (Negative) 09/26/19 09/26/19 09/26/19 Range/Units 10:47 10:47 11:40 WBC (4.8-10.8) K/uL RBC (4.2-5.4) M/uL Hgb (12.0-16.0) g/dL Hct (37-47) % MCV (80-100) fL MCH (25-34) pg MCHC (32-36) g/dL RDW Std Deviation (36.4-46.3) fL RDW Coeff of Madeline (11.5-14.5) % Plt Count (130-400) K/uL MPV (7.4-10.4) fL Immature Gran % (Auto) % Neut % (Auto) % Lymph % (Auto) % Dixon % (Auto) % Eos % (Auto) % Baso % (Auto) % Immature Gran # (Auto) (0.00-0.02) K/uL Neut # (Auto) (1.4-6.5) K/uL Lymph # (Auto) (1.2-3.4) K/uL Dixon # (Auto) (0.11-0.59) K/uL Eos # (Auto) (0-0.5) K/uL Baso # (Auto) (0-0.2) K/uL Echinocytes PT (9.0-12.0) Seconds INR (0.9-1.1) APTT (21.0-31.0) Seconds PTT Ratio Sodium 145 (136-145) mmol/L Potassium 3.1 L (3.5-5.1) mmol/L Chloride 110 H (98-107) mmol/L Carbon Dioxide 28 (21-32) mmol/L Anion Gap 7.0 (3-11) BUN 15 (7-18) mg/dl Creatinine 0.63 (0.6-1.2) mg/dl Est Cr Clr Drug Dosing Not Reportable Est GFR ( Amer) 100.3 Est GFR (Non-Af Amer) 86.5 BUN/Creatinine Ratio 24.1 H (10-20) Glucose 134 H (70-99) mg/dl Lactate 1.0 (0.4-2.0) mmol/L Calcium 8.1 L (8.5-10.1) mg/dl Magnesium 1.4 L (1.8-2.4) mg/dl Total Bilirubin 0.5 (0.2-1) mg/dl AST 6 L (15-37) U/L ALT 14 (12-78) U/L Alkaline Phosphatase 72 (45-117) U/L Troponin I < 0.015 (0-0.045) ng/ml Total Protein 6.0 L (6.4-8.2) gm/dl Albumin 3.2 L (3.4-5.0) gm/dl Globulin 2.8 (2.5-4.0) gm/dl Albumin/Globulin Ratio 1.1 (0.9-2) Lipase 35 L (73-393) U/L Procalcitonin (0-0.5) ng/ml Urine Color Yellow Urine Appearance Cloudy A (Clear) Urine pH 7.5 (4.5-7.5) Ur Specific Gun[place] 1.011 (1.000-1.030) Urine Protein Negative (Negative) Urine Glucose (UA) Negative (Negative) Urine Ketones Negative (Negative) Urine Blood Negative (Negative) Urine Nitrite Negative (Negative) Urine Bilirubin Negative (Negative) Urine Urobilinogen Negative (Negative) Ur Leukocyte Esterase Trace H (Negative) Urine WBC (Auto) 1-5 (0-5) /hpf Urine RBC (Auto) 5-10 H (0-4) /hpf U Hyaline Cast (Auto) 0 (0-5) /lpf U Epithel Cells (Auto) >30 H (0-5) /lpf Urine Bacteria (Auto) Negative (Negative) Imaging Data Radiologist's Impression: XR chest 1V portable HISTORY: SEPSIS COMPARISON: Chest 06/27/2027. FINDINGS: Suture material within the right lung base is again noted. There are a few bibasilar linear densities suggesting atelectasis or scarring. This remains unchanged. The heart remains mildly enlarged. No pleural effusions. No pneumothorax. Left jugular Port-A-Cath terminates in the SVC. IMPRESSION: No significant change compared to the prior study. No acute process. ACT 112: Negative or not required by law. Electronically signed by: Johnny Elam M.D. 09/26/2019 10:48 AM Dictated: 09/26/19 1046 Transcribed: 09/26/19 [address] WITH IV CONTRAST CT DOSE: 704.68 mGy.cm HISTORY: Generalized abdominal pain. Diarrhea. TECHNIQUE: Multiaxial CT images of the abdomen and pelvis were performed following the use of intravenous contrast. A dose lowering technique was utilized adhering to the principles of ALARA. COMPARISON STUDY: Abdomen and pelvis CT 03/22/2017. PET/CT 09/10/2019. FINDINGS: Suture material within the right lung base consistent with prior wedge resection. There are few bibasilar linear densities suggesting subsegmental atelectasis or scarring. Moderate hiatus hernia, unchanged. No pneumoperitoneum. No pneumatosis. Multiple scattered small lucent lesions seen throughout the visualized osseous structures consistent with the patient's known history of multiple myeloma. This remains unchanged. The heart is mildly enlarged. A few small fat-containing umbilical and suprapubic focal hernias. Lumbar subcutaneous edema is noted. Suggestion of a few small gallstones. No gallbladder wall thickening. Stable 1.4 cm hypodense lesion within the left hepatic lobe. This is likely benign given the long-term stability. The main portal vein is patent. The pancreas and adrenal glands are unremarkable. Subcentimeter hypodense lesions within the kidneys are technically too small to characterize. Dominant hypodense lesion within the left kidney measures 8 mm. The bladder is mildly distended. No bladder wall thickening. No hydronephrosis. No retroperitoneal lymphadenopathy. Mild calcified plaque within the normal caliber abdominal aorta. The uterus and bilateral adnexa are within normal limits. Mild diffuse bowel wall thickening involving the entire colon and rectum. This is consistent with a pancolitis. Th ere is mild pericolonic inflammatory change. No perforation or abscess identified. No dilated loops of small bowel to suggest an obstruction. IMPRESSION: 1. Mild pancolitis. This is likely due to an infectious or inflammatory process. 2. Moderate hiatus hernia, unchanged. 3. Probable cholelithiasis. No gallbladder wall thickening. 4. Multiple scattered small lucent lesion seen throughout the visualized osseous structures consistent with the patient's known history of multiple myeloma. 5. Additional findings as described above. ACT 112: Negative or not required by law. Electronically signed by: Johnny Elam M.D. 09/26/2019 12:20 PM Dictated: 09/26/19 1212 Transcribed: 09/26/19 1212 ECG Data Additional Comments: EKG shows sinus rhythm with rate of 73. OH interval 140. QRS 144. QTc 533. Left ventricular hypertrophy present. Bifascicular block present. No ST elevation or ST depression. MDM Narrative Vital signs stable. Labs show a magnesium of 1.4 and potassium 3.1. White blood cell count 3.97. CT of the abdomen shows pancolitis. Magnesium potassium replacement will be given in the emergency department. Patient does have prolonged QTC on EKG. Patient will be admitted given her electrolyte abnormalities and EKG findings. Discussed with Aziza follow[place] [facility] to admit to Dr. Gasca Impression & Plan Hypomagnesemia, Hypokalemia Discharge Plan Visit Data Chief Complaint: Diarrhea Stated Complaint: DIARRHEA FOR A WEEK ED Provider: Marcelino Schultz Discharge Problem: Hypomagnesemia, Hypokalemia Patient Disposition: Being Evaluated by Hospitalist Forms Stand Alone Forms: My [facility] Insurance Prescriptions Prescriptions: No Action cyanocobalamin (vitamin B-12) [Vitamin B-12] 1,000 mcg tablet 1,000 mcg PO DAILY RF: 0 meclizine 12.5 mg tablet 12.5 mg PO TID PRN (Reason: Dizziness) RF: 0 acyclovir 400 mg tablet 400 mg PO BID RF: 0 albuterol sulfate [Ventolin HFA] 90 mcg/actuation HFA aerosol inhaler 2 puffs INH Q6H PRN (Reason: sob) RF: 0 zoledronic acid [Zometa] 4 mg/5 mL solution 4 mg IV MONTHLY RF: 0 lactobacillus combination no.9 [Adult 50 Plus Probiotic] 4 billion cell capsule 4,000 mmu cells PO DAILY RF: 0 furosemide [Lasix] 20 mg tablet 20 mg PO DAILY PRN (Reason: swelling) RF: 0 Darzalex 20 mg/mL solution 20 mg IV MONTHLY RF: 0 Lyrica 75 mg capsule 75 mg PO BID Qty: 180 RF: 1 glimepiride 4 mg tablet 4 mg PO BID Qty: 60 RF: 5 levothyroxine [Synthroid] 75 mcg tablet 75 mcg PO DAILY Qty: 90 RF: 3 pantoprazole [Protonix] 40 mg tablet,delayed release (DR/EC) 40 mg PO DAILY Qty: 90 RF: 3 simvastatin [Zocor] 40 mg tablet 40 mg PO QPM Qty: 90 RF: 3 fluticasone propion-salmeterol [Advair Diskus] 250-50 mcg/dose blister with device 1 inh inhalation BID RF: 0 diphenoxylate-atropine [Lomotil] 2.5-0.025 mg tablet 1 tab PO TID PRN (Reason: diarrhea) RF: 0 Nucynta 50 mg tablet 50 mg PO TID PRN (Reason: pain) RF: 0 Revlimid 2.5 mg capsule 2.5 mg PO MONTHLY RF: 0 Referrals Referrals: Italo Burr III, MD [Primary Care Provider] -
--- NOTE | 2019-09-26 10:49 | XRay Report ---
XR chest 1V portable HISTORY: SEPSIS COMPARISON: Chest 06/27/2027. FINDINGS: Suture material within the right lung base is again noted. There are a few bibasilar linear densities suggesting atelectasis or scarring. This remains unchanged. The heart remains mildly enlar ged. No pleural effusions. No pneumothorax. Left jugular Port-A-Cath terminates in the SVC. IMPRESSION: No significant change compared to the prior study. No acute process. ACT 112: Negative or not required by law. Electronically signed by: Johnny Elam M.D. 09/26/2019 10:48 AM
[2019-09-26 11:02] LABS: Eosinophils # (auto) 0.06 K/uL (0-0.5); Eosinophils % (auto) 1.5 %; Hemoglobin 11.9 g/dL (12.0-16.0); Lymphocytes # (auto) 1.67 K/uL (1.2-3.4); Lymphocytes % (auto) 42.1 %; Mean Corpuscular Hemoglobin 30.9 pg (25-34); Mean Corpuscular Volume 90.9 fL (80-100); Mean Platelet Volume 10.1 fL (7.4-10.4); Monocytes # (auto) 0.42 K/uL (0.11-0.59); Monocytes % (auto) 10.6 %; Neutrophils # (auto) 1.82 K/uL (1.4-6.5); Neutrophils % (auto) 45.8 %; Platelet Count 130 K/uL (130-400); RDW Coefficient of Variation 14.2 % (11.5-14.5); RDW Standard Deviation 47.2 fL (36.4-46.3); Red Blood Count 3.85 M/uL (4.2-5.4); White Blood Count 3.97 K/uL (4.8-10.8)
[2019-09-26 11:16] LABS: Partial Thromboplastin Ratio 1.1; Partial Thromboplastin Time 30.3 Seconds (21.0-31.0); Prothrombin Time 10.9 Seconds (9.0-12.0)
[2019-09-26 11:20] LABS: Alanine Aminotransferase 14 U/L (12-78); Albumin Level 3.2 gm/dl (3.4-5.0); Aspartate Aminotransferase 6 U/L (15-37); BUN Creatinine Ratio 24.1 (10-20); Blood Urea Nitrogen 15 mg/dl (7-18); Calcium 8.1 mg/dl (8.5-10.1); Carbon Dioxide 28 mmol/L (21-32); Chloride 110 mmol/L (98-107); Est GFR (African American) 100.3; Est GFR (Non-African American) 86.5; Glucose 134 mg/dl (70-99); Lipase 35 U/L (73-393); Magnesium 1.4 mg/dl (1.8-2.4); Potassium 3.1 mmol/L (3.5-5.1); Sodium 145 mmol/L (136-145)
[2019-09-26 11:25] LABS: Albumin Globulin Ratio 1.1 (0.9-2); Alkaline Phosphatase 72 U/L (45-117); Bilirubin,Total 0.5 mg/dl (0.2-1); Globulin 2.8 gm/dl (2.5-4.0); Troponin I < 0.015 ng/ml (0-0.045)
[2019-09-26] MEDS ORDERED: POTASSIUM CHLORIDE 10 MEQ TABCR PO STA (11:35)
[2019-09-26 11:38] LABS: Echinocytes 1+
[2019-09-26 11:54] LABS: Appearance Urine Cloudy (Clear); Bacteria Urine Automated Negative (Negative); Bilirubin Urine Negative (Negative); Blood Urine Negative (Negative); Cast Urine Automated 0 /lpf (0-5); Color Urine Yellow; Epithelial Cell Urine Auto >30 /lpf (0-5); Glucose Urine UA Negative (Negative); Ketones Urine Negative (Negative); Leukocyte Esterase Urine Trace (Negative); Nitrite Urine Negative (Negative); Protein Urine Negative (Negative); Specific Gravity Urine 1.011 (1.000-1.030); Urobilinogen Urine Negative (Negative); pH Urine 7.5 (4.5-7.5)
[2019-09-26] MEDS ORDERED: IOVERSOL 100ml IV PRN (12:03)
[2019-09-26] MEDS: MAGNESIUM SULFATE / D5W 1 GM/100 ML BAG IV SCH ×2 (12:19→13:40)
--- NOTE | 2019-09-26 12:22 | CT Scan Report ---
ABDOMEN AND PELVIS CT WITH IV CONTRAST CT DOSE: 704.68 mGy.cm HISTORY: Generalized abdominal pain. Diarrhea. TECHNIQUE: Multiaxial CT images of the abdomen and pelvis were performed following the use of intrave nous contrast. A dose lowering technique was utilized adhering to the principles of ALARA. COMPARISON STUDY: Abdomen and pelvis CT 03/22/2017. PET/CT 09/10/2019. FINDINGS: Suture material within the right lung base consistent with prior wedge resection. There are few bibasilar linear densities suggesting subsegmental atelectasis or scarring. Moderate hiatus pau ia, unchanged. No pneumoperitoneum. No pneumatosis. Multiple scattered small lucent lesions seen thro ughout the visualized osseous structures consistent with the patient's known history of multiple myel miguel. This remains unchanged. The heart is mildly enlarged. A few small fat-containing umbilical and s uprapubic focal hernias. Lumbar subcutaneous edema is noted. Suggestion of a few small gallstones. No gallbladder wall thickening. Stable 1.4 cm hypodense lesion within the left hepatic lobe. This is li margie benign given the long-term stability. The main portal vein is patent. The pancreas and adrenal g lands are unremarkable. Subcentimeter hypodense lesions within the kidneys are technically too small to characterize. Dominant hypodense lesion within the left kidney measures 8 mm. The bladder is mildl y distended. No bladder wall thickening. No hydronephrosis. No retroperitoneal lymphadenopathy. Mild calcified plaque within the normal caliber abdominal aorta. The uterus and bilateral adnexa are withi n normal limits. Mild diffuse bowel wall thickening involving the entire colon and rectum. This is co nsistent with a pancolitis. There is mild pericolonic inflammatory change. No perforation or abscess identified. No dilated loops of small bowel to suggest an obstruction. IMPRESSION: 1. Mild pancolitis. This is likely due to an infectious or inflammatory process. 2. Moderate hiatus hernia, unchanged. 3. Probable cholelithiasis. No gallbladder wall thickening. 4. Multiple scattered small lucent lesion seen throughout the visualized osseous structures consisten t with the patient's known history of multiple myeloma. 5. Additional findings as described above. ACT 112: Negative or not required by law. Electronically signed by: Johnny Elam M.D. 09/26/2019 12:20 PM
--- NOTE | 2019-09-26 14:19 | History & Physical Report ---
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 Pancolitis: - Differentials include infectious vs. inflammatory colitis versus side effect of chemotherapy. - Pt has a history of C. diff infections and is immunocompromised, so while she is febrile and without leukocytosis she is unable to mount an appropriate response to GI infection. - No history of recent antibiotic use. - C. diff, stool culture, stool leukocytes ordered. - Cipro/flagyl for possible GI infection. Will add oral vancomycin if C diff. collected and positive. - Diarrhea for several weeks likely cause of electrolyte abnormalities; repleted as below. - Continue NSS at 125cc/hr with 20meq KCL added. Hypomagnesemia/Hypokalemia: - On arrival Mg 1.4, K 3.1; given 1g Mg IV and 40 meq K PO in ED. - Repeat BMP, Mg, Phos AM. - KCl 20 meq added to fluids. Prolonged QT: - EKG with computer read of QTc 533, this finding is not new. EKG from May 2017 with QTc 539. - No palpitations, avoid QT prolonging medications as able. - EKG daily. - Continuous cardiac monitoring. Multiple myeloma: - On admission leukopenic, anemic, plts 130. No active signs of bleeding. No fevers. CBC stable over the last several weeks. - Actively taking Revlimid daily; possible that this is contributing to her diarrhea and colitis. - Was unable to find colitis as a possible side effect of this medication. - Also takes daratumumab IV monthly, also does not appear to cause colitis on research. - Hold above for now in the setting of her acute illness. - CTAP today shows no progression of her bony lesions from recent PET scan. - Follow up on discharge with oncology for continued treatment. DM2: - well controlled on home oral meds. - SSI here in hospital. - DM2 diet, BSG qACHS HTN: - Not on any home medication in the outpatient setting. - BP here consistently elevated, however no higher than 160s/80s. - PCP follow up for HTN control. - PRN hydralazine 5mg IV q6h for SBP >180, DBP >110. 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: (6) Acquired hypogammaglobulinemia: (7) Anemia: (8) Asthma: (9) Hypothyroidism: (10) Leukopenia: (11) Hyperlipidemia: (12) GERD (gastroesophageal reflux disease): (13) Hypertension: History of Present Illness Chief Complaint: weakness, diarrhea Primary Care Provider: Italo Burr MD 79 yo F PMHx multiple myeloma s/p bone marrow transplant with recent chemotherapy treatment with Revlimid, DM2 with neuropathy, asthma, urinary incontinence, radiculopathy, sarcoidosis of the lung, GERD, HTN presented to the ER for weakness and diarrhea x3 weeks, worsening over the last one week and with even looser, watery diarrhea overnight associated with abdominal pain. Without shortness of breath, fevers, chills, chest pain. In the ED had CTAP which showed mild pancolitis, probably cholelithiasis without gallbladder wall thickening. CXR negative for acute process. CBC showed leukopenia to 3.97, anemia to 11.9; BMP with hypokalemia to 3.1, Mg to 1.4; UA showed no bacteria, mild LE, no nitrites. EKG with prolonged QT to 533. Pt was given magnesium 1g, K 40meq. Hospital service consulted for admission. On my interview patient reports about 3 weeks of intermittent non-bloody, non- melanotic diarrhea without associated abdominal pain. 2 weeks ago started treatment for her multiple myeloma with the chemotherapy drug Revlimid; has been on this drug before with bouts of weakness and diarrhea in the past. Only symptom at this time is abdominal pain, mild, right sided. Allergies Allergy/AdvReac Type Severity Reaction Status Date / Time Sulfa (Sulfonamide Allergy Severe RASH Verified 09/26/19 10:52 Antibiotics) latex Allergy Unknown REDNESS Verified 09/26/19 10:52 codeine AdvReac Intermediate SPACED OUT Verified 09/26/19 10:52 adhesive AdvReac Mild BREAKS OUT Verified 09/26/19 10:52 amoxicillin AdvReac Unknown YEAST Verified 09/26/19 10:52 INFECTION clavulanic acid AdvReac Unknown YEAST Verified 09/26/19 10:52 INFECTION Home Medications Home Medications Medication Instructions Recorded Confirmed Type acyclovir 400 mg tablet 400 mg PO BID tab 01/25/18 09/26/19 History albuterol sulfate 90 mcg/actuation 2 puffs INH Q6H PRN 01/25/18 09/26/19 History aerosol inhaler cyanocobalamin (vitamin B-12) 1,000 mcg PO DAILY 01/25/18 09/26/19 History 1,000 mcg tablet lactobacillus combination no.9 4 4,000 mmu cells PO DAILY 01/25/18 09/26/19 History billion cell capsule meclizine 12.5 mg tablet 12.5 mg PO TID PRN 01/25/18 09/26/19 History zoledronic acid 4 mg/5 mL 4 mg IV MONTHLY ml 01/25/18 09/26/19 History intravenous solution daratumumab 20 mg/mL intravenous 20 mg IV MONTHLY ml 01/27/19 09/26/19 History solution furosemide 20 mg tablet 20 mg PO DAILY PRN 01/27/19 09/26/19 History pregabalin 75 mg capsule 75 mg PO BID #180 cap 05/26/19 09/26/19 Rx glimepiride 4 mg tablet 4 mg PO BID #60 tab 07/10/19 09/26/19 Rx levothyroxine 75 mcg tablet 75 mcg PO DAILY #90 tab 07/28/19 09/26/19 Rx pantoprazole 40 mg tablet,delayed 40 mg PO DAILY #90 tab 07/28/19 09/26/19 Rx release simvastatin 40 mg tablet 40 mg PO QPM #90 tab 07/28/19 09/26/19 Rx diphenoxylate-atropine [Lomotil] 1 tab PO TID PRN 09/26/19 09/26/19 History fluticasone propion-salmeterol 1 inh INHALATION BID 09/26/19 09/26/19 History [Advair Diskus] lenalidomide [Revlimid] 2.5 mg PO MONTHLY 09/26/19 09/26/19 History tapentadol [Nucynta] 50 mg PO TID PRN 09/26/19 09/26/19 History Past Med/Surg History Medical History (Updated 09/27/19 @ 07:55 by Miranda Mcnulty MD) Chronic steroid use (Chronic) 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 (Chronic) Diabetes mellitus (Chronic) Former smoker GERD (gastroesophageal reflux disease) (Chronic) Hyperlipidemia (Chronic) Hypertension (Chronic) Hypoxia (Resolved) Immunosuppressed status (Chronic) Lumbago Multiple myeloma (Chronic 05/24/12) Osteoarthritis (Chronic) Pneumonia (Resolved) Sacroiliitis Vertigo (Chronic) Surgical History H/O colonoscopy H/O esophagogastroduodenoscopy (Resolved) History of ankle surgery (Resolved) History of bilateral carpal tunnel release History of bone marrow transplant (Resolved) History of colostomy (Resolved) History of tonsillectomy and adenoidectomy (Resolved) Status post cataract extraction of both eyes with insertion of intraocular lens Family History Mother Cervical cancer Father Emphysema, unspecified FHx: kidney cancer Social History Preferred Language: [place] Communication Ability: Effective Visual Impairment: No Limitations 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 Beliefs That Will Affect Care: None marital status: Current Living Situation: Spouse and Family current occupational status: retired Other Information That Helps Us Care for You: No Feels Safe at Home: Yes Safety Concerns: Feels Safe At This Time Smoking Status: Never smoker Hx Alcohol Use: Yes Alcohol type: wine Hx Substance Use: No Review of Systems Constitutional: + fatigue and + weakness; no fever and no chills Ear, Nose, Mouth, Throat: no mouth lesions, no dry mouth, no sore throat and no dysphagia Respiratory: no cough, no dyspnea and no wheezing Cardiovascular: no chest pain, no orthopnea, no syncope and no edema Gastrointestinal: + abdominal pain (as per HPI) and + diarrhea/loose stools; no nausea, no vomiting, no constipation, no blood in stools and no melena Genitourinary: + urinary incontinence; no dysuria and no hematuria Musculoskeletal: + back pain (chronic, not worsened) Integumentary: no rash Neurologic: no dizziness and no headache(s) Endocrine: + fatigue Physical Exam Constitutional: well developed and + obese; no acute distress Eyes: PERRL, conjunctivae normal, anicteric sclerae ENMT: external ear and nose normal, oropharynx normal Neck: normal visual inspection Respiratory: normal respiratory effort, lungs clear to auscultation Cardiovascular: RRR, no murmur, no edema Gastrointestinal (Abdomen): Inspection/Auscultation: abdomen normal to inspection and normal bowel sounds; abdomen not distended Percussion/Palpation: + abdomen tender (LLQ, epigastric) and abdomen soft; no guarding and no abdominal mass Musculoskeletal: no cyanosis or clubbing, extremities motor strength 5/5 Skin: no rashes, warm and dry Neurologic: patellar DTR's 2+ bilat, sensation intact Psychiatric: A+Ox3, euthymic affect Results & Data Results & Data ([facility]) Vital Signs (Past 12 Hours) Vital Signs Temp Pulse Pulse Resp BP BP Pulse Ox 09/26/19 13:30 72 20 155/65 H 97 09/26/19 12:17 72 16 165/72 H 97 09/26/19 10:50 79 16 192/77 H 09/26/19 09:51 36.7 C 79 16 181/96 H 96 Code Status & VTE Plan Code Status Full code VTE Prophylaxis Plan VTE Prophylaxis will be ordered: Yes Supervising Physician Co-Signing Physician Notes I personally examined the patient and verified all akhtar points of history and exam, discussed case, and agree with decision making with Dr. Cain with the following additions/exceptions: Patient is a 79-year-old female with a history of multiple myeloma on active chemotherapy, history of C. difficile colitis, history of colostomy due to bowel obstruction with subsequent reversal, DM 2, asthma, overactive bladder, GERD, HTN, hypothyroidism, B12 deficiency anemia, who presents with 3 weeks of diarrhea much worse in the last few days that is nonbloody and watery. She is also having some periumbilical left lower quadrant abdominal pain. Afebrile. His not taking any recent antibiotics. She thought maybe was related to her chemotherapy but then when it became significantly worse and she became severely fatigued, she came in. She was found to have multiple electrolyte abnormalities and soto colitis on CT scan. History and ROS reviewed as above Vitals reviewed Gen: AAOx3, NAD, appears fatigued HEENT: Anicteric sclerae, EOMI, oropharynx with dry mucous membranes CV: RRR no mgr nl S1S2 Pulm: CTAB no wcr Abd: +BS soft mild tenderness to palpation the left lower quadrant without gua rding or rebound tenderness, ND with small reducible supraumbilical hernia, surgical scar in left lower quadrant from previous colostomy Ext: No edema, 2+ DP pulses Skin: No rashes, warm/dry Neuro: Full strength throughout 79-year-old female with history as above, here with pancolitis, dehydration, generalized weakness, and dehydration. Check stool studies, C. difficile and treat as needed -Empiric Cipro and Flagyl -Follow electrolytes and give IV fluids Pain control as needed -Hold home chemotherapy Resident Activity Tracking Resident Involvement: Resident Care Provided Care Provided: Adult Hospital Medicine
[2019-09-26] MEDS ORDERED: GLUCOSE 10 TABS/TUBE PO PRN (18:26)
[2019-09-26] MEDS ORDERED: CARBOHYDRATES FOR HYPOGLYCEMIA PO PRN (18:26)
[2019-09-26] MEDS ORDERED: DEXTROSE 50% 50 ML SYRINGE IV PRN (18:26)
[2019-09-26] MEDS ORDERED: ALBUTEROL HFA 8 GM INHALER INH PRN (18:26)
[2019-09-26] MEDS ORDERED: HydrALAZINE HCL 20 MG/ML VIAL IV PRN (18:26)
[2019-09-26] MEDS ORDERED: GLUCAGON FOR INJ 1 MG VIAL SQ PRN (18:26)
[2019-09-26] MEDS ORDERED: GLUCOSE 40% GEL 15 GM TUBE PO PRN (18:26)
[2019-09-26] MEDS ORDERED: ACETAMINOPHEN 325 MG TAB PO PRN (18:26)
[2019-09-26] MEDS ORDERED: MAGNESIUM SULFATE / D5W 1 GM/100 ML BAG IV ONE (18:45)
[2019-09-26] MEDS ORDERED: CIPROFLOXACIN / D5W 400 MG/200 ML BAG IV SCH (19:00)
[2019-09-26] MEDS ORDERED: metroNIDAZOLE 500 MG/100 ML BAG IV SCH (19:00)
[2019-09-26] MEDS: POTASSIUM CHLORIDE 20 MEQ in SODIUM CHLORIDE 0.9% 1000ML 1,000 ML IV SCH (19:05)
[2019-09-26] MEDS: INSULIN ASPART 100 UNITS/ML 3 ML PEN SC SCH ×2 (19:19→23:57)
--- NOTE | 2019-09-26 19:47 | Electrocardiogram Report ---
Test Reason : Blood Pressure : / mmHG Vent. Rate : 073 BPM Atrial Rate : 073 BPM P-R Int : 140 ms QRS Dur : 144 ms QT Int : 484 ms P-R-T Axes : 059 -64 022 degrees QTc Int : 533 ms Poor data quality, interpretation may be adversely affected Sinus rhythm with Premature atrial complexes Right bundle branch block Left anterior fascicular block Bifascicular block Moderate voltage criteria for LVH, may be normal variant Abnormal ECG When compared with ECG of 15-MAY-2017 11:22, Premature atrial complexes are now Present T wave inversion no longer evident in Anterior leads Confirmed by Jacob Dumont ([id number]) on 09/26/2019 7:47:36 PM Referred By: REFERRED SELF Confirmed By:Anthony Dumont
[2019-09-26 20:28] LABS: Cdiff Antigen Positive
[2019-09-26 20:30] LABS: Cdiff Toxin A+B Positive Cdiff Toxin (Negative)
[2019-09-26] MEDS ORDERED: HEPARIN SOD 5,000 UNIT/0.5 ML VIAL SQ SCH (21:00)
[2019-09-26] MEDS: ACYCLOVIR 400 MG TAB PO SCH (21:26)
[2019-09-26] MEDS: HEPARIN SOD 5,000 UNIT/0.5 ML VIAL SQ SCH (21:27)
[2019-09-26] MEDS: SIMVASTATIN 40 MG TAB PO SCH (21:27)
[2019-09-26] MEDS: PREGABALIN 75 MG CAP PO SCH (21:27)
[2019-09-26] MEDS: TAPENTADOL HCL 50 MG TAB PO PRN (22:39)
[2019-09-26] MEDS: VANCOMYCIN HCL 125 MG/2.5ML SOLN PO SCH (22:40)
[2019-09-26] MEDS: RASPBERRY SYRUP 5 ML UDP PO SCH (22:40)
[2019-09-27] MEDS: POTASSIUM CHLORIDE 20 MEQ in SODIUM CHLORIDE 0.9% 1000ML 1,000 ML IV SCH ×2 (03:07→09:16)
[2019-09-27] MEDS: VANCOMYCIN HCL 125 MG/2.5ML SOLN PO SCH ×3 (05:44→17:27)
[2019-09-27] MEDS: RASPBERRY SYRUP 5 ML UDP PO SCH ×3 (05:44→17:27)
[2019-09-27 06:28] LABS: Basophils # (auto) 0.01 K/uL (0-0.2); Basophils % (auto) 0.3 %; Eosinophils # (auto) 0.13 K/uL (0-0.5); Eosinophils % (auto) 3.5 %; Hematocrit (blood only) 34.7 % (37-47); Hemoglobin 11.4 g/dL (12.0-16.0); Immature Granulocytes # (auto) 0.01 K/uL (0.00-0.02); Immature Granulocytes % (auto) 0.3 %; Lymphocytes # (auto) 1.77 K/uL (1.2-3.4); Lymphocytes % (auto) 47.5 %; Mean Corpuscular Hgb Conc 32.9 g/dL (32-36); Mean Corpuscular Volume 91.3 fL (80-100); Mean Platelet Volume 10.5 fL (7.4-10.4); Monocytes # (auto) 0.36 K/uL (0.11-0.59); Monocytes % (auto) 9.7 %; Neutrophils # (auto) 1.45 K/uL (1.4-6.5); Neutrophils % (auto) 38.7 %; Platelet Count 125 K/uL (130-400); RDW Coefficient of Variation 14.2 % (11.5-14.5); White Blood Count 3.73 K/uL (4.8-10.8)
[2019-09-27 07:07] LABS: BUN Creatinine Ratio 12.7 (10-20); Calcium 7.8 mg/dl (8.5-10.1); Creatinine Clr Calc Pharmacy 65.9 ml/min; Est GFR (African American) 96.9; Est GFR (Non-African American) 83.6; Potassium 3.4 mmol/L (3.5-5.1)
[2019-09-27] MEDS ORDERED: PANTOprazole 40 MG TAB PO SCH (08:00)
--- NOTE | 2019-09-27 08:07 | Billing Data ---
Date of Service September 26, 2019 Coding Level of Care Code 37127 Initial Inpt Care Lvl 3
[2019-09-27] MEDS: TAPENTADOL HCL 50 MG TAB PO PRN ×2 (09:16→23:04)
[2019-09-27] MEDS: PREGABALIN 75 MG CAP PO SCH ×2 (09:16→20:41)
[2019-09-27] MEDS: CYANOCOBALAMIN 500 MCG TABLET (VITAMIN B-12) PO SCH (09:17)
[2019-09-27] MEDS: LEVOTHYROXINE SODIUM 75 MCG TABLET PO SCH (09:17)
[2019-09-27] MEDS: ACYCLOVIR 400 MG TAB PO SCH ×2 (09:17→20:44)
[2019-09-27] MEDS: INSULIN ASPART 100 UNITS/ML 3 ML PEN SC SCH ×4 (09:18→20:44)
[2019-09-27] MEDS: HEPARIN SOD 5,000 UNIT/0.5 ML VIAL SQ SCH ×2 (09:18→20:43)
[2019-09-27] MEDS: FLUTICASONE/VILANTEROL 200/25MCG 14 PUFFS/INHALER INH SCH (09:18)
--- NOTE | 2019-09-27 10:34 | Family Medicine Progress Note ---
Date of Service September 27, 2019 Assessment & Plan (1) Diarrhea: Ms. 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 Pancolitis: - CT abdomen and pelvis shows mild pancolitis - c.diff positive (patient has a history of the same) -> oral vancomycin initiated on 09/25. Patient would benefit from pulse tapered regimen given this her repeated episodes of c.diff -> consider outpatient fecal transplant - cholestyramine BID started to decrease frequency of diarrhea - Diarrhea for several weeks likely cause of electrolyte abnormalities; repleted as below. Hypomagnesemia/Hypokalemia: - electrolytes improved this AM - potassium 3.4 and Mg 2 - 20 mEq of potassium chloride given p.o. today - continue maintenance IVF at 125 mls/hr - changed from NS with KCl to 1/2 NS with KCl given hypernatremia Prolonged QT: - EKG with computer read of QTc 533, this finding is not new. EKG from May 2017 with QTc 539. - No palpitations, avoid QT prolonging medications as able. - EKG daily. - Continuous cardiac monitoring Multiple myeloma: - On admission leukopenic, anemic, plts 130. No active signs of bleeding. No fevers. CBC stable over the last several weeks. - Actively taking Revlimid daily and daratumumab IV monthly -> Hold above for now in the setting of her acute illness. -> will discuss w/heme/onc how long she should be off revlimid in the setting of her active c.dif infection - CTAP on admission shows no progression of her bony lesions from recent PET scan. - Follow up on discharge with oncology for continued treatment. DM2 w/peripheral neuropathy - well controlled on home oral meds. - SSI here in hospital. - DM2 diet, BSG qACHS - continue home lyrica for diabetic neuropathy HTN: - Not on any home medication in the outpatient setting. - BP here consistently elevated, however no higher than 160s/80s. - PCP follow up for HTN control. - PRN hydralazine 5mg IV q6h for SBP >180, DBP >110. Hypothyroidism - continue home synthroid - last TSH 0.8 in 03/2019 GERD - patient w/hx of GERD, hiatal hernia and esophageal dysmotility - previously on protonix qAM and zantac qPM - will change home protonix to pepcid 20mg BID to try and decrease risk of futur e episodes of c.diff Hypercholesterolemia -continue home simvastatin 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 Miller with the following additions/exceptions: Patient is a 79-year-old female with a history of multiple myeloma on active chemotherapy, history of C. difficile colitis, history of colostomy due to bowel obstruction with subsequent reversal, DM 2, asthma, overactive bladder, GERD, HTN, hypothyroidism, B12 deficiency anemia, who presents with 3 weeks of diarrhea much worse in the last few days prior to admission that is nonbloody and watery. She is also having some periumbilical left lower quadrant abdominal pain. Afebrile. His not taking any recent antibiotics. She thought maybe was related to her chemotherapy but then when it became significantly worse and she became severely fatigued, she came in. She was found to have multiple electrolyte abnormalities and soto colitis on CT scan. Subsequent stool testing revealed positive for C. difficile gene and toxin. Today, she is continuing to have multiple loose episodes of stools and persistent left lower quadrant abdominal pain although is able to eat and felt a little bit better by the afternoon. No other concerns at this time Vitals reviewed Gen: AAOx3, NAD HEENT: Anicteric sclerae CV: RRR no mgr nl S1S2 Pulm: CTAB no wcr Abd: +BS soft mild tenderness to palpation the left lower quadrant without guarding or rebound tenderness, ND with small reducible supraumbilical hernia, surgical scar in left lower quadrant from previous colostomy Ext: No edema, 2+ DP pulses Skin: No rashes, warm/dry Neuro: Full strength throughout 79-year-old female with history as above, here with pancolitis, dehydration, generalized weakness, dehydration, found to have C. difficile colitis. -Continue p.o. vancomycin as above and will do prolonged course. Could consider Dificid -Consider referral for fecal transplant but unclear if would be a candidate-not likely given her history as she is immunosuppressed -Discontinued empiric Cipro and Flagyl, but will continue to follow stool culture -Replace electrolytes and changing to hypotonic IV fluids as above Pain control as needed -Hold home chemotherapy as per discussion with oncology today-can restart Revlimid when diarrhea has slowed down and if counts do not drop too low on CBC Continued stay PT/OT consulted for weakness Subjective Ms. Segovia reports she feels about the same as yesterday. She notes continued diarrhea, mild abdominal pain, and decreased appetite. She states she has had several episodes of c.diff in the past. Review of Systems Constitutional: + fatigue and + weakness; no fever and no chills Respiratory: no cough and no dyspnea Cardiovascular: no chest pain Gastrointestinal: + abdominal pain and + diarrhea/loose stools; no nausea and no vomiting Physical Exam Constitutional: WD/WN, vitals as above Respiratory: normal respiratory effort, lungs clear to auscultation Cardiovascular: RRR, no murmur, no edema Gastrointestinal (Abdomen): abdomen soft, mildly TTP in lower abdomen Skin: no rashes, warm and dry Results & Data ([facility]) Vital Signs (Past 12 Hours) Vital Signs Temp Pulse Pulse Resp BP Pulse Ox 09/27/19 07:56 36.6 C 61 18 136/74 94 09/27/19 03:59 36.6 C 58 L 18 153/76 H 96 09/26/19 23:59 72 09/26/19 23:00 36.7 C 64 19 149/70 H 95 Resident Activity Tracking Resident Involvement: Resident Care Provided Care Provided: Adult [facility] Medicine
[2019-09-27] MEDS ORDERED: POTASSIUM CHLORIDE 20 MEQ TABCR PO ONE (12:00)
--- NOTE | 2019-09-27 12:10 | Electrocardiogram Report ---
Test Reason : Blood Pressure : / mmHG Vent. Rate : 067 BPM Atrial Rate : 067 BPM P-R Int : 168 ms QRS Dur : 142 ms QT Int : 512 ms P-R-T Axes : 058 -59 -03 degrees QTc Int : 541 ms Sinus rhythm with Premature atrial complexes Right bundle branch block Left anterior fascicular block Bifascicular block Minimal voltage criteria for LVH, may be normal variant Abnormal ECG When compared with ECG of 26-SEP-2019 11:22, No significant change was found Confirmed by Dandre Sanford ([id number]) on 09/27/2019 12:09:51 PM Referred By: REFERRED SELF Confirmed By:Dandre Sanford
[2019-09-27] MEDS: SODIUM CHLOR 0.45% + 20MEQ KCL 20 MEQ/1,000 ML BAG IV SCH ×2 (12:30→20:40)
--- NOTE | 2019-09-27 18:21 | Billing Data ---
Date of Service September 27, 2019 Coding Level of Care Code 55887 Subseq Hosp Care Lvl 3
[2019-09-27] MEDS: SIMVASTATIN 40 MG TAB PO SCH (20:43)
[2019-09-27] MEDS: FAMOTIDINE 20 MG TAB PO SCH (20:45)
[2019-09-27] MEDS: CHOLESTYRAMINE LIGHT 4 GM PKT PO SCH (20:45)
[2019-09-28] MEDS: RASPBERRY SYRUP 5 ML UDP PO SCH ×4 (01:07→18:03)
[2019-09-28] MEDS: VANCOMYCIN HCL 125 MG/2.5ML SOLN PO SCH ×4 (01:07→18:02)
[2019-09-28] MEDS: SODIUM CHLOR 0.45% + 20MEQ KCL 20 MEQ/1,000 ML BAG IV SCH ×3 (04:14→22:17)
[2019-09-28 06:19] LABS: Hematocrit (blood only) 32.3 % (37-47); Hemoglobin 10.8 g/dL (12.0-16.0); Mean Corpuscular Hemoglobin 30.4 pg (25-34); Mean Corpuscular Hgb Conc 33.4 g/dL (32-36); Mean Platelet Volume 10.6 fL (7.4-10.4); Platelet Count 129 K/uL (130-400); RDW Coefficient of Variation 13.9 % (11.5-14.5); RDW Standard Deviation 46.4 fL (36.4-46.3); Red Blood Count 3.55 M/uL (4.2-5.4); White Blood Count 3.58 K/uL (4.8-10.8)
[2019-09-28 06:51] LABS: BUN Creatinine Ratio 13.7 (10-20); Calcium 8.2 mg/dl (8.5-10.1); Creatinine Clr Calc Pharmacy 80.4 ml/min; Est GFR (African American) 104.2; Est GFR (Non-African American) 89.9; Potassium 3.7 mmol/L (3.5-5.1)
--- NOTE | 2019-09-28 07:07 | Family Medicine Progress Note ---
Date of Service September 28, 2019 Assessment & Plan (1) Diarrhea: Ms. 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 Pancolitis: - CT abdomen and pelvis shows mild pancolitis - c.diff positive (patient has a history of the same) -> oral vancomycin initiated on 09/25. Patient would benefit from pulse tapered regimen given her repeated episodes of c.diff -> could also consider difcid, but expensive -> consider referral for outpatient fecal transplant - WBC smear shows fecal WBC, and mixed normal fecal michel - stool cx preliminary negative - continue cholestyramine BID to decrease frequency of diarrhea - Diarrhea for several weeks likely cause of electrolyte abnormalities; repleted as below. Hypomagnesemia/Hypokalemia: - electrolytes improved this AM - potassium 3.7 and Mg 2 - continue maintenance IVF (1/2NS + 20 mEq of KCl) at 125 mls/hr given continued diarrhea and poor fluid intake Prolonged QT: - EKG with computer read of QTc 533, this finding is not new. EKG from May 2017 with QTc 539. - No palpitations, avoid QT prolonging medications as able. - reheck of EKG yesterday is unchanged - will d/c continuous cardiac monitoring given this is chronic Multiple myeloma: - On admission leukopenic, anemic, plts 130. No active signs of bleeding. No fev ers. CBC stable over the last several weeks. - Actively taking Revlimid daily and daratumumab IV monthly -> Hold above for now in the setting of her acute illness. -> per heme/onc, okay to restart revlimid once her diarrhea starts to improve. Revlimid is non-formulary, and if she remains admitted, her is agreeable to bringing this in - CTAP on admission shows no progression of her bony lesions from recent PET scan. - Follow up on discharge with oncology for continued treatment. DM2 w/peripheral neuropathy - well controlled on home oral meds. - SSI here in hospital. - DM2 diet, BSG qACHS - continue home lyrica for diabetic neuropathy HTN: - Not on any home medication in the outpatient setting. - BP here consistently elevated, however no higher than 160s/80s. - PCP follow up for HTN control. - PRN hydralazine 5mg IV q6h for SBP >180, DBP >110. Hypothyroidism - continue home synthroid - last TSH 0.8 in 03/2019 GERD - patient w/hx of GERD, hiatal hernia and esophageal dysmotility - previously on protonix qAM and zantac qPM - home protonix changed to pepcid 20mg BID to try and decrease risk of future episodes of c.diff Hypercholesterolemia -continue home simvastatin Code Status: FULL CODE FEN/GI: DM2 diet, fluids and electrolyte repletion as above DVT ppx: no active bleeding, no thrombocytopenia <50; Heparin 5000u SQ q12 Dispo: downgrade from Med/Surg with Telemetry to med/surg for PT/OT and electrolyte/nutrition management. 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 Miller with the following additions/exceptions: Patient is a 79-year-old female with a history of multiple myeloma on active chemotherapy, history of C. difficile colitis, history of colostomy due to bowel obstruction with subsequent reversal, DM 2, asthma, overactive bladder, GERD, HTN, hypothyroidism, B12 deficiency anemia, who presents with 3 weeks of ana rrhea much worse in the last few days prior to admission that is nonbloody and watery. She is also having some periumbilical left lower quadrant abdominal pain. Afebrile. His not taking any recent antibiotics. She thought maybe was related to her chemotherapy but then when it became significantly worse and she became severely fatigued, she came in. She was found to have multiple electrolyte ab normalities and soto colitis on CT scan. Subsequent stool testing revealed positive for C. difficile gene and toxin. She is significantly improved today. Had 2 loose stools overnight and only one so far today. Abd pain is much improved. She is eating 100% of her meals and drinking fluids. Worked with PT/OT and felt she did "well." Vitals reviewed Gen: AAOx3, NAD HEENT: Anicteric sclerae CV: RRR no mgr nl S1S2, some ectopy occasionally Pulm: CTAB no wcr Abd: +BS soft mild tenderness to palpation the left lower quadrant without guarding or rebound tenderness, ND with small reducible supraumbilical hernia, surgical scar in left lower quadrant from previous colostomy Ext: No edema, 2+ DP pulses Skin: No rashes, warm/dry 79-year-old female with history as above, here with pancolitis, dehydration, generalized weakness, dehydration, found to have C. difficile colitis. Much improved now -can lower IVFs to 75mL/hr and dc in the AM if diarrhea continues to slow down -continue cholestyramine bid -Continue p.o. vancomycin as above and will do prolonged course. Could consider Dificid -Consider referral for fecal transplant but unclear if would be a candidate-not likely given her history as she is immunosuppressed -Discontinued empiric Cipro and Flagyl, but will continue to follow stool culture -Hold home chemotherapy as per discussion with oncology today-can restart Revlimid when diarrhea has slowed down and if counts do not drop too low on CBC Continued stay but hopeful for dc tomorrow most likely PT/OT consulted for weakness-stable for return to home with home health and 27/11 supervision which she has with her daughter who lives in apartment above her Subjective Ms. Segovia reports her abdominal pain today is about the same. She states she thinks her BMs may be slowing down. She had two overnight, but none yet this AM. She states her appetite is slowly improving, and she was able to eat an entire piece of [place] this AM, as well as some yogurt. She reports she is not a big water drinker, and does not think she is keeping up with her fluid requirements at this point. She still feels unsteady and weak on her feet, but is happy to be out of bed and sitting in a chair. Review of Systems Constitutional: + fatigue and + weakness; no fever and no chills Respiratory: no cough and no dyspnea Cardiovascular: no chest pain and no calf pain Gastrointestinal: + abdominal pain and + diarrhea/loose stools; no nausea and no vomiting Physical Exam Constitutional: WD/WN, vitals as above Respiratory: normal respiratory effort, lungs clear to auscultation Cardiovascular: RRR, no murmur, no edema Gastrointestinal (Abdomen): soft, mildly tender in lower regions of abdomen Skin: no rashes, warm and dry Results & Data ([facility]) Vital Signs (Past 12 Hours) Vital Signs Temp Pulse Pulse Resp BP Pulse Ox 09/28/19 03:30 36.6 C 62 18 162/68 H 94 09/27/19 23:44 37.1 C 74 18 169/80 H 97 09/27/19 22:53 70 09/27/19 19:32 36.8 C 71 18 133/69 94 Resident Activity Tracking Resident Involvement: Resident Care Provided Care Provided: Adult Hospital Medicine
[2019-09-28 07:10] LABS: Basophils # (auto) 0.01 K/uL (0-0.2); Basophils % (auto) 0.3 %; Eosinophils # (auto) 0.19 K/uL (0-0.5); Eosinophils % (auto) 5.3 %; Lymphocytes # (auto) 1.86 K/uL (1.2-3.4); Monocytes % (auto) 8.4 %; Neutrophils # (auto) 1.22 K/uL (1.4-6.5)
[2019-09-28] MEDS: HEPARIN SOD 5,000 UNIT/0.5 ML VIAL SQ SCH ×2 (09:42→20:58)
[2019-09-28] MEDS: FAMOTIDINE 20 MG TAB PO SCH ×2 (09:43→21:00)
[2019-09-28] MEDS: LEVOTHYROXINE SODIUM 75 MCG TABLET PO SCH (09:43)
[2019-09-28] MEDS: CYANOCOBALAMIN 500 MCG TABLET (VITAMIN B-12) PO SCH (09:43)
[2019-09-28] MEDS: ACYCLOVIR 400 MG TAB PO SCH ×2 (09:43→20:59)
[2019-09-28] MEDS: CHOLESTYRAMINE LIGHT 4 GM PKT PO SCH ×2 (09:44→21:00)
[2019-09-28] MEDS: FLUTICASONE/VILANTEROL 200/25MCG 14 PUFFS/INHALER INH SCH (09:44)
[2019-09-28] MEDS: INSULIN ASPART 100 UNITS/ML 3 ML PEN SC SCH ×4 (09:44→20:44)
[2019-09-28] MEDS: TAPENTADOL HCL 50 MG TAB PO PRN ×2 (09:51→21:05)
[2019-09-28] MEDS: PREGABALIN 75 MG CAP PO SCH ×2 (09:51→21:05)
[2019-09-28 11:11] LABS: Estimated Average Glucose 160 mg/dl; Hemoglobin A1C 7.2 % (4.5-5.6)
--- NOTE | 2019-09-28 17:37 | Billing Data ---
Date of Service September 28, 2019 Coding Level of Care Code 18427 Subseq Hosp Care Lvl 3
[2019-09-28] MEDS: SIMVASTATIN 40 MG TAB PO SCH (20:59)
[2019-09-29] MEDS: VANCOMYCIN HCL 125 MG/2.5ML SOLN PO SCH ×5 (00:50→23:26)
[2019-09-29] MEDS: RASPBERRY SYRUP 5 ML UDP PO SCH ×5 (00:50→23:25)
[2019-09-29 06:17] LABS: Hematocrit (blood only) 34.5 % (37-47); Hemoglobin 11.7 g/dL (12.0-16.0); Mean Corpuscular Hemoglobin 30.5 pg (25-34); Mean Corpuscular Hgb Conc 33.9 g/dL (32-36); Mean Corpuscular Volume 89.8 fL (80-100); Mean Platelet Volume 10.8 fL (7.4-10.4); Platelet Count 140 K/uL (130-400); RDW Coefficient of Variation 13.8 % (11.5-14.5); RDW Standard Deviation 45.2 fL (36.4-46.3); Red Blood Count 3.84 M/uL (4.2-5.4); White Blood Count 4.14 K/uL (4.8-10.8)
[2019-09-29 06:26] LABS: BUN Creatinine Ratio 14.3 (10-20); Calcium 8.3 mg/dl (8.5-10.1); Creatinine Clr Calc Pharmacy 69.3 ml/min; Est GFR (African American) 99.3; Est GFR (Non-African American) 85.6; Potassium 3.8 mmol/L (3.5-5.1)
[2019-09-29] MEDS ORDERED: MICONAZOLE NITRATE POWDER 43 GM EXT PRN (06:41)
[2019-09-29 07:17] LABS: Basophils # (auto) 0.01 K/uL (0-0.2); Basophils % (auto) 0.2 %; Eosinophils # (auto) 0.18 K/uL (0-0.5); Eosinophils % (auto) 4.3 %; Immature Granulocytes # (auto) 0.01 K/uL (0.00-0.02); Immature Granulocytes % (auto) 0.2 %; Lymphocytes # (auto) 2.28 K/uL (1.2-3.4); Lymphocytes % (auto) 55.1 %; Monocytes # (auto) 0.47 K/uL (0.11-0.59); Monocytes % (auto) 11.4 %; Neutrophils # (auto) 1.19 K/uL (1.4-6.5); Neutrophils % (auto) 28.8 %
[2019-09-29] MEDS: FLUTICASONE/VILANTEROL 200/25MCG 14 PUFFS/INHALER INH SCH (08:04)
[2019-09-29] MEDS: CYANOCOBALAMIN 500 MCG TABLET (VITAMIN B-12) PO SCH (08:05)
[2019-09-29] MEDS: LEVOTHYROXINE SODIUM 75 MCG TABLET PO SCH (08:05)
[2019-09-29] MEDS: HEPARIN SOD 5,000 UNIT/0.5 ML VIAL SQ SCH ×2 (08:05→19:05)
[2019-09-29] MEDS: ACYCLOVIR 400 MG TAB PO SCH ×2 (08:05→19:04)
[2019-09-29] MEDS: FAMOTIDINE 20 MG TAB PO SCH ×2 (08:15→21:37)
[2019-09-29] MEDS: INSULIN ASPART 100 UNITS/ML 3 ML PEN SC SCH ×4 (08:59→21:25)
[2019-09-29] MEDS: PREGABALIN 75 MG CAP PO SCH ×2 (09:00→21:37)
[2019-09-29] MEDS: SODIUM CHLOR 0.45% + 20MEQ KCL 20 MEQ/1,000 ML BAG IV SCH ×3 (09:11→23:25)
--- NOTE | 2019-09-29 09:54 | Family Medicine Progress Note ---
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 Pancolitis: - CT abdomen and pelvis showed mild pancolitis. - C. diff positive (patient has a history of the same). -> Oral vancomycin initiated on 09/25. Patient would benefit from pulse tapered regimen given her repeated episodes of C. diff. -> Consider referral to ID for outpatient fecal transplant given immunosuppression and elderly status. Will try to get patient an appointment with [facility] for 10/16 given pt's Oncology appointment is that day. - WBC smear shows fecal WBC, and mixed normal fecal michel, stool Cx negative. - Continue cholestyramine BID to decrease frequency of diarrhea. - Diarrhea for several weeks likely cause of electrolyte abnormalities; repleted as below. Hypomagnesemia/Hypokalemia: - Electrolytes improved this AM - potassium 3.8; Mg 2.0 yesterday. - Continue maintenance IVF (1/2NS + 20 mEq of KCl) at 125 mls/hr given continued diarrhea and poor fluid intake (urine output 0.42mL/kg/hr). Prolonged QT, chronic: - EKG with computer read of QTc 533, this finding is not new. EKG from May 2017 with QTc 539. - No palpitations, avoid QT prolonging medications as able. - Recheck of EKG yesterday is unchanged. Multiple myeloma: - On admission leukopenic, anemic, plts 130. No active signs of bleeding. No fevers. CBC stable over the last several weeks. - Actively taking Revlimid daily and daratumumab IV monthly -> Hold above for now in the setting of her acute illness. -> Per heme/onc, okay to restart Revlimid once her diarrhea starts to improve. Will resume on discharge. - CTAP on admission shows no progression of her bony lesions from recent PET scan. - Follow up on discharge with oncology for continued treatment (currently scheduled 10/16). DM2 w/peripheral neuropathy - Well controlled on home oral meds. - SSI here in hospital. - DM2 diet, BSG qACHS. - Continue home lyrica for diabetic neuropathy. HTN: - Not on any home medication in the outpatient setting. - BP here consistently elevated, however no higher than 160s/80s. - PCP follow up for HTN control. - PRN hydralazine 5mg IV q6h for SBP >180, DBP >110. Hypothyroidism - Last TSH 0.8 in 03/2019. - Continue home Synthroid. GERD - Patient w/hx of GERD, hiatal hernia and esophageal dysmotility. - Previously on protonix qAM and zantac qPM. - Home protonix changed to pepcid 20mg BID to try and decrease risk of future episodes of C. diff. Hypercholesterolemia - Continue home simvastatin. GERD: - Continue famotidine 20mg BID. Code Status: FULL CODE FEN/GI: DM2 diet, fluids and electrolytes as above DVT ppx: No active bleeding, no thrombocytopenia <50; Heparin 5000u SQ q12 Dispo: Med/Surg for PT/OT and electrolyte/nutrition management. Anticipate d/c home tomorrow. 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 Hudson. I agree with her exam findings, review of systems, assessment and plan. I have personally reviewed the lab work and imaging from today. patient feeling better, no pain, stools are starting to be formed tolerating her diet, no fevers she agrees that she will be ready for d/c tomorrow Exam: elderly female, NAD, well nourished lungs CTA bilaterally, normal effort heart regular S1, S2 no murmurs, no edema abdomen soft, ND, NT, + BS C diff colitis, recurrent continue on Vancomycin 125mg PO q6, will plan for extended taper on discharge stools are starting to be formed, no pain, no fever, tolerating diet recommend referral to ID clinic for plan going forward, this is 4th episode will likely be at risk of recurrence with her treatment for MM perhaps she will need daily Vancomycin for suppression, defer to ID as outpatient Subjective Pt without acute events overnight. Still with mild abdominal discomfort, had her first formed stool per her this AM. Slept well overnight, because she "wasn't running to the bathroom every hour". No nausea or vomiting. Feels subjectively less weak today however "not quite back" to baseline with regard to her strength. Review of Systems Constitutional: + fatigue and + weakness; no fever and no chills Respiratory: no cough and no dyspnea Cardiovascular: no chest pain and no calf pain Gastrointestinal: + abdominal pain (Mild); no nausea and no vomiting soft stools this AM Physical Exam Constitutional: WD/WN, vitals as above Respiratory: normal respiratory effort, lungs clear to auscultation Cardiovascular: RRR, no murmur, no edema Gastrointestinal (Abdomen): soft, mildly tender in lower regions of abdomen Skin: no rashes, warm and dry Results & Data ([facility]) Vital Signs (Past 12 Hours) Vital Signs Temp Pulse Resp BP Pulse Ox 09/29/19 08:40 36.9 C 71 18 136/89 98 09/29/19 04:32 66 168/79 H 09/29/19 03:00 181/79 H 09/29/19 02:24 36.6 C 77 16 97 09/28/19 23:43 36.8 C 65 18 173/78 H 94 Resident Activity Tracking Resident Involvement: Resident Care Provided Care Provided: Adult Hospital Medicine
[2019-09-29] MEDS: CHOLESTYRAMINE LIGHT 4 GM PKT PO SCH ×2 (10:33→22:40)
--- NOTE | 2019-09-29 12:42 | Electrocardiogram Report ---
Test Reason : Blood Pressure : / mmHG Vent. Rate : 064 BPM Atrial Rate : 064 BPM P-R Int : 176 ms QRS Dur : 144 ms QT Int : 514 ms P-R-T Axes : -06 -63 -01 degrees QTc Int : 530 ms Normal sinus rhythm Right bundle branch block Left anterior fascicular block Bifascicular block Moderate voltage criteria for LVH, may be normal variant Abnormal ECG When compared with ECG of 27-SEP-2019 07:30, Premature atrial complexes are no longer Present Confirmed by Dandre Sanford ([id number]) on 09/29/2019 12:42:07 PM Referred By: REFERRED SELF Confirmed By:Dandre Sanford
[2019-09-29] MEDS: TAPENTADOL HCL 50 MG TAB PO PRN ×2 (13:12→22:46)
[2019-09-29] MEDS ORDERED: Nursing to Pharmacy Communication ONE (17:11)
[2019-09-29] MEDS: SIMVASTATIN 40 MG TAB PO SCH (19:04)
--- NOTE | 2019-09-29 22:09 | Billing Data ---
Date of Service September 29, 2019 Coding Level of Care Code 49917 Subseq Hosp Care Lvl 2
[2019-09-30] MEDS: RASPBERRY SYRUP 5 ML UDP PO SCH ×2 (05:09→12:53)
[2019-09-30] MEDS: VANCOMYCIN HCL 125 MG/2.5ML SOLN PO SCH ×2 (05:10→12:53)
[2019-09-30] MEDS: FLUTICASONE/VILANTEROL 200/25MCG 14 PUFFS/INHALER INH SCH (08:35)
[2019-09-30] MEDS: LEVOTHYROXINE SODIUM 75 MCG TABLET PO SCH (08:36)
[2019-09-30] MEDS: PREGABALIN 75 MG CAP PO SCH (08:37)
[2019-09-30] MEDS: CYANOCOBALAMIN 500 MCG TABLET (VITAMIN B-12) PO SCH (08:38)
[2019-09-30] MEDS: ACYCLOVIR 400 MG TAB PO SCH (08:39)
[2019-09-30] MEDS: HEPARIN SOD 5,000 UNIT/0.5 ML VIAL SQ SCH (08:40)
[2019-09-30] MEDS: INSULIN ASPART 100 UNITS/ML 3 ML PEN SC SCH ×2 (08:42→12:56)
[2019-09-30] MEDS: FAMOTIDINE 20 MG TAB PO SCH (09:53)
[2019-09-30] MEDS: CHOLESTYRAMINE LIGHT 4 GM PKT PO SCH (09:53)
[2019-09-30] MEDS: HEPARIN 100 UNIT/ML 5ML FLUSH FLUSH PRN ×2 (13:02→14:28)
[2019-09-30] MEDS: SODIUM CHLOR 0.45% + 20MEQ KCL 20 MEQ/1,000 ML BAG IV SCH (13:06)
--- NOTE | 2019-09-30 14:06 | Discharge Summary ---
Date of Service September 30, 2019 Admission HPI Per Admitting Provider 79 yo F PMHx multiple myeloma s/p bone marrow transplant with recent chemotherapy treatment with Revlimid, DM2 with neuropathy, asthma, urinary incontinence, radiculopathy, sarcoidosis of the lung, GERD, HTN presented to the ER for weakness and diarrhea x3 weeks, worsening over the last one week and with even looser, watery diarrhea overnight associated with abdominal pain. Without shortness of breath, fevers, chills, chest pain. In the ED had CTAP which showed mild pancolitis, probably cholelithiasis without gallbladder wall thickening. CXR negative for acute process. CBC showed leukopenia to 3.97, anemia to 11.9; BMP with hypokalemia to 3.1, Mg to 1.4; UA showed no bacteria, mild LE, no nitrites. EKG with prolonged QT to 533. Pt was given magnesium 1g, K 40meq. Hospital service consulted for admission. On my interview patient reports about 3 weeks of intermittent non-bloody, non- melanotic diarrhea without associated abdominal pain. 2 weeks ago started treatment for her multiple myeloma with the chemotherapy drug Revlimid; has been on this drug before with bouts of weakness and diarrhea in the past. Only symptom at this time is abdominal pain, mild, right sided. Principal Diagnosis C. diff colitis Discharge Data Allergies Allergy/AdvReac Type Severity Reaction Status Date / Time Sulfa (Sulfonamide Allergy Severe RASH Verified 09/26/19 10:52 Antibiotics) latex Allergy Unknown REDNESS Verified 09/26/19 10:52 codeine AdvReac Intermediate SPACED OUT Verified 09/26/19 10:52 adhesive AdvReac Mild BREAKS OUT Verified 09/26/19 10:52 amoxicillin AdvReac Unknown YEAST Verified 09/26/19 10:52 INFECTION clavulanic acid AdvReac Unknown YEAST Verified 09/26/19 10:52 INFECTION Consultations 09/26/19 12:26 ED Decision to Admit Stat 09/26/19 18:26 Consult Case Management - Discharge Planning Routine 09/28/19 17:38 Consult JUSTYNAG sign language translator Routine 09/30/19 11:16 Consult JUSTYNAG sign language translator Routine Ordered Studies 09/26/19 10:10 CT abd pelvis IV con only Stat Hospital Course (1) Diarrhea: 79 yo F PMHx multiple myeloma s/p bone marrow transplant with recent chemotherapy treatment with Revlimid, 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 Pancolitis: - CT abdomen and pelvis showed mild pancolitis. - C. diff positive (patient has a history of the same). -> Oral vancomycin initiated on 09/25. -> Have started pulsed tapered regimen here (125mg QID 10 days, 125mg BID 7 days, 125mg daily 7 days, 125mg every 3 days for 4 weeks). - WBC smear shows fecal WBC, and mixed normal fecal michel, stool Cx negative. - Diarrhea for several weeks likely cause of electrolyte abnormalities; repleted as below. - Will have Gastroenterology follow up in October regarding recurrent C. diff infections. Patient would likely be of great benefit from a stool transplant. Hypomagnesemia/Hypokalemia: - Repleted this admission. Prolonged QT, chronic: - EKG with computer read of QTc 533, this finding is not new. EKG from May 2017 with QTc 539. - No palpitations, avoid QT prolonging medications as able. - Recheck of EKG yesterday is unchanged. Multiple myeloma: - On admission leukopenic, anemic, plts 130. No active signs of bleeding. No fevers. CBC stable over the last several weeks. - Actively taking Revlimid daily and daratumumab IV monthly -> Held while inpatient. Patient may resume Revlimid upon discharge. - CTAP on admission shows no progression of her bony lesions from recent PET scan. - Follow up on discharge with oncology for continued treatment (currently scheduled 10/16 at [place]). DM2 w/peripheral neuropathy - Well controlled on home oral meds. - Resume home glimepiride. - Continue home lyrica for diabetic neuropathy. HTN: - Not on any home medication in the outpatient setting. - BP here consistently elevated, however no higher than 160s/80s. - PRN hydralazine 5mg IV q6h for SBP >180, DBP >110 while admitted, did not require this. Hypothyroidism - Last TSH 0.8 in 03/2019. - Continue home Synthroid. GERD - Patient w/hx of GERD, hiatal hernia and esophageal dysmotility. - Continue home Protonix, famotidine. Hypercholesterolemia - Continue home simvastatin. 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 diff. colitis Activity: Per Instructions section Non-emergency contact: Primary Care Provider Call non-emergency contact if: you have any medication questions, your symptoms worsen and your temperature is above 101 Follow-up/Referrals: Italo Burr III, MD [Primary Care Provider] - Diet: Regular Addtl Attending Provider Instructions: You were admitted to the hospital for diarrhea and weakness and found to have c. diff on your labwork. C. diff is an infection you have had before, an overgrowth of "bad bacteria" in your gut that cause diarrhea and abdominal pain. You were likely weak because of having diarrhea for so long. We gave you fluids, and an tibiotics called vancomycin for your infection. You were determined to be safe for discharge home with the following recommendations: 1) You will take one vancomycin 125 mg every 6 hours for the next 10 days (until 10/08). 2) On 10/09 you will take one 125 mg pill every 12 hours for 7 days (until 10/16). 3) On 10/17 you will take one 125 mg vancomycin pull every day for 1 week (until 10/23). 4) On 10/24 you will take one 125 mg vancomycin pull every 3 days for 4 weeks. This medication has been sent to the [facility] on [facility] in [place]. You will be contacted by your primary care doctor and by the [place] [facility] office regarding follow up for your infection. If you do not hear from your primary care doctor by Sunday please call for a follow up appointment. At that appointment please discuss that you have GI follow up in [place] for recurrent C. diff infections. Pending Studies at Discharge: No Stand-Alone Forms: My [facility], Smoking Cessation Medications and DC Order Prescriptions: New vancomycin 125 mg capsule See Rx Instructions .ROUTE .COMPLEX Qty: 70 RF: 0 Continued cyanocobalamin (vitamin B-12) [Vitamin B-12] 1,000 mcg tablet 1,000 mcg PO DAILY RF: 0 meclizine 12.5 mg tablet 12.5 mg PO TID PRN (Reason: Dizziness) RF: 0 acyclovir 400 mg tablet 400 mg PO BID RF: 0 albuterol sulfate [Ventolin HFA] 90 mcg/actuation HFA aerosol inhaler 2 puffs INH Q6H PRN (Reason: sob) RF: 0 zoledronic acid [Zometa] 4 mg/5 mL solution 4 mg IV MONTHLY RF: 0 lactobacillus combination no.9 [Adult 50 Plus Probiotic] 4 billion cell capsule 4,000 mmu cells PO DAILY RF: 0 furosemide [Lasix] 20 mg tablet 20 mg PO DAILY PRN (Reason: swelling) RF: 0 Darzalex 20 mg/mL solution 20 mg IV MONTHLY RF: 0 Lyrica 75 mg capsule 75 mg PO BID Qty: 180 RF: 1 glimepiride 4 mg tablet 4 mg PO BID Qty: 60 RF: 5 levothyroxine [Synthroid] 75 mcg tablet 75 mcg PO DAILY Qty: 90 RF: 3 pantoprazole [Protonix] 40 mg tablet,delayed release (DR/EC) 40 mg PO DAILY Qty: 90 RF: 3 simvastatin [Zocor] 40 mg tablet 40 mg PO QPM Qty: 90 RF: 3 fluticasone propion-salmeterol [Advair Diskus] 250-50 mcg/dose blister with device 1 inh inhalation BID RF: 0 Nucynta 50 mg tablet 50 mg PO TID PRN (Reason: pain) RF: 0 Revlimid 2.5 mg capsule 2.5 mg PO MONTHLY RF: 0 Discontinued diphenoxylate-atropine [Lomotil] 2.5-0.025 mg tablet 1 tab PO TID PRN (Reason: diarrhea) RF: 0 Discharge Orders: Discharge Order (Routine); Ordered 09/30/19 Ordered By: Marysol Escalante/Other Patient Handouts: Diabetes Type 2 Managing Admission Data Admit Date/Time: 09/26/19 15:06 Attending Provider: Mauricio Mitchell Admit Provider: Marysol Hudson Primary Care Provider: Italo Burr III Other Providers: Trevon Gasca ; Jerry Bianchi ; [facility] Other Interventions: Discharge Summary Assessment (RN) Last Done: 09/30/19 13:47 DC Date/Time DO NOT enter until pt leaves facility: 09/30/19 15:08 Supervising Physician Co-Signing Physician Notes I personally examined the patient and verified all akhtar points of history and exam, discussed case, and agree with decision making with Dr Cain. feeling better feeling up to going home. diarrhea improving. discussed f/u for ID or fecal transplant w GI. C diff colitis, recurrent extended course of vanco, referral for ?fecal transplant vs ID for ongoing med management stable for discharge to home, otherwise as above antineoplastic therapy induced pancytopenia - overall stable, outpt f/u Resident Activity Tracking Resident Involvement: Resident Care Provided Care Provided: Adult Hospital Medicine
--- NOTE | 2019-09-30 18:24 | Billing Data ---
Date of Service September 30, 2019 Coding Level of Care Code D/C Day Management <30 mins
== END 2019-09-30 15:08 | disposition home health service (06) | DRG 371 ==
LOC: ED 09:47 → 2W 15:06 → SUATTDRO 15:06 → 2W 18:03 → 3E 09-29 02:21

== ENCOUNTER 2020-08-29 11:42 | Inpatient (IN) ==
[2020-08-29] MEDS ORDERED: SODIUM CHLORIDE 0.9% 500 ML IV STA (11:58)
[2020-08-29 12:19] LABS: Hemoglobin 10.9 g/dL (12.0-16.0); Mean Corpuscular Hemoglobin 32.3 pg (25-34); Mean Corpuscular Hgb Conc 34.1 g/dL (32-36); Mean Platelet Volume 11.8 fL (7.4-10.4); Platelet Count 143 K/uL (130-400); RDW Coefficient of Variation 15.8 % (11.5-14.5); RDW Standard Deviation 54.8 fL (36.4-46.3); Red Blood Count 3.37 M/uL (4.2-5.4); White Blood Count 5.78 K/uL (4.8-10.8)
[2020-08-29 12:26] LABS: BUN Creatinine Ratio 34.4 (10-20); Calcium 8.7 mg/dl (8.5-10.1); Creatinine Clr Calc Pharmacy 65.5 ml/min; Est GFR (African American) 97.1; Est GFR (Non-African American) 83.8; Potassium 4.1 mmol/L (3.5-5.1)
[2020-08-29] MEDS ORDERED: ACETAMINOPHEN 1000 MG/100 ML IV IV STA (12:30)
[2020-08-29] MEDS ORDERED: MoRPHine SULFATE 2 MG/ML CARP IV PRN (12:30)
[2020-08-29] MEDS ORDERED: ONDANSETRON INJ 2 MG/ML 2 ML VIAL IV STA (12:30)
--- NOTE | 2020-08-29 12:53 | XRay Report ---
XR chest 1V portable CLINICAL HISTORY: r chest pain COMPARISON STUDY: Chest radiograph September 26, 2019 FINDINGS: Left internal jugular [id number] is in place. There is no pneumothorax. A small to moder ate right pleural effusion is noted. There is asymmetric right lung airspace opacity. Basilar congest ion with possible mild pulmonary edema. Cardiomegaly is unchanged. A probable hiatal hernia is noted. IMPRESSION: 1. Small to moderate right pleural effusion with asymmetric right lung airspace opacity which may ref lect pneumonia or atelectasis. Radiographic follow up is recommended. 2. Pulmonary vascular congestion with suspected mild pulmonary edema. 3. Probable hiatal hernia. ACT 112: Negative or not required by law. Electronically signed by: Josiah Artis M.D. 08/29/2020 12:52 PM
--- NOTE | 2020-08-29 13:00 | Emergency Department Note ---
Impression & Plan Acute right flank pain, Pleural effusion, Pneumonia, Sarcoid ED Provider Note NAME: SIXTO LE AGE: 80 SEX: F : 1940 ARRIVES VIA: Ambulance INFORMANT: [Patient] ED PROVIDER(S): [Jose Bernardo MD] CHIEF COMPLAINT: Flank pain HISTORY OF PRESENT ILLNESS: The patient is a 80-year-old female with multiple myeloma. She presents with 1 week of right flank pain that she rates as a 10/10. The pain is worse to move. She has not had fever, she denies any shortness of breath. She has not had nausea or vomiting or diarrhea. No urinary complaints. She denies fall or trauma. There has been no rash. Patient states that she has never experienced pain like this before. She was brought for evaluation. Her daughter is at bedside. As per EMS, there was concern for kidney stone as the cause for her pain although, the patient has never had a stone and there is no family history of this diagnosis. REVIEW OF SYSTEMS: See HPI for pertinent positives and negatives. A total of ten systems were reviewed and were otherwise negative. PMHx/PSHx: See Below SOCIAL HISTORY: See Below. PHYSICAL EXAM: GENERAL: Patient is in no acute distress. HEENT: No acute trauma, normocephalic atraumatic, mucous membranes moist, no nasal congestion, no scleral icterus. NECK: No stridor, no adenopathy, no meningismus, trachea is midline. LUNGS: Decreased breath sounds on the right with crackles and rhonchi on the right. The left lung is clear. HEART: Subtle systolic murmur, somewhat irregular rhythm, normal rate. ABDOMEN: Tender along the right upper quadrant and right mid abdomen. There is an umbilical hernia which is nontender. No peritonitis. EXTREMITIES: No cyanosis or edema, full range of motion of all the joints without pain or difficulty, no signs for acute trauma. NEUROLOGIC: Oriented x 3, no acute motor or sensory deficits, no focal weakness. SKIN: No rash, no jaundice, no diaphoresis. Back: She does have significant pain with movement such as sitting up. There is no rash. DIFFERENTIAL DIAGNOSIS: Appendicitis, ovarian cyst, ovarian torsion, pneumonia, PE, malignancy, infections, diverticulitis, UTI, obstruction, mesenteric ischemia, aortic pathology, inflammatory bowel disease, renal colic, PUD, pancreatitis, biliary p athology, hernia, volvulus, constipation, as well as other pathologies. EMERGENCY DEPARTMENT COURSE/PROCEDURES: MEDICAL DECISION MAKING: There is no leukocytosis. The patient is anemic but this is baseline when looking back at previous testing. There is a normal platelet count. No kidney failure or significant electrolyte abnormality. No worrisome liver enzyme elevation. No evidence for pancreatitis. Covid and influenza testing returned negative. Chest x-ray shows a right lung pneumonia with an associated effusion. Chest CT shows the same findings, no PE. Abdominal and pelvis CT does not show any acute surgical process. There was no evidence for bowel obstruction, there is no evidence for ureteral stone. On exam, the patient did have crackles and rhonchi over the area of her right posterior lung. She was not toxic, she was not febrile. The patient was given IV Tylenol for pain. She was ordered for IV morphine as needed for pain. She received IV Zofran for nausea. She received a 500 cc saline bolus and was given 4.5 g of IV Zosyn as antibiotic coverage. The patient is currently comfortable. I do think she requires a hospital stay. She appears to have a pneumonia with a pleural effusion as the cause for her right flank pain. Certainly, a tumor/mass is also a possibility. I spoke to the patient and case management. The on-call hospitalist has been consulted. 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 Depression Diabetes mellitus Former smoker GERD (gastroesophageal reflux disease) Hyperlipidemia Hypertension Hypoxia Immunosuppressed status Lumbago Multiple myeloma (05/24/12) Osteoarthritis Pneumonia Sacroiliitis Urinary incontinence Vertigo Surgical History H/O colonoscopy H/O esophagogastroduodenoscopy History of ankle surgery History of bilateral carpal tunnel release History of bone marrow transplant History of colostomy History of tonsillectomy and adenoidectomy Status post cataract extraction of both eyes with insertion of intraocular lens Family History Mother Cervical cancer Father Emphysema, unspecified FHx: kidney cancer Denies family history of Ovarian cancer Prostate cancer Myocardial infarction Breast cancer Colorectal cancer Social History Smoking Status: Never smoker Second Hand Exposure: No; Hx Alcohol Use: No Hx Substance Use: No Preferred Language: Ukrainian Communication Ability: Effective Visual Impairment: No Limitations Hearing Ability: Normal Teacher'S Assistant Required: No Beliefs That Will Affect Care: None marital status: Current Living Situation: Spouse and Family current occupational status: retired 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 Feels Safe at Home: Yes Childhood Exposure to Second-Hand Smoke: No Dental Care, Regularly: Yes Physical Activity Frequency: Does not Exercise Seatbelt Use: always Sunscreen Use: Yes Assistive Devices: Walker Allergies Allergies Allergy/AdvReac Type Severity Reaction Status Date / Time Sulfa (Sulfonamide Allergy Severe RASH Verified 08/29/20 14:51 Antibiotics) latex Allergy Unknown REDNESS Verified 08/29/20 14:51 codeine AdvReac Intermediate SPACED OUT Verified 08/29/20 14:51 adhesive AdvReac Mild BREAKS OUT Verified 08/29/20 14:51 amoxicillin AdvReac Unknown YEAST Verified 08/29/20 14:51 INFECTION clavulanic acid AdvReac Unknown YEAST Verified 08/29/20 14:51 INFECTION Home Meds Home Medications Medication Instructions Recorded Confirmed acyclovir 400 mg tablet 400 mg PO BID tab 01/25/18 08/29/20 albuterol sulfate 90 mcg/actuation 2 puffs INH Q6H PRN 01/25/18 08/29/20 aerosol inhaler cyanocobalamin (vitamin B-12) 1,000 mcg PO DAILY 01/25/18 08/29/20 1,000 mcg tablet lactobacillus combination no.9 4 4,000 mmu cells PO DAILY 01/25/18 08/29/20 billion cell capsule meclizine 12.5 mg tablet 12.5 mg PO TID PRN 01/25/18 08/29/20 zoledronic acid 4 mg/5 mL 4 mg IV MONTHLY ml 01/25/18 08/29/20 intravenous solution daratumumab 20 mg/mL intravenous 20 mg IV MONTHLY ml 01/27/19 08/29/20 solution Revlimid 2.5 mg PO MONTHLY 09/26/19 08/29/20 ixazomib 2.3 mg capsule See Rx Instructions PO .COMPLEX 04/21/20 08/29/20 dexamethasone 20 mg tablet 20 mg PO WK tab 07/13/20 08/29/20 pomalidomide 2 mg capsule 2 mg PO DAILY 07/13/20 08/29/20 Previous Rx's Medication Instructions Recorded simvastatin 40 mg tablet 40 mg PO QPM #90 tab 07/28/19 aspirin 81 mg tablet,delayed 81 mg PO DAILY #30 tab 10/01/19 release blood sugar diagnostic #100 ea 10/15/19 clotrimazole-betamethasone 1 1 applic TOPICAL BID PRN #30 ml 04/23/20 %-0.05 % lotion naproxen 500 mg tablet 500 mg PO BID 14 Days #28 tab 07/13/20 furosemide 20 mg tablet 20 mg PO DAILY PRN #90 tab 08/23/20 glimepiride 4 mg tablet 4 mg PO BID #180 tab 08/23/20 levothyroxine 75 mcg tablet 75 mcg PO DAILY #90 tab 08/23/20 pantoprazole 40 mg tablet,delayed 40 mg PO DAILY #90 tab 08/23/20 release pregabalin 75 mg capsule 75 mg PO BID #180 cap 08/23/20 tapentadol 50 mg tablet 50 mg PO TID PRN #90 tab 08/23/20 fluticasone 250 mcg-salmeterol 50 1 inh INHALATION BID #180 ea 08/27/20 mcg/dose blistr powdr for inhalation Results & Data (ED) Vital Signs Vital Signs - 24 hr 08/29/20 11:45 08/29/20 11:49 08/29/20 11:50 Temperature Temperature Source Pulse Rate 84 87 88 Pulse Rate from SpO2 Sensor 90 93 H 91 H Respiratory Rate 24 21 24 Respiratory Effort / Characteristics Respiratory Depth Respiratory Pattern Blood Pressure 149/72 H Blood Pressure Mean 97 Blood Pressure Position Pulse Oximetry 97 97 97 Oxygen Delivery Method Nasal Cannula Nasal Cannula Nasal Cannula Oxygen Flow Rate 2 2 2 Sepsis Recent Fever Within 48 Hours Sepsis New/Unexplained Change in Mental Status Sepsis Action Taken by Nursing 08/29/20 11:52 08/29/20 12:00 08/29/20 12:10 Temperature 37.3 C Temperature Source Oral Pulse Rate 87 82 81 Pulse Rate from SpO2 Sensor 82 81 Respiratory Rate 25 H 22 22 Respiratory Effort / Characteristics Non-Labored Spontaneous Respiratory Depth Normal Respiratory Pattern Regular Blood Pressure 149/72 H 126/61 Blood Pressure Mean 97 82 Blood Pressure Position Sitting Pulse Oximetry 95 96 97 Oxygen Delivery Method Nasal Cannula Nasal Cannula Nasal Cannula Oxygen Flow Rate 2 2 2 Sepsis Recent Fever Within 48 Hours No Sepsis New/Unexplained Change in Mental Status N/A Sepsis Action Taken by Nursing No Action Required 08/29/20 12:20 08/29/20 12:30 08/29/20 12:40 Temperature Temperature Source Pulse Rate 80 80 78 Pulse Rate from SpO2 Sensor 80 76 77 Respiratory Rate 20 22 21 Respiratory Effort / Characteristics Respiratory Depth Respiratory Pattern Blood Pressure 136/77 Blood Pressure Mean 96 Blood Pressure Position Pulse Oximetry 96 97 96 Oxygen Delivery Method Nasal Cannula Nasal Cannula Nasal Cannula Oxygen Flow Rate 2 2 2 Sepsis Recent Fever Within 48 Hours Sepsis New/Unexplained Change in Mental Status Sepsis Action Taken by Nursing 08/29/20 12:50 08/29/20 13:11 08/29/20 13:20 Temperature Temperature Source Pulse Rate 76 83 78 Pulse Rate from SpO2 Sensor 77 84 83 Respiratory Rate 22 22 23 Respiratory Effort / Characteristics Respiratory Depth Respiratory Pattern Blood Pressure 118/83 Blood Pressure Mean 94 Blood Pressure Position Pulse Oximetry 96 99 98 Oxygen Delivery Method Nasal Cannula Nasal Cannula Nasal Cannula Oxygen Flow Rate 2 2 2 Sepsis Recent Fever Within 48 Hours Sepsis New/Unexplained Change in Mental Status Sepsis Action Taken by Nursing 08/29/20 13:30 08/29/20 13:40 08/29/20 13:50 Temperature Temperature Source Pulse Rate 77 77 79 Pulse Rate from SpO2 Sensor 78 76 86 Respiratory Rate 21 23 20 Respiratory Effort / Characteristics Respiratory Depth Respiratory Pattern Blood Pressure Blood Pressure Mean Blood Pressure Position Pulse Oximetry 97 99 99 Oxygen Delivery Method Nasal Cannula Nasal Cannula Nasal Cannula Oxygen Flow Rate 2 2 2 Sepsis Recent Fever Within 48 Hours Sepsis New/Unexplained Change in Mental Status Sepsis Action Taken by Nursing 08/29/20 14:00 08/29/20 14:10 08/29/20 14:20 Temperature Temperature Source Pulse Rate 73 74 76 Pulse Rate from SpO2 Sensor 72 75 78 Respiratory Rate 20 20 20 Respiratory Effort / Characteristics Respiratory Depth Respiratory Pattern Blood Pressure 113/55 L Blood Pressure Mean 74 Blood Pressure Position Pulse Oximetry 99 98 99 Oxygen Delivery Method Nasal Cannula Nasal Cannula Nasal Cannula Oxygen Flow Rate 2 2 2 Sepsis Recent Fever Within 48 Hours Sepsis New/Unexplained Change in Mental Status Sepsis Action Taken by Nursing 08/29/20 14:30 08/29/20 14:40 08/29/20 14:50 Temperature Temperature Source Pulse Rate 72 74 78 Pulse Rate from SpO2 Sensor 73 74 80 Respiratory Rate 20 21 21 Respiratory Effort / Characteristics Respiratory Depth Respiratory Pattern Blood Pressure 112/52 L Blood Pressure Mean 72 Blood Pressure Position Pulse Oximetry 98 99 99 Oxygen Delivery Method Nasal Cannula Nasal Cannula Nasal Cannula Oxygen Flow Rate 2 2 2 Sepsis Recent Fever Within 48 Hours Sepsis New/Unexplained Change in Mental Status Sepsis Action Taken by Nursing 08/29/20 15:00 08/29/20 15:10 08/29/20 15:20 Temperature Temperature Source Pulse Rate 77 76 77 Pulse Rate from SpO2 Sensor 75 70 78 Respiratory Rate 21 21 20 Respiratory Effort / Characteristics Respiratory Depth Respiratory Pattern Blood Pressure 113/62 Blood Pressure Mean 79 Blood Pressure Position Pulse Oximetry 97 98 98 Oxygen Delivery Method Nasal Cannula Nasal Cannula Nasal Cannula Oxygen Flow Rate 2 2 2 Sepsis Recent Fever Within 48 Hours Sepsis New/Unexplained Change in Mental Status Sepsis Action Taken by Nursing 08/29/20 15:30 08/29/20 15:40 08/29/20 15:50 Temperature Temperature Source Pulse Rate 75 73 69 Pulse Rate from SpO2 Sensor 73 72 70 Respiratory Rate 21 20 18 Respiratory Effort / Characteristics Respiratory Depth Respiratory Pattern Blood Pressure 112/57 L Blood Pressure Mean 75 Blood Pressure Position Pulse Oximetry 98 98 98 Oxygen Delivery Method Nasal Cannula Nasal Cannula Nasal Cannula Oxygen Flow Rate 2 2 2 Sepsis Recent Fever Within 48 Hours Sepsis New/Unexplained Change in Mental Status Sepsis Action Taken by Nursing 08/29/20 16:00 08/29/20 16:10 08/29/20 16:17 Temperature Temperature Source Pulse Rate 69 69 74 Pulse Rate from SpO2 Sensor 66 69 72 Respiratory Rate 20 18 21 Respiratory Effort / Characteristics Respiratory Depth Respiratory Pattern Blood Pressure 100/54 L 132/75 Blood Pressure Mean 69 94 Blood Pressure Position Pulse Oximetry 98 98 99 Oxygen Delivery Method Nasal Cannula Nasal Cannula Nasal Cannula Oxygen Flow Rate 2 2 2 Sepsis Recent Fever Within 48 Hours Sepsis New/Unexplained Change in Mental Status Sepsis Action Taken by Nursing 08/29/20 16:20 08/29/20 16:30 08/29/20 16:40 Temperature Temperature Source Pulse Rate 76 78 74 Pulse Rate from SpO2 Sensor 75 77 75 Respiratory Rate 22 22 20 Respiratory Effort / Characteristics Respiratory Depth Respiratory Pattern Blood Pressure Blood Pressure Mean Blood Pressure Position Pulse Oximetry 97 98 97 Oxygen Delivery Method Nasal Cannula Nasal Cannula Nasal Cannula Oxygen Flow Rate 2 2 2 Sepsis Recent Fever Within 48 Hours Sepsis New/Unexplained Change in Mental Status Sepsis Action Taken by Nursing 08/29/20 16:50 08/29/20 17:00 08/29/20 17:10 Temperature Temperature Source Pulse Rate 78 79 79 Pulse Rate from SpO2 Sensor 80 Respiratory Rate 22 22 23 Respiratory Effort / Characteristics Respiratory Depth Respiratory Pattern Blood Pressure Blood Pressure Mean Blood Pressure Position Pulse Oximetry 98 Oxygen Delivery Method Nasal Cannula Nasal Cannula Nasal Cannula Oxygen Flow Rate 2 2 2 Sepsis Recent Fever Within 48 Hours Sepsis New/Unexplained Change in Mental Status Sepsis Action Taken by Nursing 08/29/20 17:20 08/29/20 17:30 08/29/20 17:40 Temperature Temperature Source Pulse Rate 83 77 83 Pulse Rate from SpO2 Sensor Respiratory Rate 24 26 H 25 H Respiratory Effort / Characteristics Respiratory Depth Respiratory Pattern Blood Pressure Blood Pressure Mean Blood Pressure Position Pulse Oximetry Oxygen Delivery Method Nasal Cannula Nasal Cannula Nasal Cannula Oxygen Flow Rate 2 2 2 Sepsis Recent Fever Within 48 Hours Sepsis New/Unexplained Change in Mental Status Sepsis Action Taken by Nursing 08/29/20 17:50 08/29/20 17:58 08/29/20 18:00 Temperature Temperature Source Pulse Rate 75 79 77 Pulse Rate from SpO2 Sensor 79 76 76 Respiratory Rate 23 24 25 H Respiratory Effort / Characteristics Respiratory Depth Respiratory Pattern Blood Pressure 114/49 L 115/56 L Blood Pressure Mean 70 75 Blood Pressure Position Pulse Oximetry 96 97 97 Oxygen Delivery Method Nasal Cannula Nasal Cannula Nasal Cannula Oxygen Flow Rate 2 2 2 Sepsis Recent Fever Within 48 Hours Sepsis New/Unexplained Change in Mental Status Sepsis Action Taken by Nursing 08/29/20 18:10 08/29/20 18:13 Temperature Temperature Source Pulse Rate 73 Pulse Rate from SpO2 Sensor 74 Respiratory Rate 23 Respiratory Effort / Characteristics Respiratory Depth Respiratory Pattern Blood Pressure Blood Pressure Mean Blood Pressure Position Pulse Oximetry 97 Oxygen Delivery Method Nasal Cannula Nasal Cannula Oxygen Flow Rate 2 2 Sepsis Recent Fever Within 48 Hours Sepsis New/Unexplained Change in Mental Status Sepsis Action Taken by Alf Medications Current Medication List: was personally reviewed by me Laboratory Data Attestation: I reviewed the patient's lab results. Result diagrams: 08/29/20 11:49 08/29/20 11:49 Lab Results 08/29/20 08/29/20 08/29/20 Range/Units 11:49 11:49 14:53 WBC 5.78 (4.8-10.8) K/uL RBC 3.37 L (4.2-5.4) M/uL Hgb 10.9 L (12.0-16.0) g/dL Hct 32.0 L (37-47) % MCV 95.0 (80-100) fL MCH 32.3 (25-34) pg MCHC 34.1 (32-36) g/dL RDW Std Deviation 54.8 H (36.4-46.3) fL RDW Coeff of Madeline 15.8 H (11.5-14.5) % Plt Count 143 (130-400) K/uL MPV 11.8 H (7.4-10.4) fL Sodium 140 (136-145) mmol/L Potassium 4.1 (3.5-5.1) mmol/L Chloride 106 (98-107) mmol/L Carbon Dioxide 27 (21-32) mmol/L Anion Gap 7.0 (3-11) BUN 23 H (7-18) mg/dl Creatinine 0.68 (0.6-1.2) mg/dl Est Cr Clr Drug Dosing 65.5 ml/min Est GFR ( Amer) 97.1 Est GFR (Non-Af Amer) 83.8 BUN/Creatinine Ratio 34.4 H (10-20) Glucose 269 H (70-99) mg/dl Calcium 8.7 (8.5-10.1) mg/dl Total Bilirubin 0.7 (0.2-1) mg/dl Direct Bilirubin 0.2 (0-0.2) mg/dl AST 4 L (15-37) U/L ALT 14 (12-78) U/L Alkaline Phosphatase 106 (45-117) U/L Total Protein 6.4 (6.4-8.2) gm/dl Albumin 2.5 L (3.4-5.0) gm/dl Lipase 45 L (73-393) U/L Nasal Screen MRSA (PCR) (Negative) COVID-19 Eval Order CovFluRsv at [facility] SARS-CoV-2 (PCR) (Negative) Influenza Type A (PCR) (Neg) Influenza Type B (PCR) (Neg) RSV (RT-PCR) (Neg) 08/29/20 08/29/20 Range/Units 14:53 16:13 WBC (4.8-10.8) K/uL RBC (4.2-5.4) M/uL Hgb (12.0-16.0) g/dL Hct (37-47) % MCV (80-100) fL MCH (25-34) pg MCHC (32-36) g/dL RDW Std Deviation (36.4-46.3) fL RDW Coeff of Madeline (11.5-14.5) % Plt Count (130-400) K/uL MPV (7.4-10.4) fL Sodium (136-145) mmol/L Potassium (3.5-5.1) mmol/L Chloride (98-107) mmol/L Carbon Dioxide (21-32) mmol/L Anion Gap (3-11) BUN (7-18) mg/dl Creatinine (0.6-1.2) mg/dl Est Cr Clr Drug Dosing ml/min Est GFR ( Amer) Est GFR (Non-Af Amer) BUN/Creatinine Ratio (10-20) Glucose (70-99) mg/dl Calcium (8.5-10.1) mg/dl Total Bilirubin (0.2-1) mg/dl Direct Bilirubin (0-0.2) mg/dl AST (15-37) U/L ALT (12-78) U/L Alkaline Phosphatase (45-117) U/L Total Protein (6.4-8.2) gm/dl Albumin (3.4-5.0) gm/dl Lipase (73-393) U/L Nasal Screen MRSA (PCR) Negative (Negative) COVID-19 Eval Order SARS-CoV-2 (PCR) NEGATIVE (Negative) Influenza Type A (PCR) Negative (Neg) Influenza Type B (PCR) Negative (Neg) RSV (RT-PCR) Negative (Neg) Administered Medications Discontinued Medications Acetaminophen (Acetaminophen 1000 Mg/100 Ml Iv) 1,000 mg IV NOW STA Stop: 08/29/20 12:31 Last Admin: 08/29/20 13:13 Dose: 1,000 mg Documented by: [id number] Sodium Chloride (Nss) 500 mls @ 999 mls/hr IV .Q31M STA Stop: 08/29/20 12:28 Last Infusion: 08/29/20 14:15 Dose: 0 mls/hr Documented by: [id number] Admin: 08/29/20 13:17 Dose: 999 mls/hr Documented by: [id number] Piperacillin Sod/Tazobactam Sod (Zosyn) 4.5 gm in 120 mls @ 240 mls/hr IV NOW ONE Stop: 08/29/20 13:35 Last Infusion: 08/29/20 15:19 Dose: 0 mls/hr Documented by: [id number] Admin: 08/29/20 14:49 Dose: 240 mls/hr Documented by: [id number] Ondansetron HCl (Ondansetron Inj 2 Mg/Ml 2 Ml Vial) 4 mg IV NOW STA Stop: 08/29/20 12:31 Last Admin: 08/29/20 13:13 Dose: 4 mg Documented by: [id number] Imaging Data Radiologist's Impression: Abdomen/Pelvis CTA 08/29/20 12:30 CT angio abdomen pelvis w con CLINICAL HISTORY: Right upper quadrant abdominal pain. Multiple myeloma. COMPARISON STUDY: CT of the abdomen and pelvis September 26, 2019. TECHNIQUE: Helical axial images of the abdomen and pelvis were obtained during arterial phase following intravenous injection 120 cc of Optiray 320 IV. Sagittal and coronal reconstructions were viewed as well as maximal intensity projections on an independent 3-D workstation. Automated exposure control was utilized for the study. A dose lowering technique was utilized adhering to the principles of ALARA. FINDINGS: Please note that the chest CT will be reported separately. This demonstrates the loculated right pleural effusion with right lower lobe airspace opacity. No pneumatosis, free air or portal venous gas is present. Arterial phase images of the liver are unremarkable with exception of mild hepatomegaly. Gallstones within the gallbladder are noted. There is no pericholecystic infil tration degeneration. Focal fat within the lateral segment is incidentally noted. The spleen, adrenal glands, kidneys and pancreas are unremarkable on this arterial phase examination. There is no evidence for a bowel obstruction. The caliber and wall thickness of small and large bowel are normal. There are fat- containing bilateral inguinal hernias. A lucent lesion within the left ischial tuberosity is unchanged. The caliber of the abdominal aorta is normal. Major branch vessels are patent. There is no dissection. There is mild to moderate aortoiliac atherosclerotic plaque. IMPRESSION: 1. No acute process within the abdomen or pelvis on arterial phase exam. 2. Normal caliber abdominal aorta. Mild to moderate aortoiliac atherosclerotic plaque. No dissection. Patent major branch vessels. 3. Loculated right pleural effusion with right lower lobe airspace opacity. Findings better depicted on the chest CT. Please see that report for further description. 4. Cholelithiasis. ACT 112: Negative or not required by law. Electronically signed by: Josiah Artis M.D. 08/29/2020 1:38 PM Chest X-Ray 08/29/20 12:30 XR chest 1V portable CLINICAL HISTORY: r chest pain COMPARISON STUDY: Chest radiograph September 26, 2019 FINDINGS: Left internal jugular [id number] is in place. There is no pneumothorax. A small to moderate right pleural effusion is noted. There is asymmetric right lung airspace opacity. Basilar congestion with possible mild pulmonary edema. Cardiomegaly is unchanged. A probable hiatal hernia is noted. IMPRESSION: 1. Small to moderate right pleural effusion with asymmetric right lung airspace opacity which may reflect pneumonia or atelectasis. Radiographic follow up is recommended. 2. Pulmonary vascular congestion with suspected mild pulmonary edema. 3. Probable hiatal hernia. ACT 112: Negative or not required by law. Electronically signed by: Josiah Artis M.D. 08/29/2020 12:52 PM Chest CTA 08/29/20 12:33 CT ANGIOGRAPHY OF THE CHEST, PULMONARY EMBOLUS PROTOCOL CLINICAL HISTORY: Right-sided chest pain. Evaluate for pulmonary embolus. Multiple myeloma. COMPARISON STUDY: Chest CT March 22, 2017. PET/CT September 10, 2019. TECHNIQUE: Following IV administration of 120 mL of Optiray, helical axial images of the chest were obtained utilizing the pulmonary embolus protocol. Maximal intensity projections and sagittal and coronal reformats were viewed on an independent 3D workstation. IV contrast was administered without comp lication. Automated exposure control was utilized for the study. A dose lowering technique was utilized adhering to the principles of ALARA. CT DOSE: 1064.12 mGy.cm FINDINGS: No pulmonary emboli are identified although the segmental and subsegmental arteries within the lower lungs are suboptimally assessed on this e xamination. The central pulmonary arteries are mildly dilated. No enlarged thoracic lymph nodes are present. A hiatal hernia is present. There is moderate cardiomegaly. There is a moderate-sized loculated right pleural effusion. Extensive associated right lower lobe opacity with volume loss is noted. There is also a 2.7 cm hypoenhancing focus within the atelectatic right lower lobe shown on axial image 178 of 257. Lungs are suboptimally assessed due to respiratory motion. Central airways are patent. There are mild groundglass opacities with mosaic attenuation within the lungs. Abdomen and pelvis will be reported separately. There are postoperative finding within the right lower lobe. IMPRESSION: 1. No pulmonary emboli identified although segmental and subsegmental pulmonary arteries within the bilateral lower lungs suboptimally assessed due to respiratory motion. 2. Moderate-sized loculated right pleural effusion. Sterility cannot be assessed by CT. Associated right lower lobe airspace opacity with volume loss which could reflect atelectasis or pneumonia. 2.7 cm hypoenhancing focus within the right lower lobe could reflect a focus of pneumonia, a pulmonary lesion or pulmonary infarct. Follow-up chest CT in one to 2 months is recommended. 3. Moderate cardiomegaly and mild dilatation of the central pulmonary arteries. 4. Hiatal hernia. ACT 112: Negative or not required by law. Electronically signed by: Josiah Artis M.D. 08/29/2020 1:29 PM Chest X-Ray 08/29/20 17:32 XR chest 1V portable CLINICAL HISTORY: s/p chest tube placement COMPARISON STUDY: Chest radiograph and chest CT performed earlier today. FINDINGS: Left internal jugular [id number] remains in place. There has been interval placement of a right pleural catheter. There is no pneumothorax. Right pleural effusion is again noted with right lung airspace opacity. Left lung is clear. IMPRESSION: Interval placement of a right pleural pigtail catheter. No pneumothorax. Residual right pleural effusion with right lung airspace opacity. ACT 112: Negative or not required by law. Electronically signed by: Josiah Artis M.D. 08/29/2020 5:49 PM Discharge Plan Visit Data Chief Complaint: Flank Pain ED Provider: Jose Bernardo Discharge Problem: Acute right flank pain, Pleural effusion, Pneumonia, Sarcoid Patient Disposition: Admitted As Inpatient Condition: Fair Discharge Instructions Interventions: ED Discharge Assessment Last Done: 08/29/20 18:13 Forms Stand Alone Forms: [employer] [facility] Prescriptions Prescriptions: No Action cyanocobalamin (vitamin B-12) [Vitamin B-12] 1,000 mcg tablet 1,000 mcg PO DAILY RF: 0 meclizine 12.5 mg tablet 12.5 mg PO TID PRN (Reason: Dizziness) RF: 0 acyclovir 400 mg tablet 400 mg PO BID RF: 0 albuterol sulfate [Ventolin HFA] 90 mcg/actuation HFA aerosol inhaler 2 puffs INH Q6H PRN (Reason: sob) RF: 0 zoledronic acid [Zometa] 4 mg/5 mL solution 4 mg IV MONTHLY RF: 0 lactobacillus combination no.9 [Adult 50 Plus Probiotic] 4 billion cell capsule 4,000 mmu cells PO DAILY RF: 0 Darzalex 20 mg/mL solution 20 mg IV MONTHLY RF: 0 simvastatin [Zocor] 40 mg tablet 40 mg PO QPM Qty: 90 RF: 3 aspirin 81 mg tablet,delayed release (DR/EC) 81 mg PO DAILY Qty: 30 RF: 2 furosemide [Lasix] 20 mg tablet 20 mg PO DAILY PRN (Reason: swelling) Qty: 90 RF: 3 glimepiride 4 mg tablet 4 mg PO BID Qty: 180 RF: 3 levothyroxine [Synthroid] 75 mcg tablet 75 mcg PO DAILY Qty: 90 RF: 3 pantoprazole [Protonix] 40 mg tablet,delayed release (DR/EC) 40 mg PO DAILY Qty: 90 RF: 3 Nucynta 50 mg tablet 50 mg PO TID PRN (Reason: pain) Qty: 90 RF: 0 Lyrica 75 mg capsule 75 mg PO BID Qty: 180 RF: 3 fluticasone propion-salmeterol [Advair Diskus] 250-50 mcg/dose blister with device 1 inh inhalation BID Qty: 180 RF: 3 clotrimazole-betamethasone 1-0.05 % lotion 1 applic topical BID PRN (Reason: itchy scalp) Qty: 30 RF: 1 Ninlaro 2.3 mg capsule See Rx Instructions PO .COMPLEX RF: 0 (DME) blood sugar diagnostic [FreeStyle Test] Strip See Rx Instructions .ROUTE .MEDSUPPLY Qty: 100 RF: 3 dexamethasone 20 mg tablet 20 mg PO WK RF: 0 Pomalyst 2 mg capsule 2 mg PO DAILY RF: 0 naproxen 500 mg tablet 500 mg PO BID 14 Days Qty: 28 RF: 0 Revlimid 2.5 mg capsule 2.5 mg PO MONTHLY RF: 0 Referrals Referrals: Italo Burr III, MD [Primary Care Provider] - Discharge Problem: Pneumonia Qualifiers: Pneumonia type: due to unspecified organism Laterality: right Lung location: lower lobe of lung Qualified Code(s): J18.9 - Pneumonia, unspecified organism
[2020-08-29] MEDS ORDERED: PIPERACILLIN/TAZOBACTAM 4.5 GM/120 ML BAG IV ONE (13:06)
[2020-08-29] MEDS ORDERED: PIPERACILL/TAZOBAC CONSULT ACTIVE PRN (13:06)
[2020-08-29 13:23] LABS: Albumin Level 2.5 gm/dl (3.4-5.0)
[2020-08-29 13:27] LABS: Bilirubin Direct 0.2 mg/dl (0-0.2); Bilirubin,Total 0.7 mg/dl (0.2-1); Total Protein 6.4 gm/dl (6.4-8.2)
--- NOTE | 2020-08-29 13:31 | CT Scan Report ---
CT ANGIOGRAPHY OF THE CHEST, PULMONARY EMBOLUS PROTOCOL CLINICAL HISTORY: Right-sided chest pain. Evaluate for pulmonary embolus. Multiple myeloma. COMPARISON STUDY: Chest CT March 22, 2017. PET/CT September 10, 2019. TECHNIQUE: Following IV administration of 120 mL of Optiray, helical axial images of the chest were o btained utilizing the pulmonary embolus protocol. Maximal intensity projections and sagittal and cor onal reformats were viewed on an independent 3D workstation. IV contrast was administered without co mplication. Automated exposure control was utilized for the study. A dose lowering technique was ut ilized adhering to the principles of ALARA. CT DOSE: 1064.12 mGy.cm FINDINGS: No pulmonary emboli are identified although the segmental and subsegmental arteries within the lower lungs are suboptimally assessed on this examination. The central pulmonary arteries are mi ldly dilated. No enlarged thoracic lymph nodes are present. A hiatal hernia is present. There is mode rate cardiomegaly. There is a moderate-sized loculated right pleural effusion. Extensive associated r ight lower lobe opacity with volume loss is noted. There is also a 2.7 cm hypoenhancing focus within the atelectatic right lower lobe shown on axial image 178 of 257. Lungs are suboptimally assessed due to respiratory motion. Central airways are patent. There are mild groundglass opacities with mosaic attenuation within the lungs. Abdomen and pelvis will be reported separately. There are postoperative finding within the right lower lobe. IMPRESSION: 1. No pulmonary emboli identified although segmental and subsegmental pulmonary arteries within the b ilateral lower lungs suboptimally assessed due to respiratory motion. 2. Moderate-sized loculated right pleural effusion. Sterility cannot be assessed by CT. Associated ri ght lower lobe airspace opacity with volume loss which could reflect atelectasis or pneumonia. 2.7 cm hypoenhancing focus within the right lower lobe could reflect a focus of pneumonia, a pulmonary lesi on or pulmonary infarct. Follow-up chest CT in one to 2 months is recommended. 3. Moderate cardiomegaly and mild dilatation of the central pulmonary arteries. 4. Hiatal hernia. ACT 112: Negative or not required by law. Electronically signed by: Josiah Artis M.D. 08/29/2020 1:29 PM
--- NOTE | 2020-08-29 13:39 | CT Scan Report ---
CT angio abdomen pelvis w con CLINICAL HISTORY: Right upper quadrant abdominal pain. Multiple myeloma. COMPARISON STUDY: CT of the abdomen and pelvis September 26, 2019. TECHNIQUE: Helical axial images of the abdomen and pelvis were obtained during arterial phase followi ng intravenous injection 120 cc of Optiray 320 IV. Sagittal and coronal reconstructions were viewed a s well as maximal intensity projections on an independent 3-D workstation. Automated exposure control was utilized for the study. A dose lowering technique was utilized adhering to the principles of AL JOAQUIM. FINDINGS: Please note that the chest CT will be reported separately. This demonstrates the loculated right pleural effusion with right lower lobe airspace opacity. No pneumatosis, free air or portal olga ous gas is present. Arterial phase images of the liver are unremarkable with exception of mild hepato megaly. Gallstones within the gallbladder are noted. There is no pericholecystic infiltration degener ation. Focal fat within the lateral segment is incidentally noted. The spleen, adrenal glands, kidney s and pancreas are unremarkable on this arterial phase examination. There is no evidence for a bowel obstruction. The caliber and wall thickness of small and large bowel are normal. There are fat-contai marge bilateral inguinal hernias. A lucent lesion within the left ischial tuberosity is unchanged. The caliber of the abdominal aorta is normal. Major branch vessels are patent. There is no dissection. T here is mild to moderate aortoiliac atherosclerotic plaque. IMPRESSION: 1. No acute process within the abdomen or pelvis on arterial phase exam. 2. Normal caliber abdominal aorta. Mild to moderate aortoiliac atherosclerotic plaque. No dissection. Patent major branch vessels. 3. Loculated right pleural effusion with right lower lobe airspace opacity. Findings better depicted on the chest CT. Please see that report for further description. 4. Cholelithiasis. ACT 112: Negative or not required by law. Electronically signed by: Josiah Artis M.D. 08/29/2020 1:38 PM
[2020-08-29 15:42] LABS: Influenza A virus by PCR Negative (Neg); Influenza B virus by PCR Negative (Neg); RSV by PCR Negative (Neg); SARS CoV2 RNA(COVID-19) InHosp NEGATIVE (Negative)
--- NOTE | 2020-08-29 15:51 | History & Physical Report ---
Date of Service August 29, 2020 Assessment & Plan (1) Opacity of lung on imaging study: CTA chest on 08/29 showed right lower lobe airspace opacity and moderate- sized loculated right pleural effusion. Ddx includes pneumonia, pulmonary lesion, or pulmonary infarction. - Continue Zosyn started in the ED - MRSA swab - Discussed with pulmonary -> Will likely need thoracentesis vs. chest tube due to loculations of pleural effusion. Consult placed. - Supportive care (2) Multiple myeloma: Follows with Anabelle Cote at [facility]. Was going to see her this coming Sunday (September 01) for next round of chemotherapy for her MM. Anemia appears at baseline. - Hold all chemotherapy agents - Will reach out to oncology tomorrow, but presently don't see any acute inpatient needs - Continue acyclovir (3) Sarcoidosis of lung: Follows with Dr. Asher. Last visit on 05/21/2020 indicates sarcoidosis was quiescent. Not sure that that is playing a role in this issue. 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 - Hold home glimepiride - Continue home pregabalin - Sliding scale insulin - Repeat A1c in AM (5) Hypertension: BP presently 115/60. - Not on home meds apart from furosemide PRN -> Hold this for now. - Hold ASA (not really for HTN, but general heart health) given possible need for thoracentesis or chest tube (6) Back pain: Chronic spinal stenosis. - Continue home Nucynta PRN (7) Hyperlipidemia: - Continue home simvastatin (8) Hypothyroidism: TSH was 2.3 in 03/2020. No signs/symptoms of hypo-/hyperthyroidism. - Continue home Synthroid 75 mcg (9) DVT prophylaxis: Lovenox 40 mg SQ daily -> High risk given known cancer (MM) History of Present Illness Primary Care Provider: Italo Burr MD 80yo F w/ hx of multiple myeloma and DM who presents with right chest wall pain, found to have RLL consolidation and pleural effusion. The patient reports that she started having some mild right-sided chest wall pain about 1 week ago. The pain started out as minor and would come and go. It was worse with movement and deep breathing. She denies any radiation of the pain, stating it's just "right there." She thought it might related to her chronic spinal stenosis, and took her Nucenta which helped alleviate the pain. Hot packs also helped. However, it has been getting worse over the last week, so they came to the ER. She denies any fevers, chills, shortness of breath, night sweats, weight loss, or other infectious or B symptoms. Allergies Allergy/AdvReac Type Severity Reaction Status Date / Time Sulfa (Sulfonamide Allergy Severe RASH Verified 08/29/20 14:51 Antibiotics) latex Allergy Unknown REDNESS Verified 08/29/20 14:51 codeine AdvReac Intermediate SPACED OUT Verified 08/29/20 14:51 adhesive AdvReac Mild BREAKS OUT Verified 08/29/20 14:51 amoxicillin AdvReac Unknown YEAST Verified 08/29/20 14:51 INFECTION clavulanic acid AdvReac Unknown YEAST Verified 08/29/20 14:51 INFECTION Home Medications Medication Instructions Recorded Confirmed Type acyclovir 400 mg tablet 400 mg PO BID tab 01/25/18 08/29/20 History albuterol sulfate 90 mcg/actuation 2 puffs INH Q6H PRN 01/25/18 08/29/20 History aerosol inhaler cyanocobalamin (vitamin B-12) 1,000 mcg PO DAILY 01/25/18 08/29/20 History 1,000 mcg tablet lactobacillus combination no.9 4 4,000 mmu cells PO DAILY 01/25/18 08/29/20 History billion cell capsule meclizine 12.5 mg tablet 12.5 mg PO TID PRN 01/25/18 08/29/20 History zoledronic acid 4 mg/5 mL 4 mg IV MONTHLY ml 01/25/18 08/29/20 History intravenous solution daratumumab 20 mg/mL intravenous 20 mg IV MONTHLY ml 01/27/19 08/29/20 History solution simvastatin 40 mg tablet 40 mg PO QPM #90 tab 07/28/19 08/29/20 Rx Revlimid 2.5 mg PO MONTHLY 09/26/19 08/29/20 History aspirin 81 mg tablet,delayed 81 mg PO DAILY #30 tab 10/01/19 08/29/20 Rx release blood sugar diagnostic #100 ea 10/15/19 07/13/20 Rx ixazomib 2.3 mg capsule See Rx Instructions PO .COMPLEX 04/21/20 08/29/20 History clotrimazole-betamethasone 1 1 applic TOPICAL BID PRN #30 ml 04/23/20 08/29/20 Rx %-0.05 % lotion dexamethasone 20 mg tablet 20 mg PO WK tab 07/13/20 08/29/20 History naproxen 500 mg tablet 500 mg PO BID 14 Days #28 tab 07/13/20 08/29/20 Rx pomalidomide 2 mg capsule 2 mg PO DAILY 07/13/20 08/29/20 History furosemide 20 mg tablet 20 mg PO DAILY PRN #90 tab 08/23/20 08/29/20 Rx glimepiride 4 mg tablet 4 mg PO BID #180 tab 08/23/20 08/29/20 Rx levothyroxine 75 mcg tablet 75 mcg PO DAILY #90 tab 08/23/20 08/29/20 Rx pantoprazole 40 mg tablet,delayed 40 mg PO DAILY #90 tab 08/23/20 08/29/20 Rx release pregabalin 75 mg capsule 75 mg PO BID #180 cap 08/23/20 08/29/20 Rx tapentadol 50 mg tablet 50 mg PO TID PRN #90 tab 08/23/20 08/29/20 Rx fluticasone 250 mcg-salmeterol 50 1 inh INHALATION BID #180 ea 08/27/20 08/29/20 Rx mcg/dose blistr powdr for inhalation 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 Depression Diabetes mellitus Former smoker GERD (gastroesophageal reflux disease) Hyperlipidemia Hypertension Hypoxia Immunosuppressed status Lumbago Multiple myeloma (05/24/12) Osteoarthritis Pneumonia Sacroiliitis Urinary incontinence Vertigo Surgical History H/O colonoscopy H/O esophagogastroduodenoscopy History of ankle surgery History of bilateral carpal tunnel release History of bone marrow transplant History of colostomy History of tonsillectomy and adenoidectomy Status post cataract extraction of both eyes with insertion of intraocular lens Family History Mother Cervical cancer Father Emphysema, unspecified FHx: kidney cancer Denies family history of Ovarian cancer Prostate cancer Myocardial infarction Breast cancer Colorectal cancer Social History Smoking Status: Never smoker Second Hand Exposure: No; Hx Alcohol Use: No Hx Substance Use: No Preferred Language: Maltese Communication Ability: Effective Visual Impairment: No Limitations Hearing Ability: Normal Community Health Coordinator Required: No Beliefs That Will Affect Care: None marital status: Current Living Situation: Spouse and Family current occupational status: retired 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 Feels Safe at Home: Yes Childhood Exposure to Second-Hand Smoke: No Dental Care, Regularly: Yes Physical Activity Frequency: Does not Exercise Seatbelt Use: always Sunscreen Use: Yes Assistive Devices: Walker Review of Systems Review of Systems: All systems reviewed & are unremarkable except as noted in HPI & below Physical Exam Constitutional: WD/WN, vitals as above Eyes: EOM intact bilaterally; no conjunctival abnormality ENMT: external ear and nose normal, oropharynx normal Neck: trachea midline, no thyromegaly normal visual inspection Respiratory: normal respiratory effort, lungs clear to auscultation no respiratory distress Cardiovascular: RRR, no murmur, no edema Gastrointestinal (Abdomen): Inspection/Auscultation: abdomen normal to inspection; abdomen not distended Musculoskeletal: no cyanosis or clubbing, extremities motor strength 5/5 Skin: no rashes, warm and dry Neurologic: moves all extremities and awake Psychiatric: Orientation: alert, oriented to person and cooperative Results & Data Results & Data ([facility]) Vital Signs (Past 12 Hours) Vital Signs Temp Pulse Resp BP Pulse Ox 08/29/20 15:20 77 20 98 08/29/20 15:10 76 21 98 08/29/20 15:00 77 21 113/62 97 08/29/20 14:50 78 21 99 08/29/20 14:40 74 21 99 08/29/20 14:30 72 20 112/52 L 98 08/29/20 14:20 76 20 99 08/29/20 14:10 74 20 98 08/29/20 14:00 73 20 113/55 L 99 08/29/20 13:50 79 20 99 08/29/20 13:40 77 23 99 08/29/20 13:30 77 21 97 08/29/20 13:20 78 23 98 08/29/20 13:11 83 22 118/83 99 08/29/20 12:50 76 22 96 08/29/20 12:40 78 21 96 08/29/20 12:30 80 22 136/77 97 08/29/20 12:20 80 20 96 08/29/20 12:10 81 22 97 08/29/20 12:00 82 22 126/61 96 08/29/20 11:52 37.3 C 87 25 H 149/72 H 95 08/29/20 11:50 88 24 97 08/29/20 11:49 87 21 97 08/29/20 11:45 84 24 149/72 H 97 Code Status & VTE Plan VTE Prophylaxis Plan VTE Prophylaxis will be ordered: Yes PG Care Time/CCT Total # of Minutes Spent Total Time Spent with Patient: Total time spent is greater than 50% in coordination of care (as documented) at patient's floor/unit and/or counseling patient: Coding Level of Care Code 12540 Initial Inpt Care Lvl 3 Diagnoses Opacity of lung on imaging study R91.8 Multiple myeloma C90.00 Sarcoidosis of lung D86.0 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
--- NOTE | 2020-08-29 16:09 | Pulmonary Consultation ---
Date of Consultation August 29, 2020 Assessment & Plan (1) Pleural effusion: CT chest 08/29/2020 personally reviewed right-sided pleural effusion appreciated, there is loculations as well Atelectasis cysts of the right lower lobe. 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 No mediastinal lymphadenopathy --Right-sided loculated pleural effusion Multiple loculations appreciated on the bedside ultrasound In a patient who is immunosuppressed possibility of infection versus malignancy is always there Plan would be to do chest tube as I think there is high probability that it we will need DNase and alteplase to lyse the loculations Continue with antibiotics Follow-up septic work-up --History of multiple myeloma S/p bone marrow transplant Currently on chemotherapy Plan: Pigtail catheter insertion Mist 2 protocol Broad-spectrum antibiotics If the fluid cannot be taken out through pigtail catheter insertion then patient might need VATS Risk and benefit of the procedure was explained to the patient in the presence of her daughter. She agrees to go ahead with the procedure. Consent signed, witnessed and put in the chart Please note the above document was generated using voice recognition software. It may contain grammatical, syntax or spelling errors.Any formal questions or concerns about the content, text or information contained within the body of this dictation should be directly addressed to the provider for clarification. History of Present Illness History of Present Illness 80-year-old female past medical history of multiple myeloma s/p bone marrow transplant on chemotherapy currently and diabetes but to the hospital with complaints of right-sided flank pain. Pulmonary consulted because of abnormal chest CT finding At the time of examination patient's daughter who is an RN was at bedside. Patient says that she has been having right-sided flank pain which has been going on since approximately a week progressively getting worse. It is nonradiating. Nonpleuritic Patient never had any fever or chills. She has chronic cough which is no change in intensity or frequency. No dysuria, no diarrhea. No night sweats, no weight loss. No headache, no blurry vision Social history: Non-smoker, no illicit drug use Allergies Allergy/AdvReac Type Severity Reaction Status Date / Time Sulfa (Sulfonamide Allergy Severe RASH Verified 08/29/20 14:51 Antibiotics) latex Allergy Unknown REDNESS Verified 08/29/20 14:51 codeine AdvReac Intermediate SPACED OUT Verified 08/29/20 14:51 adhesive AdvReac Mild BREAKS OUT Verified 08/29/20 14:51 amoxicillin AdvReac Unknown YEAST Verified 08/29/20 14:51 INFECTION clavulanic acid AdvReac Unknown YEAST Verified 08/29/20 14:51 INFECTION Home Medications Medication Instructions Recorded Confirmed Type acyclovir 400 mg tablet 400 mg PO BID tab 01/25/18 08/29/20 History albuterol sulfate 90 mcg/actuation 2 puffs INH Q6H PRN 01/25/18 08/29/20 History aerosol inhaler cyanocobalamin (vitamin B-12) 1,000 mcg PO DAILY 01/25/18 08/29/20 History 1,000 mcg tablet lactobacillus combination no.9 4 4,000 mmu cells PO DAILY 01/25/18 08/29/20 History billion cell capsule meclizine 12.5 mg tablet 12.5 mg PO TID PRN 01/25/18 08/29/20 History zoledronic acid 4 mg/5 mL 4 mg IV MONTHLY ml 01/25/18 08/29/20 History intravenous solution daratumumab 20 mg/mL intravenous 20 mg IV MONTHLY ml 01/27/19 08/29/20 History solution simvastatin 40 mg tablet 40 mg PO QPM #90 tab 07/28/19 08/29/20 Rx Revlimid 2.5 mg PO MONTHLY 09/26/19 08/29/20 History aspirin 81 mg tablet,delayed 81 mg PO DAILY #30 tab 10/01/19 08/29/20 Rx release blood sugar diagnostic #100 ea 10/15/19 07/13/20 Rx ixazomib 2.3 mg capsule See Rx Instructions PO .COMPLEX 04/21/20 08/29/20 History clotrimazole-betamethasone 1 1 applic TOPICAL BID PRN #30 ml 04/23/20 08/29/20 Rx %-0.05 % lotion dexamethasone 20 mg tablet 20 mg PO WK tab 07/13/20 08/29/20 History naproxen 500 mg tablet 500 mg PO BID 14 Days #28 tab 07/13/20 08/29/20 Rx pomalidomide 2 mg capsule 2 mg PO DAILY 07/13/20 08/29/20 History furosemide 20 mg tablet 20 mg PO DAILY PRN #90 tab 08/23/20 08/29/20 Rx glimepiride 4 mg tablet 4 mg PO BID #180 tab 08/23/20 08/29/20 Rx levothyroxine 75 mcg tablet 75 mcg PO DAILY #90 tab 08/23/20 08/29/20 Rx pantoprazole 40 mg tablet,delayed 40 mg PO DAILY #90 tab 08/23/20 08/29/20 Rx release pregabalin 75 mg capsule 75 mg PO BID #180 cap 08/23/20 08/29/20 Rx tapentadol 50 mg tablet 50 mg PO TID PRN #90 tab 08/23/20 08/29/20 Rx fluticasone 250 mcg-salmeterol 50 1 inh INHALATION BID #180 ea 08/27/20 08/29/20 Rx mcg/dose blistr powdr for inhalation Patient History Medical History Chronic steroid use 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 Depression Diabetes mellitus Former smoker GERD (gastroesophageal reflux disease) Hyperlipidemia Hypertension Hypoxia Immunosuppressed status Lumbago Multiple myeloma (05/24/12) Osteoarthritis Pneumonia Sacroiliitis Urinary incontinence Vertigo Surgical History H/O colonoscopy H/O esophagogastroduodenoscopy History of ankle surgery History of bilateral carpal tunnel release History of bone marrow transplant History of colostomy History of tonsillectomy and adenoidectomy Status post cataract extraction of both eyes with insertion of intraocular lens Family History Mother Cervical cancer Father Emphysema, unspecified FHx: kidney cancer Denies family history of Ovarian cancer Prostate cancer Myocardial infarction Breast cancer Colorectal cancer Social History Smoking Status: Never smoker Second Hand Exposure: No; Hx Alcohol Use: No Hx Substance Use: No Preferred Language: Nepalese Communication Ability: Effective Visual Impairment: No Limitations Hearing Ability: Normal Treater Required: No Beliefs That Will Affect Care: None marital status: Current Living Situation: Spouse and Family current occupational status: retired 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 Feels Safe at Home: Yes Childhood Exposure to Second-Hand Smoke: No Dental Care, Regularly: Yes Physical Activity Frequency: Does not Exercise Seatbelt Use: always Sunscreen Use: Yes Assistive Devices: Walker Review of Systems Review of Systems: All systems reviewed & are unremarkable except as noted in HPI & below Physical Exam Physical Exam: Constitutional: No acute distress HEENT: EOMI, PERRLA Respiratory system: Decreased air entry on the right side, no wheeze, no rhonchi, positive crackles right lower lobe CVS: S1-S2 positive, no murmurs or gallops, left-sided port Abdomen: Soft, nontender, nondistended, positive bowel sounds x4 Extremities: +2 pulses bilaterally radialis/ dorsalis pedis, no cyanosis, no edema, obese Neuro: Awake alert oriented x3 Psych: Normal mood and affect G/U: No Fraser Skin: no rashes, warm and dry Lymphatic: no cervical or axillary lymphadenopathy Results & Data Results & Data ([facility]) Vital Signs (Past 12 Hours) Vital Signs Temp Pulse Resp BP Pulse Ox 08/29/20 15:20 77 20 98 08/29/20 15:10 76 21 98 08/29/20 15:00 77 21 113/62 97 08/29/20 14:50 78 21 99 08/29/20 14:40 74 21 99 08/29/20 14:30 72 20 112/52 L 98 08/29/20 14:20 76 20 99 08/29/20 14:10 74 20 98 08/29/20 14:00 73 20 113/55 L 99 08/29/20 13:50 79 20 99 08/29/20 13:40 77 23 99 08/29/20 13:30 77 21 97 08/29/20 13:20 78 23 98 08/29/20 13:11 83 22 118/83 99 08/29/20 12:50 76 22 96 08/29/20 12:40 78 21 96 08/29/20 12:30 80 22 136/77 97 08/29/20 12:20 80 20 96 08/29/20 12:10 81 22 97 08/29/20 12:00 82 22 126/61 96 08/29/20 11:52 37.3 C 87 25 H 149/72 H 95 08/29/20 11:50 88 24 97 08/29/20 11:49 87 21 97 08/29/20 11:45 84 24 149/72 H 97 08/29/20 11:49 08/29/20 11:49 PG Care Time/CCT Total # of Minutes Spent Total Time Spent with Patient: Total time spent is greater than 50% in coordina tion of care (as documented) at patient's floor/unit and/or counseling patient: Coding Level of Care Code 84293 Initial Inpt Care Lvl 3 Diagnoses Pleural effusion J90
[2020-08-29] MEDS ORDERED: LIDOCAINE HCL 1% 20 ML VIAL ONE (16:49)
--- NOTE | 2020-08-29 17:50 | XRay Report ---
XR chest 1V portable CLINICAL HISTORY: s/p chest tube placement COMPARISON STUDY: Chest radiograph and chest CT performed earlier today. FINDINGS: Left internal jugular [id number]-w-[id number] remains in place. There has been interval placement of a right pleural catheter. There is no pneumothorax. Right pleural effusion is again noted with right lung airspace opacity. Left lung is clear. IMPRESSION: Interval placement of a right pleural pigtail catheter. No pneumothorax. Residual right pleural effusion with right lung airspace opacity. ACT 112: Negative or not required by law. Electronically signed by: Josiah Artis M.D. 08/29/2020 5:49 PM
--- NOTE | 2020-08-29 18:03 | Procedure Note ---
Procedure Note Date of Service August 29, 2020 Procedure: Pigtail chest tube insertion Ship Scaler: Dr. Dimitri Ross Indication: Right-sided loculated effusion Consent: Signed by patient and verified with timeout prior to procedure Anesthesia: 1% lidocaine without epinephrine local Procedure: Consent was verified and timeout performed. Appropriate imaging studies were reviewed prior to the procedure. Patient was placed in a seated position. Appropriate site above the diaphragm on the right posterior axillary line fourth intercostal space for chest tube insertion was selected. The skin was prepped and draped in normal sterile fashion. Lidocaine was used for local analgesia. Thick yellowish-white fluid was aspirated via the finder needle. A small skin elsie was made with the scalpel and the catheter over the needle apparatus was advanced over the rib into the pleural space. With the help of guidewire and Seldinger technique, 14 Lao pigtail catheter was inserted and connected to Pleur-evac. No air leak appreciated after that. Chest x-ray to follow The patient tolerated the procedure without obvious complication Complications: None Blood loss: Less than 2 cc. No fluid was able to be aspirated after putting the chest tube in likely because of the thickness. We will start mist 2 protocol. Coding CPT Codes Pulmonary/Thoracic - Pulmonary and Thoracic: 86912 Tube thoracostomy ([id number]) Pulmonary/Thoracic - Pulmonary and Thoracic: 84040 Lyse chest fibrin initial day ([id number]) [facility] [place] Procedure Codes (Charges) Pulmonary/Thoracic Procedure 1: Pulmonary and Thoracic: 77530 Tube thoracostomy Procedure 2: Pulmonary and Thoracic: 04636 Lyse chest fibrin initial day
[2020-08-29] MEDS ORDERED: GLUCOSE 40% GEL 15 GM TUBE PO PRN (19:46)
[2020-08-29] MEDS ORDERED: GLUCAGON FOR INJ 1 MG VIAL SQ PRN (19:46)
[2020-08-29] MEDS ORDERED: ONDANSETRON INJ 2 MG/ML 2 ML VIAL IV PRN (19:46)
[2020-08-29] MEDS ORDERED: ALBUTEROL HFA 8 GM INHALER INH PRN (19:46)
[2020-08-29] MEDS ORDERED: CARBOHYDRATES FOR HYPOGLYCEMIA PO PRN (19:46)
[2020-08-29] MEDS ORDERED: DEXTROSE 50% 50 ML SYRINGE IV PRN (19:46)
[2020-08-29] MEDS ORDERED: TAPENTADOL HCL 50 MG TAB PO PRN (19:46)
[2020-08-29] MEDS ORDERED: GLUCOSE 10 TABS/TUBE PO PRN (19:46)
[2020-08-29] MEDS: ACETAMINOPHEN 325 MG TAB PO PRN (20:14)
[2020-08-29] MEDS: ALTEPLASE, RECOMBINANT 10 MG in SYRINGE 50 ML IPL SCH (21:11)
[2020-08-29] MEDS ORDERED: MoRPHine SULFATE 2 MG/ML CARP IV STA ×2 (21:31→23:04)
[2020-08-29] MEDS: PIPERACILLIN/TAZOBACTAM 4.5 GM in DEXTROSE 5% 100 ML IV SCH (22:06)
[2020-08-29] MEDS: ACYCLOVIR 400 MG TAB PO SCH (22:17)
[2020-08-29] MEDS: PREGABALIN 75 MG CAP PO SCH (22:31)
[2020-08-29] MEDS: SIMVASTATIN 40 MG TAB PO SCH (22:36)
[2020-08-29] MEDS: INSULIN ASPART 100 UNITS/ML 3 ML PEN SC SCH (22:42)
[2020-08-29] MEDS: DORNASE ALFA 5 ML in SYRINGE 25 ML IPL SCH (22:56)
[2020-08-29] MEDS ORDERED: FUROSEMIDE 40 MG in SYRINGE 0 ML IV ONE (23:45)
[2020-08-30] MEDS: ACETAMINOPHEN 325 MG TAB PO PRN (01:55)
--- NOTE | 2020-08-30 02:17 | Communication Note ---
Date of Service: August 30, 2020 Called to patient's bedside for increased dyspnea and pain at chest tube site after starting chest tube Pulmozyme infusion for loculated effusion. Exam with bilateral bibasilar coarse crackles R>L; hypoxic to 86% despite 2LNC. XR with increased opacification of right lung. Lasix 40mg IV x1 given with good UOP following. Switched to 6L Oxymask with satu ration up to 93% and more respiratory comfort. Dornase/Alteplase infusion stopped about senior care through treatment due to the worsening pain and increased oxygen demand. Given lidocaine patch qday and morphine 4mg q4h for pain. Advised to use incentive spirometer and showed how to use it. Chest Tube unclamped and placed to suction 20cm H2O due to patients declining respiratory status - this was done appx 25 minutes earlier than ordered for completion of treatment Resident Activity Tracking Resident Involvement: Resident Care Provided Care Provided: Adult Hospital Medicine
[2020-08-30] MEDS: MoRPHine SULFATE 4 MG/ML 1 ML CARP\\VIAL IV PRN (03:57)
[2020-08-30] MEDS: PIPERACILLIN/TAZOBACTAM 4.5 GM in DEXTROSE 5% 100 ML IV SCH ×3 (03:58→20:30)
[2020-08-30] MEDS ORDERED: LEVOTHYROXINE SODIUM 75 MCG TABLET PO SCH (06:30)
[2020-08-30 07:43] LABS: Hematocrit (blood only) 28.3 % (37-47); Hemoglobin 9.5 g/dL (12.0-16.0); Mean Corpuscular Hemoglobin 31.6 pg (25-34); Mean Corpuscular Hgb Conc 33.6 g/dL (32-36); Platelet Count 123 K/uL (130-400); RDW Coefficient of Variation 15.9 % (11.5-14.5); RDW Standard Deviation 55.2 fL (36.4-46.3); Red Blood Count 3.01 M/uL (4.2-5.4); White Blood Count 3.76 K/uL (4.8-10.8)
--- NOTE | 2020-08-30 08:00 | XRay Report ---
XR chest 1V portable CLINICAL HISTORY: Shortness of breath. COMPARISON STUDY: Chest CT and chest radiograph August 29, 2020. FINDINGS: Left subclavian Wtzgmq-c-Jxcw is in place. Right pleural pigtail catheter is in place. Ther e is a persistent right pleural effusion. Asymmetric right lung airspace opacity has slightly progres sed. There is no evidence for pulmonary edema. Cardiomegaly is unchanged. There is no pneumothorax. IMPRESSION: 1. Right pleural pigtail catheter in place. Persistent right pleural effusion. Increase in right adithya g airspace opacity. 2. No pneumothorax. ACT 112: Negative or not required by law. Electronically signed by: Josiah Artis M.D. 08/30/2020 7:59 AM
[2020-08-30] MEDS: PREGABALIN 75 MG CAP PO SCH ×2 (08:16→21:11)
[2020-08-30] MEDS: ACYCLOVIR 400 MG TAB PO SCH ×2 (08:18→21:10)
[2020-08-30 08:23] LABS: Estimated Average Glucose 206 mg/dl; Hemoglobin A1C 8.8 % (4.5-5.6)
--- NOTE | 2020-08-30 08:33 | XRay Report ---
XR chest 1V portable HISTORY: Shortness of breath. Right pleural effusion. Follow-up. COMPARISON: Chest 08/29/2020. FINDINGS: The heart remains enlarged. Left jugular Port-A-Cath terminates at the SVC. Right basilar p leural catheter is unchanged in position. There is a moderate loculated right pleural effusion, uncha nged. Trace left pleural effusion. No pneumothorax. Right mid to lower lung zones densities persist. There is mild central pulmonary vascular congestion without overt edema. IMPRESSION: 1. Overall, no significant change compared the prior study. Right basilar pleural catheter is unchang ed in position. 2. Moderate right and trace left pleural effusion are again noted. 3. Mild central pulmonary vascular congestion without overt edema. ACT 112: Negative or not required by law. Electronically signed by: Johnny Elam M.D. 08/30/2020 8:32 AM
[2020-08-30 08:34] LABS: BUN Creatinine Ratio 24.6 (10-20); Calcium 8.6 mg/dl (8.5-10.1); Creatinine Clr Calc Pharmacy 51.8 ml/min; Est GFR (Non-African American) 64.7; Magnesium 1.6 mg/dl (1.8-2.4); Potassium 3.8 mmol/L (3.5-5.1)
[2020-08-30 08:45] LABS: Beta-Hydroxybutyrate 6.47 mg/dl (0.2-2.81)
[2020-08-30] MEDS: ALTEPLASE, RECOMBINANT 10 MG in SYRINGE 50 ML IPL SCH ×2 (08:48→21:06)
[2020-08-30] MEDS ORDERED: LIDOCAINE 5% 1 PATCH TD SCH (09:00)
[2020-08-30] MEDS ORDERED: FLUTICASONE/VILANTEROL 100/25MCG 14 PUFFS/INHALER INH SCH (09:00)
[2020-08-30] MEDS ORDERED: CYANOCOBALAMIN 500 MCG TABLET (VITAMIN B-12) PO SCH (09:00)
[2020-08-30] MEDS ORDERED: PANTOprazole 40 MG TAB PO SCH (09:00)
[2020-08-30] MEDS ORDERED: ENOXAPARIN INJ 40 MG/0.4 ML SYR SQ SCH (09:00)
[2020-08-30] MEDS: INSULIN ASPART 100 UNITS/ML 3 ML PEN SC SCH ×4 (09:05→21:27)
[2020-08-30] MEDS ORDERED: MoRPHine SULFATE 4 MG/ML 1 ML CARP\\VIAL IV STA (10:30)
[2020-08-30] MEDS: DORNASE ALFA 5 ML in SYRINGE 25 ML IPL SCH ×2 (11:33→21:06)
[2020-08-30 11:38] LABS: Glucose Pleural Fluid 221 mg/dl; Total Protein Pleural Fluid 4.8 g/dl
[2020-08-30 11:43] LABS: Appearance Pleural Fluid BLOODY; Basophils, Fluid 0 %; Color Pleural Fluid RED; Eosinophils, Fluid 0 %; Lymphocytes, Fluid 10 %; Mono,Macrophage,Mesothelial 11 %; Neutrophils, Fluid 79 %; RBC Pleural Fluid (A) 2692000 /uL; Source Pleural Fluid RIGHT LUNG; WBC Pleural Fluid (A) 10062 /uL
--- NOTE | 2020-08-30 11:44 | Hospitalist Progress Note ---
Date of Service August 30, 2020 Assessment & Plan (1) Opacity of lung on imaging study: CTA chest on 08/29 showed right lower lobe airspace opacity and moderate- sized loculated right pleural effusion. Ddx includes pneumonia, pulmonary lesion, or pulmonary infarction. Now with acute respiratory failure with hypoxia requiring nasal O2. - Continue Zosyn started in the ED - MRSA swab - Negative on 08/29 - Discussed with pulmonary today -> Undergoing Mist 2 protocol as her pleural effusion is really loculated. Presently with sanguinous output. Sampled and sent for testing. - Supportive care, pain control. (2) Multiple myeloma: Follows with Anabelle Cote at [facility]. Was going to see her this coming Sunday (September 01) for next round of chemotherapy for her MM. Anemia appears at baseline. - Hold all chemotherapy agents - Discussed with oncology today and presently don't see any acute inpatient needs. Will discuss again tomorrow. - Continue acyclovir (3) Sarcoidosis of lung: Follows with Dr. Asher. Last visit on 05/21/2020 indicates sarcoidosis was quiescent. Not sure that that is playing a role in this issue. 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 A1c this admission was 8.8%. - Hold home glimepiride - Continue home pregabalin - Sliding scale insulin (5) Hypertension: BP presently 115/70. - Not on home meds apart from furosemide PRN -> Hold this for now. - Hold ASA (not really for HTN, but general heart health) given sanguinous chest tube output. (6) Back pain: Chronic spinal stenosis. - Continue home Nucynta PRN (7) Hyperlipidemia: - Continue home simvastatin (8) Hypothyroidism: TSH was 2.3 in 03/2020. No signs/symptoms of hypo-/hyperthyroidism. - Continue home Synthroid 75 mcg (9) DVT prophylaxis: Lovenox 40 mg SQ daily -> High risk given known cancer (MM) Admission and Anticipated Discharge Date Admission Date: August 29, 2020 Subjective Quite a bit of pain today from the chest tube. Had some shortness of breath overnight during Mist 2 protocol, but reports less shortness of breath today. Reports no fevers/chills, abdominal pain, nausea, or vomiting. Physical Exam Constitutional: WD/WN, vitals as above + acute distress Eyes: EOM intact bilaterally; no conjunctival abnormality ENMT: external ear and nose normal, oropharynx normal Neck: trachea midline, no thyromegaly normal visual inspection Respiratory: normal respiratory effort, lungs clear to auscultation no respiratory distress Chest tube on right side Cardiovascular: RRR, no murmur, no edema Chest (Breasts): Chest: + vascular access device or port (Left chest wall) Gastrointestinal (Abdomen): Inspection/Auscultation: abdomen normal to inspection; abdomen not distended Musculoskeletal: no cyanosis or clubbing, extremities motor strength 5/5 Skin: no rashes, warm and dry Neurologic: moves all extremities and awake Psychiatric: Orientation: alert, oriented to person and cooperative Results & Data Results & Data ([facility]) Vital Signs (Past 12 Hours) Vital Signs Temp Pulse Resp BP BP Pulse Ox 08/30/20 07:36 36.7 C 81 18 116/72 91 08/30/20 05:58 80 19 93 08/30/20 05:41 80 20 92 08/30/20 05:09 84 23 93 08/30/20 04:13 86 26 H 91 08/30/20 03:27 26 H 08/30/20 03:08 36.8 C 83 23 126/74 95 08/30/20 02:15 92 H 30 H 93 08/30/20 01:31 92 H 30 H 91 08/30/20 00:27 89 25 H 91 08/29/20 23:48 90 9 L 128/68 91 PG Care Time/CCT Total # of Minutes Spent Total Time Spent with Patient: Total time spent is greater than 50% in coordination of care (as documented) at patient's floor/unit and/or counseling patient: Coding Level of Care Code 89086 Subseq Hosp Care Lvl 3 Diagnoses Opacity of lung on imaging study R91.8 Multiple myeloma C90.00 Sarcoidosis of lung D86.0 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
--- NOTE | 2020-08-30 12:52 | Pulmonology Progress Note ---
Date of Service August 30, 2020 Assessment & Plan (1) Pleural effusion: 80-year-old female with a past medical history of multiple myeloma, sarcoidosis, hypertension diabetes mellitus type 2 presenting to the hospital with a large right-sided pleural effusion and hypoxia. She underwent placement of the pigtail catheter to drain the right complex pleural effusion on 08/29/2020. Currently receiving TPA and dornase via the pigtail catheter twice daily. Possibly 500 mL of output since insertion of the tube. Drainage continues to be sanguinous appearing and viscous. I was able to aspirate some fluid today and sent that to the lab for culture specimens and cytology evaluation. We will repeat another chest x-ray now along with a CBC. There was a slight decline in her hemoglobin overnight. She is hemodynamically stable. We may have to consider placement of another chest tube given the viscosity of the fluid and the loculations that were previously seen. Continue with IV Zosyn for the time being. Pleural fluid studies suggest neutrophilia with 79% neutrophils. Pleural pH 7.29. Pleural WBC 10,062. Pleural RBC 2,692,000. Total pleural protein 4.8. Pleural glucose 221. Pulmonary will continue to follow along with you. Thank you for the consult. (2) Acute hypoxemic respiratory failure: (3) Multiple myeloma: (4) Anemia: Admission and Anticipated Discharge Date Admission Date: August 29, 2020 Subjective Patient seen and examined this morning. She is lethargic. She is having chest pain at the site of insertion. She feels that her breathing is improved slightly. No fevers or chills. Hemodynamically stable. Review of Systems Review of Systems: All systems reviewed & are unremarkable except as noted in HPI & below Physical Exam Constitutional: Elderly and frail appearing female no apparent distress. Lying in bed. Nasal cannula in place. Eyes: PERRL, conjunctivae normal, anicteric sclerae Respiratory: Diminished lung sounds on the right. No wheezes. Cardiovascular: RRR, no murmur, no edema Gastrointestinal (Abdomen): normal bowel sounds, soft, nontender, no hepatosplenomegaly Skin: no rashes, warm and dry Neurologic: PERRL, EOMI, accommodation nl, no face palsy, no dysarthria Psychiatric: A+Ox3, euthymic affect Results & Data Results & Data ([facility]) Vital Signs (Past 12 Hours) Vital Signs Temp Pulse Resp BP BP Pulse Ox 08/30/20 07:36 98.1 F 81 18 116/72 91 08/30/20 05:58 80 19 93 08/30/20 05:41 80 20 92 08/30/20 05:09 84 23 93 08/30/20 04:13 86 26 H 91 08/30/20 03:27 26 H 08/30/20 03:08 98.2 F 83 23 126/74 95 08/30/20 02:15 92 H 30 H 93 08/30/20 01:31 92 H 30 H 91 I reviewed the vital signs, labs and imaging PG Care Time/CCT Total # of Minutes Spent Total Time Spent with Patient: Total time spent is greater than 50% in coordination of care (as documented) at patient's floor/unit and/or counseling patient: Coding Level of Care Code 56509 Subseq Hosp Care Lvl 3 Diagnoses Pleural effusion J90 Acute hypoxemic respiratory failure J96.01 Multiple myeloma C90.00 Anemia D64.9
[2020-08-30] MEDS: MAGNESIUM SULFATE / D5W 1 GM/100 ML BAG IV SCH ×3 (12:56→17:11)
[2020-08-30 13:25] LABS: Hematocrit (blood only) 27.5 % (37-47); Hemoglobin 9.4 g/dL (12.0-16.0); Immature Granulocytes # (auto) 0.04 K/uL (0.00-0.02); Immature Granulocytes % (auto) 0.9 %; Lymphocytes # (auto) 0.99 K/uL (1.2-3.4); Lymphocytes % (auto) 22.4 %; Mean Corpuscular Hemoglobin 32.2 pg (25-34); Mean Corpuscular Volume 94.2 fL (80-100); Mean Platelet Volume 11.2 fL (7.4-10.4); Monocytes # (auto) 0.76 K/uL (0.11-0.59); Monocytes % (auto) 17.2 %; Neutrophils # (auto) 2.62 K/uL (1.4-6.5); Neutrophils % (auto) 59.5 %; Platelet Count 132 K/uL (130-400); RDW Coefficient of Variation 15.7 % (11.5-14.5); RDW Standard Deviation 54.2 fL (36.4-46.3); Red Blood Count 2.92 M/uL (4.2-5.4); White Blood Count 4.41 K/uL (4.8-10.8)
[2020-08-30 13:58] LABS: Mean Corpuscular Hgb Conc 34.2 g/dL (32-36)
--- NOTE | 2020-08-30 14:06 | XRay Report ---
XR chest 1V portable CLINICAL HISTORY: follow up right pigtail chest tube COMPARISON STUDY: 08/30/2020 FINDINGS: The cardiac and mediastinal contours remain stable. There is a left-sided A-Port catheter. There is a right-sided pigtail pleural drainage catheter unchanged in position. There is a persistent moderate right pleural effusion with associated right lung airspace opacities. The left hemidiaphrag m is obscured suggesting a left pleural effusion and/or left lower lobe atelectasis/consolidation.[ IMPRESSION: 1. No change in position right-sided pleural catheter 2. Persistent right pleural effusion with associated right lung airspace opacities 3. Left hemidiaphragm is obscured suggesting left pleural effusion and/or left lower lobe atelectasis /consolidation ACT 112: Negative or not required by law. Electronically signed by: Clint Hurley M.D. 08/30/2020 2:05 PM
[2020-08-30] MEDS ORDERED: INSULIN GLARGINE SOLOSTAR 100 UNITS/ML 3 ML PEN SC ONE (15:30)
[2020-08-30] MEDS ORDERED: ACETAMINOPHEN 500 MG TAB PO STA (17:52)
[2020-08-30 19:22] LABS: Hematocrit (blood only) 26.9 % (37-47); Hemoglobin 9.3 g/dL (12.0-16.0)
[2020-08-30 19:32] LABS: Base Excess VBG 0.6 mEq/L; Oxygen Saturation VBG 87.7 %; pH VBG 7.43 (7.36-7.41)
[2020-08-30] MEDS ORDERED: MoRPHine SULFATE 2 MG/ML CARP IV STA (20:54)
[2020-08-30] MEDS ORDERED: FUROSEMIDE 40 MG in SYRINGE 0 ML IV ONE (21:00)
[2020-08-30] MEDS: SIMVASTATIN 40 MG TAB PO SCH (21:11)
--- NOTE | 2020-08-30 22:42 | Critical Care Progress Note ---
Date of Service August 30, 2020 Assessment & Plan (1) Pleural effusion: Impression: 80-year-old female with a past medical history of multiple myeloma, sarcoidosis, hypertension diabetes mellitus type 2 presenting to the hospital with a large right-sided pleural effusion and hypoxia. Neuro - [facility] ICU: Negative Cardiac - CHF exacerbation?Echo 05/27LVEF 55 to 60%. Mild aortic insufficiency, mild mitral regurg, mild pulmonary hypertension with RV dilation -We will repeat echo study on this admission -Given 40 IV Lasix and placed on CPAP -Troponin pending -Monitor strict I's and O's -Currently normotensive in NSR on monitor -Continuous monitor on telemetry Hyperlipidemiacontinue statin, holding ASA due to sanguinous chest output Respiratory - Acute hypoxemic respiratory failurepatient with worsening hypoxia this evening, now requiring CPAP. Moved to ICU for closer monitoring per Dr. Tamez recommendation -S/p pigtail catheter to drain the right complex pleural effusion on 08/29/2020. Currently receiving TPA and dornase via the pigtail catheter twice daily. -Chest tube with now 1750 total output of sanguinous drainage. - culture specimens and cytology evaluation pending. -Pleural fluid studies suggest neutrophilia with 79% neutrophils. Pleural pH 7.29. Pleural WBC 10,062. Pleural RBC 2,692,000. Total pleural protein 4.8. Pleural glucose 221. -Repeat chest x-ray unchanged from prior study, CT chest as above -Hemoglobin stable at 9.3, remains hemodynamically stable - Continue with Zosyn for the time being. -Cannot rule out element of pulmonary congestion. Placed on CPAP and given 40 mg IV Lasix. Echo ordered for a.m. -Continuous monitoring on pulse ox, wean O2 as tolerated GI - Hiatal hernia/GERDcontinue PPI RENAL/LYTES - Creatinine stable at 0.86 this morning, monitor routine BMPs replete electrolytes as indicated - Foleystrict I's and O's ENDO - DM type IIpatient currently hyperglycemic, repeating BMP -We will start on insulin drip as patient's blood glucose currently in the 400s -ICU hyperglycemic protocol, consult pharmacy for glycemic management Hypothyroidcontinue Synthroid HEME - Hemoglobin remained stable at 9, no indication for transfusion at this time. Will monitor with routine CBCs Multiple myeloma Follows with Anabelle Cote at [facility]. Was going to see her this coming Sunday (September 01) for next round of chemotherapy for her MM. Anemia appears at baseline. - Hold all chemotherapy agents -No acute inpatient needs recommended by oncology - Continue acyclovir ID - Pneumonia?No fevers or leukocytosis -Right lung opacities on chest imaging -Pleural fluid cultures pending -COVID-19 negative, influenza negative, RSV negative -Continue Zosyn for now LINES/IV ACCESS - Peripheral IVs DVT PROPHYLAXIS - SCDs, Lovenox Thank you for allowing us to participate in the care of this patient. Please refer to my attending physician's documentation for any further recommendations. 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 Tuttle is a 80-year-old female who has been followed by pulmonology and was seen by earlier today. Unfortunately the patient has continued to have progressive hypoxia and work of breathing this evening. She is placed on CPAP and given 40 IV Lasix earlier this evening. She had a right-sided chest tube placed Sunday evening and is undergoing TPA and Flonase infusion twice daily. Today she has had now 1750 of sanguinous output. Her hemoglobin remains stable at 9.3. She was sent for repeat CT of the chest W0 contrast this evening, which showed worsening atelectasis and progression of anterior loculated effusion. Case discussed with Dr. Tamez, who would like patient to be moved to ICU for closer monitoring at this time. On exam, patient appears very weak and frail and is slightly tachypneic with respiratory rate in the 20s. She reports a wet cough which is nonproductive and states that she is feeling tired and weak. Despite being tachypneic, she denies any shortness of breath. She denies pain, chest pain or palpitations, swelling in extremities, nausea or vomiting, abdominal pain, fevers or chills. Review of Systems Review of Systems: All systems reviewed & are unremarkable except as noted in HPI & below Physical Exam Constitutional: + frail appearing, cooperative and + lethargic Eyes: PERRL, conjunctivae normal, anicteric sclerae ENMT: external ear and nose normal, oropharynx normal Neck: trachea midline, no thyromegaly Respiratory: Rales auscultated bilaterally, more prominent on the right side. Symmetrical chest wall movement. Nonproductive cough. No wheezes. Mild tachypnea Cardiovascular: RRR, no murmur, no edema Heart Sounds: normal S1 and normal S2 Vessels: no JVD Extremities: no edema Chest (Breasts): Additional Comments: Right-sided chest tube with sanguineous output Gastrointestinal (Abdomen): normal bowel sounds, soft, nontender, no hepatosplenomegaly Musculoskeletal: no cyanosis or clubbing, extremities motor strength 5/5 Skin: no rashes, warm and dry Neurologic: PERRL, EOMI, accommodation nl, no face palsy, no dysarthria Alert and oriented x3 Genitourinary: Indwelling Fraser catheter present Results & Data Results & Data ([facility]) Vital Signs (Past 12 Hours) Vital Signs Temp Pulse Pulse Resp BP Pulse Ox 08/30/20 19:57 102 H 30 H 95 08/30/20 19:00 36.5 C 102 H 35 H 137/76 86 L 08/30/20 17:25 105 H 119/72 08/30/20 15:12 36.7 C 99 H 17 100/41 L 89 L Diagnostic Findings -CT chest Wo contrast preliminary report: New locking loop drain in the right lower pleural space laterally. There is significant decrease in the size of the inferior portion of the previously seen multiloculated pleural fluid collection. There is a persistent approximately 4 x 6 cm collection superiorly and posteriorly which is increased in size. Increase in amount of consolidated lung in the right mid to lower hemithorax involving most of the right lower lobe. There is a linear hyperdensity in the right lower lobe peripherally. Similar to previous. There is also development of partial left lower lobe atelectasis which is new. 8 cm hiatal hernia. 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
[2020-08-30] MEDS ORDERED: INSULIN PROTOCOL GOAL RANGE ONE (22:46)
[2020-08-30] MEDS ORDERED: PHARMACY GLYCEMIC MGMT CONSULT PRN (23:13)
[2020-08-30] MEDS ORDERED: ICU PROTOCOL FOR HYPERGLYCEMIA PRN (23:24)
[2020-08-30] MEDS ORDERED: INSULIN HUMAN REGULAR PER UNIT 4 UNITS in SYRINGE 3.96 ML IV ONE (23:30)
[2020-08-30] MEDS ORDERED: INSULIN REGULAR 250 UNITS in SODIUM CHLORIDE 0.9% 247.5 ML IV SCH (23:30)
[2020-08-30] MEDS: ALBUMIN 25% 12.5 GM/50 ML VIAL IV SCH (23:35)
[2020-08-30 23:36] LABS: BUN Creatinine Ratio 17.9 (10-20); Beta-Hydroxybutyrate 8.74 mg/dl (0.2-2.81); Blood Urea Nitrogen 30 mg/dl (7-18); Calcium 8.1 mg/dl (8.5-10.1); Carbon Dioxide 24 mmol/L (21-32); Chloride 101 mmol/L (98-107); Est GFR (African American) 34.1; Est GFR (Non-African American) 29.4; Glucose 342 mg/dl (70-99); Magnesium 2.6 mg/dl (1.8-2.4); Phosphorus 5.5 mg/dl (2.5-4.9); Potassium 4.3 mmol/L (3.5-5.1); Sodium 137 mmol/L (136-145)
[2020-08-30 23:57] LABS: Troponin I < 0.015 ng/ml (0-0.045)
[2020-08-31] MEDS ORDERED: DKA GOAL RANGE 150-250 mg/dl ONE (00:03)
[2020-08-31] MEDS ORDERED: INSULIN REGULAR 250 UNITS in SODIUM CHLORIDE 0.9% 247.5 ML IV SCH (00:15)
[2020-08-31] MEDS: ALBUMIN 25% 12.5 GM/50 ML VIAL IV SCH ×3 (00:37→02:40)
[2020-08-31 00:48] LABS: Base Excess VBG 0.6 mEq/L; HCO3 VBG 27 mmol/L; Oxygen Saturation VBG 62.3 %; PCO2 VBG 49 mmHg (38-50); PO2 VBG 33 mmHg; pH VBG 7.35 (7.36-7.41)
[2020-08-31] MEDS: MoRPHine SULFATE 4 MG/ML 1 ML CARP\\VIAL IV PRN ×2 (01:49→04:24)
[2020-08-31] MEDS ORDERED: HEPARIN 100 UNIT/ML 5ML FLUSH FLUSH PRN (01:49)
[2020-08-31] MEDS ORDERED: SODIUM CHLORIDE 0.9% 1000ML 500 ML IV ONE (01:54)
[2020-08-31] MEDS ORDERED: SODIUM CHLORIDE 0.9% 1000ML 1,000 ML IV ONE (01:58)
[2020-08-31] MEDS ORDERED: NSS + 20MEQ KCL 20 MEQ/1,000 ML BAG IV SCH ×2 (02:00→04:00)
[2020-08-31] MEDS ORDERED: D5NSS + 20MEQ KCL 20 MEQ/1,000 ML BAG IV SCH (03:00)
[2020-08-31] MEDS: PIPERACILLIN/TAZOBACTAM 4.5 GM in DEXTROSE 5% 100 ML IV SCH (03:38)
[2020-08-31] MEDS ORDERED: FUROSEMIDE 40 MG/4 ML VIAL IV ONE (04:02)
[2020-08-31] MEDS ORDERED: FUROSEMIDE 40 MG in SYRINGE 0 ML IV ONE (04:03)
[2020-08-31 04:39] LABS: BUN Creatinine Ratio 18.2 (10-20); Calcium 7.6 mg/dl (8.5-10.1); Creatinine Clr Calc Pharmacy 25.2 ml/min; Est GFR (African American) 31.3; Magnesium 2.6 mg/dl (1.8-2.4)
[2020-08-31 04:44] LABS: Beta-Hydroxybutyrate 1.97 mg/dl (0.2-2.81); Phosphorus 5.8 mg/dl (2.5-4.9)
[2020-08-31 04:45] LABS: iSTAT Arterial Blood Gas HCO3 28 meg/L (19-24); iSTAT Arterial Blood Gas pCO2 81 mmHg (35-46); iSTAT Arterial Blood Gas pH 7.15 (7.35-7.45); iSTAT Arterial Blood Gas pO2 90 mmHg (80-95); iSTAT Carbon Dioxide 30 mmol/L (24-31); iSTAT Hematocrit 20 % (37-47); iSTAT Hemoglobin 6.8 g/dl (12.0-16.0); iSTAT Potassium 4.1 mmol/L (3.3-5.0); iSTAT Sodium 138 mmol/L (135-144)
--- NOTE | 2020-08-31 04:57 | Communication Note ---
Date of Service: August 31, 2020 Unfortunately this morning, patient's pulmonary status acutely decompensated. BiPAP had to be increased to 10/20 with 1% FiO2 to maintain oxygen saturation. Patient now on acute hypoxic hypercapnic respiratory failure with respiratory acidosis and PCO2 of 80. Also, patient's hemoglobin has now dropped to 6.8 from 9.3. She is now obtunded and unable to respond. I spoke with the patient's and daughter over the phone. Patient's came to the bedside and we spoke further on the patient's wishes as she is DNR/DNI, and would not want i ntubation or mechanical ventilation. Discussed potential options of VATS procedure, for which he does not think the patient would be interested. Family feels that at this point patient should be made comfortable in lieu of aggressive measures. Goals of comfort care were explained thoroughly with the patient's , and he is aware that she will likely pass away. Family is in agreement, and we will proceed with comfort measures at this time. Coding Level of Care Code None
[2020-08-31 05:11] LABS: Hematocrit (blood only) 20.2 % (37-47); Hemoglobin 6.8 g/dL (12.0-16.0); Mean Corpuscular Hemoglobin 32.1 pg (25-34); Mean Corpuscular Hgb Conc 33.7 g/dL (32-36); Mean Corpuscular Volume 95.3 fL (80-100); Mean Platelet Volume 11.1 fL (7.4-10.4); Platelet Count 218 K/uL (130-400); RDW Standard Deviation 55.8 fL (36.4-46.3); Red Blood Count 2.12 M/uL (4.2-5.4); White Blood Count 8.76 K/uL (4.8-10.8)
[2020-08-31] MEDS ORDERED: ONDANSETRON 4 MG OD TAB SL PRN (05:33)
[2020-08-31] MEDS ORDERED: LORazepam 1 MG/2 ML VIAL IV PRN (05:33)
[2020-08-31] MEDS ORDERED: MoRPHine SULFATE 2 MG/ML CARP IV PRN (05:33)
[2020-08-31] MEDS ORDERED: GLYCOPYRROLATE 0.2 MG/ML VIAL IV PRN (05:33)
[2020-08-31] MEDS ORDERED: ONDANSETRON INJ 2 MG/ML 2 ML VIAL IV PRN (05:33)
--- NOTE | 2020-08-31 06:06 | Death Pronouncement Note ---
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 In short, patient was admitted with acute hypoxic respiratory failure and was found to have large right-sided effusion. Chest tube inserted Sunday and she was undergoing treatment with TPA/Flonase. Patient's hypoxia acutely worsened last night and she was transferred to the ICU for further management. She continued to deteriorate throughout the night, CODE STATUS was DNR/DNI. Family was called to the bedside and reaffirmed that they were not interested in aggressive measures. Per family's wishes, patient was made comfort care this morning and she at . Assessment: I presented to the patients room for evaluation. Upon assessment, the patient was found to be in a terminal state. Pupils were fixed and dilated without response. No palpable pulses appreciated. No spontaneous breaths noted. Heart sounds were absent. No response to painful stimuli. Time of : as pronounced by myself. Family present at bedside. Appropriate response to grief appreciated. Patients primary service was contacted and made aware of patient demise. Pronouncement section of the Certificate was filled out and signed by myself. Cause of : Primary -acute hypoxic, hypercapnic respiratory failure Secondary -loculated pleural effusion Contributing Causes of -multiple myeloma, pneumonia Please feel free to contact me with any questions regarding the above-mentioned course. 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
[2020-08-31 06:09] LABS: Estimated Average Glucose 200 mg/dl; Hemoglobin A1C 8.6 % (4.5-5.6)
--- NOTE | 2020-08-31 06:36 | XRay Report ---
XR chest 1V portable CLINICAL HISTORY: Respiratory failure. COMPARISON STUDY: Chest radiograph and chest CT August 30, 2020. FINDINGS: Left internal jugular Xowuai-w-Yofh is in place. A right basilar pleural pigtail catheter i s in place. There is no pneumothorax. Right pleural effusion persists but is improved. Extensive asym metric right lung airspace opacity is noted. Right lung aeration has improved. Left basilar opacity h as slightly improved as well. Cardiomegaly is again noted. IMPRESSION: 1. Right basilar pleural pigtail catheter place. Extensive, but improved, right lung airspace opacit ies. 2. Interval decrease in the small right pleural effusion. 2. Interval improvement in left basilar opacity. ACT 112: Negative or not required by law. Electronically signed by: Josiah Artis M.D. 08/31/2020 6:35 AM
--- NOTE | 2020-08-31 07:03 | XRay Report ---
XR chest 1V portable CLINICAL HISTORY: worsening dyspnea COMPARISON STUDY: Chest radiograph August 30, 2020 at 1:41 PM. FINDINGS: Left internal jugular Szxyya-v-Euei remains in place. Right basilar pleural pigtail cathete r is in place. There is no pneumothorax. Extensive right lung airspace opacity persists. Dense left b asilar airspace opacity persists. There is pulmonary vascular congestion. Cardiomegaly is noted. IMPRESSION: 1. Right pleural pigtail catheter in place with residual right pleural effusion. Persistent extensive bilateral airspace opacities, similar to prior exam. 2. Cardiomegaly with pulmonary vascular congestion. 3. No pneumothorax. ACT 112: Negative or not required by law. Electronically signed by: Josiah Artis M.D. 08/31/2020 7:02 AM
--- NOTE | 2020-08-31 07:24 | Discharge Summary ---
Date of Service August 31, 2020 Admission HPI Per Admitting Provider 80yo F w/ hx of multiple myeloma and DM who presents with right chest wall pain, found to have RLL consolidation and pleural effusion. The patient reports that she started having some mild right-sided chest wall pain about 1 week ago. The pain started out as minor and would come and go. It was worse with movement and deep breathing. She denies any radiation of the pain, stating it's just "right there." She thought it might related to her chronic spinal stenosis, and took her Nucenta which helped alleviate the pain. Hot packs also helped. However, it has been getting worse over the last week, so they came to the ER. She denies any fevers, chills, shortness of breath, night sweats, weight loss, or other infectious or B symptoms. Principal Diagnosis Pleural effusion - Empyema vs. malignant pleural effusion Discharge Exam No pupil response, no heart beat, no respirations Discharge Data Allergies Allergy/AdvReac Type Severity Reaction Status Date / Time Sulfa (Sulfonamide Allergy Severe RASH Verified 08/29/20 14:51 Antibiotics) latex Allergy Unknown REDNESS Verified 08/29/20 14:51 codeine AdvReac Intermediate SPACED OUT Verified 08/29/20 14:51 adhesive AdvReac Mild BREAKS OUT Verified 08/29/20 14:51 amoxicillin AdvReac Unknown YEAST Verified 08/29/20 14:51 INFECTION clavulanic acid AdvReac Unknown YEAST Verified 08/29/20 14:51 INFECTION Consultations 08/29/20 14:23 ED Decision to Admit Stat 08/29/20 15:31 Consult Pulmonology Routine 08/30/20 23:24 Consult Lead Case Manager Routine 08/31/20 05:33 Consult Palliative Care Routine Ordered Studies 08/29/20 12:30 CT angio abdomen pelvis w con Stat 08/29/20 12:33 CT angio chest PE protocol Stat 08/29/20 16:09 US point of care ultrasound Routine 08/30/20 21:41 CT chest diagnostic wo con Stat Hospital Course (1) Opacity of lung on imaging study: Increasing respiratory distress overnight of 08/30-08/31. Transferred to ICU and put on BiPap. Decline continued, and the patient was made comfort care by the family. Patient passed on 08/31/2020 at 05:56am. CTA chest on 08/29 showed right lower lobe airspace opacity and moderate-sized loculated right pleural effusion. Ddx includes pneumonia, pulmonary lesion, or pulmonary infarction. Now with acute respiratory failure with hypoxia requiring nasal O2. - Continue Zosyn started in the ED - MRSA swab - Negative on 08/29 - Discussed with pulmonary today -> Undergoing Mist 2 protocol as her pleural effusion is really loculated. Presently with sanguinous output. Sampled and sent for testing. - Supportive care, pain control. (2) Multiple myeloma: Follows with Anabelle Cote at [facility]. Was going to see her this coming Sunday (September 01) for next round of chemotherapy for her MM. Anemia appears at baseline. - Hold all chemotherapy agents - Discussed with oncology today and presently don't see any acute inpatient needs. Will discuss again tomorrow. - Continue acyclovir (3) Sarcoidosis of lung: Follows with Dr. Asher. Last visit on 05/21/2020 indicates sarcoidosis was quiescent. Not sure that that is playing a role in this issue. 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 A1c this admission was 8.8%. - Hold home glimepiride - Continue home pregabalin - Sliding scale insulin (5) Hypertension: BP presently 115/70. - Not on home meds apart from furosemide PRN -> Hold this for now. - Hold ASA (not really for HTN, but general heart health) given sanguinous chest tube output. (6) Back pain: Chronic spinal stenosis. - Continue home Nucynta PRN (7) Hyperlipidemia: - Continue home simvastatin (8) Hypothyroidism: TSH was 2.3 in 03/2020. No signs/symptoms of hypo-/hyperthyroidism. - Continue home Synthroid 75 mcg (9) DVT prophylaxis: Lovenox 40 mg SQ daily -> High risk given known cancer (MM) Total Time Total Time Spent Total Time Spent (In Minutes): 35 Discharge Plan Discharge Items Reason For Visit: CAP VS LUNG CANCER Condition on Discharge: Fair Medications and DC Order Prescriptions: No Action cyanocobalamin (vitamin B-12) [Vitamin B-12] 1,000 mcg tablet 1,000 mcg PO DAILY RF: 0 meclizine 12.5 mg tablet 12.5 mg PO TID PRN (Reason: Dizziness) RF: 0 acyclovir 400 mg tablet 400 mg PO BID RF: 0 albuterol sulfate [Ventolin HFA] 90 mcg/actuation HFA aerosol inhaler 2 puffs INH Q6H PRN (Reason: sob) RF: 0 zoledronic acid [Zometa] 4 mg/5 mL solution 4 mg IV MONTHLY RF: 0 lactobacillus combination no.9 [Adult 50 Plus Probiotic] 4 billion cell capsule 4,000 mmu cells PO DAILY RF: 0 Darzalex 20 mg/mL solution 20 mg IV MONTHLY RF: 0 simvastatin [Zocor] 40 mg tablet 40 mg PO QPM Qty: 90 RF: 3 aspirin 81 mg tablet,delayed release (DR/EC) 81 mg PO DAILY Qty: 30 RF: 2 furosemide [Lasix] 20 mg tablet 20 mg PO DAILY PRN (Reason: swelling) Qty: 90 RF: 3 glimepiride 4 mg tablet 4 mg PO BID Qty: 180 RF: 3 levothyroxine [Synthroid] 75 mcg tablet 75 mcg PO DAILY Qty: 90 RF: 3 pantoprazole [Protonix] 40 mg tablet,delayed release (DR/EC) 40 mg PO DAILY Qty: 90 RF: 3 Nucynta 50 mg tablet 50 mg PO TID PRN (Reason: pain) Qty: 90 RF: 0 Lyrica 75 mg capsule 75 mg PO BID Qty: 180 RF: 3 fluticasone propion-salmeterol [Advair Diskus] 250-50 mcg/dose blister with device 1 inh inhalation BID Qty: 180 RF: 3 clotrimazole-betamethasone 1-0.05 % lotion 1 applic topical BID PRN (Reason: itchy scalp) Qty: 30 RF: 1 Ninlaro 2.3 mg capsule See Rx Instructions PO .COMPLEX RF: 0 (DME) blood sugar diagnostic [FreeStyle Test] Strip See Rx Instructions .ROUTE .MEDSUPPLY Qty: 100 RF: 3 dexamethasone 20 mg tablet 20 mg PO WK RF: 0 Pomalyst 2 mg capsule 2 mg PO DAILY RF: 0 naproxen 500 mg tablet 500 mg PO BID 14 Days Qty: 28 RF: 0 Revlimid 2.5 mg capsule 2.5 mg PO MONTHLY RF: 0 Admission Data Admit Date/Time: 08/29/20 15:31 Attending Provider: Broderick Pedro Admit Provider: Broderick Pedro Primary Care Provider: Italo Burr III Other Providers: Broderick Pedro ; Dimitri Ross ; Logan Tamez ; Kylie Irving Coding Level of Care Code D/C Day Management >30 mins Diagnoses Opacity of lung on imaging study R91.8 Multiple myeloma C90.00 Sarcoidosis of lung D86.0 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
[2020-08-31] MEDS ORDERED: INSULIN ASPART 100 UNITS/ML 3 ML PEN SC SCH ×2 (07:30)
--- NOTE | 2020-08-31 08:10 | CT Scan Report ---
CT chest diagnostic wo con CLINICAL HISTORY: Hypoxia. Pleural effusion. COMPARISON STUDY: 08/29/2020 CT DOSE: 917.00 mGy.cm TECHNIQUE: CT of the thorax was performed from the thoracic inlet to the lung bases. Images are revi ewed in the axial, sagittal, and coronal planes. IV contrast was not administered for this examinatio n. A dose lowering technique was utilized adhering to the principles of ALARA. FINDINGS: Thyroid: Imaged portions of the thyroid gland are normal in appearance. Thoracic aorta: The thoracic aorta is normal in course and caliber, noting standard 3 vessel arch sami amandeep. Heart: The heart is mildly enlarged. There are coronary artery calcifications. There is no significan t pericardial effusion Lungs and pleural spaces: There is a right pleural pigtail catheter present. There are right lower lo be suture lines. There is a qpdql-uj-gjxritfl right pleural effusion partially loculated. There is bi lateral lower lobe ovary consolidation with air bronchograms. There is a trace left pleural effusion. There is moderate respiratory motion artifact. Mediastinum: There is no evidence of pathologic mediastinal lymphadenopathy. There is a hiatal hernia . Elena: There is no evidence of pathologic hilar adenopathy given the limitations of a noncontrast stud y. Axilla: There is no evidence of pathologic axillary lymphadenopathy. Upper abdomen: There is a hiatal hernia. Skeletal structures: There are no lytic or blastic osseous lesions. IMPRESSION: 1. Motion degraded study 2. New right pigtail pleural drainage catheter. Interval decrease in the size of a atemh-mb-gjbukpxr partially loculated right pleural effusion. Right lower lobe parenchymal consolidation with air bronc hograms. 3. Interval development of a trace left pleural effusion with left lower lobe atelectasis/consolidati on with air bronchograms. ACT 112: Negative or not required by law. Electronically signed by: Clint Hurley M.D. 08/31/2020 8:09 AM
[2020-08-31] MEDS ORDERED: INSULIN GLARGINE SOLOSTAR 100 UNITS/ML 3 ML PEN SC SCH (09:00)
--- NOTE | 2020-09-10 12:03 | Coding Query ---
PRESENT ON ADMISSION QUERY To promote full compliance with coding requirements relating to pateint care, physician participation is requested in all cases of dairy cattle farm worker uncertainty. Please assist us with the question(s) below: Please place an X within the parenthesis (x). The following diagnosis listed in this patient's medical record require physician assistance to determine if they were present on admission (POA) or not. Please advise for each diagnosis whether it was present on admission, not present on admission, or if it was clinically undetermined. 1. EMPYEMA (documented on Discharge Summary) (x ) Present On Admission ( ) Not Present On Admission ( ) Clinically Undetermined Thank you Kenia Kerns *Definition of the present on admission (POA)-Present on admission is defined as present at the time the order for inpatient admission occurs. Conditions that develop during an outpatient encounter prior to a written order for inpatient admission (including emergency department, observation, or outpatient surgery) are considered present on admission. MTDD
--- NOTE | 2020-09-10 12:07 | Coding Query ---
To promote full compliance with coding requirements relating to patient care, provider participation is requested in all cases of sanitation worker cleaning machinery uncertainty. Please assist us with the question(s) below: Coding Question(s): The diagnosis below was documented in the chart beginning on ER and last documented on 08/30/20 Critical Care Progress Note, then subsequently fell off on further documentation on the Discharge Summary, other than possible finding on CTA. Please indicate if it is still a possible diagnosis or ruled out. Physician's Response(s): PNEUMONIA ( x ) Diagnosed and POA ( ) Diagnosed and not POA ( ) Ruled out ( ) Other (please specify) MTDD
--- NOTE | 2020-09-10 12:12 | Coding Query ---
CONGESTIVE HEART FAILURE To Promote full compliance with coding requirements relating to patient care, physician participation is requested in all cases of farm machinery set up mechanic uncertainty. Please assist us with the following questions. A diagnosis of Congestive Heart Failure is documented in the patient's medical record on 08/30/20 Critical Care Progress Note with documentation of, "CHF exacerbation?Echo 05/27LVEF 55 to 60%. Mild aortic insufficiency, mild mitral regurg, mild pulmonary hypertension with RV dilation -We will repeat echo study on this admission -Given 40 IV Lasix and placed on CPAP -Troponin pending -Monitor strict I's and O's -Currently normotensive in NSR on monitor -Continuous monitor on telemetry.". To accurately code this diagnosis and to compare patient severity, we ask that you specify the type of heart failure by placing an X within the parenthesis (x). ( ) SYSTOLIC HEART FAILURE - Please specify further: ( ) Acute ( ) Chronic ( ) Acute on Chronic ( ) Rheumatic ( ) Unknown ( ) DIASTOLIC HEART FAILURE - Please specify further: ( ) Acute ( ) Chronic ( ) Acute on Chronic ( ) Rheumatic ( ) Unknown ( ) COMBINED SYSTOLIC AND DIASTOLIC HEART FAILURE - Please specify further: ( ) Acute ( ) Chronic ( ) Acute on Chronic ( ) Rheumatic ( ) Unknown ( x ) CHF EXACERBATION IS RULED-OUT Was the CHF Present On Admission? Please check the appropriate box: ( ) Present on Admission ( ) Not Present On Admission ( x ) Clinically undetermined Thank you Kenia ANNA
--- NOTE | 2020-09-10 12:16 | Coding Query ---
CODING QUERY To promote full compliance with coding requirements relating to patient care, provider participation is requested in all cases of senior center manager uncertainty. Please assist us with the question(s) below: Coding Question(s): Malignant Pleural Effusion is documented in the record and on the Discharge Summary. This diagnosis has a code first note to code first the underlying neoplasm. Please specify below, in your clinical opinion, regarding the underlying neoplasm. ( x ) Known/diagnosed Multiple Myeloma ( ) likely Other: Please Specify ( ) Unknown likely underlying malignant neoplasm site But she *did not* have a malignant pleural effusion. Physician's Response(s): Thank you Kenia Kerns Principal Diagnosis: "that condition established after study, to be chiefly responsible for occasioning the admission of the patient to the hospital for care." Co-Existing Principal Diagnosis: "when two or more diagnoses equally meet the criteria for principal diagnosis as determined by the circumstances of admission, diagnostic work up, and/or therapy provided, and the Alphabetic Index, Tabular List, or another coding guideline does not provide sequencing direction, any one of the diagnoses may be sequenced first." "When the physician has documented what appears to be a current diagnosis in the body of the record, but has not included the diagnosis in the final diagnostic statement, the physician should be asked whether the diagnosis should be added." ([facility] 2 QTR90. p3-4) SHOSHANA
--- NOTE | 2020-09-20 07:44 | Coding Query ---
Do not recall every seeing this patient. I do not see any notes from me either. CODING QUERY To promote full compliance with coding requirements relating to patient care, provider participation is requested in all cases of organ fixer uncertainty. Please assist us with the question(s) below: Coding Question(s): There is documentation in the record the 08/30 Orthopedic Consultation and on the 08/31 Operative Report of, "Infection associated with internal fixation device of left tibia", and on the 09/01 Critical Care Consultation of, "Sepsissource likely infected hardware", and documentation on Discharge Summary of, "Sepsisafter further review, was in fact septic ankle/incisional infectionthis has been cleared out operatively, MSSA". Please specify below, in your clinical opinion, regarding the Infection. ( ) Infection due to internal fixation device of left tibia and/or infected hardware ( ) septic ankle/incisional infection - postoperative complication ( ) Both infection due to internal fixation device fo left tibia and septic ankle/incisional infection ( ) Other: Please Specify Physician's Response(s): Thank you Kenia Kerns Principal Diagnosis: "that condition established after study, to be chiefly responsible for occasioning the admission of the patient to the hospital for care." Co-Existing Principal Diagnosis: "when two or more diagnoses equally meet the criteria for principal diagnosis as determined by the circumstances of admission, diagnostic work up, and/or therapy provided, and the Alphabetic Index, Tabular List, or another coding guideline does not provide sequencing direction, any one of the diagnoses may be sequenced first." "When the physician has documented what appears to be a current diagnosis in the body of the record, but has not included the diagnosis in the final diagnostic statement, the physician should be asked whether the diagnosis should be added." ([facility] 2 QTR90. p3-4) SHOSHANA
== END 2020-08-31 05:54 | disposition expired | DRG 177 ==
LOC: ED 11:42 → 3N 15:31 → 2S 08-30 18:52 → 1E 08-30 22:40